=== PATIENT | female | born 1970 | race Caucasian/White ===

== ENCOUNTER 2016-11-15 11:37 | Inpatient (IN) | payer BC, OTHER ==
[~2016-11-15] VITALS: Ht 170.2 cm; Wt 64.3 kg
[2016-11-15] VITALS (27 sets, daily range): BP systolic 75–111; BP diastolic 39–62; PULSE 101–126; RESP 11–22; TEMP 98.7–100.7; O2SAT 94–100
[~2016-11-15 11:37] MED LIST: CEFU1TAB43 PO; FOLI1 PO; FOLI1TAB PO; GABA100C4 PO; HYDRO50 PO; LORA-474 PO; PANT40IN3 PO; TRAZ100 PO; VITA100T13 PO
[2016-11-15] MEDS ORDERED: SODIUM CHLOR 0.9% 1000 ML INJ 1,000 ML IV SCH (11:54)
[2016-11-15] MEDS ORDERED: PANTOPRAZOLE INJ 80 MG in SODIUM CHLORIDE 0.9% INJ 100 ML IV SCH (12:00)
[2016-11-15] MEDS ORDERED: PANTOPRAZOLE INJ 80 MG in SODIUM CHLORIDE 0.9% INJ 35 ML IV ONE (12:00)
[2016-11-15] MEDS ORDERED: SODIUM CHLORIDE 0.9% FLUSH 5 ML FLUSH IVF PRN (12:00)
[2016-11-15] MEDS ORDERED: OCTREOTIDE INJ 500 MCG in SODIUM CHLORID 0.9% 500 ML INJ 500 ML IV SCH (12:00)
[2016-11-15] MEDS ORDERED: TRAZ100T4 PO (12:10)
[2016-11-15 12:14] LABS: AUTOMATED NEUTROPHIL # 6.5 TH/MM3 (1.8-7.7); BASOPHIL # 0.1 TH/MM3 (0-0.2); BASOPHIL % 0.9 % (0.0-2.0); EOSINOPHIL % 0.1 % (0.0-4.0); HEMATOCRIT 22.9 % (35.0-46.0); LYMPH % 11.4 % (9.0-44.0); LYMPHOCYTE # 0.9 TH/MM3 (1.0-4.8); MEAN CELL VOLUME 96.8 FL (80.0-100.0); MEAN CORPUSCULAR HEMOGLOBIN 32.9 PG (27.0-34.0); MONO % 7.9 % (0.0-8.0); NEUT % 79.7 % (16.0-70.0); PLATELET COUNT 65 TH/MM3 (150-450); RED BLOOD COUNT 2.37 MIL/MM3 (4.00-5.30); RED CELL DISTRIBUTION WIDTH 16.1 % (11.6-17.2); WHITE BLOOD COUNT 8.1 TH/MM3 (4.0-11.0)
[2016-11-15 12:18] LABS: HEMO FLAGS AUTO DIFF
[2016-11-15 12:22] LABS: CHLORIDE 91 MEQ/L (98-107); POTASSIUM 3.5 MEQ/L (3.5-5.1); SODIUM (NA) 134 MEQ/L (136-145)
[2016-11-15 12:26] LABS: ANION GAP 12 MEQ/L (5-15); BICARBONATE 31.4 MEQ/L (21.0-32.0); BLOOD UREA NITROGEN 36 MG/DL (7-18)
[2016-11-15 12:27] LABS: APTT (PATIENT) 27.9 SEC (24.3-30.1); INTERNATIONAL NORMALIZED RATIO 1.4 RATIO; PROTHROMBIN TIME - PATIENT 16.1 SEC (9.8-11.6)
[2016-11-15 12:28] LABS: ALT (GPT) 46 U/L (10-53); AST (GOT) 129 U/L (15-37)
[2016-11-15 12:29] LABS: GLOMERULAR FILTRATION RATE 87 ML/MIN (>89)
[2016-11-15 12:30] LABS: TOTAL BILIRUBIN ADULT 4.6 MG/DL (0.2-1.0)
[2016-11-15 12:31] LABS: ALKALINE PHOSPHATASE 181 U/L (45-117)
[2016-11-15 12:40] LABS: PLATELET ESTIMATE SMEAR LOW (NORMAL); PLATELET MORPHOLOGY NORMAL (NORMAL); SCAN/DIFF AUTO DIFF CONFIRMED
--- NOTE | 2016-11-15 12:56 | PD ---
HPI Chief Complaint: GI Complaint Time Seen by Provider: 11:51 Travel History International Travel<30 days: No Contact w/Intl Traveler<30days: No Traveled to known affect area: No History of Present Illness HPI 44 year-old woman with a history of alcoholic cirrhosis and previous GI bleed with portal hypertension and portal gastropathy presents to the emergency department complaining of abdominal pain dark stools and vomiting blood. States she's been dizzy and weak for the past 5 days or so. She's been vomiting for the past 3 days with bloody emesis. She said dark stools. She also states she's had some fevers and chills, and esophageal discomfort. She had been sober for several months and started drinking for about a week about a week and a half ago. When the symptoms started she stop drinking. She has not drank in the past 2-3 days. History Past Medical History Narrative Medical Alcoholic cirrhosis with varices, portal gastropathy Depression Occult abuse History of seizures in the setting of alcohol withdrawal in the past Tetanus Vaccination: > 5 Years Influenza Vaccination: No : 2 Para: 2 Social History Alcohol Use: Yes (ETOH ABUSE ) Tobacco Use: Yes (1PPD) Allergies-Medications (Allergen,Severity, Reaction): Coded Allergies: Codeine (Verified Allergy, Severe, VOMITING, HALLUCINATIONS, 11/15/16) Demerol (Verified Allergy, Severe, VOMITING, HALLUCINATIONS, 11/15/16) Morphine (Verified Allergy, Severe, VOMITING, HALLUCINATIONS, 11/15/16) Reported Meds & Prescriptions Reported Meds & Active Scripts Active Reported Trazodone (Trazodone HCl) 100 Mg Tab 100 Mg PO HS Review of Systems Except as stated in HPI: all other systems reviewed are Neg Physical Exam Narrative GENERAL: 44 year-old woman, chronically ill-appearing, dehydrated. SKIN: Warm and dry. Decreased skin turgor. HEAD: Atraumatic. Normocephalic. EYES: Pupils equal and round. No scleral icterus. No injection or drainage. Mild jaundice. ENT: No nasal bleeding or discharge. Mucous membranes pink and moist. NECK: Trachea midline. No JVD. CARDIOVASCULAR: Heart rate rapid. No murmurs. RESPIRATORY: No accessory muscle use. Clear to auscultation. Breath sounds equal bilaterally. GASTROINTESTINAL: Abdomen soft, non-tender, nondistended. Hepatic and splenic margins not palpable. MUSCULOSKELETAL: No obvious deformities. No edema. NEUROLOGICAL: Awake and alert. No obvious cranial nerve deficits. Motor grossly within normal limits. Normal speech. RECTAL: Refused Data Data Last Documented VS Vital Signs Date Time Temp Pulse Resp B/P Pulse Ox O2 Delivery O2 Flow Rate FiO2 11/15/16 12:36 116 16 96/57 100 Room Air 11/15/16 11:41 98.7 Orders Complete Blood Count With Diff (11/15/16 11:54) Comprehensive Metabolic Panel (11/15/16 11:54) Lipase (11/15/16 11:54) Prothrombin Time / Inr (Pt) (11/15/16 11:54) Act Partial Throm Time (Ptt) (11/15/16 11:54) Alcohol (Ethanol) (11/15/16 11:54) Type And Screen (11/15/16 11:54) Red Blood Cells (Rbc) (11/15/16 11:54) Ecg Monitoring (11/15/16 11:54) Iv Access Insert/Monitor (11/15/16 11:54) Oximetry (11/15/16 11:54) Sodium Chlor 0.9% 1000 Ml Inj (Ns 1000 M (11/15/16 11:54) Sodium Chloride 0.9% Flush (Ns Flush) (11/15/16 12:00) Octreotide Inj (Sandostatin Inj) (11/15/16 12:00) Pantoprazole Inj (Protonix Inj) (11/15/16 12:00) Pantoprazole Inj (Protonix Inj) (11/15/16 12:00) Fresh Frozen Plasma (Ffp) (11/15/16 12:52) Blood Product Administration .UPON TRANSFUSION (11/15/16 12:52) Sodium Chlor 0.9% 250 Ml Inj (Ns 250 Ml (11/15/16 13:00) Consult Gastroenterology (11/15/16 ) Platelet Pheresis (11/15/16 13:09) Admit Order (Ed Use Only) (11/15/16 ) Labs Laboratory Tests Test 11/15/16 11/15/16 11/15/16 12:05 12:52 13:09 White Blood Count 8.1 TH/MM3 Red Blood Count 2.37 MIL/MM3 Hemoglobin 7.8 GM/DL Hematocrit 22.9 % Mean Corpuscular Volume 96.8 FL Mean Corpuscular Hemoglobin 32.9 PG Mean Corpuscular Hemoglobin 34.0 % Concent Red Cell Distribution Width 16.1 % Platelet Count 65 TH/MM3 Mean Platelet Volume 9.5 FL Neutrophils (%) (Auto) 79.7 % Lymphocytes (%) (Auto) 11.4 % Monocytes (%) (Auto) 7.9 % Eosinophils (%) (Auto) 0.1 % Basophils (%) (Auto) 0.9 % Neutrophils # (Auto) 6.5 TH/MM3 Lymphocytes # (Auto) 0.9 TH/MM3 Monocytes # (Auto) 0.6 TH/MM3 Eosinophils # (Auto) 0.0 TH/MM3 Basophils # (Auto) 0.1 TH/MM3 CBC Comment AUTO DIFF Differential Comment AUTO DIFF CONFIRMED Platelet Estimate LOW Platelet Morphology Comment NORMAL Prothrombin Time 16.1 SEC Prothromb Time International 1.4 RATIO Ratio Activated Partial 27.9 SEC Thromboplast Time Sodium Level 134 MEQ/L Potassium Level 3.5 MEQ/L Chloride Level 91 MEQ/L Carbon Dioxide Level 31.4 MEQ/L Anion Gap 12 MEQ/L Blood Urea Nitrogen 36 MG/DL Creatinine 0.73 MG/DL Estimat Glomerular Filtration 87 ML/MIN Rate Random Glucose 140 MG/DL Calcium Level 8.6 MG/DL Total Bilirubin 4.6 MG/DL Aspartate Amino Transf 129 U/L (AST/SGOT) Alanine Aminotransferase 46 U/L (ALT/SGPT) Alkaline Phosphatase 181 U/L Total Protein 6.3 GM/DL Albumin 3.1 GM/DL Lipase 87 U/L Ethyl Alcohol Level LESS THAN 3 MG/DL Blood Bank Comment [facility] Medical Decision Making Medical Screen Exam Complete: Yes Emergency Medical Condition: Yes Interpretation(s) LABS: CBC remarkable for hemoglobin of 7.8, platelet count 65 CMP remarkable for BUN of 36, total bili 4.6 Lipase normal INR 1.4 Alcohol negative Differential Diagnosis Gastropathy, variceal bleeding, coagulopathy, anemia, other Narrative Course Medical decision making 45-year-old woman with known cirrhosis, portal hypertension gastropathy and history of varices, presents with weakness fatigue and hematemesis/melena, elevated heart rate. Concern for occult withdrawal as well. Patient will be type and cross. IV fluids. Blood transfusion. Octreotide. PPI bolus and drip. Patient was admitted to the ICU at the [facility]. Diagnosis Primary Impression: GI bleeding Qualified Code: K92.0 - Gastrointestinal hemorrhage with hematemesis Additional Impressions: Anemia Qualified Code: D64.9 - Anemia, unspecified type Cirrhosis Qualified Code: K70.30 - Alcoholic cirrhosis of liver without ascites Admitting Information Admitting Physician Requests: it Efraín Stewart MD Nov 15, 2016 12:56
[2016-11-15] MEDS ORDERED: SODIUM CHLOR 0.9% 250 ML INJ 250 ML IV ONE (13:00)
[2016-11-15] MEDS ORDERED: MISCELLANEOUS NURSING INFORMATION XX SCH (15:00)
[2016-11-15] MEDS ORDERED: RESP: ALBUTEROL 2.5 MG/IPRATROPIUM 0.5 MG NEB (PRN) INH (15:00)
[2016-11-15] MEDS ORDERED: SODIUM CHLORIDE 0.9% FLUSH 5 ML FLUSH IV FLUSH PRN (15:00)
[2016-11-15] MEDS ORDERED: CHLORHEXIDINE GLUCONATE 2 % 1 PACK (2 CLOTHS) TOP PRN (15:00)
[2016-11-15] MEDS: SODIUM CHLOR 0.9% 1000 ML INJ 1,000 ML IV SCH (15:14)
--- NOTE | 2016-11-15 16:01 | PD.CONS ---
HPI History of Present Illness This is a 45 year old female with a history of Acholic liver cirrhosis and previous GI bleed with portal hypertension and portal gastropathy and esophageal varices who presented to the emergency department with complaints of abdominal pain, black stools and vomiting blood. She has been feeling weak an dizzy for the past 5 days and dark stools and vomiting blood started about 3 days ago.she has also had fever and chills, and esophageal discomfort. She states she stopped drinking for about 2 months then started drinking about 2 weeks ago. She stopped drinking when the symptoms started and has not drank in the past 2 to 3 days. She had a colonoscopy about 2 years ago which she thinks was normal and an EGD was done on 05/30/16 which showed probable bleed, portal gastropathy and gastric irritation secondary to ETOH. She is C/O nausea, has generalized abdominal tenderness. PFSH Past Medical History Alcoholic cirrhosis Esophageal varices GI bleed Depression Alcohol abuse Hx of ETOH with drawl seizures Past Surgical History Partial hysterectomy EGD/Colonoscopy Foot surgery Coded Allergies: Codeine (Verified Allergy, Severe, VOMITING, HALLUCINATIONS, 11/15/16) Demerol (Verified Allergy, Severe, VOMITING, HALLUCINATIONS, 11/15/16) Morphine (Verified Allergy, Severe, VOMITING, HALLUCINATIONS, 11/15/16) Medications Reported Meds & Active Scripts Active Reported Trazodone (Trazodone HCl) 100 Mg Tab 100 Mg PO HS Family History Mother healthy and living, father probable hyperlipidemia Social History Smokes tobacco occasionally and drinks alcohol Review of Systems Gastrointestinal: COMPLAINS OF: Abdominal pain, Black stools, Nausea, Hematemesis GI Exam Vitals I&O Vital Signs Date Time Temp Pulse Resp B/P Pulse Ox O2 Delivery O2 Flow Rate FiO2 11/15/16 15:21 99.2 109 16 75/43 99 Room Air 11/15/16 15:16 99.5 111 16 76/40 99 Room Air 11/15/16 15:03 99.3 108 16 85/45 99 Room Air 11/15/16 14:54 99.7 105 16 94/49 99 Room Air 11/15/16 14:46 99.7 107 16 87/47 99 Room Air 11/15/16 14:42 109 17 80/45 100 Room Air 11/15/16 14:36 99.2 114 16 79/44 99 Room Air 11/15/16 12:36 116 16 96/57 100 Room Air 11/15/16 12:00 98 Room Air 11/15/16 11:41 98.7 126 16 111/62 100 I/O 11/14/16 11/14/16 11/14/16 11/15/16 11/15/16 11/15/16 07:00 15:00 23:00 07:00 15:00 23:00 Intake Total 289 ml Output Total 400 ml Balance -400 ml 289 ml Intake Platelets 289 ml Output Urine Total 400 ml # Voids 1 Laboratory Test 11/15/16 11/15/16 11/15/16 12:05 12:52 13:09 White Blood Count 8.1 TH/MM3 Red Blood Count 2.37 MIL/MM3 Hemoglobin 7.8 GM/DL Hematocrit 22.9 % Mean Corpuscular Volume 96.8 FL Mean Corpuscular Hemoglobin 32.9 PG Mean Corpuscular Hemoglobin 34.0 % Concent Red Cell Distribution Width 16.1 % Platelet Count 65 TH/MM3 Mean Platelet Volume 9.5 FL Neutrophils (%) (Auto) 79.7 % Lymphocytes (%) (Auto) 11.4 % Monocytes (%) (Auto) 7.9 % Eosinophils (%) (Auto) 0.1 % Basophils (%) (Auto) 0.9 % Neutrophils # (Auto) 6.5 TH/MM3 Lymphocytes # (Auto) 0.9 TH/MM3 Monocytes # (Auto) 0.6 TH/MM3 Eosinophils # (Auto) 0.0 TH/MM3 Basophils # (Auto) 0.1 TH/MM3 CBC Comment AUTO DIFF Differential Comment AUTO DIFF CONFIRMED Platelet Estimate LOW Platelet Morphology Comment NORMAL Prothrombin Time 16.1 SEC Prothromb Time International 1.4 RATIO Ratio Activated Partial 27.9 SEC Thromboplast Time Sodium Level 134 MEQ/L Potassium Level 3.5 MEQ/L Chloride Level 91 MEQ/L Carbon Dioxide Level 31.4 MEQ/L Anion Gap 12 MEQ/L Blood Urea Nitrogen 36 MG/DL Creatinine 0.73 MG/DL Estimat Glomerular Filtration 87 ML/MIN Rate Random Glucose 140 MG/DL Calcium Level 8.6 MG/DL Total Bilirubin 4.6 MG/DL Aspartate Amino Transf 129 U/L (AST/SGOT) Alanine Aminotransferase 46 U/L (ALT/SGPT) Alkaline Phosphatase 181 U/L Total Protein 6.3 GM/DL Albumin 3.1 GM/DL Lipase 87 U/L Ethyl Alcohol Level LESS THAN 3 MG/DL Blood Type AB POSITIVE Antibody Screen NEGATIVE Crossmatch Leukocyte-Reduced Red Blood Cells Blood Bank Comment Physical Examination HEENT: Pupils round and reactive to light; normocephalic; atraumatic;sclera is jaundiced. Throat is clear. NECK: Neck is supple, no JVD, no lymphadenopathy. CHEST: Chest is clear to auscultation and percussion. CARDIAC: Regular rate and rhythm with no murmur gallop or rubs. ABDOMEN: Soft, nondistended, generalized tenderness; no hepatosplenomegaly; bowel sounds are present in all four quadrants. EXTREMITIES: No clubbing, cyanosis, or edema. SKIN: Jaundice, no rash DRAWING BOX TENDER: No focal deficits; alert and oriented times three. Assessment and Plan Assessment: (1) GI bleeding Plan: H&H is 7.8/22.9 Had Black stools and hematemesis Weakness EGD in AM Continue Protonix drip Octreotide drip (2) Acute blood loss anemia Plan: Secondary to GI bleed Follow H&H transfuse PRBC's to keep Hbg > 7.0 < (3) Thrombocytopenia Plan: Platelets are 65 Secondary to liver Cirrhosis (4) Alcoholic cirrhosis of liver Plan: Alcohol cessation encouraged (5) ETOH abuse Plan: Cessation encouraged (6) Nausea Plan: C/O nausea Add Zofran (7) Elevated LFTs Plan: LFT's elevated --Bilirubin is 4.6, AST 129, ALT is 46, Alk phos is 181 Plan This is a pleasant 45 year old female with a known Hx of ETOH abuse, alcoholic liver cirrhosis, ETOH abuse, and GI bleeds in the past.Last EGD was 05/30/16. She presented to the ED with C/O black stools, vomiting blood, generalized weakness and nausea. She has thrombocytopenia, elevated LFT's. She is awaiting transfer to [facility] ICU. Plan -Continue Protonix drip -Continue Octreotide drip -Follow H&H closely and transfuse PRBC's to keep Hgb > 7.0 -Check LFT's in am -IV fluids -Call GI for any bleeding -Obtain consent for EGD in AM -NPO -Add Zofran for nausea -Supportive care Further recommendations to follow Patient was seen and examined by Dr. Alas and myself, this note is written on his behalf. Problem Qualifiers (1) GI bleeding: Qualified Code: K92.0 - Gastrointestinal hemorrhage with hematemesis (2) Alcoholic cirrhosis of liver: Qualified Code: K70.30 - Alcoholic cirrhosis of liver without ascites Kassy Hernandez Nov 15, 2016 16:01
[2016-11-15] MEDS ORDERED: TERBUTALINE INJ 1 MG/ML AMP SQ PRN (16:30)
[2016-11-15] MEDS: ONDANSETRON HCL 4 MG/2 ML VIAL IV PUSH PRN (16:31)
[2016-11-15 16:43] LABS: REVIEW FLAG FINAL
[2016-11-15 16:44] LABS: HEMATOCRIT 14.9 % (35.0-46.0)
[2016-11-15] MEDS: cefTRIAXone INJ 1,000 MG in SODIUM CHLORIDE 0.9% INJ 100 ML IV SCH (17:08)
--- NOTE | 2016-11-15 17:11 | RADHPO ---
EXAM DATE/TIME: 11/15/2016 16:51 [place] COMPARISON: No previous studies available for comparison. INDICATIONS : Post central line placement. MEDICAL HISTORY : Cirrhosis. Seizures SURGICAL HISTORY : Hysterectomy. Right knee arthroscopy ENCOUNTER: Initial ACUITY: 1 day PAIN SCORE: 2/10 LOCATION: Bilateral chest FINDINGS: Single AP view of the chest. Right IJ central venous catheter in place with the tip in the region of the cavoatrial junction. The lungs are clear. Cardiomediastinal silhouette within normal limits. No e vidence of pleural effusion or pneumothorax. CONCLUSION: No acute cardiopulmonary disease identified. Eleuterio Bower MD on November 15, 2016 at 17:09 Board Certified Radiologist. This report was verified electronically.
[2016-11-15] MEDS: NOREPINEPHRINE-DEXTROSE DRIP 250 ML IV SCH (17:27)
[2016-11-15] MEDS: PANTOPRAZOLE INJ 80 MG in SODIUM CHLORIDE 0.9% INJ 100 ML IV SCH (19:59)
[2016-11-15] MEDS: SODIUM CHLORIDE 0.9% FLUSH 5 ML FLUSH IV FLUSH SCH (21:00)
--- NOTE | 2016-11-15 22:17 | HHI.HP ---
HPI Service Critical Care Medicine Primary Care Physician No Primary Care Physician Admission Diagnosis Gi Bleed, Cirrhosis Diagnosis: Travel History International Travel<30 Days: No Contact w/Intl Traveler <30 Da: No Traveled to Known Affected Are: No History of Present Illness 45 year old female with a history of Acholic liver cirrhosis and previous GI bleed with portal hypertension and portal gastropathy and esophageal varices presents to the emergency department with complaints of abdominal pain, black stools and vomiting blood. She has been feeling weak an dizzy for the past 5 days and dark stools and vomiting blood started about 3 days ago. She has also had fever and chills, and esophageal discomfort. She stopped drinking for about 2 months then started drinking about 2 weeks ago. She stopped drinking when the symptoms started and has not drank in the past 2 to 3 days. She had a colonoscopy about 2 years ago which she thinks was normal and an EGD was done on 05/30/16 which showed probable bleed, portal gastropathy and gastric irritation secondary to ETOH. Review of Systems Constitutional: DENIES: Diaphoretic episodes, Fatigue, Fever, Weight gain, Weight loss, Chills, Dizziness, Change in appetite, Night Sweats Endocrine: DENIES: Abnorml menstrual pattern, Heat/cold intolerance, Polydipsia , Polyuria, Polyphagia Eyes: DENIES: Blurred vision, Diplopia, Eye inflammation, Eye pain, Vision loss , Photosensitivity, Double Vision Ears, nose, mouth, throat: DENIES: Tinnitus, Hearing loss, Vertigo, Nasal discharge, Oral lesions, Throat pain, Hoarseness, Ear Pain, Running Nose, Epistaxis, Sinus Pain, Toothache, Odynophagia Respiratory: DENIES: Apneas, Cough, Snoring, Wheezing, Hemoptysis, Sputum production, Shortness of breath Cardiovascular: DENIES: Chest pain, Palpitations, Syncope, Dyspnea on Exertion , PND, Lower Extremity Edema, Orthopnea, Claudication Gastrointestinal: COMPLAINS OF: Abdominal pain, Black stools, Nausea, Vomiting , DENIES: Bloody stools, Constipation, Diarrhea, Difficulty Swallowing, Anorexia Genitourinary: DENIES: Abnormal vaginal bleeding, Dysmenorrhea, Dyspareunia, Sexual dysfunction, Urinary frequency, Urinary incontinence, Urgency, Hematuria , Dysuria, Nocturia, Vaginal discharge Musculoskeletal: DENIES: Joint pain, Muscle aches, Stiffness, Joint Swelling, Back pain, Neck pain Integumentary: DENIES: Abnormal pigmentation, Pruritus, Rash, Nail changes, Breast masses, Breast skin changes, Nipple discharge Hematologic/lymphatic: DENIES: Bruising, Lymphadenopathy Immunologic/allergic: DENIES: Eczema, Urticaria Neurologic: DENIES: Abnormal gait, Headache, Localized weakness, Paresthesias, Seizures, Speech Problems, Tremor, Poor Balance Psychiatric: DENIES: Anxiety, Confusion, Mood changes, Depression, Hallucinations, Agitation, Suicidal Ideation, Homicidal Ideation, Delusions Past Family Social History Allergies: Coded Allergies: Codeine (Verified Allergy, Severe, VOMITING, HALLUCINATIONS, 11/15/16) Demerol (Verified Allergy, Severe, VOMITING, HALLUCINATIONS, 11/15/16) Morphine (Verified Allergy, Severe, VOMITING, HALLUCINATIONS, 11/15/16) Past Medical History PFSH Alcoholic cirrhosis Esophageal varices GI bleed Depression Alcohol abuse Hx of ETOH with drawl seizures Past Surgical History Partial hysterectomy EGD/Colonoscopy Foot surgery Reported Medications Reported Meds & Active Scripts Active Reported Trazodone (Trazodone HCl) 100 Mg Tab 100 Mg PO HS Active Ordered Medications Current Medications Medications (Trade) Dose Ordered Sig/Chantal Route PRN Reason Start Time Stop Time Status Last Admin Dose Admin IV Flush 2 ml 2 ml UNSCH PRN IVF FLUSH AFTER USING IV ACCESS 11/15/16 12:00 Sodium Chloride 250 ml @ 15 mls/hr ONCE ONCE IV 11/15/16 13:00 11/16/16 05:39 11/15/16 15:13 Sodium Chloride (NS 1000 ml Inj) 1,000 ml @ 84 mls/hr [id number] IV 11/15/16 14:46 11/15/16 15:14 IV Flush (NS Flush) 2 ml UNSCH PRN IV FLUSH FLUSH AFTER USING IV ACCESS 11/15/16 15:00 IV Flush (NS Flush) 2 ml BID IV FLUSH 11/15/16 21:00 11/15/16 21:00 Lorazepam (Ativan Inj) 2 mg Q4H PRN IV Agitation/Sedation 11/15/16 15:00 Miscellaneous Information 1 [id number] XX 11/15/16 15:00 Chlorhexidine Gluconate (Chlorhexidine 2% Cloth) 3 pack Taper DAILY@04 TOP 11/16/16 04:00 11/12/17 03:59 Chlorhexidine Gluconate 3 pack 3 pack UNSCH PRN TOP HYGIENIC CARE 11/15/16 15:00 Pantoprazole Sodium 80 mg/ Sodium Chloride 100 ml @ 10 mls/hr Q10H IV 11/15/16 23:00 11/15/16 19:59 Octreotide Acetate 500 mcg/ Sodium Chloride 500 ml @ 50 mls/hr Q10H IV 11/15/16 23:00 11/15/16 22:19 Ceftriaxone Sodium/Sodium Chloride (Rocephin Inj/NS Inj) 100 ml @ 200 mls/hr Q24H IV 11/15/16 16:00 11/15/16 17:08 Ondansetron HCl 4 mg 4 mg Q6HR PRN IV PUSH NAUSEA 11/15/16 15:30 11/15/16 16:31 Norepinephrine Bitartrate (Levophed-Dextrose Drip) 250 ml @ 0 mls/hr TITRATE IV 11/15/16 16:30 11/15/16 17:27 Terbutaline Sulfate (Brethine Inj) 1 mg UNSCH PRN SQ For Extravasation 11/15/16 16:30 Family History Noncontributory Social History She stopped drinking for about 2 months then started drinking about 2 weeks ago. She stopped drinking when the symptoms started and has not drank in the past 2 to 3 days. Physical Exam Vital Signs Vital Signs Date Time Temp Pulse Resp B/P Pulse Ox O2 Delivery O2 Flow Rate FiO2 11/15/16 20:30 100.7 107 16 102/54 95 11/15/16 20:00 100.7 107 22 96/54 94 11/15/16 20:00 107 11/15/16 18:30 101 11/15/16 18:30 100.7 101 11 107/58 96 11/15/16 18:20 100.0 102 12 84/49 97 Room Air 11/15/16 18:15 104 12 77/45 96 Room Air 11/15/16 18:10 103 14 93/50 97 Room Air 11/15/16 18:05 100.4 103 14 83/48 98 Room Air 11/15/16 17:55 99.5 106 14 90/40 100 Room Air 11/15/16 17:45 101 14 82/43 97 Room Air 11/15/16 17:20 99.5 108 14 78/41 99 11/15/16 17:10 99.7 101 16 79/39 99 Room Air 11/15/16 16:45 99.0 108 16 84/40 99 Room Air 11/15/16 16:30 99.3 109 16 81/43 97 Room Air 11/15/16 16:20 99.5 114 16 77/44 97 11/15/16 15:29 99.3 112 16 75/43 99 Room Air 11/15/16 15:21 99.2 109 16 75/43 99 Room Air 11/15/16 15:16 99.5 111 16 76/40 99 Room Air 11/15/16 15:03 99.3 108 16 85/45 99 Room Air 11/15/16 14:54 99.7 105 16 94/49 99 Room Air 11/15/16 14:46 99.7 107 16 87/47 99 Room Air 11/15/16 14:42 109 17 80/45 100 Room Air 11/15/16 14:36 99.2 114 16 79/44 99 Room Air 11/15/16 12:36 116 16 96/57 100 Room Air 11/15/16 12:00 98 Room Air 11/15/16 11:41 98.7 126 16 111/62 100 Physical Exam GENERAL: Well-nourished, well-developed patient. SKIN: Warm and dry. HEAD: Normocephalic. EYES: No scleral icterus. No injection or drainage. NECK: Supple, trachea midline. No JVD or lymphadenopathy. CARDIOVASCULAR: Regular rate and rhythm without murmurs, gallops, or rubs. RESPIRATORY: Breath sounds equal bilaterally. No accessory muscle use. GASTROINTESTINAL: Abdomen soft, non-tender, nondistended. MUSCULOSKELETAL: No cyanosis, or edema. BACK: Nontender without obvious deformity. No CVA tenderness. Laboratory Laboratory Tests Test 11/15/16 11/15/16 11/15/16 11/15/16 12:05 12:52 13:09 16:25 White Blood Count 8.1 Red Blood Count 2.37 Hemoglobin 7.8 5.2 Hematocrit 22.9 14.9 Mean Corpuscular Volume 96.8 Mean Corpuscular Hemoglobin 32.9 Mean Corpuscular Hemoglobin 34.0 Concent Red Cell Distribution Width 16.1 Platelet Count 65 Mean Platelet Volume 9.5 Neutrophils (%) (Auto) 79.7 Lymphocytes (%) (Auto) 11.4 Monocytes (%) (Auto) 7.9 Eosinophils (%) (Auto) 0.1 Basophils (%) (Auto) 0.9 Neutrophils # (Auto) 6.5 Lymphocytes # (Auto) 0.9 Monocytes # (Auto) 0.6 Eosinophils # (Auto) 0.0 Basophils # (Auto) 0.1 CBC Comment AUTO DIFF Differential Comment AUTO DIFF CONFIRMED Platelet Estimate LOW Platelet Morphology Comment NORMAL Prothrombin Time 16.1 Prothromb Time International 1.4 Ratio Activated Partial 27.9 Thromboplast Time Sodium Level 134 Potassium Level 3.5 Chloride Level 91 Carbon Dioxide Level 31.4 Anion Gap 12 Blood Urea Nitrogen 36 Creatinine 0.73 Estimat Glomerular Filtration 87 Rate Random Glucose 140 Calcium Level 8.6 Total Bilirubin 4.6 Aspartate Amino Transf 129 (AST/SGOT) Alanine Aminotransferase 46 (ALT/SGPT) Alkaline Phosphatase 181 Total Protein 6.3 Albumin 3.1 Lipase 87 Ethyl Alcohol Level LESS THAN 3 Blood Type AB POSITIVE Antibody Screen NEGATIVE Crossmatch Leukocyte-Reduced Red Blood Cells Blood Bank Comment Test 11/15/16 11/15/16 11/15/16 18:50 19:27 19:30 Nasal Screen MRSA (PCR) NEGATIVE Blood Type AB POSITIVE Crossmatch Leukocyte-Reduced Red Blood Cells Blood Bank Comment Result Diagram: 11/15/16 1625 11/15/16 1205 Imaging Last 24 hours Impressions Chest X-Ray 11/15/16 0000 Signed Impressions: Service Date/Time: November 16:51 - CONCLUSION: No acute cardiopulmonary disease identified. Eleuterio Bower MD Assessment and Plan Problem List: (1) Alcoholic cirrhosis of liver ICD Code: K70.30 Status: Acute (2) Acute blood loss anemia ICD Code: D62 Status: Acute (3) GI bleeding ICD Code: K92.2 Status: Acute (4) Thrombocytopenia ICD Code: D69.6 Status: Acute (5) Nausea ICD Code: R11.0 Status: Acute (6) ETOH abuse ICD Code: F10.10 Status: Acute Assessment and Plan Gastrointestinal bleed - Due to alcoholic cirrhosis - And portal hypertension - Octreotide - Protonix - GI consult appreciated Hypotension - Levophed - IV fluids resuscitation - Albumin IV - Blood transfusion is needed Acute blood loss anemia - Due to above - Transfuse red blood cells as needed to keep her hemoglobin above 7 - Monitor serial H&H Thrombocytopenia - Due to liver cirrhosis - Transfuse one sixpack of platelets Alcohol use disorder - C I WA protocol - Ativan when necessary DVT GI prophylaxis - Isaac's and SCDs Protonix drip Critical Care: The total critical care time was 35 minutes. Time to perform other separately billable procedures was not included in the critical care time. Problem Qualifiers (1) Alcoholic cirrhosis of liver: Qualified Code: K70.30 - Alcoholic cirrhosis of liver without ascites (2) GI bleeding: Qualified Code: K92.0 - Gastrointestinal hemorrhage with hematemesis Eliceo Chavez MD Nov 15, 2016 22:17
[2016-11-15] MEDS: OCTREOTIDE INJ 500 MCG in SODIUM CHLORID 0.9% 500 ML INJ 499.5 ML IV SCH (22:19)
[2016-11-15] MEDS ORDERED: SODIUM CHLOR 0.9% 1000 ML INJ 1,000 ML IV ONE (22:45)
[2016-11-15] MEDS: ALBUMIN HUMAN 5% 25 GM/500 ML BOTTLE IV SCH (23:02)
[2016-11-15 23:21] LABS: REVIEW FLAG FINAL
[2016-11-15 23:23] LABS: HEMATOCRIT 18.7 % (35.0-46.0)
[2016-11-16] VITALS (14 sets, daily range): BP systolic 92–120; BP diastolic 50–70; PULSE 108–122; RESP 15–29; TEMP 99.4–100.3; O2SAT 92–95
[2016-11-16] MEDS ORDERED: HYDROmorphone HCL PF 1 MG/ML VIAL IV PRN
[2016-11-16] MEDS: ONDANSETRON HCL 4 MG/2 ML VIAL IV PUSH PRN ×2 (01:02→06:59)
[2016-11-16] MEDS: SODIUM CHLOR 0.9% 1000 ML INJ 1,000 ML IV SCH ×3 (03:10→23:35)
[2016-11-16] MEDS: CHLORHEXIDINE GLUCONATE 2 % 1 PACK (2 CLOTHS) TOP SCH (04:00)
[2016-11-16 04:34] LABS: AUTOMATED NEUTROPHIL # 3.6 TH/MM3 (1.8-7.7); EOSINOPHIL % 0.4 % (0.0-4.0); HEMATOCRIT 22.8 % (35.0-46.0); LYMPHOCYTE # 0.3 TH/MM3 (1.0-4.8); MEAN CORPUSCULAR HEMOGLOBIN 31.1 PG (27.0-34.0); MEAN CORPUSCULAR HGB CONC 35.4 % (32.0-36.0); MONO % 7.9 % (0.0-8.0); NEUT % 84.7 % (16.0-70.0); PLATELET COUNT 61 TH/MM3 (150-450); RED BLOOD COUNT 2.59 MIL/MM3 (4.00-5.30); RED CELL DISTRIBUTION WIDTH 20.2 % (11.6-17.2); WHITE BLOOD COUNT 4.3 TH/MM3 (4.0-11.0)
[2016-11-16 04:46] LABS: HEMO FLAGS AUTO DIFF
[2016-11-16 05:06] LABS: BICARBONATE 26.7 MEQ/L (21.0-32.0); CALCIUM-PROTEIN CORRECTED 8.1 MG/DL (8.5-10.1)
[2016-11-16 05:30] LABS: TOTAL BILIRUBIN ADULT 6.6 MG/DL (0.2-1.0)
[2016-11-16 05:31] LABS: POTASSIUM 2.7 MEQ/L (3.5-5.1)
[2016-11-16] MEDS: PANTOPRAZOLE INJ 80 MG in SODIUM CHLORIDE 0.9% INJ 100 ML IV SCH ×2 (05:55→18:15)
[2016-11-16 07:37] LABS: BANDS 10 % (0-6); NEUTROPHIL # MANUAL DIFF 3.7 TH/MM3 (1.8-7.7); PLATELET ESTIMATE SMEAR LOW (NORMAL); PLATELET MORPHOLOGY NORMAL (NORMAL); POLYS (SEG NEUTROPHILS) 76 % (16-70); SCAN/DIFF FINAL DIFF MANUAL; WBC DIFF SAMPLE 100
[2016-11-16 07:39] LABS: TOXIC VACUOLATION PRESENT (NONE SEEN)
[2016-11-16] MEDS ORDERED: ICU - POTASSIUM PHOSPHATE MONOBASIC 500 MG TAB PO/TUBE PRN (08:00)
[2016-11-16] MEDS ORDERED: ICU - MAGNESIUM SULFATE 4 GM/NS 100 ML IV PRN ×2 (08:00)
[2016-11-16] MEDS ORDERED: ICU - SODIUM PHOSPHATE 30 MMOL/NS 250 ML IV PRN ×2 (08:00)
[2016-11-16] MEDS ORDERED: ICU - MAGNESIUM OXIDE 400 MG TAB PO PRN (08:00)
[2016-11-16] MEDS ORDERED: ICU - MAGNESIUM SULFATE 2 GM/NS 100 ML IV PRN ×2 (08:00)
[2016-11-16] MEDS ORDERED: ICU - CALL ORDERING PHYSICIAN XX PRN (08:00)
[2016-11-16] MEDS ORDERED: ICU - POTASSIUM CHLORIDE 10% LIQUID 40 MEQ/30 ML CUP PO PRN (08:00)
[2016-11-16] MEDS ORDERED: ICU - D/C ICU ELECTROLYTE ORDERS XX PRN (08:00)
[2016-11-16] MEDS ORDERED: ICU - POTASSIUM CHLORIDE/AQUEOUS SOLN 20 MEQ/100 ML IVPB IV PRN (08:00)
[2016-11-16] MEDS: POTASSIUM CHLOR 40 MEQ PREMIX 100 ML IV SCH ×2 (09:14→12:08)
[2016-11-16] MEDS: SODIUM CHLORIDE 0.9% FLUSH 5 ML FLUSH IV FLUSH SCH ×2 (09:14→20:17)
[2016-11-16] MEDS: OCTREOTIDE INJ 500 MCG in SODIUM CHLORID 0.9% 500 ML INJ 499.5 ML IV SCH ×2 (10:37→18:15)
[2016-11-16] MEDS: ALBUMIN HUMAN 5% 25 GM/500 ML BOTTLE IV SCH ×2 (10:43→22:25)
[2016-11-16 11:28] LABS: HEMATOCRIT 22.3 % (35.0-46.0)
[2016-11-16] MEDS ORDERED: PROPOFOL 200 MG/20 ML AMP IV ONE (11:28)
[2016-11-16 11:30] LABS: REVIEW FLAG FINAL
[2016-11-16] MEDS: NOREPINEPHRINE-DEXTROSE DRIP 250 ML IV SCH (12:08)
--- NOTE | 2016-11-16 16:11 | HHI.CCPN ---
Subjective Remarks/Hospital Course 45 year old female with a history of Acholic liver cirrhosis and previous GI bleed with portal hypertension and portal gastropathy and esophageal varices presents to the emergency department with complaints of abdominal pain, black stools and vomiting blood. She has been feeling weak an dizzy for the past 5 days and dark stools and vomiting blood started about 3 days ago. She has also had fever and chills, and esophageal discomfort. She stopped drinking for about 2 months then started drinking about 2 weeks ago. She stopped drinking when the symptoms started and has not drank in the past 2 to 3 days. She had a colonoscopy about 2 years ago which she thinks was normal and an EGD was done on 05/30/16 which showed probable bleed, portal gastropathy and gastric irritation secondary to ETOH. Subjective 3 The patient continued on octreotide and Protonix infusions overnight. The patient required levo fed currently at 4 mcgs. The patient is alert and oriented denies pain. Plan for today is an EGD. Objective Vital Signs Date Time Temp Pulse Resp B/P Pulse Ox O2 Delivery O2 Flow Rate FiO2 11/16/16 14:00 112 11/16/16 12:00 99.4 23 96/55 95 11/15/16 18:20 Room Air Intake and Output 11/15/16 11/15/16 11/16/16 08:00 16:00 00:00 Intake Total 289 ml 3746 ml Output Total 400 ml 750 ml Balance -111 ml 2996 ml Result Diagram: 11/16/16 1100 11/16/16 0401 Imaging Last 24 hours Impressions Chest X-Ray 11/15/16 0000 Signed Impressions: Service Date/Time: November 16:51 - CONCLUSION: No acute cardiopulmonary disease identified. Eleuterio Bower MD Objective Remarks GENERAL: Well-nourished, well-developed female patient SKIN: Warm and dry. HEAD: Normocephalic. EYES: No scleral icterus. No injection or drainage. NECK: Supple, trachea midline. No JVD or lymphadenopathy. CARDIOVASCULAR: Regular rate and rhythm without murmurs,S1, S2 no gallops, or rubs. RESPIRATORY: Breath sounds equal bilaterally. No accessory muscle use. GASTROINTESTINAL: Abdomen soft, non-tender, nondistended. MUSCULOSKELETAL: No cyanosis, or edema. NEURO: GCS 15, denies pain Procedures EGD planned for today Urinary Catheter: Yes Moy insert reason: Measure Accurate Output Date of Insertion: Nov 15, 2016 Vascular Central Line Catheter: No A/P Problem List: (1) Alcoholic cirrhosis of liver ICD Code: K70.30 Status: Acute (2) Acute blood loss anemia ICD Code: D62 Status: Acute (3) GI bleeding ICD Code: K92.2 Status: Acute (4) Thrombocytopenia ICD Code: D69.6 Status: Acute (5) Nausea ICD Code: R11.0 Status: Acute (6) ETOH abuse ICD Code: F10.10 Status: Acute Assessment and Plan Gastrointestinal bleed-secondary to alcoholic cirrhosis and portal hypertension Coagulopathy - Octreotide infusion - Protonix infusion - GI following-EGD schedule this a.m., Dr. De La Cruz -INR 1.4 -Add vitamin K to medication regimen daily -Multivitamin bag 3 days Hypotension -Maintain MAP greater than 65 - Levophed - IV fluids normal saline at 84 cc/hour - Albumin IV Acute blood loss anemia - Transfuse red blood cells as needed to keep her hemoglobin above 7 - Monitor serial H&H every 6 hours Thrombocytopenia - Due to liver cirrhosis - S/P transfusion one pack of platelets Alcohol use disorder - CIWA protocol - Ativan when necessary DVT GI prophylaxis - Isaac's and SCDs Protonix drip my billing statement This patient remains critically ill with one or more organ systems which are or may become a threat to life. I have spent in excess of 43 minutes discontinuously in the care and management of this patient. This time is exclusive of procedures, and includes, but is not limited to, evaluation of the patient, review of the medical record, discussions with family, consultants, nursing staff, or respiratory therapy, and documentation in the medical record. Dispo: EGD was performed, the patient's diet was advanced to heart healthy. The patient continues to need vasopressor support Physician Enma Garland Problem Qualifiers (1) Alcoholic cirrhosis of liver: Qualified Code: K70.30 - Alcoholic cirrhosis of liver without ascites (2) GI bleeding: Qualified Code: K92.0 - Gastrointestinal hemorrhage with hematemesis Enma Garland MD Nov 16, 2016 16:11
[2016-11-16 16:32] LABS: HEMATOCRIT 22.6 % (35.0-46.0)
[2016-11-16 16:33] LABS: REVIEW FLAG FINAL
[2016-11-16] MEDS: MULTIVITAMIN INJ 10 ML, THIAMINE INJ 100 MG, FOLIC ACID INJ 1 MG in SODIUM CHLORID 0.9%... IV SCH (18:14)
[2016-11-16] MEDS: cefTRIAXone INJ 1,000 MG in SODIUM CHLORIDE 0.9% INJ 100 ML IV SCH (18:15)
[2016-11-16] MEDS: ICU - POTASSIUM CHLORIDE/AQUEOUS SOLN 40 MEQ/100 ML IVPB IV PRN (20:17)
[2016-11-16 23:10] LABS: HEMATOCRIT 22.8 % (35.0-46.0)
[2016-11-16 23:14] LABS: REVIEW FLAG FINAL
[2016-11-16] MEDS: LORazepam 2 MG/ML VIAL IV PRN (23:17)
[2016-11-17] VITALS (10 sets, daily range): BP systolic 93–138; BP diastolic 50–74; PULSE 77–139; RESP 24–38; TEMP 98.4–100.3; O2SAT 90–98
[2016-11-17] MEDS ORDERED: RESP: ALBUTEROL 2.5 MG/3 ML NEB (PRN) NEB (00:30)
[2016-11-17] MEDS ORDERED: FUROSEMIDE 20 MG/2 ML VIAL IV PUSH ONE ×2 (00:30→11:15)
[2016-11-17] MEDS ORDERED: POTASSIUM CL 40 MEQ/30 ML LIQ UDC PO ONE (00:30)
[2016-11-17] MEDS: DEXMEDETOMIDINE INJ 50 ML IV SCH ×3 (00:39→08:39)
--- NOTE | 2016-11-17 01:06 | RADRPT ---
EXAM DATE/TIME: 11/17/2016 00:39 [facility] COMPARISON: CHEST SINGLE AP, November 15, 2016, 16:51. INDICATIONS : Respiratory distress. MEDICAL HISTORY : Cirrhosis. Seizures. SURGICAL HISTORY : None. ENCOUNTER: Initial ACUITY: 1 day PAIN SCORE: Non-responsive. LOCATION: Bilateral chest FINDINGS: Portable AP view of the chest demonstrates a normal-sized cardiac silhouette. The right IJ line is no t well-visualized the distal tip is likely in the superior vena cava. Lungs are underinflated and the re is bibasilar airspace opacity with possible pleural based opacities as well. No pneumothorax is vi sualized. CONCLUSION: Increased airspace consolidation in the lower lung zones bilaterally with likely small bilateral pleu ral effusions. In the appropriate clinical setting this could represent pulmonary edema. Jam Ayala MD on November 17, 2016 at 1:03 Board Certified Radiologist. This report was verified electronically.
[2016-11-17] MEDS: PANTOPRAZOLE INJ 80 MG in SODIUM CHLORIDE 0.9% INJ 100 ML IV SCH (02:38)
[2016-11-17] MEDS: CHLORHEXIDINE GLUCONATE 2 % 1 PACK (2 CLOTHS) TOP SCH (02:39)
[2016-11-17] MEDS: RESP: ALBUTEROL 2.5 MG/IPRATROPIUM 0.5 MG NEB (SCH) NEB ×4 (03:32→19:34)
[2016-11-17 04:25] LABS: HEMATOCRIT 24.5 % (35.0-46.0); MEAN CELL VOLUME 89.6 FL (80.0-100.0); MEAN CORPUSCULAR HEMOGLOBIN 31.2 PG (27.0-34.0); MEAN CORPUSCULAR HGB CONC 34.8 % (32.0-36.0); RED BLOOD COUNT 2.74 MIL/MM3 (4.00-5.30); RED CELL DISTRIBUTION WIDTH 21.6 % (11.6-17.2); WHITE BLOOD COUNT 6.5 TH/MM3 (4.0-11.0)
[2016-11-17 04:42] LABS: INTERNATIONAL NORMALIZED RATIO 1.6 RATIO; PROTHROMBIN TIME - PATIENT 18.5 SEC (9.8-11.6)
[2016-11-17] MEDS: OCTREOTIDE INJ 500 MCG in SODIUM CHLORID 0.9% 500 ML INJ 499.5 ML IV SCH (04:52)
[2016-11-17 05:04] LABS: BICARBONATE 22.8 MEQ/L (21.0-32.0); MAGNESIUM 1.9 MG/DL (1.5-2.5); POTASSIUM 3.9 MEQ/L (3.5-5.1)
[2016-11-17 05:24] LABS: REVIEW FLAG FINAL
[2016-11-17 05:25] LABS: PLATELET COUNT 51 TH/MM3 (150-450)
[2016-11-17] MEDS: LORazepam 2 MG/ML VIAL IV PRN ×2 (06:16→21:52)
[2016-11-17] MEDS ORDERED: LORazepam 2 MG TAB PO PRN (07:30)
[2016-11-17] MEDS ORDERED: LORazepam 2 MG/ML VIAL IV PUSH PRN ×4 (07:30)
[2016-11-17] MEDS ORDERED: LIDOCAINE HCL 1% 20 ML VIAL INFIL ONE (07:30)
[2016-11-17] MEDS ORDERED: LORazepam 1 MG TAB PO PRN (07:30)
[2016-11-17] MEDS ORDERED: SODIUM CHLORIDE 0.9% FLUSH 5 ML FLUSH IV FLUSH PRN (07:30)
[2016-11-17] MEDS ORDERED: FLUMAZENIL 0.5 MG/5 ML VIAL IV PUSH PRN (07:30)
[2016-11-17] MEDS ORDERED: LIDOCAINE HCL 1% 50 ML VIAL ONE (07:51)
[2016-11-17] MEDS: PHYTONADIONE 5 MG TAB PO SCH (08:39)
[2016-11-17] MEDS: SODIUM CHLORIDE 0.9% FLUSH 5 ML FLUSH IV FLUSH SCH ×4 (08:39→20:46)
--- NOTE | 2016-11-17 11:10 | HHI.CCPN ---
Subjective Remarks/Hospital Course 45 year old female with a history of Acholic liver cirrhosis and previous GI bleed with portal hypertension and portal gastropathy and esophageal varices presents to the emergency department with complaints of abdominal pain, black stools and vomiting blood. She has been feeling weak an dizzy for the past 5 days and dark stools and vomiting blood started about 3 days ago. She has also had fever and chills, and esophageal discomfort. She stopped drinking for about 2 months then started drinking about 2 weeks ago. She stopped drinking when the symptoms started and has not drank in the past 2 to 3 days. She had a colonoscopy about 2 years ago which she thinks was normal and an EGD was done on 05/30/16 which showed probable bleed, portal gastropathy and gastric irritation secondary to ETOH. Subjective 11/16 The patient continued on octreotide and Protonix infusions overnight. The patient required levo fed currently at 4 mcgs. The patient is alert and oriented denies pain. Plan for today is an EGD. 11/17 The patient had bouts of confusion last night, decreasing O2 saturation. Chest x-ray performed showing pulmonary edema, 1 dose of Lasix was given with diuresis. The patient was placed on a Precedex infusion, and this morning was placed on a CIWA protocol. The patient continues on Octreotide and Protonix infusion, hemoglobin has been stable. Objective Vital Signs Date Time Temp Pulse Resp B/P Pulse Ox O2 Delivery O2 Flow Rate FiO2 11/17/16 10:32 93 Simple Mask 9.00 11/17/16 04:00 99.1 126 28 115/70 11/17/16 03:42 100 Intake and Output 11/16/16 11/16/16 11/17/16 08:00 16:00 00:00 Intake Total 1656 ml 2353 ml 1394 ml Output Total 750 ml 950 ml 450 ml Balance 906 ml 1403 ml 944 ml Result Diagram: 11/17/16 0400 11/17/16 0400 Imaging Last 24 hours Impressions Chest X-Ray 11/15/16 0000 Signed Impressions: Service Date/Time: November 16:51 - CONCLUSION: No acute cardiopulmonary disease identified. Eleuterio Bower MD Objective Remarks GENERAL: Well-nourished, well-developed female patient , disheveled, confused, noncompliant attempting to get out of bed SKIN: Warm and dry, flushed. HEAD: Normocephalic. EYES: No scleral icterus. No injection or drainage. NECK: Supple, trachea midline. No JVD or lymphadenopathy. Right IJ noted CARDIOVASCULAR: Regular rate and rhythm without murmurs,S1, S2 no gallops, or rubs. RESPIRATORY: Breath sounds equal bilaterally. No accessory muscle use. GASTROINTESTINAL: Abdomen soft, non-tender, nondistended. MUSCULOSKELETAL: No cyanosis, or edema. NEURO: GCS 14, confused Urinary Catheter: Yes Assessment to: Continue Moy insert reason: Measure Accurate Output Date of Insertion: Nov 15, 2016 Vascular Central Line Catheter: Yes Assessment to: Continue Date of Insertion: Nov 15, 2016 Reason for Continuation His active medication administration A/P Problem List: (1) Alcoholic cirrhosis of liver ICD Code: K70.30 Status: Acute (2) Acute blood loss anemia ICD Code: D62 Status: Acute (3) GI bleeding ICD Code: K92.2 Status: Acute (4) Thrombocytopenia ICD Code: D69.6 Status: Acute (5) Nausea ICD Code: R11.0 Status: Acute (6) ETOH abuse ICD Code: F10.10 Status: Acute Assessment and Plan Gastrointestinal bleed-secondary to alcoholic cirrhosis and portal hypertension Coagulopathy Thrombocytopenia - Octreotide infusion - Protonix infusion - GI following- Dr. De La Cruz, EGD performed 2-was placed on a heart healthy diet per GI recommendations. Patient currently confused risk of aspiration will perform a bedside swallow -INR 1.6 -Continue vitamin K 5 mg daily -Multivitamin bag 2 days Hypotension -Maintain MAP greater than 65mmHg - Levophed off since 1 AM, continue to monitor - IV fluids KVO - Albumin IV BID Pulmonary edema/fluid overload -Lasix 20 mg daily -Bronchodilators -Continue to wean FiO2 to maintain a sat of 92% Acute blood loss anemia - Transfuse red blood cells as needed to keep her hemoglobin above 7 - Monitor serial H&H every 6 hours Thrombocytopenia - Due to liver cirrhosis - S/P transfusion one pack of platelets --Platelet count 51,000-we'll transfuse for platelets less than 50,000 Alcohol use disorder-altered mental status - CIWA protocol, continue to monitor - Ativan when necessary DVT GI prophylaxis - Isaac's and SCDs Protonix drip Dispo: Level 2 Discussed with the RN at bedside Physician Enma Garland Problem Qualifiers (1) Alcoholic cirrhosis of liver: Qualified Code: K70.30 - Alcoholic cirrhosis of liver without ascites (2) GI bleeding: Qualified Code: K92.0 - Gastrointestinal hemorrhage with hematemesis Enma Garland MD Nov 17, 2016 11:10
[2016-11-17] MEDS: ALBUMIN HUMAN 5% 25 GM/500 ML BOTTLE IV SCH ×2 (11:15→21:55)
--- NOTE | 2016-11-17 13:02 | HHI.GIFU ---
Subjective Remarks Patient sleeping, not waking up to stimulation, she has declined over night, decreasing O2 saturation, she is currently NPO, no bleeding reported, hgb stable. (FrankjhonColt) Objective Vitals I&O Vital Signs Date Time Temp Pulse Resp B/P Pulse Ox O2 Delivery O2 Flow Rate FiO2 11/17/16 10:32 93 Simple Mask 9.00 11/17/16 04:00 99.1 126 28 115/70 97 11/17/16 03:42 96 Non-Rebreather 15.00 100 11/17/16 00:30 95 Non-Rebreather 15.00 11/17/16 00:00 100.2 139 30 137/74 90 11/16/16 21:14 92 Nasal Cannula 5.00 11/16/16 20:00 100.0 122 22 120/70 92 11/16/16 18:00 113 11/16/16 16:00 99.7 114 24 115/68 94 11/16/16 16:00 114 11/16/16 14:00 112 I/O 11/16/16 11/16/16 11/16/16 11/17/16 11/17/16 11/17/16 07:00 15:00 23:00 07:00 15:00 23:00 Intake Total 1656 ml 2353 ml 1394 ml 1257 ml Output Total 750 ml 950 ml 450 ml 2500 ml Balance 906 ml 1403 ml 944 ml -1243 ml Intake Oral 840 ml IV Total 1156 ml 1513 ml 1394 ml 1257 ml Packed Cells 500 ml Output Urine Total 750 ml 950 ml 450 ml 2500 ml # Bowel Movements 3 0 0 Laboratory Laboratory Tests Test 11/16/16 11/16/16 11/17/16 11/17/16 15:45 22:08 01:10 04:00 Hemoglobin 7.9 7.9 8.5 Hematocrit 22.6 22.8 24.5 Potassium Level 3.2 3.9 Magnesium Level 1.9 1.9 White Blood Count 6.5 Red Blood Count 2.74 Mean Corpuscular Volume 89.6 Mean Corpuscular Hemoglobin 31.2 Mean Corpuscular Hemoglobin 34.8 Concent Red Cell Distribution Width 21.6 Platelet Count 51 Mean Platelet Volume 8.3 Prothrombin Time 18.5 Prothromb Time International 1.6 Ratio Sodium Level 141 Chloride Level 111 Carbon Dioxide Level 22.8 Anion Gap 7 Blood Urea Nitrogen 9 Creatinine 0.61 Estimat Glomerular Filtration 107 Rate Random Glucose 127 Calcium Level 7.7 Phosphorus Level 0.5 Date/Time Procedure Status Source Growth 11/17/16 11:20 Aerobic Blood Culture Received Blood Peripheral Pending 11/17/16 11:20 Anaerobic Blood Culture Received Blood Peripheral Pending Imaging Last Impressions Chest X-Ray 11/17/16 0000 Signed Impressions: Service Date/Time: Thursday, November 17, 2016 00:39 - CONCLUSION: Increased airspace consolidation in the lower lung zones bilaterally with likely small bilateral pleural effusions. In the appropriate clinical setting this could represent pulmonary edema. Jam Ayala MD Physical Exam HEENT: ; atraumatic; no jaundice. NECK: Neck is supple, no JVD, no lymphadenopathy. CHEST: Chest is clear to auscultation and percussion. CARDIAC: Regular rate and rhythm with no murmur gallop or rubs. ABDOMEN: Soft, nondistended, nontender; no hepatosplenomegaly; bowel sounds are present in all four quadrants. EXTREMITIES: No clubbing, cyanosis, or edema. SKIN: Normal; no rash; no jaundice. EARTH BURNER: very difficult to arouse, not waking up to stimulation (Colt Rowley) Assessment and Plan Assessment: (1) GI bleeding Plan: H&H is 8.5/24.5 Had Black stools and hematemesis on admission, no more bleeding reported S/p EGD on (11/16/16) ----> LA class B esophagitis, portal hypertensive gastropathy, erythematous gastritis. (2) Acute blood loss anemia Plan: Secondary to GI bleed Follow H&H transfuse PRBC's to keep Hbg > 7.0 < (3) Thrombocytopenia Plan: Platelets are 65 Secondary to liver Cirrhosis (4) Alcoholic cirrhosis of liver Plan: Alcohol cessation encouraged (5) ETOH abuse Plan: Cessation encouraged (6) Nausea Plan: C/O nausea Add Zofran (7) Elevated LFTs Plan: LFT's elevated -- secondary to cirrhosis, alcohol Plan This is a pleasant 45 year old female with a known Hx of ETOH abuse, alcoholic liver cirrhosis, ETOH abuse, and GI bleeds in the past. She presented to the ED with C/O black stools, vomiting blood, generalized weakness and nausea. She has thrombocytopenia, elevated LFT's. Plan - Protonix IV BID - Dc Octreotide drip - Follow H&H closely and transfuse PRBC's to keep Hgb > 7.0 - IV fluids - Okay to insert NGT Patient was seen and examined by Dr. Mcnair and myself, this note is written on his behalf. (Colt Rowley) Physician Comments Patient seen and examined Agree with above Continue with current supportive care Monitor labs Findings of endoscopy yesterday revealed esophagitis and portal hypertensive gastropathy Continue PPI (Maninder Mcnair MD) Problem Qualifiers (1) GI bleeding: Qualified Code: K92.0 - Gastrointestinal hemorrhage with hematemesis (2) Alcoholic cirrhosis of liver: Qualified Code: K70.30 - Alcoholic cirrhosis of liver without ascites Colt Rowley Nov 17, 2016 13:02 Maninder Mcnair MD Nov 17, 2016 18:01
[2016-11-17 13:54] LABS: HEMATOCRIT 23.1 % (35.0-46.0)
[2016-11-17 13:56] LABS: REVIEW FLAG FINAL
[2016-11-17] MEDS: PANTOPRAZOLE SODIUM 40 MG VIAL IV PUSH SCH (14:58)
[2016-11-17] MEDS: cefTRIAXone INJ 1,000 MG in SODIUM CHLORIDE 0.9% INJ 100 ML IV SCH (14:58)
[2016-11-17] MEDS: MULTIVITAMIN INJ 10 ML, THIAMINE INJ 100 MG, FOLIC ACID INJ 1 MG in SODIUM CHLORID 0.9%... IV SCH (17:53)
[2016-11-17] MEDS: RIFAXIMIN 200 MG TAB PO SCH (21:14)
[2016-11-17] MEDS ORDERED: ACETAMINOPHEN 325 MG TAB PO ONE (22:30)
[2016-11-17 22:34] LABS: HEMATOCRIT 24.6 % (35.0-46.0)
[2016-11-17 22:36] LABS: REVIEW FLAG FINAL
[2016-11-18] VITALS (13 sets, daily range): BP systolic 104–141; BP diastolic 56–86; PULSE 82–130; RESP 16–41; TEMP 97.5–100.7; O2SAT 87–100
[2016-11-18] MEDS: PANTOPRAZOLE SODIUM 40 MG VIAL IV PUSH SCH ×2 (02:00→14:27)
[2016-11-18] MEDS: LORazepam 2 MG/ML VIAL IV PRN (02:00)
[2016-11-18] MEDS: METOPROLOL TARTRATE 5 MG/5 ML VIAL IV PUSH SCH ×4 (03:30→20:30)
[2016-11-18] MEDS: RESP: ALBUTEROL 2.5 MG/IPRATROPIUM 0.5 MG NEB (SCH) NEB ×4 (03:52→19:41)
[2016-11-18] MEDS: CHLORHEXIDINE GLUCONATE 2 % 1 PACK (2 CLOTHS) TOP SCH (04:00)
[2016-11-18 04:23] LABS: HEMATOCRIT 23.8 % (35.0-46.0); MEAN CELL VOLUME 91.1 FL (80.0-100.0); MEAN CORPUSCULAR HEMOGLOBIN 31.5 PG (27.0-34.0); MEAN CORPUSCULAR HGB CONC 34.6 % (32.0-36.0); PLATELET COUNT 53 TH/MM3 (150-450); RED BLOOD COUNT 2.61 MIL/MM3 (4.00-5.30); RED CELL DISTRIBUTION WIDTH 21.4 % (11.6-17.2); WHITE BLOOD COUNT 6.1 TH/MM3 (4.0-11.0)
[2016-11-18 04:24] LABS: BLOOD GAS BASE EXCESS -1.3 mmol/L (-2-2); BLOOD GAS CARBOXYHEMOGLOBIN 1.7 % (0-4); BLOOD GAS HCO3 22 mmol/L (22-26); BLOOD GAS METHEMOGLOBIN 0.6 % (0-2); BLOOD GAS O2 HGB SATURATION 94 % (90-100); BLOOD GAS OXYGEN CONTENT 10.9 Vol % (12.0-20.0); BLOOD GAS PCO2 33 mmHg (38-42); BLOOD GAS PO2 75 mmHg (61-120); BLOOD GAS TOTAL HGB 8.2 G/DL (12.0-16.0); CRITICAL VALUE NO; DRAW SITE RT RADIAL; LITER FLOW 15 L/M; NUMBER OF ARTERIAL PUNCTURES 1; OXYGEN DEVICE NRB; TEMP CORR TO 98.6
[2016-11-18 04:25] LABS: STAT YES; ULNAR PULSE PRESENT
[2016-11-18 04:26] LABS: REVIEW FLAG FINAL
[2016-11-18] MEDS ORDERED: FUROSEMIDE 40 MG/4 ML VIAL IV PUSH ONE (04:30)
[2016-11-18] MEDS ORDERED: POTASSIUM CHLORIDE INJ 30 MEQ in SODIUM CHLORIDE 0.9% INJ 100 ML IV-CENTRAL ONE (04:30)
[2016-11-18 04:40] LABS: ALT (GPT) 23 U/L (10-53); ANION GAP 11 MEQ/L (5-15); AST (GOT) 40 U/L (15-37); BLOOD UREA NITROGEN 9 MG/DL (7-18); CHLORIDE 112 MEQ/L (98-107); GLOMERULAR FILTRATION RATE 135 ML/MIN (>89); MAGNESIUM 1.9 MG/DL (1.5-2.5); SODIUM (NA) 146 MEQ/L (136-145)
[2016-11-18 04:48] LABS: ALKALINE PHOSPHATASE 91 U/L (45-117); TOTAL BILIRUBIN ADULT 6.5 MG/DL (0.2-1.0)
[2016-11-18 04:55] LABS: POTASSIUM 2.6 MEQ/L (3.5-5.1)
[2016-11-18] MEDS ORDERED: POTASSIUM CHLORIDE 20 MEQ CONTROLLED RELEASE TAB PO ONE (05:30)
[2016-11-18] MEDS: RIFAXIMIN 200 MG TAB PO SCH ×3 (05:38→21:16)
[2016-11-18] MEDS: ICU - POTASSIUM CHLORIDE/AQUEOUS SOLN 40 MEQ/100 ML IVPB IV PRN ×4 (05:38→14:30)
[2016-11-18] MEDS: ICU - POTASSIUM PHOSPHATE 30 MMOL/NS 250 ML IV PRN ×2 (05:38)
[2016-11-18] MEDS ORDERED: SUCCINYLCHOLINE CHLORIDE 200 MG/10 ML VIAL IV PUSH ONE (06:45)
[2016-11-18] MEDS ORDERED: ROCURONIUM INJ 50 MG/5 ML VIAL IV ONE (06:45)
[2016-11-18] MEDS ORDERED: fentaNYL CITRATE 250 MCG/5 ML AMP IV PUSH ONE (06:45)
[2016-11-18] MEDS ORDERED: PROPOFOL 200 MG/20 ML AMP IV ONE (06:45)
--- NOTE | 2016-11-18 07:19 | PD.PROCEDR ---
Procedure Note Procedure Endotracheal Intubation Diagnosis: GI bleed Indications: Acute Hypoxic Respiratory Failure Consent: Emergent Anesthesia: Fentanyl 100 mcgs, propofol 120 mg, Succinylcholine 120 mg, Rocuronium 50 mg Description of the Procedure: The patient was positioned in the sniffing position. Pre-oxygenation was performed using a BVM. Anesthesia was induced via rapid sequence. A Glidescope 4 was used for laryngoscopy and a Grade 1 view was obtained. A 7.5 cuffed endotracheal tube was inserted atraumatically through the vocal cords. Confirmation of correct endotracheal tube placement was made by equal and bilateral breath sounds and colorimetric CO2 detection. The endotracheal tube was secured at 21 cm at the teeth. There were no immediate complications noted. The patient remained hemodynamically stable throughout the procedure. A chest x-ray has been ordered. I personally performed the procedure. Enma Garland MD Nov 18, 2016 07:19
--- NOTE | 2016-11-18 07:30 | HHI.CCPN ---
Subjective Remarks/Hospital Course 45 year old female with a history of Acholic liver cirrhosis and previous GI bleed with portal hypertension and portal gastropathy and esophageal varices presents to the emergency department with complaints of abdominal pain, black stools and vomiting blood. She has been feeling weak an dizzy for the past 5 days and dark stools and vomiting blood started about 3 days ago. She has also had fever and chills, and esophageal discomfort. She stopped drinking for about 2 months then started drinking about 2 weeks ago. She stopped drinking when the symptoms started and has not drank in the past 2 to 3 days. She had a colonoscopy about 2 years ago which she thinks was normal and an EGD was done on 05/30/16 which showed probable bleed, portal gastropathy and gastric irritation secondary to ETOH. Subjective / The patient continued on octreotide and Protonix infusions overnight. The patient required levo fed currently at 4 mcgs. The patient is alert and oriented denies pain. Plan for today is an EGD. 11/17 The patient had bouts of confusion last night, decreasing O2 saturation. Chest x-ray performed showing pulmonary edema, 1 dose of Lasix was given with diuresis. The patient was placed on a Precedex infusion, and this morning was placed on a CIWA protocol. The patient continues on Octreotide and Protonix infusion, hemoglobin has been stable. 11/18 Tmax 100.7 Increased work of breathing was noted overnight. The patient on a nonrebreather mask PaO2 75, tachypnea respiratory rate 30s - 40s. Patient received Lasix, was diuresed, 2 kg over the last 24 hours ,no change in respiratory status. The patient was emergently intubated, chest x-ray pending. Octreotide and Protonix infusions discontinued per GI. Objective Vital Signs Date Time Temp Pulse Resp B/P Pulse Ox O2 Delivery O2 Flow Rate FiO2 11/18/16 04:00 98 Non-Rebreather 15.00 11/18/16 04:00 98.5 114 35 141/82 11/17/16 03:42 100 Intake and Output 11/17/16 11/17/16 11/18/16 08:00 16:00 00:00 Intake Total 1257 ml 1838 ml 850 ml Output Total 2500 ml 325 ml 1850 ml Balance -1243 ml 1513 ml -1000 ml Result Diagram: 11/18/16 0349 11/18/16 0349 Other Results Laboratory Tests Test 11/18/16 04:20 Blood Gas Puncture Site RT RADIAL Blood Gas Patient Temperature 98.6 Blood Gas HCO3 22 mmol/L (22-26) Blood Gas Base Excess -1.3 mmol/L (-2-2) Blood Gas Oxygen Saturation 94 % (90-100) Arterial Blood pH 7.45 (7.380-7.420) Arterial Blood Partial 33 mmHg (38-42) Pressure CO2 Arterial Blood Partial 75 mmHg Pressure O2 (61-120) Arterial Blood Oxygen Content 10.9 Vol % (12.0-20.0) Arterial Blood 1.7 % (0-4) Carboxyhemoglobin Arterial Blood Methemoglobin 0.6 % (0-2) Blood Gas Hemoglobin 8.2 G/DL (12.0-16.0) Oxygen Delivery Device NRB Blood Gas Liter Flow 15 L/M Imaging Last 24 hours Impressions Chest X-Ray 11/15/16 0000 Signed Impressions: Service Date/Time: November 16:51 - CONCLUSION: No acute cardiopulmonary disease identified. Eleuterio Bower MD Objective Remarks GENERAL: Well-nourished, well-developed critically ill-appearing female, confused, lethargic dyspneic SKIN: Warm and dry, flushed. HEAD: Normocephalic. EYES: No scleral icterus. No injection or drainage. NECK: Supple, trachea midline. No JVD or lymphadenopathy. Right IJ noted CARDIOVASCULAR: Regular rate and rhythm without murmurs,S1, S2 no gallops, or rubs. RESPIRATORY: Breath sounds equal bilaterally. Accessory muscle use. Tachyneic , Dyspneic GASTROINTESTINAL: Abdomen soft, non-tender, nondistended. MUSCULOSKELETAL: No cyanosis, or edema. NEURO: GCS 14, confused Procedures Intubation Urinary Catheter: Yes Moy insert reason: ICU Pt Getting Diuretics Date of Insertion: Nov 15, 2016 Vascular Central Line Catheter: Yes (vasoactive medication administration) Date of Insertion: Nov 15, 2016 A/P Problem List: (1) Alcoholic cirrhosis of liver ICD Code: K70.30 Status: Acute (2) Acute blood loss anemia ICD Code: D62 Status: Acute (3) GI bleeding ICD Code: K92.2 Status: Acute (4) Thrombocytopenia ICD Code: D69.6 Status: Acute (5) Nausea ICD Code: R11.0 Status: Acute (6) ETOH abuse ICD Code: F10.10 Status: Acute Assessment and Plan Gastrointestinal bleed-secondary to alcoholic cirrhosis and portal hypertension Coagulopathy Thrombocytopenia - Octreotide infusion - Protonix infusion - GI following- Dr. De La Cruz, EGD performed 11/16- -insert OGT, confirmed placement, begin tube feeds -INR 1.6 -Continue vitamin K 5 mg daily -Multivitamin bag 1 days, then begin PO thiamine and folate daily Hypotension-resolved -Maintain MAP greater than 65mmHg - Levophed off 11/17, continue to monitor - IV fluids KVO - Albumin IV BID Acute hypoxic respiratory failure Pulmonary edema/fluid overload -Intubation, propofol, fentanyl infusion for ventilator synchrony -ABG 7.45/33/75/22/-1.3 on 100% FiO2 -Lasix 20 mg daily -Schedule Bronchodilators every 6 hours, and every 2 hours when necessary -Continue to wean FiO2 to maintain a sat of 92% , currently 100% wean FiO2 -Follow-up ABG -Follow-up chest x-ray Acute blood loss anemia-resolved - Transfuse red blood cells as needed to keep her hemoglobin above 7, hemoglobin 8.2stable - Monitor serial H&H every 6 hours Thrombocytopenia - Due to liver cirrhosis - S/P transfusion one pack of platelets --Platelet count 53,000-we'll transfuse for platelets less than 50,000 Alcohol use disorder-altered mental status - MELD score 19 - WA protocol, continue to monitor - Ativan when necessary DVT GI prophylaxis - Isaac's and SCDs Protonix BID per GI recommendations Dispo: This patient remains critically ill with one or more organ systems which are or may become a threat to life. I have spent in excess of 49 minutes discontinuously in the care and management of this patient. This time is exclusive of procedures, and includes, but is not limited to, evaluation of the patient, review of the medical record, discussions with family, consultants, nursing staff, or respiratory therapy, and documentation in the medical record. Discussed with the RN at bedside Physician Enma Garland Problem Qualifiers (1) Alcoholic cirrhosis of liver: Qualified Code: K70.30 - Alcoholic cirrhosis of liver without ascites (2) GI bleeding: Qualified Code: K92.0 - Gastrointestinal hemorrhage with hematemesis Enma Garland MD Nov 18, 2016 07:30
--- NOTE | 2016-11-18 07:53 | RADRPT ---
EXAM DATE/TIME: 11/18/2016 07:10 [facility] COMPARISON: CHEST SINGLE AP, November 17, 2016, 0:39. INDICATIONS : Post intubation. MEDICAL HISTORY : None. SURGICAL HISTORY : None. ENCOUNTER: Initial ACUITY: 1 day PAIN SCORE: Non-responsive. LOCATION: Bilateral chest FINDINGS: A single view of the chest demonstrates mild cardiomegaly and bilateral perihilar edema. Endotracheal tube placed with tip 2 cm above the [place]. Right jugular central line with tip in the SVC. No pneum othorax. The cardiomediastinal contours are unremarkable. Osseous structures are intact. CONCLUSION: Endotracheal tube with tip 2 cm above the [place]. Bilateral perihilar edema. Jose Ann MD on November 18, 2016 at 7:50 Board Certified Radiologist. This report was verified electronically.
[2016-11-18 08:11] LABS: ANION GAP 9 MEQ/L (5-15); BICARBONATE 27.2 MEQ/L (21.0-32.0); BLOOD UREA NITROGEN 8 MG/DL (7-18); CHLORIDE 109 MEQ/L (98-107); GLOMERULAR FILTRATION RATE 121 ML/MIN (>89); POTASSIUM 3.2 MEQ/L (3.5-5.1); SODIUM (NA) 145 MEQ/L (136-145)
[2016-11-18 08:14] LABS: BETA HCG QUANT LESS THAN 1 MIU/ML (0-5)
--- NOTE | 2016-11-18 08:29 | PD.PROCEDR ---
Procedure Note Procedure Procedure: Arterial Line Placement Left radial Diagnosis: GI bleed Indications: Acute hypoxic respiratory failure Consent: Emergent Description of the Procedure: The left arm was prepped and draped sterilely. 1% lidocaine was used for local anesthesia. The pulse was located and a needle was advanced into the artery. A 20 gauge, 4.45 cm catheter was advanced into the artery using a modified Seldinger technique. The catheter was sutured to the skin and a sterile dressing was applied. The catheter was connected to a pressure transducer and an arterial waveform was noted. There were no immediate complications noted. There was minimal EBL. I personally performed the procedure. Enma Garland MD Nov 18, 2016 08:29
[2016-11-18] MEDS ORDERED: fentaNYL DRIP 250 ML IV SCH (08:45)
[2016-11-18] MEDS: SODIUM CHLORIDE 0.9% FLUSH 5 ML FLUSH IV FLUSH SCH ×4 (09:00→20:29)
[2016-11-18] MEDS: PHYTONADIONE 5 MG TAB PO SCH (09:00)
--- NOTE | 2016-11-18 09:28 | MB ---
cc: JORGE CORTES DATE OF CONSULTATION: 11/18/2016 REASON FOR CONSULTATION: HISTORY OF PRESENT ILLNESS: This is a 45-year-old white female with a history of alcoholic liver cirrhosis and previous GI bleed, portal hypertension. The patient was requested to be seen by psychiatry because of depression and alcoholism. When I came to see the patient, the patient was intubated and unable to engage in any meaningful psychiatric interview. I believe that at this point a psych consult can wait until the patient becomes more able to provide information and engage in psychiatric interview to be able to come up with plan for treatment and outpatient follow up, or whatever needs to be done. In the meantime, whatever you feel appropriate for the patient and maybe watch for any alcohol withdrawal symptoms and treat accordingly. I am sorry I cannot help you at this point, but you may need to reconsult when the patient is stable to engage in meaningful psychiatric interview. Jorge MEDINA /9:15 AM /9:24 AM
[2016-11-18 09:40] LABS: BLOOD GAS BASE EXCESS 0.4 mmol/L (-2-2); BLOOD GAS CARBOXYHEMOGLOBIN 1.6 % (0-4); BLOOD GAS HCO3 24 mmol/L (22-26); BLOOD GAS METHEMOGLOBIN 0.7 % (0-2); BLOOD GAS O2 HGB SATURATION 97 % (90-100); BLOOD GAS OXYGEN CONTENT 11.9 Vol % (12.0-20.0); BLOOD GAS PCO2 32 mmHg (38-42); BLOOD GAS PO2 140 mmHg (61-120); BLOOD GAS TOTAL HGB 8.5 G/DL (12.0-16.0); CRITICAL VALUE NO; DRAW SITE ART LINE; FIO2 50 %; OXYGEN DEVICE VENTILATOR; STAT NO; TEMP CORR TO 98.6; VENT SETTINGS PRVC/450/IT1.0/+5
[2016-11-18 09:43] LABS: INTERNATIONAL NORMALIZED RATIO 1.5 RATIO; PROTHROMBIN TIME - PATIENT 17.2 SEC (9.8-11.6)
--- NOTE | 2016-11-18 09:51 | RADRPT ---
EXAM DATE/TIME: 11/18/2016 08:52 [facility] COMPARISON: No previous studies available for comparison. INDICATIONS : Nasogastric tube placement. MEDICAL HISTORY : None. SURGICAL HISTORY : None. ENCOUNTER: Initial ACUITY: 1 day PAIN SCORE: Non-responsive. LOCATION: Bilateral abdomen. FINDINGS: Examination of the abdomen demonstrates a normal bowel gas pattern. No free air is identified. No o rganomegaly is evident. Osseous structures are intact. CONCLUSION: No evidence of obstruction. Nasogastric tube with tip likely in distal stomach. Jose Ann MD on November 18, 2016 at 9:50 Board Certified Radiologist. This report was verified electronically.
[2016-11-18] MEDS: ALBUMIN HUMAN 5% 25 GM/500 ML BOTTLE IV SCH ×2 (10:45→22:04)
[2016-11-18] MEDS: PROPOFOL 1000 MG/100 ML INJ 100 ML IV SCH ×4 (10:45→23:43)
[2016-11-18 12:21] LABS: HEMATOCRIT 23.2 % (35.0-46.0); MEAN CELL VOLUME 90.1 FL (80.0-100.0); MEAN CORPUSCULAR HEMOGLOBIN 31.5 PG (27.0-34.0); PLATELET COUNT 55 TH/MM3 (150-450); RED BLOOD COUNT 2.57 MIL/MM3 (4.00-5.30); RED CELL DISTRIBUTION WIDTH 21.2 % (11.6-17.2); WHITE BLOOD COUNT 5.4 TH/MM3 (4.0-11.0)
[2016-11-18 12:23] LABS: REVIEW FLAG AUTO DIFF
[2016-11-18 13:31] LABS: BICARBONATE 27.1 MEQ/L (21.0-32.0); POTASSIUM 3.2 MEQ/L (3.5-5.1)
[2016-11-18] MEDS: cefTRIAXone INJ 1,000 MG in SODIUM CHLORIDE 0.9% INJ 100 ML IV SCH (15:51)
[2016-11-18] MEDS: MULTIVITAMIN INJ 10 ML, THIAMINE INJ 100 MG, FOLIC ACID INJ 1 MG in SODIUM CHLORID 0.9%... IV SCH (15:51)
--- NOTE | 2016-11-18 17:41 | HHI.GIFU ---
Subjective Remarks Intubated unresponsive Objective Vitals I&O Vital Signs Date Time Temp Pulse Resp B/P Pulse Ox O2 Delivery O2 Flow Rate FiO2 11/18/16 16:00 97.5 86 21 108/69 100 11/18/16 16:00 86 11/18/16 16:00 50 11/18/16 14:00 82 11/18/16 13:42 99 50 11/18/16 12:00 90 11/18/16 12:00 98.6 90 18 105/56 100 11/18/16 12:00 50 11/18/16 10:00 97 11/18/16 09:06 100 Ventilator 11/18/16 08:00 106 11/18/16 08:00 98.5 106 18 110/62 96 Automatic Cuff 11/18/16 08:00 50 11/18/16 04:00 98 Non-Rebreather 15.00 11/18/16 04:00 98.5 114 35 141/82 87 11/18/16 00:00 100.7 130 41 135/86 95 11/17/16 20:00 100.3 121 26 138/67 94 11/17/16 19:37 95 Simple Mask 10.00 I/O 11/17/16 11/17/16 11/17/16 11/18/16 11/18/16 11/18/16 07:00 15:00 23:00 07:00 15:00 23:00 Intake Total 1257 ml 2688 ml 311 ml 1177 ml Output Total 2500 ml 325 ml 1850 ml 2250 ml 2100 ml Balance -1243 ml -325 ml 838 ml -1939 ml -923 ml Intake Oral 850 ml 200 ml IV Total 1257 ml 1838 ml 111 ml 677 ml Albumin 500 ml Output Urine Total 2500 ml 325 ml 1850 ml 2250 ml 2000 ml Gastric Drainage Total 100 ml # Bowel Movements 0 0 0 0 Laboratory Laboratory Tests Test 11/17/16 11/18/16 11/18/16 11/18/16 22:17 03:49 04:20 07:09 Hemoglobin 8.7 8.2 Hematocrit 24.6 23.8 White Blood Count 6.1 Red Blood Count 2.61 Mean Corpuscular Volume 91.1 Mean Corpuscular Hemoglobin 31.5 Mean Corpuscular Hemoglobin 34.6 Concent Red Cell Distribution Width 21.4 Platelet Count 53 Mean Platelet Volume 8.1 Sodium Level 146 145 Potassium Level 2.6 3.2 Chloride Level 112 109 Carbon Dioxide Level 23.0 27.2 Anion Gap 11 9 Blood Urea Nitrogen 9 8 Creatinine 0.50 0.55 Estimat Glomerular Filtration 135 121 Rate Random Glucose 105 122 Calcium Level 7.9 8.4 Phosphorus Level 1.4 Magnesium Level 1.9 Total Bilirubin 6.5 Aspartate Amino Transf 40 (AST/SGOT) Alanine Aminotransferase 23 (ALT/SGPT) Alkaline Phosphatase 91 Total Protein 5.7 Albumin 3.5 Blood Gas Puncture Site RT RADIAL Blood Gas Patient Temperature 98.6 Blood Gas HCO3 22 Blood Gas Base Excess -1.3 Blood Gas Oxygen Saturation 94 Arterial Blood pH 7.45 Arterial Blood Partial 33 Pressure CO2 Arterial Blood Partial 75 Pressure O2 Arterial Blood Oxygen Content 10.9 Arterial Blood 1.7 Carboxyhemoglobin Arterial Blood Methemoglobin 0.6 Blood Gas Hemoglobin 8.2 Oxygen Delivery Device NRB Blood Gas Liter Flow 15 Ammonia 51 Human Chorionic Gonadotropin, LESS THAN 1 Quant Test 11/18/16 11/18/16 11/18/16 11/18/16 09:11 09:30 11:43 16:30 Prothrombin Time 17.2 Prothromb Time International 1.5 Ratio Blood Gas Puncture Site ART LINE Blood Gas Patient Temperature 98.6 Blood Gas HCO3 24 Blood Gas Base Excess 0.4 Blood Gas Oxygen Saturation 97 Arterial Blood pH 7.48 Arterial Blood Partial 32 Pressure CO2 Arterial Blood Partial 140 Pressure O2 Arterial Blood Oxygen Content 11.9 Arterial Blood 1.6 Carboxyhemoglobin Arterial Blood Methemoglobin 0.7 Blood Gas Hemoglobin 8.5 Oxygen Delivery Device VENTILATOR Blood Gas Ventilator Setting PRVC/450/IT1.0/+5 Blood Gas Inspired Oxygen 50 White Blood Count 5.4 Red Blood Count 2.57 Hemoglobin 8.1 Hematocrit 23.2 Mean Corpuscular Volume 90.1 Mean Corpuscular Hemoglobin 31.5 Mean Corpuscular Hemoglobin 35.0 Concent Red Cell Distribution Width 21.2 Platelet Count 55 Mean Platelet Volume 8.2 Sodium Level 147 Potassium Level 3.2 Chloride Level 110 Carbon Dioxide Level 27.1 Anion Gap 10 Blood Urea Nitrogen 8 Creatinine 0.52 Estimat Glomerular Filtration 129 Rate Random Glucose 123 Calcium Level 7.8 Fibrinogen 223 D-Dimer Quantitative (PE/DVT) 7.28 Urine Random Creatinine 106 Urine Random Total Protein 33 Urine Random Sodium 24 Urine Protein/Creatinine Ratio 0.31 Date/Time Procedure Status Source Growth 11/18/16 11:45 Gram Stain - Final Resulted Sputum Endotracheal 11/18/16 11:45 Sputum Culture Resulted Sputum Endotracheal Pending 11/17/16 13:15 Urine Culture - Preliminary Resulted Urine Catheterized Urine NO GROWTH IN 24 HOURS. 11/17/16 11:20 Aerobic Blood Culture - Preliminary Resulted Blood Peripheral NO GROWTH IN 1 DAY 11/17/16 11:20 Anaerobic Blood Culture - Preliminary Resulted Blood Peripheral NO GROWTH IN 1 DAY Imaging Last Impressions Chest X-Ray 11/18/16 0000 Signed Impressions: Service Date/Time: Friday, November 18, 2016 07:10 - CONCLUSION: Endotracheal tube with tip 2 cm above the [place]. Bilateral perihilar edema. Jose Ann MD Abdomen X-Ray 11/18/16 0000 Signed Impressions: Service Date/Time: Friday, November 18, 2016 08:52 - CONCLUSION: No evidence of obstruction. Nasogastric tube with tip likely in distal stomach. Jose Ann MD Physical Exam HEENT: ; atraumatic; no jaundice. NECK: Neck is supple, CHEST: Chest is clear to auscultation and percussion. CARDIAC: Regular rate and rhythm with no murmur gallop or rubs. ABDOMEN: Soft, nondistended, nontender; no hepatosplenomegaly; bowel sounds are present in all four quadrants. EXTREMITIES: No clubbing, cyanosis, or edema. SKIN: Normal; no rash; no jaundice. SHIP UNLOADER: Intubated unresponsive Assessment and Plan Assessment: (1) GI bleeding Plan: H&H is 8.5/24.5 Had Black stools and hematemesis on admission, no more bleeding reported S/p EGD on (11/16/16) ----> LA class B esophagitis, portal hypertensive gastropathy, erythematous gastritis. (2) Acute blood loss anemia Plan: Secondary to GI bleed Follow H&H transfuse PRBC's to keep Hbg > 7.0 < (3) Thrombocytopenia Plan: Platelets are 65 Secondary to liver Cirrhosis (4) Alcoholic cirrhosis of liver Plan: Alcohol cessation encouraged (5) ETOH abuse Plan: Cessation encouraged (6) Nausea Plan: C/O nausea Add Zofran (7) Elevated LFTs Plan: LFT's elevated -- secondary to cirrhosis, alcohol Plan This is a pleasant 45 year old female with a known Hx of ETOH abuse, alcoholic liver cirrhosis, ETOH abuse, and GI bleeds in the past. She presented to the ED with C/O black stools, vomiting blood, generalized weakness and nausea. She has thrombocytopenia, elevated LFT's. Plan - Protonix IV BID - Dc Octreotide drip - Follow H&H closely and transfuse PRBC's to keep Hgb > 7.0 - IV fluids -Monitor labs Problem Qualifiers (1) GI bleeding: Qualified Code: K92.0 - Gastrointestinal hemorrhage with hematemesis (2) Alcoholic cirrhosis of liver: Qualified Code: K70.30 - Alcoholic cirrhosis of liver without ascites Maninder Mcnair MD Nov 18, 2016 17:41
[2016-11-18] MEDS: LACTULOSE SYRUP 20 GM/30 ML CUP PO SCH (18:07)
[2016-11-18 18:11] LABS: HEMATOCRIT 23.6 % (35.0-46.0)
[2016-11-18 18:15] LABS: REVIEW FLAG FINAL
--- NOTE | 2016-11-18 18:41 | RADRPT ---
EXAM DATE/TIME: 11/18/2016 17:34 [facility] COMPARISON: No previous studies available for comparison. INDICATIONS : Altered mental status. RADIATION DOSE: 38.82 CTDIvol (mGy) MEDICAL HISTORY : None SURGICAL HISTORY : partial hysterectomy ENCOUNTER: Initial ACUITY: 1 day PAIN SCALE: Non-responsive LOCATION: cranial TECHNIQUE: Multiple contiguous axial images were obtained of the head. Using automated exposure control and adj ustment of the mA and/or kV according to patient size, radiation dose was kept as low as reasonably a chievable to obtain optimal diagnostic quality images. FINDINGS: CEREBRUM: The ventricles are normal for age. No evidence of midline shift, mass lesion, hemorrhage or acute in farction. No extra-axial fluid collections are seen. POSTERIOR FOSSA: The cerebellum and brainstem are intact. The 4th ventricle is midline. The cerebellopontine angle i s unremarkable. EXTRACRANIAL: The visualized portion of the orbits is intact. SKULL: The calvaria is intact. No evidence of skull fracture. CONCLUSION: Normal examination for a patient of this age. No significant change has occurred. Nayan Seo MD on November 18, 2016 at 18:38 Board Certified Radiologist. This report was verified electronically.
--- NOTE | 2016-11-18 22:59 | RADRPT ---
EXAM DATE/TIME: 11/18/2016 21:08 [facility] COMPARISON: No previous studies available for comparison. INDICATIONS : Hematuria. MEDICAL HISTORY : Gastrointestinal disorders. Hematemesis. Liver disease. SURGICAL HISTORY : Hysterectomy. ENCOUNTER: Initial ACUITY: 1 day PAIN SCORE: 0/10 LOCATION: Bilateral flank MEASUREMENTS: RIGHT KIDNEY: 12.4 x 6.8 x 6.3 cm LEFT KIDNEY: 12.7 x 4.9 x 5.6 cm FINDINGS: RIGHT KIDNEY: Renal cortex is normal in thickness and echotexture. No hydronephrosis, stone, or mass. 2.4 x 3.4 c m cyst midpole. LEFT KIDNEY: Renal cortex is normal in thickness and echotexture. No hydronephrosis, stone, or mass. BLADDER: Decompressed by Moy. CONCLUSION: 1. 3.4 cm right renal cyst. No hydronephrosis. Bladder decompressed by Moy. Nayan Seo MD on November 18, 2016 at 22:56 Board Certified Radiologist. This report was verified electronically.
[2016-11-18 23:24] LABS: HEMATOCRIT 22.6 % (35.0-46.0)
[2016-11-18 23:26] LABS: REVIEW FLAG FINAL
[2016-11-19] VITALS (19 sets, daily range): BP systolic 103–127; BP diastolic 53–68; PULSE 70–106; RESP 10–23; TEMP 98.3–99.6; O2SAT 97–100
[2016-11-19] MEDS: PANTOPRAZOLE SODIUM 40 MG VIAL IV PUSH SCH ×2 (01:17→14:23)
[2016-11-19] MEDS: METOPROLOL TARTRATE 5 MG/5 ML VIAL IV PUSH SCH ×4 (02:30→21:23)
[2016-11-19 02:56] LABS: HEMATOCRIT 22.7 % (35.0-46.0); MEAN CELL VOLUME 90.8 FL (80.0-100.0); MEAN CORPUSCULAR HEMOGLOBIN 32.1 PG (27.0-34.0); MEAN CORPUSCULAR HGB CONC 35.3 % (32.0-36.0); PLATELET COUNT 59 TH/MM3 (150-450); RED CELL DISTRIBUTION WIDTH 21.9 % (11.6-17.2); REVIEW FLAG FINAL; WHITE BLOOD COUNT 4.3 TH/MM3 (4.0-11.0)
[2016-11-19 03:11] LABS: BICARBONATE 24.8 MEQ/L (21.0-32.0); MAGNESIUM 1.8 MG/DL (1.5-2.5); POTASSIUM 3.3 MEQ/L (3.5-5.1)
[2016-11-19] MEDS: RESP: ALBUTEROL 2.5 MG/IPRATROPIUM 0.5 MG NEB (SCH) NEB ×4 (03:49→20:34)
[2016-11-19] MEDS: CHLORHEXIDINE GLUCONATE 2 % 1 PACK (2 CLOTHS) TOP SCH (04:00)
[2016-11-19] MEDS: ICU - POTASSIUM PHOSPHATE 30 MMOL/NS 250 ML IV PRN ×2 (04:46)
--- NOTE | 2016-11-19 05:19 | RADRPT ---
EXAM DATE/TIME: 11/19/2016 04:23 [facility] COMPARISON: CHEST SINGLE AP, November 18, 2016, 7:10. INDICATIONS : Respiratory failure. MEDICAL HISTORY : None. SURGICAL HISTORY : None. ENCOUNTER: Subsequent ACUITY: 2 days PAIN SCORE: 0/10 LOCATION: Bilateral chest FINDINGS: Cardi megaly, bilateral consolidation and right jugular line again seen. Endotracheal tube tip at the [place]. CONCLUSION: No significant change has occurred. Swapnil Chavarria MD on November 19, 2016 at 5:17 Board Certified Radiologist. This report was verified electronically.
[2016-11-19] MEDS: RIFAXIMIN 200 MG TAB PO SCH ×3 (05:28→21:22)
[2016-11-19] MEDS: PROPOFOL 1000 MG/100 ML INJ 100 ML IV SCH ×2 (05:28→19:17)
[2016-11-19 05:31] LABS: BLOOD GAS BASE EXCESS -1.5 mmol/L (-2-2); BLOOD GAS CARBOXYHEMOGLOBIN 1.5 % (0-4); BLOOD GAS HCO3 22 mmol/L (22-26); BLOOD GAS METHEMOGLOBIN 0.5 % (0-2); BLOOD GAS O2 HGB SATURATION 96 % (90-100); BLOOD GAS OXYGEN CONTENT 11.4 Vol % (12.0-20.0); BLOOD GAS PCO2 32 mmHg (38-42); BLOOD GAS PO2 101 mmHg (61-120); BLOOD GAS TOTAL HGB 8.3 G/DL (12.0-16.0); CRITICAL VALUE NO; OXYGEN DEVICE VENTILATOR; TEMP CORR TO 98.6
[2016-11-19 05:32] LABS: DRAW SITE ART LINE; FIO2 35 %; STAT NO; VENT SETTINGS PRVC/AC
--- NOTE | 2016-11-19 06:10 | HHI.CCPN ---
Subjective Remarks/Hospital Course 45 year old female with a history of Acholic liver cirrhosis and previous GI bleed with portal hypertension and portal gastropathy and esophageal varices presents to the emergency department with complaints of abdominal pain, black stools and vomiting blood. She has been feeling weak an dizzy for the past 5 days and dark stools and vomiting blood started about 3 days ago. She has also had fever and chills, and esophageal discomfort. She stopped drinking for about 2 months then started drinking about 2 weeks ago. She stopped drinking when the symptoms started and has not drank in the past 2 to 3 days. She had a colonoscopy about 2 years ago which she thinks was normal and an EGD was done on 05/30/16 which showed probable bleed, portal gastropathy and gastric irritation secondary to ETOH. Subjective /3 The patient continued on octreotide and Protonix infusions overnight. The patient required levo fed currently at 4 mcgs. The patient is alert and oriented denies pain. Plan for today is an EGD. / The patient had bouts of confusion last night, decreasing O2 saturation. Chest x-ray performed showing pulmonary edema, 1 dose of Lasix was given with diuresis. The patient was placed on a Precedex infusion, and this morning was placed on a CIWA protocol. The patient continues on Octreotide and Protonix infusion, hemoglobin has been stable. 11/18 Tmax 100.7 Increased work of breathing was noted overnight,. The patient on a nonrebreather mask PaO2 75, tachypnea respiratory rate 30s - 40s. Patient received Lasix, was diuresed, 2 kg over the last 24 hours ,no change in respiratory status. The patient was emergently intubated, chest x-ray pending. Octreotide and Protonix infusions discontinued per GI. 11/19 CT scan obtained yesterday secondary to AMS, coagulopathy, results negative..Pulmonary edema was noted on CXR post intubation, patient well oxygenated overnight. Midday the patient was noted to have gross hematuria, urine labs, renal US obtained. Nephrology consulted, appreciate recommendations. Objective Vital Signs Date Time Temp Pulse Resp B/P Pulse Ox O2 Delivery O2 Flow Rate FiO2 11/19/16 04:00 40 11/19/16 04:00 83 11/19/16 04:00 98.6 18 108/58 100 11/18/16 09:06 Ventilator 11/18/16 04:00 15.00 Intake and Output 11/18/16 11/18/16 11/19/16 08:00 16:00 00:00 Intake Total 311 ml 1177 ml 1543 ml Output Total 2250 ml 2100 ml 500 ml Balance -1939 ml -923 ml 1043 ml Result Diagram: 11/19/16 0244 11/19/16 0244 Other Results Laboratory Tests Test 11/18/16 09:30 Blood Gas Puncture Site ART LINE Blood Gas Patient Temperature 98.6 Blood Gas HCO3 24 mmol/L (22-26) Blood Gas Base Excess 0.4 mmol/L (-2-2) Blood Gas Oxygen Saturation 97 % (90-100) Arterial Blood pH 7.48 (7.380-7.420) Arterial Blood Partial 32 mmHg (38-42) Pressure CO2 Arterial Blood Partial 140 mmHg Pressure O2 (61-120) Arterial Blood Oxygen Content 11.9 Vol % (12.0-20.0) Arterial Blood 1.6 % (0-4) Carboxyhemoglobin Arterial Blood Methemoglobin 0.7 % (0-2) Blood Gas Hemoglobin 8.5 G/DL (12.0-16.0) Oxygen Delivery Device VENTILATOR Blood Gas Ventilator Setting PRVC/450/IT1.0/+5 Blood Gas Inspired Oxygen 50 % Imaging Last Impressions Renal Ultrasound 11/18/16 0000 Signed Impressions: Service Date/Time: Friday, November 18, 2016 21:08 - CONCLUSION: 1. 3.4 cm right renal cyst. No hydronephrosis. Bladder decompressed by Moy. Nayan Seo MD Head CT 11/18/16 0000 Signed Impressions: Service Date/Time: Friday, November 18, 2016 17:34 - CONCLUSION: Normal examination for a patient of this age. No significant change has occurred. Nayan Seo MD Chest X-Ray 11/18/16 0000 Signed Impressions: Service Date/Time: Friday, November 18, 2016 07:10 - CONCLUSION: Endotracheal tube with tip 2 cm above the [place]. Bilateral perihilar edema. Jose Ann MD Abdomen X-Ray 11/18/16 0000 Signed Impressions: Service Date/Time: Friday, November 18, 2016 08:52 - CONCLUSION: No evidence of obstruction. Nasogastric tube with tip likely in distal stomach. Jose Ann MD Last 24 hours Impressions Chest X-Ray 11/15/16 0000 Signed Impressions: Service Date/Time: November 16:51 - CONCLUSION: No acute cardiopulmonary disease identified. Eleuterio Bower MD Objective Remarks GENERAL: Well-nourished, well-developed critically ill-appearing, intubated and sedated SKIN: Warm and dry. HEAD: Normocephalic. EYES: No scleral icterus. No injection or drainage. NECK: Supple, trachea midline. No JVD or lymphadenopathy. Orotracheally intubated. Right IJ noted CARDIOVASCULAR: Regular rate and rhythm without murmurs,S1, S2 no gallops, or rubs. RESPIRATORY: Breath sounds equal and coarse bilaterally. GASTROINTESTINAL: Abdomen soft, non-tender, nondistended. MUSCULOSKELETAL: No cyanosis, or edema. NEURO: GCS 3T on Propofol infusion. Urinary Catheter: Yes Moy insert reason: Measure Accurate Output Date of Insertion: Nov 15, 2016 Vascular Central Line Catheter: Yes Date of Insertion: Nov 15, 2016 Line: Central Venous Catheter Location: Internal, Jugular A/P Problem List: (1) Alcoholic cirrhosis of liver ICD Code: K70.30 Status: Acute (2) Acute blood loss anemia ICD Code: D62 Status: Acute (3) GI bleeding ICD Code: K92.2 Status: Acute (4) Thrombocytopenia ICD Code: D69.6 Status: Acute (5) Nausea ICD Code: R11.0 Status: Acute (6) ETOH abuse ICD Code: F10.10 Status: Acute Assessment and Plan Gastrointestinal bleed- resolved Alcoholic cirrhosis Portal hypertension Coagulopathy Thrombocytopenia - GI following- Dr. De La Cruz, EGD performed 11/16-class B esophagitis , hypertensive gastropathy, erythematous gastritis -Transitioned to Protonix BID, Octreotide dc'd 11/17 -INR 1.5, continue to monitor, LFT's -Continue vitamin K 5 mg daily - PO thiamine and folate daily -Will begin Propranolol for Portal HTN, when clinically indicated, due to recent hemodynamically instability will not initiate at this time Hypotension-resolved Cardiomegaly -Maintain MAP greater than 65mmHg - Levophed off 11/17, continue to monitor - IV fluids KVO - Albumin IV BID -CVP monitoring- trend fluid status -ECHO-F/U results Acute hypoxic respiratory failure Pulmonary edema/fluid overload -Propofol infusion for ventilator synchrony -Mechanical vent settings-16/450/8/.35 -F/U CXR -Schedule Bronchodilators every 6 hours, and every 2 hours when necessary -Continue to wean FiO2 to maintain a sat of 92% , currently 100% wean FiO2 -Follow-up ABG 7.44/32/101/22/-1.5 Begin CPAP Trials today Acute blood loss anemia-resolved - Transfuse red blood cells as needed to keep her hemoglobin above 7 - Monitor CBC Thrombocytopenia - Due to liver cirrhosis - Rec'd 1 PLT pack 2/3 --Transfuse for platelets less than 50,000-improving 59 Alcohol use disorder Metabolic Encephalopathy Delirium Tremors - CIWA protocol, continue to monitor - Ativan when necessary -Ammonia level -50 -Continue Lactulose, increase frequency to BID -F/U LFT's Hematuria -Nephrology consulted, appreciate recommendations -Follow-up urine studies -Maintain Moy Hypokalemia Hypophosphatemia -Monitor BMP -Replete electrolytes per ICU protocol DVT GI prophylaxis - Isaac's and SCDs Protonix BID per GI recommendations Dispo: This patient remains critically ill with one or more organ systems which are or may become a threat to life. I have spent in excess of 38 minutes discontinuously in the care and management of this patient. This time is exclusive of procedures, and includes, but is not limited to, evaluation of the patient, review of the medical record, discussions with family, consultants, nursing staff, or respiratory therapy, and documentation in the medical record. Discussed with the RN at bedside Physician Enma Garland Problem Qualifiers (1) Alcoholic cirrhosis of liver: Qualified Code: K70.30 - Alcoholic cirrhosis of liver without ascites (2) GI bleeding: Qualified Code: K92.0 - Gastrointestinal hemorrhage with hematemesis Enma Garland MD Nov 19, 2016 06:10
[2016-11-19 07:36] LABS: INDIRECT BILIRUBIN 1.6 MG/DL (0.0-0.8); TOTAL BILIRUBIN ADULT 4.6 MG/DL (0.2-1.0)
[2016-11-19] MEDS: THIAMINE HCL 100 MG TAB PO SCH (08:43)
[2016-11-19] MEDS: FOLIC ACID 1 MG TAB PO SCH (08:43)
[2016-11-19] MEDS: PHYTONADIONE 5 MG TAB PO SCH (08:43)
[2016-11-19] MEDS: LACTULOSE SYRUP 20 GM/30 ML CUP PO SCH (08:43)
[2016-11-19] MEDS: SODIUM CHLORIDE 0.9% FLUSH 5 ML FLUSH IV FLUSH SCH ×4 (08:44→21:23)
[2016-11-19] MEDS: ALBUMIN HUMAN 5% 25 GM/500 ML BOTTLE IV SCH ×2 (10:38→21:23)
[2016-11-19] MEDS: DEXMEDETOMIDINE INJ 50 ML IV SCH (10:38)
[2016-11-19] MEDS: NOREPINEPHRINE 4 MG/D5W 250 ML IV SCH (12:32)
[2016-11-19] MEDS ORDERED: NOREPINEPHRINE 4 MG/D5W 250 ML IV SCH (12:45)
--- NOTE | 2016-11-19 14:08 | HHI.GIFU ---
Subjective Remarks Resting in bed. Sedated on vent. No active bleeding per nurse. (Katia Mcwilliams) Objective Vitals I&O Vital Signs Date Time Temp Pulse Resp B/P Pulse Ox O2 Delivery O2 Flow Rate FiO2 11/19/16 12:12 97 30 11/19/16 12:00 98.5 90 20 103/53 97 11/19/16 12:00 35 11/19/16 12:00 90 11/19/16 10:00 106 11/19/16 08:30 35 11/19/16 08:06 35 11/19/16 08:01 100 35 11/19/16 08:00 77 11/19/16 08:00 98.7 77 16 127/64 100 11/19/16 08:00 35 11/19/16 07:12 100 35 11/19/16 06:00 88 11/19/16 04:00 40 11/19/16 04:00 83 11/19/16 04:00 98.6 83 18 108/58 100 11/19/16 03:49 100 40 11/19/16 02:00 80 11/19/16 00:05 100 40 11/19/16 00:00 40 11/19/16 00:00 79 11/19/16 00:00 98.3 79 23 105/68 100 11/18/16 22:00 86 11/18/16 20:00 50 11/18/16 20:00 82 11/18/16 20:00 98.5 82 16 104/68 100 11/18/16 19:50 100 40 11/18/16 18:00 85 11/18/16 16:00 97.5 86 21 108/69 100 11/18/16 16:00 86 11/18/16 16:00 50 I/O 11/18/16 11/18/16 11/18/16 11/19/16 11/19/16 11/19/16 07:00 15:00 23:00 07:00 15:00 23:00 Intake Total 311 ml 1177 ml 1543 ml 417 ml Output Total 2250 ml 2100 ml 500 ml 525 ml Balance -1939 ml -923 ml 1043 ml -108 ml Intake Oral 200 ml IV Total 111 ml 677 ml 983 ml 357 ml Albumin 500 ml 500 ml Other 60 ml 60 ml Output Urine Total 2250 ml 2000 ml 400 ml 400 ml Gastric Drainage Total 100 ml 100 ml 125 ml # Bowel Movements 0 0 0 0 Laboratory Laboratory Tests Test 11/18/16 11/18/16 11/18/16 11/19/16 16:30 17:58 23:13 02:44 Fibrinogen 223 D-Dimer Quantitative (PE/DVT) 7.28 Urine Osmolality 553 Urine Random Creatinine 106 Urine Random Total Protein 33 Urine Random Sodium 24 Urine Protein/Creatinine Ratio 0.31 Hemoglobin 8.3 7.9 8.0 Hematocrit 23.6 22.6 22.7 White Blood Count 4.3 Red Blood Count 2.50 Mean Corpuscular Volume 90.8 Mean Corpuscular Hemoglobin 32.1 Mean Corpuscular Hemoglobin 35.3 Concent Red Cell Distribution Width 21.9 Platelet Count 59 Mean Platelet Volume 8.4 Sodium Level 150 Potassium Level 3.3 Chloride Level 117 Carbon Dioxide Level 24.8 Anion Gap 8 Blood Urea Nitrogen 11 Creatinine 0.43 Estimat Glomerular Filtration 160 Rate Random Glucose 87 Calcium Level 7.9 Phosphorus Level 1.3 Magnesium Level 1.8 Total Bilirubin 4.6 Direct Bilirubin 3.0 Indirect Bilirubin 1.6 Aspartate Amino Transf 26 (AST/SGOT) Alanine Aminotransferase 19 (ALT/SGPT) Alkaline Phosphatase 78 Ammonia 50 Total Protein 5.2 Albumin 3.3 Test 11/19/16 05:19 Blood Gas Puncture Site ART LINE Blood Gas Patient Temperature 98.6 Blood Gas HCO3 22 Blood Gas Base Excess -1.5 Blood Gas Oxygen Saturation 96 Arterial Blood pH 7.45 Arterial Blood Partial 32 Pressure CO2 Arterial Blood Partial 101 Pressure O2 Arterial Blood Oxygen Content 11.4 Arterial Blood 1.5 Carboxyhemoglobin Arterial Blood Methemoglobin 0.5 Blood Gas Hemoglobin 8.3 Oxygen Delivery Device VENTILATOR Blood Gas Ventilator Setting PRVC/AC Blood Gas Inspired Oxygen 35 Date/Time Procedure Status Source Growth 11/18/16 11:45 Gram Stain - Final Resulted Sputum Endotracheal 11/18/16 11:45 Sputum Culture Resulted Sputum Endotracheal Pending 11/17/16 13:15 Urine Culture - Final Complete Urine Catheterized Urine NO GROWTH IN 48 HOURS. 11/17/16 11:20 Aerobic Blood Culture - Preliminary Resulted Blood Peripheral NO GROWTH IN 2 DAYS 11/17/16 11:20 Anaerobic Blood Culture - Preliminary Resulted Blood Peripheral NO GROWTH IN 2 DAYS Imaging Last Impressions Chest X-Ray 11/19/16 0600 Signed Impressions: Service Date/Time: Saturday, November 19, 2016 04:23 - CONCLUSION: No significant change has occurred. Swapnil Chavarria MD Renal Ultrasound 11/18/16 0000 Signed Impressions: Service Date/Time: Friday, November 18, 2016 21:08 - CONCLUSION: 1. 3.4 cm right renal cyst. No hydronephrosis. Bladder decompressed by Moy. Nayan Seo MD Head CT 11/18/16 0000 Signed Impressions: Service Date/Time: Friday, November 18, 2016 17:34 - CONCLUSION: Normal examination for a patient of this age. No significant change has occurred. Nayan Seo MD Abdomen X-Ray 11/18/16 0000 Signed Impressions: Service Date/Time: Friday, November 18, 2016 08:52 - CONCLUSION: No evidence of obstruction. Nasogastric tube with tip likely in distal stomach. Jose Ann MD Physical Exam HEENT: Atraumatic; no jaundice. CHEST: CTA, OETT to vent CARDIAC: RRR ABDOMEN: Soft, nondistended, nontender; no hepatosplenomegaly; bowel sounds are present in all four quadrants. EXTREMITIES: No clubbing, cyanosis, or edema. SKIN: Normal; no rash; no jaundice. 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 HH 8.0/22.7. No active bleeding per nursing Tolerating TF so far at 20cc/hr PPI (2) Acute blood loss anemia Plan: Secondary to GI bleed Follow H&H transfuse PRBC's to keep Hbg > 7.0 HH 8.0/22.7 (3) Thrombocytopenia Plan: Platelets are 59 Secondary to liver Cirrhosis (4) Alcoholic cirrhosis of liver Plan: Alcohol cessation encouraged (5) ETOH abuse Plan: Cessation encouraged (6) Nausea Plan: PPI Zofran (7) Elevated LFTs Plan: LFT's elevated -- secondary to cirrhosis, alcohol LFTs stable. T. Bili 4.6, Direct 3.9, Indirect 1.6, AST 26, ALT 19, Alk Phosph 78 Plan PLAN: - TF - Protonix IV BID - Follow H&H closely and transfuse PRBC's to keep Hgb > 7.0 - IV fluids - Monitor labs - Supportive care - Further recommendations to follow based on results of above - Pt seen and examined by Dr. Patel and this note is written on his behalf ( Katia Mcwilliams) Plan Seen and examined in the presence of Mom and Dad. Recent recidivism with etoh. Was doing well on out patient rehab. No gi bleeding. Monitor labs. (Sridevi Patel MD) Problem Qualifiers (1) GI bleeding: Qualified Code: K92.0 - Gastrointestinal hemorrhage with hematemesis (2) Alcoholic cirrhosis of liver: Qualified Code: K70.30 - Alcoholic cirrhosis of liver without ascites Katia Mcwilliams Nov 19, 2016 14:08 Sridevi Patel MD Nov 19, 2016 16:30
[2016-11-19] MEDS: cefTRIAXone INJ 1,000 MG in SODIUM CHLORIDE 0.9% INJ 100 ML IV SCH (15:46)
--- NOTE | 2016-11-19 19:05 | EC ---
Study Study Date:11/19/2016 STUDY CONCLUSIONS SUMMARY - Left ventricle: The cavity size was normal. Wall thickness was normal. Systolic function was normal. The estimated ejection fraction was in the range of 60% to 65%. Wall motion was normal; there were no regional wall motion abnormalities. - Mitral valve: Mild regurgitation. - Left atrium: The atrium was mildly dilated. - Tricuspid valve: Mild-moderate regurgitation. If LV function is below 40, please consider prescribing an ACEI or ARB or document rationale for non-use. PROCEDURE DATA STUDY STATUS: Elective. Procedure: Transthoracic echocardiography. Image quality was good. Scanning was performed from the parasternal, apical, and subcostal acoustic windows. Study completion: The patient tolerated the procedure well. Transthoracic echocardiography. M-mode, complete 2D, complete spectral Doppler, and color Doppler. Patient status: Inpatient. CARDIAC ANATOMY LEFT VENTRICLE: The cavity size was normal. Wall thickness was normal. Systolic function was normal. The estimated ejection fraction was in the range of 60% to 65%. Wall motion was normal; there were no regional wall motion abnormalities. AORTIC VALVE: Trileaflet; normal thickness leaflets. Doppler: Transvalvular velocity was within the normal range. There was no stenosis. No regurgitation. AORTA: Aortic root: The aortic root was normal in size. MITRAL VALVE: Structurally normal valve. Doppler: Transvalvular velocity was within the normal range. There was no evidence for stenosis. Mild regurgitation. LEFT ATRIUM: The atrium was mildly dilated. RIGHT VENTRICLE: The cavity size was normal. Wall thickness was normal. PULMONIC VALVE: Doppler: Transvalvular velocity was within the normal range. There was no evidence for stenosis. No regurgitation. TRICUSPID VALVE: Structurally normal valve. Doppler: Transvalvular velocity was within the normal range. Mild-moderate regurgitation. PULMONARY ARTERY: The main pulmonary artery was normal-sized. Systolic pressure was within the normal range. RIGHT ATRIUM: The atrium was normal in size. PERICARDIUM: There was no pericardial effusion. SYSTEMIC VEINS: Inferior vena cava: The vessel was mildly dilated. Prepared and signed by Stefan Desir [id number]
[2016-11-20] VITALS (18 sets, daily range): BP systolic 100–146; BP diastolic 49–75; PULSE 77–114; RESP 10–33; TEMP 98.2–100.3; O2SAT 93–100
[2016-11-20] MEDS: PROPOFOL 1000 MG/100 ML INJ 100 ML IV SCH ×2 (00:33→05:19)
[2016-11-20] MEDS: LORazepam 2 MG/ML VIAL IV PRN (00:33)
[2016-11-20] MEDS: DEXMEDETOMIDINE INJ 50 ML IV SCH ×2 (03:01→05:18)
[2016-11-20] MEDS: METOPROLOL TARTRATE 5 MG/5 ML VIAL IV PUSH SCH ×5 (03:01→21:30)
[2016-11-20] MEDS: PANTOPRAZOLE SODIUM 40 MG VIAL IV PUSH SCH ×2 (03:01→14:55)
[2016-11-20] MEDS: RESP: ALBUTEROL 2.5 MG/IPRATROPIUM 0.5 MG NEB (SCH) NEB ×4 (03:03→22:55)
[2016-11-20] MEDS: CHLORHEXIDINE GLUCONATE 2 % 1 PACK (2 CLOTHS) TOP SCH (04:00)
[2016-11-20 04:49] LABS: MAGNESIUM 1.8 MG/DL (1.5-2.5)
[2016-11-20 04:51] LABS: HEMATOCRIT 23.8 % (35.0-46.0); MEAN CELL VOLUME 91.5 FL (80.0-100.0); MEAN CORPUSCULAR HEMOGLOBIN 31.7 PG (27.0-34.0); MEAN CORPUSCULAR HGB CONC 34.6 % (32.0-36.0); PLATELET COUNT 81 TH/MM3 (150-450); RED CELL DISTRIBUTION WIDTH 22.4 % (11.6-17.2)
[2016-11-20 04:59] LABS: REVIEW FLAG FINAL
[2016-11-20] MEDS: RIFAXIMIN 200 MG TAB PO SCH (05:19)
[2016-11-20 08:06] LABS: BLOOD GAS BASE EXCESS -0.9 mmol/L (-2-2); BLOOD GAS CARBOXYHEMOGLOBIN 1.6 % (0-4); BLOOD GAS HCO3 22 mmol/L (22-26); BLOOD GAS METHEMOGLOBIN 0.7 % (0-2); BLOOD GAS O2 HGB SATURATION 96 % (90-100); BLOOD GAS OXYGEN CONTENT 10.6 Vol % (12.0-20.0); BLOOD GAS PCO2 31 mmHg (38-42); BLOOD GAS PO2 100 mmHg (61-120); BLOOD GAS TOTAL HGB 7.7 G/DL (12.0-16.0); CRITICAL VALUE NO; TEMP CORR TO 98.6
[2016-11-20 08:08] LABS: OXYGEN DEVICE VENTILATOR
[2016-11-20 08:09] LABS: DRAW SITE ART LINE; FIO2 30 %; NUMBER OF ARTERIAL PUNCTURES 0; STAT YES; ULNAR PULSE PRESENT; VENT SETTINGS CPAP/IPAP10/EPAP5
[2016-11-20] MEDS: THIAMINE HCL 100 MG TAB PO SCH (08:28)
[2016-11-20] MEDS: FOLIC ACID 1 MG TAB PO SCH (08:28)
[2016-11-20] MEDS: LACTULOSE SYRUP 20 GM/30 ML CUP PO SCH (08:28)
[2016-11-20] MEDS: PHYTONADIONE 5 MG TAB PO SCH (08:28)
[2016-11-20] MEDS: SODIUM CHLORIDE 0.9% FLUSH 5 ML FLUSH IV FLUSH SCH ×4 (08:28→21:00)
[2016-11-20] MEDS: NOREPINEPHRINE 4 MG/D5W 250 ML IV SCH (08:50)
[2016-11-20 09:14] LABS: BICARBONATE 23.9 MEQ/L (21.0-32.0)
[2016-11-20 09:17] LABS: POTASSIUM 2.7 MEQ/L (3.5-5.1)
--- NOTE | 2016-11-20 09:21 | HHI.CCPN ---
Subjective Remarks/Hospital Course 45 year old female with a history of Acholic liver cirrhosis and previous GI bleed with portal hypertension and portal gastropathy and esophageal varices presents to the emergency department with complaints of abdominal pain, black stools and vomiting blood. She has been feeling weak an dizzy for the past 5 days and dark stools and vomiting blood started about 3 days ago. She has also had fever and chills, and esophageal discomfort. She stopped drinking for about 2 months then started drinking about 2 weeks ago. She stopped drinking when the symptoms started and has not drank in the past 2 to 3 days. She had a colonoscopy about 2 years ago which she thinks was normal and an EGD was done on 05/30/16 which showed probable bleed, portal gastropathy and gastric irritation secondary to ETOH. Subjective / The patient continued on octreotide and Protonix infusions overnight. The patient required levo fed currently at 4 mcgs. The patient is alert and oriented denies pain. Plan for today is an EGD. 11/17 The patient had bouts of confusion last night, decreasing O2 saturation. Chest x-ray performed showing pulmonary edema, 1 dose of Lasix was given with diuresis. The patient was placed on a Precedex infusion, and this morning was placed on a CIWA protocol. The patient continues on Octreotide and Protonix infusion, hemoglobin has been stable. 11/18 Tmax 100.7 Increased work of breathing was noted overnight,. The patient on a nonrebreather mask PaO2 75, tachypnea respiratory rate 30s - 40s. Patient received Lasix, was diuresed, 2 kg over the last 24 hours ,no change in respiratory status. The patient was emergently intubated, chest x-ray pending. Octreotide and Protonix infusions discontinued per GI. 11/19 CT scan obtained yesterday secondary to AMS, coagulopathy, results negative..Pulmonary edema was noted on CXR post intubation, patient well oxygenated overnight. Midday the patient was noted to have gross hematuria, urine labs, renal US obtained. Nephrology consulted, appreciate recommendations. 11/20 The patient remain on CPAP trials for the last 24 hours on low-dose Precedex infusion. Plan for SBT, extubation this a.m.. Objective Vital Signs Date Time Temp Pulse Resp B/P Pulse Ox O2 Delivery O2 Flow Rate FiO2 11/20/16 07:53 99 30 11/20/16 06:00 79 11/20/16 04:00 99.0 18 146/68 11/18/16 09:06 Ventilator 11/18/16 04:00 15.00 Intake and Output 11/19/16 11/19/16 11/20/16 08:00 16:00 00:00 Intake Total 417 ml 1213 ml 1327 ml Output Total 525 ml 450 ml 450 ml Balance -108 ml 763 ml 877 ml Result Diagram: 11/20/16 0410 11/19/16 0244 Other Results Microbiology Date/Time Procedure Status Source Growth 11/17/16 13:15 Urine Culture - Final Complete Urine Catheterized Urine NO GROWTH IN 48 HOURS. Laboratory Tests Test 11/20/16 07:15 Blood Gas Puncture Site ART LINE Blood Gas Patient Temperature 98.6 Blood Gas HCO3 22 mmol/L (22-26) Blood Gas Base Excess -0.9 mmol/L (-2-2) Blood Gas Oxygen Saturation 96 % (90-100) Arterial Blood pH 7.47 (7.380-7.420) Arterial Blood Partial 31 mmHg (38-42) Pressure CO2 Arterial Blood Partial 100 mmHg Pressure O2 (61-120) Arterial Blood Oxygen Content 10.6 Vol % (12.0-20.0) Arterial Blood 1.6 % (0-4) Carboxyhemoglobin Arterial Blood Methemoglobin 0.7 % (0-2) Blood Gas Hemoglobin 7.7 G/DL (12.0-16.0) Oxygen Delivery Device VENTILATOR Blood Gas Ventilator Setting CPAP/IPAP10/EPAP5 Blood Gas Inspired Oxygen 30 % Imaging Last Impressions Chest X-Ray 11/19/16 0600 Signed Impressions: Service Date/Time: Saturday, November 19, 2016 04:23 - CONCLUSION: No significant change has occurred. Swapnil Chavarria MD Renal Ultrasound 11/18/16 0000 Signed Impressions: Service Date/Time: Friday, November 18, 2016 21:08 - CONCLUSION: 1. 3.4 cm right renal cyst. No hydronephrosis. Bladder decompressed by Moy. Nayan Seo MD Head CT 11/18/16 0000 Signed Impressions: Service Date/Time: Friday, November 18, 2016 17:34 - CONCLUSION: Normal examination for a patient of this age. No significant change has occurred. Nayan Seo MD Abdomen X-Ray 2/5/17 0000 Signed Impressions: Service Date/Time: Friday, November 18, 2016 08:52 - CONCLUSION: No evidence of obstruction. Nasogastric tube with tip likely in distal stomach. Jose Ann MD Last Impressions Renal Ultrasound 11/18/16 Signed Impressions: Service Date/Time: Friday, November 18, 2016 21:08 - CONCLUSION: 1. 3.4 cm right renal cyst. No hydronephrosis. Bladder decompressed by Moy. Nayan Seo MD Head CT 11/18/16 Signed Impressions: Service Date/Time: Friday, November 18, 2016 17:34 - CONCLUSION: Normal examination for a patient of this age. No significant change has occurred. Nayan Seo MD Chest X-Ray 11/18/16 Signed Impressions: Service Date/Time: Friday, November 18, 2016 07:10 - CONCLUSION: Endotracheal tube with tip 2 cm above the [place]. Bilateral perihilar edema. Jose Ann MD Abdomen X-Ray 11/18/16 Signed Impressions: Service Date/Time: Friday, November 18, 2016 08:52 - CONCLUSION: No evidence of obstruction. Nasogastric tube with tip likely in distal stomach. Jose Ann MD Last 24 hours Impressions Chest X-Ray 11/15/16 Signed Impressions: Service Date/Time: November 16:51 - CONCLUSION: No acute cardiopulmonary disease identified. Eleuterio Bower MD Objective Remarks GENERAL: Well-nourished, well-developed female intubated and responsive SKIN: Warm and dry. HEAD: Normocephalic. EYES: No scleral icterus. No injection or drainage. NECK: Supple, trachea midline. No JVD or lymphadenopathy. Orotracheally intubated. Right IJ CARDIOVASCULAR: Regular rate and rhythm without murmurs,S1, S2 no gallops, or rubs. RESPIRATORY: Breath sounds equal and clear to auscultation bilaterally GASTROINTESTINAL: Abdomen soft, non-tender, nondistended. MUSCULOSKELETAL: No cyanosis, or edema. NEURO: GCS 11 T on Precedex infusion. Movement of extremities 4. Urinary Catheter: Yes Moy insert reason: Measure Accurate Output Date of Insertion: Nov 15, 2016 Vascular Central Line Catheter: Yes (vasoactive medication administration) Date of Insertion: Nov 15, 2016 Line: Central Venous Catheter Location: Internal, Jugular A/P Problem List: (1) Alcoholic cirrhosis of liver ICD Code: K70.30 Status: Acute (2) Acute blood loss anemia ICD Code: D62 Status: Acute (3) GI bleeding ICD Code: K92.2 Status: Acute (4) Thrombocytopenia ICD Code: D69.6 Status: Acute (5) Nausea ICD Code: R11.0 Status: Acute (6) ETOH abuse ICD Code: F10.10 Status: Acute Assessment and Plan Gastrointestinal bleed-secondary to alcoholic cirrhosis and portal hypertension Coagulopathy Thrombocytopenia - Protonix infusion - GI following- Dr. De La Cruz, EGD performed 11/16 -Tube feedings on hold for possible extubation -Continue vitamin K 5 mg daily -PO thiamine and folate daily Hypotension-resolved -Maintain MAP greater than 65mmHg - Levophed off 11/17, continue to monitor - IV fluids KVO - Discontinue Albumin -CVP monitoring 7 Acute hypoxic respiratory failure Pulmonary edema/fluid overload -Intubation, Precedex infusion for ventilator synchrony -ABG 7.47/31/100/22/-0.9 on FiO2 0.35 -SBT trial this a.m. -Schedule Bronchodilators every 6 hours, and every 2 hours when necessary -Continue to wean FiO2 to maintain a sat of 92% -Plan to extubate -Echo 11/19-EF 6065%, no RWMA mild to moderate tricuspid regurgitation, mild mitral regurgitation Acute blood loss anemia-resolved - Transfuse red blood cells as needed to keep her hemoglobin above 7 - Monitor CBC Thrombocytopenia - Due to liver cirrhosis - S/P transfusion one pack of platelets --Platelet count improving, transfuse if less than 50,000 Alcohol use disorder-altered mental status - MELD score 19 - Monitor for signs of alcohol withdrawal, notify M.D. - Consider Ativan when necessary -Precedex infusion Hypokalemia -Replete electrolytes per ICU protocol DVT GI prophylaxis - SCDs , Protonix BID per GI recommendations Dispo: I spoke with family, Constance Nails, , and updated her on patient 's medical status. This patient remains critically ill with one or more organ systems which are or may become a threat to life. I have spent in excess of 37 minutes discontinuously in the care and management of this patient. This time is exclusive of procedures, and includes, but is not limited to, evaluation of the patient, review of the medical record, discussions with family, consultants, nursing staff, or respiratory therapy, and documentation in the medical record. Discussed with the RN at bedside, Physician Enma Garland Problem Qualifiers (1) Alcoholic cirrhosis of liver: Qualified Code: K70.30 - Alcoholic cirrhosis of liver without ascites (2) GI bleeding: Qualified Code: K92.0 - Gastrointestinal hemorrhage with hematemesis Enma Garland MD Nov 20, 2016 09:21
[2016-11-20] MEDS: ICU - POTASSIUM CHLORIDE/AQUEOUS SOLN 40 MEQ/100 ML IVPB IV PRN (09:43)
[2016-11-20 11:58] LABS: UR UREA/CREAT RATIO 15.73 mg/mg (())
--- NOTE | 2016-11-20 14:47 | HHI.GIFU ---
Subjective Remarks Resting in bed. Extubated this am. No n/v. No bleeding. Tolerating ice chips and requesting "real food" because she is "starving." (Katia Mcwilliams) Objective Vitals I&O Vital Signs Date Time Temp Pulse Resp B/P Pulse Ox O2 Delivery O2 Flow Rate FiO2 11/20/16 12:00 98.8 87 23 119/55 94 11/20/16 12:00 87 11/20/16 10:00 77 11/20/16 09:30 97 Nasal Cannula 3 11/20/16 08:00 98.2 77 33 124/64 98 11/20/16 08:00 77 11/20/16 08:00 30 11/20/16 07:53 99 30 11/20/16 06:15 30 11/20/16 06:15 99 30 11/20/16 06:00 79 11/20/16 04:00 99.0 80 18 146/68 100 11/20/16 04:00 30 11/20/16 04:00 80 11/20/16 03:05 100 30 11/20/16 02:00 88 11/20/16 00:37 100 30 11/20/16 00:00 80 11/20/16 00:00 30 11/20/16 00:00 98.9 91 10 131/75 100 11/19/16 22:00 94 11/19/16 20:42 100 30 11/19/16 20:00 99.1 70 10 109/56 100 11/19/16 20:00 30 11/19/16 20:00 70 11/19/16 18:00 82 11/19/16 16:00 99.6 80 11 117/62 100 11/19/16 16:00 80 11/19/16 16:00 30 11/19/16 15:50 99 30 I/O 11/19/16 11/19/16 11/19/16 11/20/16 11/20/16 11/20/16 07:00 15:00 23:00 07:00 15:00 23:00 Intake Total 417 ml 1213 ml 1327 ml 255 ml 549 ml Output Total 525 ml 450 ml 450 ml 300 ml 350 ml Balance -108 ml 763 ml 877 ml -45 ml 199 ml Intake Oral 240 ml IV Total 357 ml 552 ml 318 ml 181 ml 309 ml Tube Feeding 101 ml 231 ml Lipid 158 ml 74 ml Albumin 500 ml 500 ml Tube Irrigant 60 ml 120 ml Other 60 ml Output Urine Total 400 ml 450 ml 450 ml 300 ml 350 ml Stool Total 0 ml Gastric Drainage Total 125 ml 0 ml # Bowel Movements 0 0 0 0 Laboratory Laboratory Tests Test 11/20/16 11/20/16 04:10 07:15 White Blood Count 5.0 Red Blood Count 2.60 Hemoglobin 8.2 Hematocrit 23.8 Mean Corpuscular Volume 91.5 Mean Corpuscular Hemoglobin 31.7 Mean Corpuscular Hemoglobin 34.6 Concent Red Cell Distribution Width 22.4 Platelet Count 81 Mean Platelet Volume 8.5 Sodium Level 148 Potassium Level 2.7 Chloride Level 113 Carbon Dioxide Level 23.9 Anion Gap 11 Blood Urea Nitrogen 8 Creatinine 0.50 Estimat Glomerular Filtration 135 Rate Random Glucose 116 Calcium Level 8.1 Phosphorus Level 2.3 Magnesium Level 1.8 Blood Gas Puncture Site ART LINE Blood Gas Patient Temperature 98.6 Blood Gas HCO3 22 Blood Gas Base Excess -0.9 Blood Gas Oxygen Saturation 96 Arterial Blood pH 7.47 Arterial Blood Partial 31 Pressure CO2 Arterial Blood Partial 100 Pressure O2 Arterial Blood Oxygen Content 10.6 Arterial Blood 1.6 Carboxyhemoglobin Arterial Blood Methemoglobin 0.7 Blood Gas Hemoglobin 7.7 Oxygen Delivery Device VENTILATOR Blood Gas Ventilator Setting CPAP/IPAP10/EPAP5 Blood Gas Inspired Oxygen 30 Date/Time Procedure Status Source Growth 11/18/16 11:45 Gram Stain - Final Complete Sputum Endotracheal 11/18/16 11:45 Sputum Culture - Final Complete Sputum Endotracheal NO GROWTH IN 48 HOURS. 11/17/16 13:15 Urine Culture - Final Complete Urine Catheterized Urine NO GROWTH IN 48 HOURS. 11/17/16 11:20 Aerobic Blood Culture - Preliminary Resulted Blood Peripheral NO GROWTH IN 3 DAYS 11/17/16 11:20 Anaerobic Blood Culture - Preliminary Resulted Blood Peripheral NO GROWTH IN 3 DAYS Imaging Last Impressions Chest X-Ray 11/19/16 0600 Signed Impressions: Service Date/Time: Saturday, November 19, 2016 04:23 - CONCLUSION: No significant change has occurred. Swapnil Chavarria MD Renal Ultrasound 11/18/16 0000 Signed Impressions: Service Date/Time: Friday, November 18, 2016 21:08 - CONCLUSION: 1. 3.4 cm right renal cyst. No hydronephrosis. Bladder decompressed by Moy. Nayan Seo MD Head CT 11/18/16 0000 Signed Impressions: Service Date/Time: Friday, November 18, 2016 17:34 - CONCLUSION: Normal examination for a patient of this age. No significant change has occurred. Nayan Seo MD Abdomen X-Ray 11/18/16 0000 Signed Impressions: Service Date/Time: Friday, November 18, 2016 08:52 - CONCLUSION: No evidence of obstruction. Nasogastric tube with tip likely in distal stomach. Jose Ann MD Physical Exam HEENT: Atraumatic; no jaundice. CHEST: CTA, OETT to vent CARDIAC: RRR ABDOMEN: Soft, nondistended, nontender; no hepatosplenomegaly; bowel sounds are present in all four quadrants. EXTREMITIES: No clubbing, cyanosis, or edema. SKIN: Normal; no rash; no jaundice. 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 HH 8.2/23.8 No active bleeding per nursing Tolerating ice chips PPI (2) Acute blood loss anemia Plan: Secondary to GI bleed Follow H&H transfuse PRBC's to keep Hbg > 7.0 HH 8.2/23.8 (3) Thrombocytopenia Plan: Stable. Secondary to liver Cirrhosis (4) Alcoholic cirrhosis of liver Plan: Alcohol cessation encouraged (5) ETOH abuse Plan: Cessation encouraged (6) Nausea Plan: PPI Zofran (7) Elevated LFTs Plan: LFT's elevated -- secondary to cirrhosis, alcohol LFTs stable. Plan TF - Heart healthy diet - PPI - Monitor HH - ETOH Cessation - FU MARILEE 2 weeks - GI will sign off, please reconsult as needed - Pt seen and examined by Dr. Patel and this note is written on his behalf ( Katia Mcwilliams) Physician Comments Seen and examined, extubated today. Diet as tolerated. Needs to quit ETOH. Discussed this with parents yesterday. GI will sign off, reconsult as needed. GI fu upon dc. Thank you (Sridevi Patel MD) Problem Qualifiers (1) GI bleeding: Qualified Code: K92.0 - Gastrointestinal hemorrhage with hematemesis (2) Alcoholic cirrhosis of liver: Qualified Code: K70.30 - Alcoholic cirrhosis of liver without ascites Katia Mcwilliams Nov 20, 2016 14:47 Sridevi Patel MD Nov 20, 2016 17:45
[2016-11-20] MEDS: cefTRIAXone INJ 1,000 MG in SODIUM CHLORIDE 0.9% INJ 100 ML IV SCH (14:55)
[2016-11-20] MEDS: ACETAMINOPHEN 325 MG TAB PO PRN ×2 (14:56→20:07)
[2016-11-20] MEDS: POTASSIUM CL 40 MEQ/30 ML LIQ UDC NG SCH (20:05)
[2016-11-21] VITALS (11 sets, daily range): BP systolic 100–130; BP diastolic 24–82; PULSE 80–117; RESP 18–25; TEMP 97.9–99.8; O2SAT 93–97
[2016-11-21] MEDS: PANTOPRAZOLE SODIUM 40 MG VIAL IV PUSH SCH ×2 (02:29→16:35)
[2016-11-21] MEDS: METOPROLOL TARTRATE 5 MG/5 ML VIAL IV PUSH SCH ×4 (03:30→20:51)
[2016-11-21] MEDS: RESP: ALBUTEROL 2.5 MG/IPRATROPIUM 0.5 MG NEB (SCH) NEB (03:50)
[2016-11-21] MEDS: CHLORHEXIDINE GLUCONATE 2 % 1 PACK (2 CLOTHS) TOP SCH (04:00)
[2016-11-21] MEDS: ACETAMINOPHEN 325 MG TAB PO PRN (04:13)
[2016-11-21 06:16] LABS: HEMATOCRIT 22.3 % (35.0-46.0); MEAN CELL VOLUME 91.7 FL (80.0-100.0); MEAN CORPUSCULAR HEMOGLOBIN 32.1 PG (27.0-34.0); PLATELET COUNT 86 TH/MM3 (150-450); RED BLOOD COUNT 2.44 MIL/MM3 (4.00-5.30); WHITE BLOOD COUNT 4.4 TH/MM3 (4.0-11.0)
--- NOTE | 2016-11-21 06:27 | RADRPT ---
EXAM DATE/TIME: 11/21/2016 05:03 [facility] COMPARISON: CHEST SINGLE AP, November 19, 2016, 4:23. INDICATIONS : Shortness of breath. MEDICAL HISTORY : None. SURGICAL HISTORY : Hysterectomy. ENCOUNTER: Subsequent ACUITY: 4 - 6 days PAIN SCORE: Non-responsive. LOCATION: Bilateral chest FINDINGS: Right jugular line tip over the SVC. A single view of the chest demonstrates the lungs to be symmetrically aerated without evidence of mas s, infiltrate or effusion. The cardiomediastinal contours are unremarkable. Osseous structures are intact. CONCLUSION: Improved aeration. Swapnil Chavarria MD on November 21, 2016 at 6:25 Board Certified Radiologist. This report was verified electronically.
[2016-11-21 06:28] LABS: REVIEW FLAG FINAL
[2016-11-21 06:42] LABS: BICARBONATE 24.9 MEQ/L (21.0-32.0); MAGNESIUM 1.6 MG/DL (1.5-2.5); POTASSIUM 3.1 MEQ/L (3.5-5.1)
[2016-11-21] MEDS: SODIUM CHLORIDE 0.9% FLUSH 5 ML FLUSH IV FLUSH SCH ×4 (09:00→20:51)
[2016-11-21] MEDS: POTASSIUM CL 40 MEQ/30 ML LIQ UDC NG SCH ×2 (09:00→20:51)
[2016-11-21] MEDS: THIAMINE HCL 100 MG TAB PO SCH (09:08)
[2016-11-21] MEDS: PHYTONADIONE 5 MG TAB PO SCH (09:08)
[2016-11-21] MEDS: FOLIC ACID 1 MG TAB PO SCH (09:08)
[2016-11-21] MEDS: LACTULOSE SYRUP 20 GM/30 ML CUP PO SCH (09:09)
--- NOTE | 2016-11-21 09:09 | HHI.PR ---
Subjective Remarks Patient in bed appears chronically ill. Says she is confused and doesn't know much what happened. Says she is eating , no n/v/d/c. Feels very weak. Says she would like to sit up in the chair. No fever or chills. Low K and phos, will replace , discussed with the ICU nurse. Objective Vitals Vital Signs Date Time Temp Pulse Resp B/P Pulse Ox O2 Delivery O2 Flow Rate FiO2 11/21/16 06:00 101 11/21/16 04:00 98.8 108 21 105/55 95 100/24 11/21/16 04:00 108 11/21/16 02:00 109 11/21/16 00:00 99.8 117 24 103/56 93 105/59 11/21/16 00:00 117 11/20/16 22:56 95 21 11/20/16 22:00 105 11/20/16 20:00 100.3 106 28 101/51 93 100/59 11/20/16 20:00 106 11/20/16 18:00 114 11/20/16 17:00 94 Room Air 11/20/16 16:00 100.3 110 18 118/60 93 11/20/16 16:00 95 21 11/20/16 16:00 110 11/20/16 16:00 93 Nasal Cannula 11/20/16 15:56 20 11/20/16 15:00 96 Nasal Cannula 2.00 11/20/16 14:00 96 Nasal Cannula 2.00 11/20/16 14:00 94 11/20/16 13:00 95 Nasal Cannula 2.00 11/20/16 12:00 94 Nasal Cannula 2.00 11/20/16 12:00 98.8 87 23 119/55 94 11/20/16 12:00 87 11/20/16 11:00 98 Nasal Cannula 2.00 11/20/16 10:00 94 Nasal Cannula 2.00 11/20/16 10:00 77 11/20/16 09:30 97 Nasal Cannula 3 11/20/16 09:30 95 Nasal Cannula 2.00 I/O 11/20/16 11/20/16 11/20/16 11/21/16 11/21/16 11/21/16 07:00 15:00 23:00 07:00 15:00 23:00 Intake Total 255 ml 549 ml 910 ml 789 ml Output Total 300 ml 350 ml 750 ml 550 ml Balance -45 ml 199 ml 160 ml 239 ml Intake Oral 240 ml 720 ml 720 ml IV Total 181 ml 309 ml 190 ml 69 ml Lipid 74 ml Output Urine Total 300 ml 350 ml 750 ml 550 ml Stool Total 0 ml # Bowel Movements 0 0 0 Result Diagram: 11/21/16 0600 11/21/16599 Imaging Last Impressions Chest X-Ray 11/21/16599 Signed Impressions: Service Date/Time: Monday, November 21, 2016 05:03 - CONCLUSION: Improved aeration. Swapnil Chavarria MD Renal Ultrasound 11/18/16 0000 Signed Impressions: Service Date/Time: Friday, November 18, 2016 21:08 - CONCLUSION: 1. 3.4 cm right renal cyst. No hydronephrosis. Bladder decompressed by Moy. Nayan Seo MD Head CT 11/18/16 0000 Signed Impressions: Service Date/Time: Friday, November 18, 2016 17:34 - CONCLUSION: Normal examination for a patient of this age. No significant change has occurred. Nayan Seo MD Abdomen X-Ray 11/18/16 0000 Signed Impressions: Service Date/Time: Friday, November 18, 2016 08:52 - CONCLUSION: No evidence of obstruction. Nasogastric tube with tip likely in distal stomach. Jose Ann MD Objective Remarks GENERAL: Well-nourished, well-developed female, in bed appears in nad. SKIN: Warm and dry. HEAD: Normocephalic. EYES: No scleral icterus. No injection or drainage. NECK: Supple, trachea midline. No JVD or lymphadenopathy. Orotracheally intubated. Right IJ CARDIOVASCULAR: Regular rate and rhythm without murmurs,S1, S2 no gallops, or rubs. RESPIRATORY: Breath sounds equal and clear to auscultation bilaterally GASTROINTESTINAL: Abdomen soft, non-tender, nondistended. MUSCULOSKELETAL: No cyanosis, or edema. NEURO: Alert and awake. Movement of extremities 4, follows commands. Date of Insertion: Nov 15, 2016 Date of Insertion: Nov 15, 2016 Line: Central Venous Catheter Location: Internal, Jugular A/P Assessment and Plan Gastrointestinal bleed-secondary to alcoholic cirrhosis and portal hypertension Coagulopathy Thrombocytopenia - Protonix infusion - GI following- Dr. De La Cruz, EGD performed 11/16 - Diet per ST -Continue vitamin K 5 mg daily -PO thiamine and folate daily Hypotension-resolved -Maintain MAP greater than 65mmHg - Levophed off 11/17, continue to monitor - IV fluids KVO - Discontinue Albumin -CVP monitoring 7 Acute hypoxic respiratory failure Pulmonary edema/fluid overload -Intubation, Precedex infusion for ventilator synchrony -ABG 7.47/31/100/22/-0.9 on FiO2 0.35 -SBT trial this a.m. -Schedule Bronchodilators every 6 hours, and every 2 hours when necessary -Continue to wean FiO2 to maintain a sat of 92% -Plan to extubate -Echo 11/19-EF 6065%, no RWMA mild to moderate tricuspid regurgitation, mild mitral regurgitation Acute blood loss anemia-resolved - Transfuse red blood cells as needed to keep her hemoglobin above 7 - Monitor CBC Thrombocytopenia - Due to liver cirrhosis - S/P transfusion one pack of platelets --Platelet count improving, transfuse if less than 50,000 Alcohol use disorder-altered mental status - MELD score 19 - Monitor for signs of alcohol withdrawal, notify M.D. - Consider Ativan when necessary -Precedex infusion Hypokalemia -Replete electrolytes per ICU protocol DVT GI prophylaxis - SCDs , Protonix BID per GI recommendations Dispo: Family Constance Nails, , was updated by Dr Garland on patient's medical status. Plan to transfer to med /surg Discussed with the ICU nurse at bedside, patient Claudine Kat MD Nov 21, 2016 09:09
[2016-11-21] MEDS: ICU - POTASSIUM CHLORIDE/AQUEOUS SOLN 40 MEQ/100 ML IVPB IV PRN (10:20)
--- NOTE | 2016-11-21 16:11 | PD.CONS ---
Provisional Diagnosis Admission Date Nov 15, 2016 at 13:12 Turon I. Adjustment disorder with depressed mood vs depressive disorder, alcohol use disorder, Turon II. Deferred History of Present Illness Service Psychiatry Consult Requested By Primary Care Physician No Primary Care Physician HPI The patient is a 45 years old woman domicile with her 2 kids in [place], unemployed, , supported by ex-, with psychiatric history of depression, alcohol use disorder, alcohol and induced mood disorder, no previous psychotropic hospitalizations, she is in outpatient weekly counseling in [facility], no currently on medications, medical history of hepatic cirrhosis, hospitalized due to hypotension, acute GI bleeding, hyponatremia, consulted to psychiatry due to depressive symptoms. On psychiatric evaluation patient is not very cooperative, she seems to be very weak, fragile, acutely ill , patient is states that she has been facing a lot of stress recently, she has been having a lot of problems with her ex-, she declined to elaborate about the problem and the circumstances of her frustration, she says that there are also financial issues involved and for this reason after 2 months without using any alcohol she relapsed about a week ago and has been getting drunk every day. Patient denies suicidal or homicidal ideation, she denies visual and auditory hallucinations. Patient says that she would love to be medicated with something to sleep, because he is having a very hard time at night. Patient is fully oriented 3, however she seems to be a little bit distant, maybe confused. She denies the use of illicit drugs, endorses daily use of alcohol in the last 2 weeks, and extensive history of alcohol use disorder in the past. Review of Systems Constitutional: DENIES: Diaphoretic episodes, Fatigue, Fever, Weight gain, Weight loss, Chills, Dizziness, Change in appetite, Night Sweats Endocrine: DENIES: Abnorml menstrual pattern, Heat/cold intolerance, Polydipsia , Polyuria, Polyphagia Eyes: DENIES: Blurred vision, Diplopia, Eye inflammation, Eye pain, Vision loss , Photosensitivity, Double Vision Ears, nose, mouth, throat: DENIES: Tinnitus, Hearing loss, Vertigo, Nasal discharge, Oral lesions, Throat pain, Hoarseness, Ear Pain, Running Nose, Epistaxis, Sinus Pain, Toothache, Odynophagia Respiratory: DENIES: Apneas, Cough, Snoring, Wheezing, Hemoptysis, Sputum production, Shortness of breath Cardiovascular: DENIES: Chest pain, Palpitations, Syncope, Dyspnea on Exertion , PND, Lower Extremity Edema, Orthopnea, Claudication Musculoskeletal: DENIES: Joint pain, Muscle aches, Stiffness, Joint Swelling, Back pain, Neck pain Integumentary: DENIES: Abnormal pigmentation, Pruritus, Rash, Nail changes, Breast masses, Breast skin changes, Nipple discharge Hematologic/lymphatic: DENIES: Bruising, Lymphadenopathy Neurologic: DENIES: Abnormal gait, Headache, Localized weakness, Paresthesias, Seizures, Speech Problems, Tremor, Poor Balance Psychiatric: COMPLAINS OF: Depression, DENIES: Anxiety, Confusion, Mood changes, Hallucinations, Agitation, Suicidal Ideation, Homicidal Ideation, Delusions Past Family Social History Coded Allergies: Codeine (Verified Allergy, Severe, VOMITING, HALLUCINATIONS, 11/15/16) Demerol (Verified Allergy, Severe, VOMITING, HALLUCINATIONS, 11/15/16) Morphine (Verified Allergy, Severe, VOMITING, HALLUCINATIONS, 11/15/16) Reported Medications Trazodone 100 Mg [id number] Mg PO HS #30 TAB Ref 0 11/15/16 Current Medications Medications (Trade) Dose Ordered Sig/Chantal Route Start Time Stop Time Status Last Admin (NS Flush) 2 ml UNSCH PRN IVF 11/15/16 12:00 (NS Flush) 2 ml UNSCH PRN IV FLUSH 11/15/16 15:00 (NS Flush) 2 ml BID IV FLUSH 11/15/16 21:00 11/21/16 09:09 Miscellaneous Information 1 Q361D XX 11/15/16 15:00 (Chlorhexidine 2% Cloth) Taper DAILY@04 TOP 11/16/16 04:00 11/12/17 03:59 11/20/16 04:00 Chlorhexidine Gluconate 3 pack 3 pack UNSCH PRN TOP 11/15/16 15:00 (Rocephin Inj/NS Inj) 100 ml @ 200 mls/hr Q24H IV 11/15/16 16:00 11/20/16 14:55 (Zofran Inj) 4 mg Q6HR PRN IV PUSH 11/15/16 15:30 11/16/16 06:59 Miscellaneous Information D/C ICU ELECTROLYTE ORDERS... UNSCH PRN XX 11/16/16 08:00 Miscellaneous Information ICU - CALL ORDERING PHYSIC... UNSCH PRN XX 11/16/16 08:00 (KCl 40 Meq Premix Inj) 100 ml @ 25 mls/hr UNSCH PRN IV 11/16/16 08:00 11/21/16 10:20 Potassium Chloride 40 meq 40 meq UNSCH PRN PO 11/16/16 08:00 Potassium Chloride 100 ml @ 50 mls/hr UNSCH PRN IV 11/16/16 08:00 Magnesium Sulfate 4 gm/Sodium Chloride 108 ml @ 54 mls/hr UNSCH PRN IV 11/16/16 08:00 (Magnesium Sulfate Inj/NS Inj) 104 ml @ 52 mls/hr UNSCH PRN IV 11/16/16 08:00 Magnesium Oxide 800 mg 800 mg UNSCH PRN PO 11/16/16 08:00 (Sodium Phosphate Inj/NS 250 ml Inj) 260 ml @ 43.333 mls/ hr UNSCH PRN IV 11/16/16 08:00 Potassium Phosphate 2000 mg 2,000 mg UNSCH PRN PO/TUBE 11/16/16 08:00 (Potassium Phosphate Inj/NS 250 ml Inj) 260 ml @ 43.333 mls/ hr UNSCH PRN IV 11/16/16 08:00 11/19/16 04:46 (Mephyton) 5 mg DAILY PO 11/17/16 09:00 11/21/16 09:08 (NS Flush) 2 ml UNSCH PRN IV FLUSH 11/17/16 07:30 (NS Flush) 2 ml BID IV FLUSH 11/17/16 09:00 11/20/16 08:29 (Romazicon Inj) 0.2 mg Q1M PRN IV PUSH 11/17/16 07:30 (Protonix Inj) 40 mg Q12H IV PUSH 11/17/16 14:00 11/21/16 02:29 (Lopressor Inj) 2.5 mg Q6H IV PUSH 11/18/16 03:30 11/18/16 09:01 (Lactulose Liq) 30 ml DAILY PO 11/18/16 18:00 11/21/16 09:09 (Vitamin B1) 100 mg DAILY PO 11/19/16 09:00 11/21/16 09:08 Folic Acid 1 mg 1 mg DAILY PO 11/19/16 09:00 11/21/16 09:08 Dexmedetomidine HCl 50 ml @ 0 mls/hr TITRATE IV 11/19/16 08:00 11/20/16 05:18 (Levophed-Dextrose Drip) 250 ml @ 0 mls/hr TITRATE IV 11/19/16 13:00 11/20/16 08:50 (KCl 40 Meq/30 ml Liq) 40 meq Q12HR NG 11/20/16 21:00 11/20/16 20:05 (Tylenol) 650 mg Q6H PRN PO 11/20/16 15:00 11/21/16 04:13 Family History He denies Social History Patient was born and raised in [place], she has been living in [place] with her to keep in [place] for many years, she is , unemployed, supported by ex-, her highest level of education is college degree. Physical Exam Vital Signs Vital Signs Date Time Temp Pulse Resp B/P Pulse Ox O2 Delivery O2 Flow Rate FiO2 11/21/16 14:22 98.0 89 20 127/82 96 11/21/16 07:00 Nasal Cannula 3.00 11/20/16 22:56 21 I/O 11/20/16 11/20/16 11/21/16 08:00 16:00 00:00 Intake Total 255 ml 549 ml 910 ml Output Total 300 ml 350 ml 750 ml Balance -45 ml 199 ml 160 ml Mental Status Examination Appearance woman, age appearing, good hygiene, [facility], she is distant, superficially cooperative, lethargic Speech: Hesitant Orientation: x3 Memory: Unremarkable Thought Process: Logical Thought Content: Unremarkable Hallucination Type: None Suicidal Ideation: No Homicidal Ideation: No Previous Homicide Attempts: No Insight: Good Judgement: WNL Affect: Sad Mood: Sad Motor Activity: Normal gait Assessment & Plan Problem List: (1) Adjustment disorder with depressed mood Assessment & Plan: On psychiatric evaluation patient seems to be lethargic, acutely ill, superficially cooperative with the evaluation, she endorses frustration, sadness, related with current medical problems and also due to financial and marital problems. However she denies suicidal or homicidal ideation, no katrin, confusion, delirium, psychosis observed or reported. She does not meet criteria for psychiatric hospitalization at this moment. Will order trazodone 50 mg at bedtime to help with sleep and also with mood. We'll follow-up. ICD Code: F43.21 Assessment & Plan Estimated LOS: days Irvin Stevens MD Nov 21, 2016 16:11
[2016-11-21] MEDS: cefTRIAXone INJ 1,000 MG in SODIUM CHLORIDE 0.9% INJ 100 ML IV SCH (16:35)
[2016-11-21] MEDS ORDERED: traZODone HCL 50 MG TAB PO SCH (21:00)
[2016-11-22] VITALS: BP 122/75; PULSE 96; RESP 18; TEMP 99.6; O2SAT 95
[2016-11-22] MEDS: ONDANSETRON HCL 4 MG/2 ML VIAL IV PUSH PRN (00:05)
[2016-11-22] MEDS: ACETAMINOPHEN 325 MG TAB PO PRN (00:06)
[2016-11-22] MEDS: CHLORHEXIDINE GLUCONATE 2 % 1 PACK (2 CLOTHS) TOP SCH (02:18)
[2016-11-22] MEDS: METOPROLOL TARTRATE 5 MG/5 ML VIAL IV PUSH SCH ×2 (02:18→08:29)
[2016-11-22] MEDS: PANTOPRAZOLE SODIUM 40 MG VIAL IV PUSH SCH (02:18)
[2016-11-22 04:00] VITALS: BP 103/66; PULSE 82; RESP 20; TEMP 98.9; O2SAT 94
[2016-11-22 07:14] LABS: AUTOMATED NEUTROPHIL # 3.4 TH/MM3 (1.8-7.7); BASOPHIL % 0.5 % (0.0-2.0); EOSINOPHIL # 0.1 TH/MM3 (0-0.4); EOSINOPHIL % 1.4 % (0.0-4.0); HEMATOCRIT 24.3 % (35.0-46.0); LYMPH % 24.2 % (9.0-44.0); LYMPHOCYTE # 1.3 TH/MM3 (1.0-4.8); MEAN CELL VOLUME 93.8 FL (80.0-100.0); MEAN CORPUSCULAR HEMOGLOBIN 32.4 PG (27.0-34.0); MEAN CORPUSCULAR HGB CONC 34.5 % (32.0-36.0); MONO % 10.5 % (0.0-8.0); NEUT % 63.4 % (16.0-70.0); PLATELET COUNT 99 TH/MM3 (150-450); RED BLOOD COUNT 2.59 MIL/MM3 (4.00-5.30); RED CELL DISTRIBUTION WIDTH 22.9 % (11.6-17.2); WHITE BLOOD COUNT 5.4 TH/MM3 (4.0-11.0)
[2016-11-22 07:18] LABS: HEMO FLAGS AUTO DIFF
[2016-11-22 07:26] LABS: INTERNATIONAL NORMALIZED RATIO 1.4 RATIO; PROTHROMBIN TIME - PATIENT 15.3 SEC (9.8-11.6)
[2016-11-22 07:40] LABS: MAGNESIUM 1.7 MG/DL (1.5-2.5); POTASSIUM 3.5 MEQ/L (3.5-5.1)
[2016-11-22 07:47] LABS: PLATELET ESTIMATE SMEAR LOW (NORMAL); PLATELET MORPHOLOGY NORMAL (NORMAL); SCAN/DIFF AUTO DIFF CONFIRMED
[2016-11-22 07:48] LABS: TOXIC GRANULATION 1+ (NORMAL)
[2016-11-22 08:00] VITALS: BP 126/84; PULSE 98; RESP 18; TEMP 98.2; O2SAT 96
[2016-11-22] MEDS: LACTULOSE SYRUP 20 GM/30 ML CUP PO SCH (08:28)
[2016-11-22] MEDS: THIAMINE HCL 100 MG TAB PO SCH (08:28)
[2016-11-22] MEDS: POTASSIUM CL 40 MEQ/30 ML LIQ UDC NG SCH (08:28)
[2016-11-22] MEDS: PHYTONADIONE 5 MG TAB PO SCH (08:28)
[2016-11-22] MEDS: FOLIC ACID 1 MG TAB PO SCH (08:28)
[2016-11-22] MEDS: SODIUM CHLORIDE 0.9% FLUSH 5 ML FLUSH IV FLUSH SCH ×2 (08:29)
[2016-11-22 10:06] VITALS: O2SAT 97
--- NOTE | 2016-11-22 10:28 | HHI.PR ---
Objective Vitals Vital Signs Date Time Temp Pulse Resp B/P Pulse Ox O2 Delivery O2 Flow Rate FiO2 11/22/16 10:06 97 21 11/22/16 08:00 Room Air 11/22/16 08:00 98.2 98 18 126/84 96 11/22/16 04:00 98.9 82 20 103/66 94 11/22/16 04:00 Room Air 11/22/16 01:06 20 11/22/16 00:00 99.6 96 18 122/75 95 11/22/16 00:00 Room Air 11/21/16 20:00 Room Air 11/21/16 20:00 99.5 100 20 120/74 97 11/21/16 17:49 97.9 80 18 130/82 96 11/21/16 14:22 98.0 89 20 127/82 96 11/21/16 12:00 96 11/21/16 12:00 98.8 96 19 130/77 95 I/O 11/21/16 11/21/16 11/21/16 11/22/16 11/22/16 11/22/16 07:00 15:00 23:00 07:00 15:00 23:00 Intake Total 789 ml 519 ml 900 ml Output Total 550 ml 1000 ml 1000 ml 1700 ml Balance 239 ml -481 ml -1000 ml -800 ml Intake Oral 720 ml 400 ml 900 ml IV Total 69 ml 119 ml Output Urine Total 550 ml 1000 ml 1000 ml 1700 ml # Bowel Movements 0 1 0 Result Diagram: 11/22/16 0635 11/22/16 0635 Date of Insertion: Nov 15, 2016 Date of Insertion: Nov 15, 2016 Line: Central Venous Catheter Location: Internal, Jugular A/P Problem List: (1) GI bleeding ICD Code: K92.2 Status: Acute (2) Acute blood loss anemia ICD Code: D62 Status: Acute (3) Thrombocytopenia ICD Code: D69.6 Status: Acute (4) Alcoholic cirrhosis of liver ICD Code: K70.30 Status: Acute (5) ETOH abuse ICD Code: F10.10 Status: Acute (6) Adjustment disorder with depressed mood ICD Code: F43.21 Status: Acute Assessment and Plan 45-year-old female with alcoholic liver cirrhosis admitted with acute GI bleeding. The patient went into hypovolemic shock requiring vasopressors and eventually went into respiratory failure requiring intubation. She is clinically improved and has since been transferred to the medical service on the regular floor. Problem Qualifiers (1) GI bleeding: Qualified Code: K92.0 - Gastrointestinal hemorrhage with hematemesis (2) Alcoholic cirrhosis of liver: Qualified Code: K70.30 - Alcoholic cirrhosis of liver without ascites Leonidas Romero MD Nov 22, 2016 10:27
[2016-11-22] MEDS ORDERED: PANT40TA3 PO (10:42)
[2016-11-22] MEDS ORDERED: LACT10SO PO (10:42)
[2016-11-22] MEDS ORDERED: FOLI1TAB4 PO (10:42)
[2016-11-22] MEDS ORDERED: TRAZ50TA12 PO (10:42)
--- NOTE | 2016-11-22 10:43 | HHI.FF ---
Face to Face Verification Diagnosis: (1) Alcoholic cirrhosis of liver (2) Physical deconditioning (3) GI bleeding (4) Acute blood loss anemia (5) Adjustment disorder with depressed mood Physical Therapy Order: Evaluate and Treat, Improve ambulation, Strength and gait training Home Health Nursing Order: Medical education Signs/symptoms of disease process Medication education-adverse effect I have seen patient Shawna Sprague on 11/22/16. My clinical findings support the need for the requested home health care services because: Deconditioned w/ increased weakness Med compliance is questionable Limited ability to care for self I certify that my clinical findings support that this patient is homebound because: Unsteady gait/balance Leonidas Romero MD Nov 22, 2016 10:43
[2016-11-22] MEDS ORDERED: MULT1TAB84 PO (10:44)
--- NOTE | 2016-11-22 10:46 | HHI.DS ---
Discharge Summary Admission Date Nov 15, 2016 at 13:12 Discharge Date: Nov 22, 2016 Admitting Diagnosis Gi Bleed, Cirrhosis (1) GI bleeding ICD Code: K92.2 (2) Acute blood loss anemia ICD Code: D62 (3) Thrombocytopenia ICD Code: D69.6 (4) Alcoholic cirrhosis of liver ICD Code: K70.30 (5) ETOH abuse ICD Code: F10.10 (6) Adjustment disorder with depressed mood ICD Code: F43.21 Procedures Intubation and extubation EGD and colonoscopy Brief History - From Admission 45 year old female with a history of Acholic liver cirrhosis and previous GI bleed with portal hypertension and portal gastropathy and esophageal varices presents to the emergency department with complaints of abdominal pain, black stools and vomiting blood. She has been feeling weak an dizzy for the past 5 days and dark stools and vomiting blood started about 3 days ago. She has also had fever and chills, and esophageal discomfort. She stopped drinking for about 2 months then started drinking about 2 weeks ago. She stopped drinking when the symptoms started and has not drank in the past 2 to 3 days. She had a colonoscopy about 2 years ago which she thinks was normal and an EGD was done on 05/30/16 which showed probable bleed, portal gastropathy and gastric irritation secondary to ETOH. CBC/BMP: 11/22/16 0635 11/22/16 0635 Significant Findings Laboratory Tests Test 11/20/16 11/20/16 11/20/16 11/21/16 04:10 07:15 20:00 06:00 Red Blood Count 2.60 MIL/MM3 2.44 MIL/MM3 (4.00-5.30) (4.00-5.30) Hemoglobin 8.2 GM/DL 7.8 GM/DL (11.6-15.3) (11.6-15.3) Hematocrit 23.8 % 22.3 % (35.0-46.0) (35.0-46.0) Red Cell Distribution Width 22.4 % 23.0 % (11.6-17.2) (11.6-17.2) Platelet Count 81 TH/MM3 86 TH/MM3 (150-450) (150-450) Sodium Level 148 MEQ/L (136-145) Potassium Level 2.7 MEQ/L 3.1 MEQ/L 3.1 MEQ/L (3.5-5.1) (3.5-5.1) (3.5-5.1) Chloride Level 113 MEQ/L (98-107) Random Glucose 116 MG/DL (74-106) Calcium Level 8.1 MG/DL 8.1 MG/DL (8.5-10.1) (8.5-10.1) Phosphorus Level 2.3 MG/DL 1.8 MG/DL (2.5-4.9) (2.5-4.9) Arterial Blood pH 7.47 (7.380-7.420) Arterial Blood Partial 31 mmHg (38-42) Pressure CO2 Arterial Blood Oxygen Content 10.6 Vol % (12.0-20.0) Blood Gas Hemoglobin 7.7 G/DL (12.0-16.0) Blood Urea Nitrogen 5 MG/DL (7-18) Creatinine 0.42 MG/DL (0.50-1.00) Test 11/22/16 06:35 Red Blood Count 2.59 MIL/MM3 (4.00-5.30) Hemoglobin 8.4 GM/DL (11.6-15.3) Hematocrit 24.3 % (35.0-46.0) Red Cell Distribution Width 22.9 % (11.6-17.2) Platelet Count 99 TH/MM3 (150-450) Monocytes (%) (Auto) 10.5 % (0.0-8.0) Toxic Granulation 1+ (NORMAL) Platelet Estimate LOW (NORMAL) Prothrombin Time 15.3 SEC (9.8-11.6) Chloride Level 108 MEQ/L (98-107) Blood Urea Nitrogen 4 MG/DL (7-18) Creatinine 0.39 MG/DL (0.50-1.00) Imaging Last Impressions Chest X-Ray 11/21/16 0600 Signed Impressions: Service Date/Time: Monday, November 21, 2016 05:03 - CONCLUSION: Improved aeration. Swapnil Chavarria MD Renal Ultrasound 11/18/16 0000 Signed Impressions: Service Date/Time: Friday, November 18, 2016 21:08 - CONCLUSION: 1. 3.4 cm right renal cyst. No hydronephrosis. Bladder decompressed by Moy. Nayan Seo MD Head CT 11/18/16 0000 Signed Impressions: Service Date/Time: Friday, November 18, 2016 17:34 - CONCLUSION: Normal examination for a patient of this age. No significant change has occurred. Nayan Seo MD Abdomen X-Ray 11/18/16 0000 Signed Impressions: Service Date/Time: Friday, November 18, 2016 08:52 - CONCLUSION: No evidence of obstruction. Nasogastric tube with tip likely in distal stomach. Jose Ann MD PE at Discharge GENERAL: Well-nourished, well-developed female, in bed appears in nad. SKIN: Warm and dry. HEAD: Normocephalic. EYES: No scleral icterus. No injection or drainage. NECK: Supple, trachea midline. No JVD or lymphadenopathy. Orotracheally intubated. Right IJ CARDIOVASCULAR: Regular rate and rhythm without murmurs,S1, S2 no gallops, or rubs. RESPIRATORY: Breath sounds equal and clear to auscultation bilaterally GASTROINTESTINAL: Abdomen soft, non-tender, nondistended. MUSCULOSKELETAL: No cyanosis, or edema. NEURO: Alert and awake. Movement of extremities 4, follows commands. Pt update on day of discharge Patient reports that she is feeling great. She requested to go home. She is going to be living with her parents in [place] for now to help her with her alcohol addiction. Hospital Course 45-year-old female with alcoholic liver cirrhosis admitted with GI bleeding. The patient ultimately went into hypovolemic shock requiring vasopressors and respiratory failure requiring intubation. Evaluation and treatment course detailed below: Gastrointestinal bleed-secondary to alcoholic cirrhosis and portal hypertension. S/p EGD on (11/16/16) ----> LA class B esophagitis, portal hypertensive gastropathy, erythematous gastritis. - Patient treated with Protonix. She is discharged on same. She was strongly advised to discontinue alcohol use. - Lactulose daily Hypotension: The patient had to be put on Levophed to maintain blood pressure under the critical care service. Her clinical status improved and Levophed was discontinued. Acute hypoxic respiratory failure Pulmonary edema/fluid overload -Patient was intubated. She was later extubated and her respiratory status improved. She was on room air by the time of discharge. -Echo 11/19-EF 6065%, no RWMA mild to moderate tricuspid regurgitation, mild mitral regurgitation Acute blood loss anemia-secondary to GI bleed as above. This resolved. Thrombocytopenia - Due to liver cirrhosis - S/P transfusion one pack of platelets --Platelet count improved. Again she is advised to stop drinking alcohol. Alcohol use disorder-altered mental status - Patient treated with Ativan as needed. Mental status improved and she was back to her baseline by the time of discharge. Pt Condition on Discharge: Good Discharge Disposition: Disch w/ Home Health Serv Discharge Time: <= 30 minutes Discharge Instructions DIET: Follow Instructions for: As Tolerated, No Restrictions Activities you can perform: Regular-No Restrictions, See Additionl Instruction Other Activity Instructions: Use assistance per PT intructions. Follow up Referrals: Gastroenterology - 2 Weeks @ [facility] New Medications: Multiple Vitamins W/ Minerals (Multivitamin Adults) 1 Tab 1 TAB PO DAILY Nutritional Supplement #30 Ref 0 TAB Pantoprazole (Pantoprazole) 40 Mg Tab 40 MG PO BID Reflux #60 Ref 0 TAB Folic Acid (Folate) 1 Mg Tab 1 MG PO DAILY #30 TAB Lactulose Liq (Lactulose Liq) 10 Gm/15 Ml Soln 30 ML PO DAILY Days 30 ML Trazodone (Trazodone) 50 Mg Tab 50 MG PO HS #30 TAB Discontinued Medications: Trazodone (Trazodone) 100 Mg Tab 100 MG PO HS Control Depression #30 Ref 0 TAB Leonidas Romero MD Nov 22, 2016 10:46
[2016-11-22 12:00] VITALS: BP 112/74; PULSE 98; RESP 18; TEMP 98.1; O2SAT 97
--- NOTE | 2016-11-22 15:06 | OTSOAPIP ---
TIME SESSION COMPLETED: IM PM TREATMENT TIME: 0 MINS. CHART REVIEWED. PT BEING DISCHARGED UPON ATTEMPT TO SEE FOR OT ASSESSMENT. Therapist: JOON PLASENCIA OT/L Signature on file
== END 2016-11-22 14:15 | disposition home health service (06) | DRG 441 ==
LOC: PHED 11:37 → PHEDA 13:12 → N03B 18:34 → N03A 11-16 16:30 → HCIN 11-21 14:10
PROVIDERS: ADMIT Family Medicine; ATTEND Family Medicine
PROC: 30233K1 Transfusion of Nonautologous Frozen Plasma into Peripheral Vein, Percutaneous Approach (ICD-10-PCS; 2016-11-15)
PROC: 30233N1 Transfusion of Nonautologous Red Blood Cells into Peripheral Vein, Percutaneous Approach (ICD-10-PCS; 2016-11-15)
PROC: 30233R1 Transfusion of Nonautologous Platelets into Peripheral Vein, Percutaneous Approach (ICD-10-PCS; 2016-11-15)
PROC: 02HV33Z Insertion of Infusion Device into Superior Vena Cava, Percutaneous Approach (ICD-10-PCS; 2016-11-15)
PROC: B543ZZA Ultrasonography of Right Jugular Veins, Guidance (ICD-10-PCS; 2016-11-15)
PROC: 0DJ08ZZ Inspection of Upper Intestinal Tract, Via Natural or Artificial Opening Endoscopic (ICD-10-PCS; 2016-11-16)
PROC: 5A1945Z Respiratory Ventilation, 24-96 Consecutive Hours (ICD-10-PCS; principal; 2016-11-18)
PROC: 03HY32Z Insertion of Monitoring Device into Upper Artery, Percutaneous Approach (ICD-10-PCS; 2016-11-18)
PROC: 0BH17EZ Insertion of Endotracheal Airway into Trachea, Via Natural or Artificial Opening (ICD-10-PCS; 2016-11-18)
PROC: 0CJS8ZZ Inspection of Larynx, Via Natural or Artificial Opening Endoscopic (ICD-10-PCS; 2016-11-18)
DX: K76.6 Portal hypertension (principal); J96.01 Acute respiratory failure with hypoxia; R57.1 Hypovolemic shock; G93.41 Metabolic encephalopathy; D68.4 Acquired coagulation factor deficiency; F10.231 Alcohol dependence with withdrawal delirium; K92.0 Hematemesis; I95.9 Hypotension, unspecified; E87.1 Hypo-osmolality and hyponatremia; D62 Acute posthemorrhagic anemia; K70.30 Alcoholic cirrhosis of liver without ascites; I11.9 Hypertensive heart disease without heart failure; D69.59 Other secondary thrombocytopenia; K31.89 Other diseases of stomach and duodenum; F43.21 Adjustment disorder with depressed mood; K20.9 Esophagitis, unspecified; K29.70 Gastritis, unspecified, without bleeding; E87.70 Fluid overload, unspecified; R31.0 Gross hematuria; E87.6 Hypokalemia; E83.39 Other disorders of phosphorus metabolism; F17.210 Nicotine dependence, cigarettes, uncomplicated; Z63.0 Problems in relationship with spouse or partner
CPT/HCPCS: 36430; 36600; 70450; 71010; 74000; 76775; 80048; 80053; 80076; 80320; 82140; 82570; 82805; 82948; 83690; 83735; 83935; 84100; 84132; 84156; 84300; 84540; 84702; 85007; 85014; 85018; 85025; 85027; 85379; 85384; 85610; 85730; 86850; 86900; 86901; 86920; 86927; 87040; 87070; 87086; 87205; 87641; 93306; 94002; 94003; 94150; 94640; 94664; 96361; 96374; 96375; 96376; C9113; C9399; J0330; J0696; J1170; J1940; J2060; J2354; J2405; J3010; J3411; J3480; J7030; J7040; J7050; P9016; P9017; P9035; P9045

== ENCOUNTER 2016-12-22 02:42 | Inpatient (IN) | payer BC ==
[2016-12-22] VITALS (13 sets, daily range): BP systolic 78–169; BP diastolic 49–76; PULSE 91–126; RESP 18–20; TEMP 98.4–99.2; O2SAT 97–100
[~2016-12-22] VITALS: Ht 170.2 cm; Wt 60.4 kg
[~2016-12-22 02:42] MED LIST changes: -CEFU1TAB43 PO; -FOLI1 PO; -FOLI1TAB PO; +FOLI1TAB4 PO; -GABA100C4 PO; -HYDRO50 PO; +LACT10SO PO; -LORA-474 PO; +MULT1TAB84 PO; -PANT40IN3 PO; +PANT40TA3 PO; -TRAZ100 PO; +TRAZ50TA12 PO; -VITA100T13 PO
[2016-12-22] MEDS ORDERED: PANTOPRAZOLE INJ 80 MG in SODIUM CHLORIDE 0.9% INJ 35 ML IV ONE (03:30)
[2016-12-22] MEDS ORDERED: SODIUM CHLORIDE 0.9% FLUSH 5 ML FLUSH IVF PRN (03:30)
[2016-12-22] MEDS ORDERED: ONDANSETRON HCL 4 MG/2 ML VIAL IVP ONE (03:30)
[2016-12-22] MEDS ORDERED: SODIUM CHLOR 0.9% 1000 ML INJ 1,000 ML IV ONE (03:30)
[2016-12-22 03:42] LABS: AUTOMATED NEUTROPHIL # 3.2 TH/MM3 (1.8-7.7); BASOPHIL % 0.7 % (0.0-2.0); HEMATOCRIT 22.7 % (35.0-46.0); LYMPH % 16.9 % (9.0-44.0); LYMPHOCYTE # 0.8 TH/MM3 (1.0-4.8); MEAN CELL VOLUME 98.5 FL (80.0-100.0); MEAN CORPUSCULAR HEMOGLOBIN 32.9 PG (27.0-34.0); MEAN CORPUSCULAR HGB CONC 33.4 % (32.0-36.0); MONO % 10.8 % (0.0-8.0); NEUT % 70.6 % (16.0-70.0); PLATELET COUNT 78 TH/MM3 (150-450); RED CELL DISTRIBUTION WIDTH 18.6 % (11.6-17.2); WHITE BLOOD COUNT 4.5 TH/MM3 (4.0-11.0)
--- NOTE | 2016-12-22 03:46 | PD ---
HPI Chief Complaint: GI Complaint Time Seen by Provider: 02:58 Travel History International Travel<30 days: No Contact w/Intl Traveler<30days: No Traveled to known affect area: No History of Present Illness HPI 46-year-old female with history of alcoholic liver cirrhosis, portal hypertension, portal gastropathy, esophageal varices, upper GI bleed, brought in from [facility] for evaluation of bloody emesis. About an hour prior to arrival the patient had maroon-colored emesis. She reports that she vomited at least a pint of blood. She currently feels weak and lightheaded. No chest pain or dyspnea. No abdominal pain. She is not on any antiplatelets or anticoagulants. States that her last alcoholic beverage was 4 days ago. She denies illicit drug use. PFSH Past Medical History Anxiety: Yes Depression: Yes Cancer: Yes (FIBROMATOSIS RIGHT FOOT) Cardiovascular Problems: No Cirrhosis: Yes (ELEVATED LIVER ENZYMES, PT DENIES DX OF CIRRHOSIS) Diabetes: No Diminished Hearing: No Endocrine: No Gastrointestinal Disorders: Yes Glaucoma: No Genitourinary: No Hepatitis: No Hiatal Hernia: No Hypertension: No Insomnia: Yes Musculoskeletal: No Neurologic: Yes Psychiatric: Yes Reproductive: No Respiratory: No Immunizations Current: No Seizures: Yes Thyroid Disease: No Tetanus Vaccination: < 5 Years Influenza Vaccination: No ?: Not Menopausal: Yes : 2 Para: 2 Past Surgical History Gynecologic Surgery: Yes (partial hysterectomy) Hysterectomy: Yes (2009) Other Surgery: Yes Social History Alcohol Use: Yes (ETOH ABUSE ) Tobacco Use: Yes (1PPD) Substance Use: No Allergies-Medications (Allergen,Severity, Reaction): Coded Allergies: Codeine (Verified Allergy, Severe, VOMITING, HALLUCINATIONS, 12/22/16) Demerol (Verified Allergy, Severe, VOMITING, HALLUCINATIONS, 12/22/16) Morphine (Verified Allergy, Severe, VOMITING, HALLUCINATIONS, 12/22/16) Reported Meds & Prescriptions Reported Meds & Active Scripts Active Multivitamin Adults (Multiple Vitamins W/ Minerals) 1 Tab 1 Tab PO DAILY Folate (Folic Acid) 1 Mg Tab 1 Mg PO DAILY Reported Ativan (Lorazepam) 1 Mg Tab 1 Mg PO Q8H PRN Clonidine (Clonidine HCl) 0.1 Mg Tab 0.1 Mg PO BID Vistaril (Hydroxyzine Pamoate) 50 Mg Cap 50 Mg PO HS Review of Systems Except as stated in HPI: all other systems reviewed are Neg Physical Exam Narrative GENERAL: Well-developed, well-nourished, resting comfortably, no acute distress. SKIN: Warm and dry. HEAD: Atraumatic. Normocephalic. EYES: Pupils equal and round. Conjunctival pallor. ENT: No nasal bleeding or discharge. Mucous membranes pink and moist. NECK: Trachea midline. No JVD. CARDIOVASCULAR: Tachycardic, regular. RESPIRATORY: No accessory muscle use. Clear to auscultation. Breath sounds equal bilaterally. GASTROINTESTINAL: Abdomen soft, non-tender, nondistended. MUSCULOSKELETAL: No obvious deformities. No clubbing. No cyanosis. No edema. NEUROLOGICAL: Awake and alert. No obvious cranial nerve deficits. Motor grossly within normal limits. Normal speech. PSYCHIATRIC: Appropriate mood and affect; insight and judgment normal. Data Data Last Documented VS Vital Signs Date Time Temp Pulse Resp B/P Pulse Ox O2 Delivery O2 Flow Rate FiO2 12/22/16 04:38 100 Room Air 12/22/16 04:38 98.4 103 18 80/53 Orders Complete Blood Count With Diff (12/22/16 03:20) Comprehensive Metabolic Panel (12/22/16 03:20) Lipase (12/22/16 03:20) Prothrombin Time / Inr (Pt) (12/22/16 03:20) Act Partial Throm Time (Ptt) (12/22/16 03:20) Alcohol (Ethanol) (12/22/16 03:20) Type And Screen (12/22/16 03:20) Ecg Monitoring (12/22/16 03:20) Iv Access Insert/Monitor (12/22/16 03:20) Oximetry (12/22/16 03:20) Ondansetron Inj (Zofran Inj) (12/22/16 03:30) Sodium Chloride 0.9% Flush (Ns Flush) (12/22/16 03:30) Octreotide Inj (Sandostatin Inj) (12/22/16 03:30) Pantoprazole Inj (Protonix Inj) (12/22/16 03:30) Pantoprazole Inj (Protonix Inj) (12/22/16 03:30) Sodium Chlor 0.9% 1000 Ml Inj (Ns 1000 M (12/22/16 03:30) Ceftriaxone Inj (Rocephin Inj) (12/22/16 04:00) Red Blood Cells (Rbc) (12/22/16 04:32) Blood Product Administration .UPON TRANSFUSION (12/22/16 04:32) Labs Laboratory Tests Test 12/22/16 12/22/16 03:23 04:32 White Blood Count 4.5 TH/MM3 Red Blood Count 2.30 MIL/MM3 Hemoglobin 7.6 GM/DL Hematocrit 22.7 % Mean Corpuscular Volume 98.5 FL Mean Corpuscular Hemoglobin 32.9 PG Mean Corpuscular Hemoglobin 33.4 % Concent Red Cell Distribution Width 18.6 % Platelet Count 78 TH/MM3 Mean Platelet Volume 8.4 FL Neutrophils (%) (Auto) 70.6 % Lymphocytes (%) (Auto) 16.9 % Monocytes (%) (Auto) 10.8 % Eosinophils (%) (Auto) 1.0 % Basophils (%) (Auto) 0.7 % Neutrophils # (Auto) 3.2 TH/MM3 Lymphocytes # (Auto) 0.8 TH/MM3 Monocytes # (Auto) 0.5 TH/MM3 Eosinophils # (Auto) 0.0 TH/MM3 Basophils # (Auto) 0.0 TH/MM3 CBC Comment AUTO DIFF Prothrombin Time 16.3 SEC Prothromb Time International 1.5 RATIO Ratio Activated Partial 29.4 SEC Thromboplast Time Sodium Level 141 MEQ/L Potassium Level 4.5 MEQ/L Chloride Level 107 MEQ/L Carbon Dioxide Level 25.4 MEQ/L Anion Gap 9 MEQ/L Blood Urea Nitrogen 20 MG/DL Creatinine 0.49 MG/DL Estimat Glomerular Filtration 137 ML/MIN Rate Random Glucose 110 MG/DL Calcium Level 8.1 MG/DL Total Bilirubin 1.9 MG/DL Aspartate Amino Transf 59 U/L (AST/SGOT) Alanine Aminotransferase 23 U/L (ALT/SGPT) Alkaline Phosphatase 252 U/L Total Protein 6.1 GM/DL Albumin 2.7 GM/DL Lipase 170 U/L Ethyl Alcohol Level LESS THAN 3 MG/DL Blood Type AB POSITIVE Antibody Screen NEGATIVE Blood Bank Comment Crossmatch Leukocyte-Reduced Red Blood Cells MDM Medical Decision Making Medical Screen Exam Complete: Yes Emergency Medical Condition: Yes Differential Diagnosis GI bleed, anemia, variceal bleed, gastritis, peptic ulcer disease Narrative Course Initial vital signs show heart rate 112, blood pressure 84/52, pulse ox 100% on room air, oral temp of 99.1F. 2 large-bore IVs were established, the patient was given a liter of normal saline IV as well as a Protonix bolus followed by a protonix drip, octreotide, and Zofran. 1g IV rocephin ordered. CBC shows WBC 4.5, hemoglobin 7.6, hematocrit 22.7, platelets 78. CMP is remarkable for TB bili 1.9, alkaline phosphatase 252, albumin 2.7. Lipase is 170. Alcohol level is negative. The patient was consented for blood transfusion. 2 units of PRBCs ordered. The patient be admitted to the intensive care unit for further treatment and evaluation of upper GI bleed, anemia, thrombocytopenia. Case discussed with hospitalist Dr Avila who will admit the patient to her service. Diagnosis Primary Impression: Upper GI bleed Additional Impressions: Anemia Qualified Code: D64.9 - Anemia, unspecified type Thrombocytopenia Admitting Information Admitting Physician Requests: Admit Denzel Dennis MD Dec 22, 2016 03:46
[2016-12-22 03:47] LABS: HEMO FLAGS AUTO DIFF
[2016-12-22] MEDS: PANTOPRAZOLE INJ 80 MG in SODIUM CHLORIDE 0.9% INJ 100 ML IV SCH ×3 (03:54→15:50)
[2016-12-22] MEDS ORDERED: cefTRIAXone INJ 1,000 MG in SODIUM CHLORIDE 0.9% INJ 100 ML IV ONE (04:00)
[2016-12-22 04:03] LABS: APTT (PATIENT) 29.4 SEC (24.3-30.1); INTERNATIONAL NORMALIZED RATIO 1.5 RATIO; PROTHROMBIN TIME - PATIENT 16.3 SEC (9.8-11.6)
[2016-12-22 04:09] LABS: ALT (GPT) 23 U/L (10-53); ANION GAP 9 MEQ/L (5-15); AST (GOT) 59 U/L (15-37); BICARBONATE 25.4 MEQ/L (21.0-32.0); BLOOD UREA NITROGEN 20 MG/DL (7-18); CHLORIDE 107 MEQ/L (98-107); GLOMERULAR FILTRATION RATE 137 ML/MIN (>89); POTASSIUM 4.5 MEQ/L (3.5-5.1); SODIUM (NA) 141 MEQ/L (136-145)
[2016-12-22 04:12] LABS: ALKALINE PHOSPHATASE 252 U/L (45-117); TOTAL BILIRUBIN ADULT 1.9 MG/DL (0.2-1.0)
[2016-12-22] MEDS: OCTREOTIDE INJ 500 MCG in SODIUM CHLORID 0.9% 500 ML INJ 500 ML IV SCH ×2 (04:25→15:51)
[2016-12-22] MEDS ORDERED: LORA-474 PO (04:58)
[2016-12-22] MEDS ORDERED: VIST50CA PO (04:58)
[2016-12-22] MEDS ORDERED: CLON0.1T PO (04:58)
[2016-12-22] MEDS ORDERED: ACETAMINOPHEN 325 MG TAB PO PRN (05:15)
[2016-12-22] MEDS ORDERED: ONDANSETRON HCL 4 MG/2 ML VIAL IVP PRN (05:15)
[2016-12-22] MEDS ORDERED: CHLORHEXIDINE GLUCONATE 2 % 1 PACK (2 CLOTHS) TOP PRN (05:15)
[2016-12-22] MEDS ORDERED: SODIUM CHLORIDE 0.9% FLUSH 5 ML FLUSH FLUSH PRN (05:15)
[2016-12-22] MEDS ORDERED: BISACODYL 10 MG SUPP PR PRN (05:15)
[2016-12-22] MEDS ORDERED: LORazepam 2 MG/ML VIAL IV PUSH PRN ×3 (05:15)
[2016-12-22] MEDS ORDERED: MISCELLANEOUS NURSING INFORMATION XX SCH (05:15)
[2016-12-22] MEDS ORDERED: FLUMAZENIL 0.5 MG/5 ML VIAL IV PUSH PRN (05:15)
--- NOTE | 2016-12-22 05:32 | HHI.HP ---
HPI Service [place] [facility] Primary Care Physician Unknown Admission Diagnosis upper GI bleed, anemia, thrombocytopenia Diagnoses: (1) GI bleed Diagnosis: Principal (2) Anemia (3) Cirrhosis Diagnosis: Principal (4) Alcohol abuse Diagnosis: Principal Travel History International Travel<30 Days: No Contact w/Intl Traveler <30 Da: No Traveled to Known Affected Are: No History of Present Illness This is a 46-year-old female with a PMH of Alcohol Abuse, Cirrhosis, Portal HTN , Esophageal Varices and h/o GI Bleed who was sent to the ER from [facility] secondary to episode of hematemesis. Pt reports associated dizziness/ lightheadedness. Recent admit 11/15-11/22/16 for GI Bleed and Critical Anemia requiring transfusion and Vasopressors, pulmonary edema and acute respiratory failure requiring intubation, s/p EGD by Dr. Mcnair 11/16/16 w/ LA Class B Esophagitis, Portal Hypertensive Gastropathy and Gastritis. Reports she stopped drinking approx 4 days ago, currently at [facility]. On arrival, BP 84/52, HR 112, O2 sat 100% on RA, Temp 99.1. Hemoglobin 7.6, previously 8.4 on 11/22/16. Platelets 78, previously 99 on 11/22/16. Chemistry at baseline. S/p IVF and Rocephin IV in ER. On Protonix/Octreotide gtt. 2u pRBC ordered in ER, currently pending transfusion. Review of Systems ROS: 14 point review of systems otherwise negative. Past Family Social History Past Medical History PMH: Alcohol Abuse, Cirrhosis, Portal HTN, Esophageal Varices and h/o GI Bleed Past Surgical History PAST SURGICAL HISTORY: Partial Hysterectomy Allergies: Coded Allergies: Codeine (Verified Allergy, Severe, VOMITING, HALLUCINATIONS, 12/22/16) Demerol (Verified Allergy, Severe, VOMITING, HALLUCINATIONS, 12/22/16) Morphine (Verified Allergy, Severe, VOMITING, HALLUCINATIONS, 12/22/16) Family History PAST FAMILY HISTORY: Reviewed. No h/o DM or CAD Social History PAST SOCIAL HISTORY: Positive for alcohol abuse. Smokes 1ppd. Negative for drugs. Physical Exam Vital Signs Vital Signs Date Time Temp Pulse Resp B/P Pulse Ox O2 Delivery O2 Flow Rate FiO2 12/22/16 04:38 100 Room Air 12/22/16 04:38 98.4 103 18 80/53 99 Room Air 12/22/16 02:49 18 12/22/16 02:44 99.1 112 18 84/52 100 Physical Exam PE: GENERAL: Middle-aged female in no acute distress. HEENT: PERRLA, EOMI. No scleral icterus or conjunctival pallor. No lid lag or facial droop. CARDIOVASCULAR: Regular rate and rhythm. No obvious murmurs to auscultation. No chest tenderness to palpation. RESPIRATORY: No obvious rhonchi or wheezing. Clear to auscultation. Breath sounds equal bilaterally. GASTROINTESTINAL: Abdomen soft, non-tender, nondistended. BS normal. MUSCULOSKELETAL: Extremities without clubbing, cyanosis, or edema. No obvious deformities. NEUROLOGICAL: Awake, alert and oriented x4. No focal neurologic deficits. Moving both upper and lower extremities spontaneously. Laboratory Laboratory Tests Test 12/22/16 12/22/16 03:23 04:32 White Blood Count 4.5 Red Blood Count 2.30 Hemoglobin 7.6 Hematocrit 22.7 Mean Corpuscular Volume 98.5 Mean Corpuscular Hemoglobin 32.9 Mean Corpuscular Hemoglobin 33.4 Concent Red Cell Distribution Width 18.6 Platelet Count 78 Mean Platelet Volume 8.4 Neutrophils (%) (Auto) 70.6 Lymphocytes (%) (Auto) 16.9 Monocytes (%) (Auto) 10.8 Eosinophils (%) (Auto) 1.0 Basophils (%) (Auto) 0.7 Neutrophils # (Auto) 3.2 Lymphocytes # (Auto) 0.8 Monocytes # (Auto) 0.5 Eosinophils # (Auto) 0.0 Basophils # (Auto) 0.0 CBC Comment AUTO DIFF Prothrombin Time 16.3 Prothromb Time International 1.5 Ratio Activated Partial 29.4 Thromboplast Time Sodium Level 141 Potassium Level 4.5 Chloride Level 107 Carbon Dioxide Level 25.4 Anion Gap 9 Blood Urea Nitrogen 20 Creatinine 0.49 Estimat Glomerular Filtration 137 Rate Random Glucose 110 Calcium Level 8.1 Total Bilirubin 1.9 Aspartate Amino Transf 59 (AST/SGOT) Alanine Aminotransferase 23 (ALT/SGPT) Alkaline Phosphatase 252 Total Protein 6.1 Albumin 2.7 Lipase 170 Ethyl Alcohol Level LESS THAN 3 Blood Type AB POSITIVE Antibody Screen NEGATIVE Blood Bank Comment Crossmatch Leukocyte-Reduced Red Blood Cells Result Diagram: 12/22/1632212/22/16322 Assessment and Plan Problem List: (1) GI bleed ICD Code: K92.2 Status: Acute (2) Anemia ICD Code: D64.9 Status: Acute (3) Cirrhosis ICD Code: K74.60 Status: Acute (4) Alcohol abuse ICD Code: F10.10 Status: Acute Assessment and Plan A/P: 1. GI Bleed: Recurrent. H/o Alcohol Abuse w/ Cirrhosis, Esophageal Varices, recent admit 11/15-11/22/16 for same, requiring vasopressors, transfusion and intubation for acute respiratory failure, s/p EGD by Dr. Mcnair w/ CARLOS Class B Esophagitis, Portal Hypertensive Gastropathy and Gastritis. +Hematemesis today , +tachycardia, +hypotension, +acute anemia. Admit to ICU for close monitoring. Started on Protonix/Octreotide gtt, Consult GI for further evaluation, 2u pRBC ordered in ER, pending transfusion, continue prophylactic Abx. 2. Anemia: Acute Anemia secondary to Blood Loss from GI Bleed. Hgb 7.6, previously 8.4 on 11/22/16. 2u pRBC ordered, pending transfusion, check Hgb/Hct following transfusion. 3. Cirrhosis: Secondary to alcohol abuse, +coagulopathy, +thrombocytopenia w/ active bleeding. Treatment as above. 4. Alcohol Abuse: Heavy, daily alcohol, last drink 4 days ago per patient. CIWA, Seizure Precautions, Thiamine replacement. 5. DVT Prophylaxis: Pharmacologic contraindication in light of GI Bleed, Symptomatic Anemia, Coagulopathy and Thrombocytopenia 6. Social work for d/c planning as needed. 7. Case discussed w/ ER physician and Recreation Teacher at length. Physician Certification 2 Midnight Certification Type: Admission for Inpatient Services Order for Inpatient Services The services are ordered in accordance with Medicare regulations or non- Medicare payer requirements, as applicable. In the case of services not specified as inpatient-only, they are appropriately provided as inpatient services in accordance with the 2-midnight benchmark. Estimated LOS (days): 2 days is the estimated time the patient will need to remain in the hospital, assuming treatment plan goals are met and no additional complications. Post-Hospital Plan: Not yet determined Problem Qualifiers (1) Anemia: Qualified Code: D64.9 - Anemia, unspecified type Gayle Avila MD Dec 22, 2016 05:32
[2016-12-22] MEDS: SODIUM CHLOR 0.9% 1000 ML INJ 1,000 ML IV SCH ×2 (05:43→15:51)
[2016-12-22 06:48] LABS: PLATELET ESTIMATE SMEAR LOW (NORMAL); PLATELET MORPHOLOGY NORMAL (NORMAL); SCAN/DIFF AUTO DIFF CONFIRMED
[2016-12-22] MEDS ORDERED: NOREPINEPHRINE-DEXTROSE DRIP 250 ML IV PRN (08:00)
[2016-12-22] MEDS ORDERED: TERBUTALINE INJ 1 MG/ML AMP SQ PRN (08:00)
[2016-12-22] MEDS ORDERED: SODIUM CHLORID 0.9% 500 ML INJ 500 ML IV PRN (08:00)
--- NOTE | 2016-12-22 08:38 | HHI.PR ---
Subjective Remarks Follow-up for GI bleeding. Patient seen with RN at bedside. S/P first unit transfusion, second unit pending. Patient denies any abdominal pain, dizziness , weakness. She has no specific complaints today. She said she had one episode of hematemesis yesterday, none since. Objective Vitals Vital Signs Date Time Temp Pulse Resp B/P Pulse Ox O2 Delivery O2 Flow Rate FiO2 12/22/16 08:15 98.8 99 20 169/60 98 12/22/16 08:06 105 20 169/60 100 12/22/16 06:57 98.8 126 18 78/52 98 Room Air 12/22/16 06:39 98.9 119 18 87/51 100 Room Air 12/22/16 05:45 82/49 12/22/16 04:38 100 Room Air 12/22/16 04:38 98.4 103 18 80/53 99 Room Air 12/22/16 02:49 18 12/22/16 02:44 99.1 112 18 84/52 100 Result Diagram: 12/22/16 0323 12/22/16 0323 Objective Remarks GENERAL: Well-developed well-nourished. In no acute distress. SKIN: Warm and dry. No lesions noted. HEENT: Normocephalic. Pupils equal and round. Mucous membranes pink and moist. CARDIOVASCULAR: Slightly tachycardic rate and rhythm. No murmur appreciated. RESPIRATORY: No accessory muscle use. Clear to auscultation. Breath sounds equal bilaterally. GASTROINTESTINAL: Abdomen soft, non-tender, nondistended. Bowel sounds x4. MUSCULOSKELETAL: No obvious deformities. No clubbing or cyanosis. No edema. NEUROLOGICAL: Awake and alert. No focal neurological deficits. Moves upper and lower extremities spontaneously. Normal speech. PSYCHIATRIC: Appropriate mood and affect; insight and judgment normal. A/P Problem List: (1) GI bleed ICD Code: K92.2 Status: Acute (2) Anemia ICD Code: D64.9 Status: Acute (3) Cirrhosis ICD Code: K74.60 Status: Chronic (4) Alcohol abuse ICD Code: F10.10 Status: Chronic Assessment and Plan 46-year-old female with a PMH of Alcohol Abuse, Cirrhosis, Portal HTN, Esophageal Varices and h/o GI Bleed who was sent from [facility] secondary to episode of hematemesis GI Bleed: Recurrent. H/o Alcohol Abuse w/ Cirrhosis, Esophageal Varices, recent admit 11/15-11/22/16 for same, s/p EGD by Dr. Mcnair w/ LA Class B Esophagitis, Portal Hypertensive Gastropathy and Gastritis. +Hematemesis x1, + tachycardia, +hypotension, +acute anemia. Admit to ICU for close monitoring. Started on Protonix/Octreotide gtt, Consulted GI for further evaluation. Transfusion as below. IVF bolus and maintenance IVF. Norepinephrine drip as needed. Continue prophylactic Abx. Acute on chronic anemia: Acute Anemia secondary to Blood Loss from GI Bleed. Hgb 7.6, previously 8.4 on 11/22/16. 2u pRBC ordered, transfused 1 unit, pending psych unit. Check Hgb/Hct following transfusion. Terbutaline as needed for large extravasation. Cirrhosis: Secondary to alcohol abuse, +coagulopathy, +thrombocytopenia w/ active bleeding. Give vitamin K daily 3 days. Follow-up CBC. Alcohol Abuse: Heavy, daily alcohol, last drink 4 days ago per patient. CIWA with Ativan and rally pack. Continue detox at discharge. DVT Prophylaxis: Pharmacologic contraindication in light of GI Bleed, Symptomatic Anemia, Coagulopathy and Thrombocytopenia. SCDs. Written by Joe Dinh, acting as scribe for Dr. Carpenter on 12/22/16 at 08:38. All or portions of this note were transcribed by scribe []. I, Dr. Al Carpenter personally performed the history, physical exam, and medical decision making; and confirmed the accuracy of the information in the transcribed note. Authenticated by Dr. Al Carpenter on 12/22/16 at 14:14. Problem Qualifiers (1) Anemia: Qualified Code: D64.9 - Anemia, unspecified type (2) Cirrhosis: Qualified Code: K70.30 - Alcoholic cirrhosis of liver without ascites Joe Dinh Dec 22, 2016 08:38 Al Carpenter MD Dec 22, 2016 14:14
[2016-12-22] MEDS: SODIUM CHLORIDE 0.9% FLUSH 5 ML FLUSH FLUSH SCH ×2 (09:00→21:00)
--- NOTE | 2016-12-22 09:37 | PD.CONS ---
HPI History of Present Illness This is a 46 year old female with a history of Acholic liver cirrhosis and previous GI bleed with portal hypertension and portal gastropathy and esophageal varices who who was sent from [facility] to emergency department for evaluation of one time bloody emesis yesterday morning. States this was a significant amount about a pint of bright red blood. Denies any more bleeding. Patient reports associated dizziness and lightheadedness. She denies bloody stools, melena or abdomen pain. On arrival, vitals BP 84/52, HR 112, O2 sat 100% on RA, Temp 99.1. labs revealed Plt 78, hgb is 7.6, she is receiving 2 units of blood, PPI GTT and octreotide started. Patient states stopped drinking approx 4 days ago. Patient had a recent admission for same presentation that resulted in respiratory failure requiring intubation, vasopressors. During that admission she under went EGD with Dr. Mcnair EGD on (11/16/16) ----> LA class B esophagitis, portal hypertensive gastropathy, erythematous gastritis. (Colt Rowley) PFSH Past Medical History PMH: Alcohol Abuse, depression, Cirrhosis, Portal HTN, Esophageal Varices and h /o GI Bleed Past Surgical History PAST SURGICAL HISTORY: Partial Hysterectomy, EGD/colonoscopy, foot surgery ( Colt Rowley) Coded Allergies: Codeine (Verified Allergy, Severe, VOMITING, HALLUCINATIONS, 12/22/16) Demerol (Verified Allergy, Severe, VOMITING, HALLUCINATIONS, 12/22/16) Morphine (Verified Allergy, Severe, VOMITING, HALLUCINATIONS, 12/22/16) Medications Current Medications Medications (Trade) Dose Ordered Sig/Chantal Route Start Time Stop Time Status Last Admin Octreotide Acetate 500 mcg/ Sodium Chloride 500.5 ml @ 50 mls/hr Q10H IV 12/22/16 03:30 12/22/16 04:25 (Protonix Inj/NS Inj) 100 ml @ 10 mls/hr Q10H IV 12/22/16 03:30 12/22/16 04:25 Miscellaneous Information 1 Q361D XX 12/22/16 05:15 (Chlorhexidine 2% Cloth) 3 pack Taper DAILY@04 TOP 12/23/16 04:00 12/19/17 03:59 Chlorhexidine Gluconate 3 pack 3 pack UNSCH PRN TOP 12/22/16 05:15 (NS 1000 ml Inj) 1,000 ml @ 100 mls/hr Q10H IV 12/22/16 05:06 12/22/16 05:43 (NS Flush) 2 ml UNSCH PRN FLUSH 12/22/16 05:15 (NS Flush) 2 ml BID FLUSH 12/22/16 09:00 (Zofran Inj) 4 mg Q6H PRN IVP 12/22/16 05:15 (Dulcolax Supp) 10 mg DAILY PRN CO 12/22/16 05:15 (Tylenol) 650 mg Q6H PRN PO 12/22/16 05:15 (Romazicon Inj) 0.2 mg Q1M PRN IV PUSH 12/22/16 05:15 (Ativan Inj) 1 mg Q4H PRN IV PUSH 12/22/16 05:15 (Ativan Inj) 2 mg Q2H PRN IV PUSH 12/22/16 05:15 (Ativan Inj) 2 mg Q1H PRN IV PUSH 12/22/16 05:15 Lorazepam 2 mg 2 mg Q15M PRN IV PUSH 12/22/16 05:15 (Rocephin Inj/NS Inj) 100 ml @ 200 mls/hr Q24H IV 12/23/16 06:00 Folic Acid 1 mg 1 mg DAILY PO 12/22/16 09:00 12/27/16 08:59 Multivitamins 10 ml/Folic Acid 1 mg/Sodium Chloride 510.2 ml @ 125 mls/hr Q24H IV 12/22/16 09:00 12/27/16 08:59 (Thiamine Inj/NS Inj) 101 ml @ 100 mls/hr Q24H IV 12/22/16 09:00 12/25/16 08:59 (Vitamin B1) 100 mg DAILY PO 12/25/16 09:00 Phytonadione 5 mg 5 mg DAILY PO 12/22/16 09:00 12/25/16 08:59 Sodium Chloride 500 ml @ 500 mls/hr Q4HR PRN IV 12/22/16 08:00 (Levophed-Dextrose Drip) 250 ml @ 0 mls/hr TITRATE PRN IV 12/22/16 08:00 (Brethine Inj) 1 mg UNSCH PRN SQ 12/22/16 08:00 Family History no family history of colon or liver cancer Social History PAST SOCIAL HISTORY: Positive for alcohol abuse. Smokes 1ppd. Negative for drugs. (Colt Rowley) Review of Systems Constitutional: COMPLAINS OF: Dizziness Endocrine: DENIES: Polyuria Eyes: DENIES: Double Vision Ears, nose, mouth, throat: DENIES: Hoarseness Respiratory: DENIES: Shortness of breath Cardiovascular: DENIES: Lower Extremity Edema Gastrointestinal: COMPLAINS OF: Nausea, Vomiting, Hematemesis, DENIES: Abdominal pain, Black stools, Bloody stools, Constipation, Diarrhea, Difficulty Swallowing, Anorexia, Odynophagia, Swelling of Abdomen, Heartburn Genitourinary: DENIES: Hematuria Musculoskeletal: DENIES: Back pain Integumentary: DENIES: Jaundice Hematologic/lymphatic: DENIES: Bruising Immunologic/allergic: DENIES: Eczema Neurologic: DENIES: Abnormal gait Psychiatric: COMPLAINS OF: Anxiety (Colt Rowley) GI Exam Vitals I&O Vital Signs Date Time Temp Pulse Resp B/P Pulse Ox O2 Delivery O2 Flow Rate FiO2 12/22/16 08:32 98.8 97 20 95/52 99 12/22/16 08:15 98.8 99 20 169/60 98 12/22/16 08:06 105 20 169/60 100 12/22/16 06:57 98.8 126 18 78/52 98 Room Air 12/22/16 06:39 98.9 119 18 87/51 100 Room Air 12/22/16 05:45 82/49 12/22/16 04:38 100 Room Air 12/22/16 04:38 98.4 103 18 80/53 99 Room Air 12/22/16 02:49 18 12/22/16 02:44 99.1 112 18 84/52 100 Laboratory Test 12/22/16 12/22/16 12/22/16 03:23 04:32 05:22 White Blood Count 4.5 TH/MM3 Red Blood Count 2.30 MIL/MM3 Hemoglobin 7.6 GM/DL Hematocrit 22.7 % Mean Corpuscular Volume 98.5 FL Mean Corpuscular Hemoglobin 32.9 PG Mean Corpuscular Hemoglobin 33.4 % Concent Red Cell Distribution Width 18.6 % Platelet Count 78 TH/MM3 Mean Platelet Volume 8.4 FL Neutrophils (%) (Auto) 70.6 % Lymphocytes (%) (Auto) 16.9 % Monocytes (%) (Auto) 10.8 % Eosinophils (%) (Auto) 1.0 % Basophils (%) (Auto) 0.7 % Neutrophils # (Auto) 3.2 TH/MM3 Lymphocytes # (Auto) 0.8 TH/MM3 Monocytes # (Auto) 0.5 TH/MM3 Eosinophils # (Auto) 0.0 TH/MM3 Basophils # (Auto) 0.0 TH/MM3 CBC Comment AUTO DIFF Differential Comment AUTO DIFF CONFIRMED Platelet Estimate LOW Platelet Morphology Comment NORMAL Prothrombin Time 16.3 SEC Prothromb Time International 1.5 RATIO Ratio Activated Partial 29.4 SEC Thromboplast Time Sodium Level 141 MEQ/L Potassium Level 4.5 MEQ/L Chloride Level 107 MEQ/L Carbon Dioxide Level 25.4 MEQ/L Anion Gap 9 MEQ/L Blood Urea Nitrogen 20 MG/DL Creatinine 0.49 MG/DL Estimat Glomerular Filtration 137 ML/MIN Rate Random Glucose 110 MG/DL Calcium Level 8.1 MG/DL Total Bilirubin 1.9 MG/DL Aspartate Amino Transf 59 U/L (AST/SGOT) Alanine Aminotransferase 23 U/L (ALT/SGPT) Alkaline Phosphatase 252 U/L Total Protein 6.1 GM/DL Albumin 2.7 GM/DL Lipase 170 U/L Ethyl Alcohol Level LESS THAN 3 MG/DL Blood Type AB POSITIVE AB POSITIVE Antibody Screen NEGATIVE Blood Bank Comment Crossmatch Leukocyte-Reduced Red Blood Cells Physical Examination HEENT: normocephalic; atraumatic; no jaundice. NECK: Neck is supple, no JVD, no lymphadenopathy. CHEST: Chest is clear to auscultation and percussion. CARDIAC: Regular rate and rhythm with no murmur gallop or rubs. ABDOMEN: Soft, nondistended, nontender; bowel sounds are present in all four quadrants. EXTREMITIES: No clubbing, cyanosis, or edema. SKIN: Normal; no rash; no jaundice. PUNCH PRESS OPERATOR HELPER: No focal deficits; alert and oriented times three. ([place] PROFESSOR OF KINESIOLOGY) Assessment and Plan Plan - GIB, Hematemesis. one time bloody emesis yesterday morning. States this was a significant amount about a pint of bright red blood. Denies any more bleeding. Patient reports associated dizziness and lightheadedness. She denies bloody stools, melena or abdomen pain. On arrival, vitals BP 84/52, HR 112, O2 sat 100% on RA, Temp 99.1. labs revealed Plt 78, hgb is 7.6, she is receiving 2 units of blood, PPI GTT and octreotide started. Patient states stopped drinking approx 4 days ago. Patient had a recent admission for same presentation that resulted in respiratory failure requiring intubation, vasopressors. During that admission she under went EGD with Dr. Mcnair EGD on (11/16/16) ----> LA class B esophagitis, portal hypertensive gastropathy, erythematous gastritis. Currently at [facility] - Anemia secondary to blood loss. No more hematemesis, hgb 7.6. Protonix/ Octreotide gtt. 2 units of PRBC. in process - Thrombocytopenia- secondary to cirrhosis- plt 78 - Liver cirrhosis secondary to ETOH use. Last drink was 4 days ago. Currently at [facility] PLAN: - Clear liquids - Cont. Octreotide Gtt, Protonix Gtt - IV - EGD/ +,- colonoscopy on Saturday unless actively bleeding, I don't think patient ever had a colonoscopy - Monitor HH - Transfuse to keep hgb > 8 - Notify GI for active bleed - Alcohol cessation - Supportive care - Pt seen and examined by Dr. Patel and myself and this note is written on his behalf (Colt Rowley) Physician Comments Seen and examined with PROFESSOR OF KINESIOLOGY< no active bleeding at this time. Recent EGD showed no varices. On protonix/octreotide. EGD/ colonoscopy planned for saturday unless active bleeding. Liquid diet. Will follow. Thank you (Sridevi Patel MD) Colt Rowley Dec 22, 2016 09:37 Sridevi Patel MD Dec 22, 2016 13:06
[2016-12-22] MEDS: MULTIVITAMIN INJ 10 ML, FOLIC ACID INJ 1 MG in SODIUM CHLORID 0.9% 500 ML INJ 500 ML IV SCH (09:52)
[2016-12-22] MEDS: THIAMINE INJ 100 MG in SODIUM CHLORIDE 0.9% INJ 100 ML IV SCH (09:52)
[2016-12-22] MEDS: PHYTONADIONE 5 MG TAB PO SCH (09:53)
[2016-12-22] MEDS: FOLIC ACID 1 MG TAB PO SCH (09:53)
[2016-12-22 13:26] LABS: HEMATOCRIT 21.3 % (35.0-46.0)
[2016-12-22 13:27] LABS: REVIEW FLAG FINAL
--- NOTE | 2016-12-22 14:41 | EKG ---
Date Performed: 12/22/2016 Time Performed: 02:53:00 PTAGE: 46 years EKG: SINUS TACHYCARDIA LOW QRS VOLTAGE IN PRECORDIAL LEADS Compared to the previous tracing R wa ve progression across precordium has improved somewhat, otherwise no significant change ABNORMAL RHYT ECG PREVIOUS TRACING : 01/31/2015 22.42 DOCTOR: Wing Patiño Interpretating Date/Time 12/22/2016 14:39:56
[2016-12-22] MEDS: LORazepam 2 MG/ML VIAL IV PUSH PRN ×2 (15:50→20:13)
[2016-12-22 16:38] LABS: REVIEW FLAG FINAL
[2016-12-22 16:41] LABS: HEMATOCRIT 19.9 % (35.0-46.0)
[2016-12-22] MEDS ORDERED: SODIUM CHLOR 0.9% 250 ML INJ 250 ML IV ONE (17:00)
[2016-12-23] VITALS (7 sets, daily range): BP systolic 115–127; BP diastolic 73–83; PULSE 86–96; RESP 16–20; TEMP 98.1–99.9; O2SAT 95–99
[2016-12-23] LABS: HEMATOCRIT 26.9 % (35.0-46.0)
[2016-12-23 00:08] LABS: REVIEW FLAG FINAL
[2016-12-23] MEDS: SODIUM CHLOR 0.9% 1000 ML INJ 1,000 ML IV SCH (01:06)
[2016-12-23] MEDS: PANTOPRAZOLE INJ 80 MG in SODIUM CHLORIDE 0.9% INJ 100 ML IV SCH (01:54)
[2016-12-23] MEDS: OCTREOTIDE INJ 500 MCG in SODIUM CHLORID 0.9% 500 ML INJ 500 ML IV SCH ×3 (03:41→19:30)
[2016-12-23] MEDS: CHLORHEXIDINE GLUCONATE 2 % 1 PACK (2 CLOTHS) TOP SCH (04:00)
[2016-12-23 05:01] LABS: EOSINOPHIL # 0.1 TH/MM3 (0-0.4); EOSINOPHIL % 1.9 % (0.0-4.0); HEMATOCRIT 25.4 % (35.0-46.0); LYMPH % 32.2 % (9.0-44.0); LYMPHOCYTE # 1.2 TH/MM3 (1.0-4.8); MEAN CELL VOLUME 90.7 FL (80.0-100.0); MEAN CORPUSCULAR HEMOGLOBIN 31.7 PG (27.0-34.0); MONO % 9.5 % (0.0-8.0); NEUT % 55.4 % (16.0-70.0); PLATELET COUNT 61 TH/MM3 (150-450); RED CELL DISTRIBUTION WIDTH 18.7 % (11.6-17.2); WHITE BLOOD COUNT 3.6 TH/MM3 (4.0-11.0)
[2016-12-23] MEDS: LORazepam 2 MG/ML VIAL IV PUSH PRN (05:01)
[2016-12-23] MEDS: cefTRIAXone INJ 1,000 MG in SODIUM CHLORIDE 0.9% INJ 100 ML IV SCH (05:02)
[2016-12-23 05:04] LABS: HEMO FLAGS DIFF FINAL
[2016-12-23 05:30] LABS: ALKALINE PHOSPHATASE 188 U/L (45-117); ALT (GPT) 18 U/L (10-53); ANION GAP 10 MEQ/L (5-15); AST (GOT) 52 U/L (15-37); BICARBONATE 23.5 MEQ/L (21.0-32.0); BLOOD UREA NITROGEN 7 MG/DL (7-18); CHLORIDE 109 MEQ/L (98-107); GLOMERULAR FILTRATION RATE 164 ML/MIN (>89); POTASSIUM 3.4 MEQ/L (3.5-5.1); SODIUM (NA) 142 MEQ/L (136-145); TOTAL BILIRUBIN ADULT 3.3 MG/DL (0.2-1.0)
[2016-12-23] MEDS ORDERED: POTASSIUM CHLOR 20 MEQ PREMIX 100 ML IV PRN ×2 (08:45)
[2016-12-23] MEDS ORDERED: POTASSIUM CHLOR 40 MEQ PREMIX 100 ML IV PRN ×2 (08:45)
[2016-12-23] MEDS ORDERED: POTASSIUM PHOSPHATE MONOBASIC 500 MG TAB PO/TUBE PRN (08:45)
[2016-12-23] MEDS ORDERED: POTASSIUM PHOSPHATE INJ 30 MMOL in SODIUM CHLOR 0.9% 250 ML INJ 250 ML IV PRN (08:45)
[2016-12-23] MEDS ORDERED: MAGNESIUM SULFATE INJ 4 GM in SODIUM CHLORIDE 0.9% INJ 92 ML IV PRN (08:45)
[2016-12-23] MEDS ORDERED: MAGNESIUM OXIDE 400 MG TAB PO PRN (08:45)
[2016-12-23] MEDS ORDERED: MAGNESIUM SULFATE INJ 2 GM in SODIUM CHLORIDE 0.9% INJ 96 ML IV PRN (08:45)
[2016-12-23] MEDS ORDERED: POTASSIUM PHOSPHATE MONOBASIC 500 MG TAB PO PRN (08:45)
[2016-12-23] MEDS ORDERED: SODIUM PHOSPHATE INJ 30 MMOL in SODIUM CHLOR 0.9% 250 ML INJ 240 ML IV PRN (08:45)
[2016-12-23 09:22] LABS: MAGNESIUM 1.6 MG/DL (1.5-2.5)
[2016-12-23] MEDS: THIAMINE INJ 100 MG in SODIUM CHLORIDE 0.9% INJ 100 ML IV SCH (09:37)
[2016-12-23] MEDS: NS + KCL 20 MEQ INJ 1,000 ML IV SCH (09:39)
[2016-12-23] MEDS: SODIUM CHLORIDE 0.9% FLUSH 5 ML FLUSH FLUSH SCH ×2 (09:40→21:00)
[2016-12-23] MEDS: MULTIVITAMIN INJ 10 ML, FOLIC ACID INJ 1 MG in SODIUM CHLORID 0.9% 500 ML INJ 500 ML IV SCH (09:41)
--- NOTE | 2016-12-23 09:47 | HHI.PR ---
Subjective Remarks Follow up for GI bleeding with cirrhosis/esophageal varices. The patient had NG tube placed yesterday, no bloody output. However she had another episode of dark red stools this morning, seen by myself in bedside commode. Still tachycardic with HR in 120s. Denies abdominal pain. She has no other medical complaints. Going for EGD today. Objective Vitals Vital Signs Date Time Temp Pulse Resp B/P Pulse Ox O2 Delivery O2 Flow Rate FiO2 12/23/16 07:00 99.3 94 18 115/74 98 12/23/16 07:00 94 12/23/16 03:00 99.9 96 18 123/83 97 12/23/16 03:00 96 12/22/16 23:00 106 12/22/16 23:00 99.2 91 20 117/76 97 12/22/16 19:00 99.2 107 18 106/64 99 12/22/16 19:00 99 12/22/16 16:59 99.1 106 18 111/66 98 12/22/16 11:34 98 20 106/71 99 12/22/16 10:02 93 20 99/68 99 I/O 12/22/16 12/22/16 12/22/16 12/23/16 12/23/16 12/23/16 07:00 15:00 23:00 07:00 15:00 23:00 Intake Total 2164 ml 1602 ml Output Total 900 ml 5150 ml Balance 1264 ml -3548 ml Intake Oral 90 ml 240 ml IV Total 1824 ml 1112 ml Packed Cells 250 ml 250 ml Output Urine Total 900 ml 5050 ml Gastric Drainage Total 0 ml 100 ml # Bowel Movements 2 0 0 Result Diagram: 12/23/1644112/23/16441 Objective Remarks GENERAL: Thin middle aged female patient who appears critically ill. Bloody stools in bedside commode. SKIN: Warm and dry. No rash. HEAD: Normocephalic. Atraumatic. EYES: Pupils equal and round. No scleral icterus. No injection or drainage. ENT: No nasal bleeding or discharge. Mucous membranes pink and moist. NECK: Supple. Trachea midline. CARDIOVASCULAR: Tachycardic, regular rhythm. S1, S2 noted. No murmur appreciated. RESPIRATORY: No accessory muscle use. Clear to auscultation. Breath sounds equal bilaterally. GASTROINTESTINAL: Abdomen soft, non-tender, nondistended. Normoactive bowel sounds x4. NG tube in place. MUSCULOSKELETAL: No obvious deformities. Extremities without clubbing, cyanosis , or edema. NEUROLOGICAL: Awake and alert. No obvious cranial nerve deficits. Motor grossly within normal limits. Normal speech. PSYCHIATRIC: Appropriate mood and affect; insight and judgment normal. Medications and IVs Current Medications Medications (Trade) Dose Ordered Sig/Chantal Route Start Time Stop Time Status Last Admin Octreotide Acetate 500 mcg/ Sodium Chloride 500.5 ml @ 50 mls/hr Q10H IV 12/22/16 03:30 12/23/16 03:41 (Protonix Inj/NS Inj) 100 ml @ 10 mls/hr Q10H IV 12/22/16 03:30 12/23/16 01:54 Miscellaneous Information 1 Q361D XX 12/22/16 05:15 (Chlorhexidine 2% Cloth) 3 pack Taper DAILY@04 TOP 12/23/16 04:00 12/19/17 03:59 (Chlorhexidine 2% Cloth) 3 pack UNSCH PRN TOP 12/22/16 05:15 (NS Flush) 2 ml UNSCH PRN FLUSH 12/22/16 05:15 (NS Flush) 2 ml BID FLUSH 12/22/16 09:00 (Zofran Inj) 4 mg Q6H PRN IVP 12/22/16 05:15 (Dulcolax Supp) 10 mg DAILY PRN MS 12/22/16 05:15 (Tylenol) 650 mg Q6H PRN PO 12/22/16 05:15 (Romazicon Inj) 0.2 mg Q1M PRN IV PUSH 12/22/16 05:15 (Ativan Inj) 1 mg Q4H PRN IV PUSH 12/22/16 05:15 12/23/16 05:01 (Ativan Inj) 2 mg Q2H PRN IV PUSH 12/22/16 05:15 12/23/16 00:50 (Ativan Inj) 2 mg Q1H PRN IV PUSH 12/22/16 05:15 12/22/16 22:10 Lorazepam 2 mg 2 mg Q15M PRN IV PUSH 12/22/16 05:15 (Rocephin Inj/NS Inj) 100 ml @ 200 mls/hr Q24H IV 12/23/16 06:00 12/23/16 05:02 Folic Acid 1 mg 1 mg DAILY PO 12/22/16 09:00 12/27/16 08:59 12/22/16 09:53 Multivitamins 10 ml/Folic Acid 1 mg/Sodium Chloride 510.2 ml @ 125 mls/hr Q24H IV 12/22/16 09:00 12/27/16 08:59 12/22/16 09:52 (Thiamine Inj/NS Inj) 101 ml @ 100 mls/hr Q24H IV 12/22/16 09:00 12/25/16 08:59 12/22/16 09:52 (Vitamin B1) 100 mg DAILY PO 12/25/16 09:00 Phytonadione 5 mg 5 mg DAILY PO 12/22/16 09:00 12/25/16 08:59 12/22/16 09:53 Sodium Chloride 500 ml @ 500 mls/hr Q4HR PRN IV 12/22/16 08:00 (Levophed-Dextrose Drip) 250 ml @ 0 mls/hr TITRATE PRN IV 12/22/16 08:00 Terbutaline Sulfate 1 mg 1 mg UNSCH PRN SQ 12/22/16 08:00 Sodium Chloride 250 ml @ 15 mls/hr ONCE ONCE IV 12/22/16 17:00 12/23/16 09:39 12/22/16 17:00 Potassium Chloride 100 ml @ 50 mls/hr Q2H PRN IV 12/23/16 08:45 Potassium Chloride 100 ml @ 50 mls/hr Q2H PRN IV 12/23/16 08:45 Potassium Chloride 100 ml @ 25 mls/hr UNSCH PRN IV 12/23/16 08:45 Potassium Chloride 100 ml @ 50 mls/hr Q2H PRN IV 12/23/16 08:45 (Magnesium Sulfate Inj/NS Inj) 100 ml @ 50 mls/hr UNSCH PRN IV 12/23/16 08:45 Magnesium Oxide 800 mg 800 mg UNSCH PRN PO 12/23/16 08:45 (Magnesium Sulfate Inj/NS Inj) 100 ml @ 50 mls/hr UNSCH PRN IV 12/23/16 08:45 Potassium Phosphate 2000 mg 2,000 mg Q4H PRN PO 12/23/16 08:45 (Sodium Phosphate Inj/NS 250 ml Inj) 250 ml @ 42 mls/hr UNSCH PRN IV 12/23/16 08:45 Potassium Phosphate 2000 mg 2,000 mg UNSCH PRN PO/TUBE 12/23/16 08:45 Potassium Phosphate 30 mmol/ Sodium Chloride 260 ml @ 42 mls/hr UNSCH PRN IV 12/23/16 08:45 (NS + KCl 20 Meq Inj) 1,000 ml @ 60 mls/hr [id number] IV 12/23/16 08:45 A/P Problem List: (1) GI bleed ICD Code: K92.2 Status: Acute (2) Anemia ICD Code: D64.9 Status: Acute (3) Cirrhosis ICD Code: K74.60 Status: Chronic (4) Alcohol abuse ICD Code: F10.10 Status: Chronic Assessment and Plan 46-year-old female with a PMH of Alcohol Abuse, Cirrhosis, Portal HTN, Esophageal Varices and h/o GI Bleed who was sent from [facility] secondary to episode of hematemesis Acute GI Bleed: Recurrent. H/o Alcohol Abuse w/ Cirrhosis, Esophageal Varices , recent admit 11/15-11/22/16 for same, s/p EGD by Dr. Mcnair w/ LA Class B Esophagitis, Portal Hypertensive Gastropathy and Gastritis. +Hematemesis, + tachycardia, +hypotension, +acute anemia. Admitted to ICU for close monitoring. Transfusion as below. IVF bolus and maintenance IVF. Continue on Protonix/Octreotide gtt, prophylactic Abx with IV Rocephin. Norepi drip if needed. Consulted GI. Plan for EGD today. Acute on chronic anemia: Acute Anemia secondary to Blood Loss from GI Bleed. Hgb 6.8, previously 8.4 on 11/22/16. Transfused total of 4u pRBCs. Repeat Hgb 8.9 today. Continue to monitor serial H&H until EGD done or bleeding stops. Terbutaline as needed for large extravasation. Cirrhosis with Anemia/Thrombocytopenia: Secondary to alcohol abuse, + coagulopathy, +thrombocytopenia w/ active bleeding. Give vitamin K daily 3 days. Monitor CBC. Alcohol Abuse: Heavy, daily alcohol, last drink 4 days ago per patient. CIWA with Ativan and rally pack. Continue detox at discharge. DVT Prophylaxis: Pharmacologic contraindication in light of GI Bleed, Symptomatic Anemia, Coagulopathy and Thrombocytopenia. SCDs. Discussed in depth with RN and NETWORK OPERATIONS CENTER TECHNICIAN at bedside. Written by Alison Florez, acting as scribe for Dr. Carpenter on 12/23/16 at 09: 11. Patient is critically ill, active bleeding with anemia and hemodynamic instability. She needs close monitoring in the ICU . Critical care time spent 35 mins Problem Qualifiers (1) Anemia: Qualified Code: D64.9 - Anemia, unspecified type (2) Cirrhosis: Qualified Code: K70.30 - Alcoholic cirrhosis of liver without ascites Alison Florez PA-C Dec 23, 2016 09:47 Al Carpenter MD Dec 23, 2016 15:58
[2016-12-23 10:41] LABS: HEMATOCRIT 26.1 % (35.0-46.0)
--- NOTE | 2016-12-23 11:47 | GIPROC ---
[facility] [address] [facility]. [facility], [address] EGD PROCEDURE REPORT EXAM DATE: 12/23/2016 PATIENT NAME: hSawna Sprague MR #: [id number] BIRTHDATE: 1970 ATTENDING: Sridevi Patel MD ORDER #: [id number] CEMETERY WARDEN: Elin Nguyễn and Ariel River STATUS: inpatient INDICATIONS: The patient is a 46 yr old female here for an EGD due to iron deficiency anemia and hematochezia PROCEDURE PERFORMED: EGD w/ ablation MEDICATIONS: Per Anesthesia and None. TOPICAL ANESTHETIC: CONSENT: The patient understands the risks and benefits of the procedure and understands that these risks include, but are not limited to: sedation, allergic reaction, infection, perforation and/or bleeding. Alternative means of evaluation and treatment include, among others: physical exam, x-rays, and/or surgical intervention. The patient elects to proceed with this endoscopic procedure. medical equipment was checked for proper function. Hand hygiene and appropriate measures for infection prevention was taken. After the risks, benefits and alternatives of the procedure were thoroughly explained, Informed consent was verified, confirmed and timeout was successfully executed by the treatment team. The patient was anesthetized with topical anesthesia and the Pentax [id number] endoscope was introduced through the mouth and advanced to the second portion of the duodenum. Retroflexed views revealed no abnormalities The gastroscope was then slowly withdrawn and removed. STOMACH: Moderate portal hypertensive gastropathy was found in the gastric fundus. Oozing blood, ablation with heater probe. ESOPHAGUS: There was LA Class A esophagitis noted. ADVERSE EVENTS: There were no complications. IMPRESSIONS: 1. Portal hypertensive gastropathy was found in the gastric fundus 2. Oozing blood, ablation with heater probe 3. There was LA Class A esophagitis noted 4. Retroflexed views revealed no abnormalities RECOMMENDATIONS: 1. Anti-reflux regimen 2. Continue PPI 3. Colonoscopy PATIENT CONDITION: stable DISPOSITION: Inpatient REPEAT EXAM: Return as needed for EGD Sridevi Patel MD eSigned: Sridevi Patel MD 12/23/2016 11:47 AM cc: PATIENT NAME: Shawna Sprague MR#: [id number]
[2016-12-23] MEDS ORDERED: PEG (High)/E-LYTE SOLN 4000 ML BTL PO ONE (12:00)
[2016-12-23] MEDS ORDERED: PROPOFOL 200 MG/20 ML AMP IV ONE (13:13)
[2016-12-23] MEDS: PHYTONADIONE 5 MG TAB PO SCH (13:57)
[2016-12-23] MEDS: FOLIC ACID 1 MG TAB PO SCH (13:58)
[2016-12-23 19:15] LABS: HEMATOCRIT 28.2 % (35.0-46.0)
[2016-12-23 19:19] LABS: REVIEW FLAG FINAL
[2016-12-23 22:34] LABS: BICARBONATE 25.4 MEQ/L (21.0-32.0); MAGNESIUM 1.9 MG/DL (1.5-2.5); POTASSIUM 3.8 MEQ/L (3.5-5.1)
[2016-12-24] MEDS: NS + KCL 20 MEQ INJ 1,000 ML IV SCH ×2 (01:25→08:11)
[2016-12-24] MEDS: PANTOPRAZOLE INJ 80 MG in SODIUM CHLORIDE 0.9% INJ 100 ML IV SCH ×2 (01:48→07:55)
[2016-12-24 03:00] VITALS: BP 102/66; PULSE 89; PULSE 93; RESP 21; TEMP 98.7; O2SAT 99
[2016-12-24 03:22] LABS: AUTOMATED NEUTROPHIL # 2.2 TH/MM3 (1.8-7.7); BASOPHIL % 0.8 % (0.0-2.0); EOSINOPHIL # 0.1 TH/MM3 (0-0.4); EOSINOPHIL % 2.2 % (0.0-4.0); HEMATOCRIT 26.5 % (35.0-46.0); LYMPHOCYTE # 1.1 TH/MM3 (1.0-4.8); MEAN CELL VOLUME 91.4 FL (80.0-100.0); MEAN CORPUSCULAR HEMOGLOBIN 31.4 PG (27.0-34.0); MEAN CORPUSCULAR HGB CONC 34.3 % (32.0-36.0); PLATELET COUNT 76 TH/MM3 (150-450); RED CELL DISTRIBUTION WIDTH 18.8 % (11.6-17.2); WHITE BLOOD COUNT 3.8 TH/MM3 (4.0-11.0)
[2016-12-24 03:25] LABS: HEMO FLAGS AUTO DIFF
[2016-12-24] MEDS: CHLORHEXIDINE GLUCONATE 2 % 1 PACK (2 CLOTHS) TOP SCH (04:00)
[2016-12-24 04:41] LABS: SCAN/DIFF AUTO DIFF CONFIRMED
[2016-12-24 04:47] LABS: PLATELET ESTIMATE SMEAR LOW (NORMAL); PLATELET MORPHOLOGY NORMAL (NORMAL)
[2016-12-24] MEDS: OCTREOTIDE INJ 500 MCG in SODIUM CHLORID 0.9% 500 ML INJ 500 ML IV SCH (05:32)
[2016-12-24] MEDS: cefTRIAXone INJ 1,000 MG in SODIUM CHLORIDE 0.9% INJ 100 ML IV SCH (05:37)
[2016-12-24 07:00] VITALS: BP 143/51; PULSE 102; PULSE 79; RESP 16; TEMP 98.8; O2SAT 95
[2016-12-24] MEDS: PHYTONADIONE 5 MG TAB PO SCH (07:59)
[2016-12-24] MEDS: THIAMINE INJ 100 MG in SODIUM CHLORIDE 0.9% INJ 100 ML IV SCH (07:59)
[2016-12-24] MEDS: FOLIC ACID 1 MG TAB PO SCH (07:59)
[2016-12-24] MEDS: SODIUM CHLORIDE 0.9% FLUSH 5 ML FLUSH FLUSH SCH (08:00)
[2016-12-24] MEDS: MULTIVITAMIN INJ 10 ML, FOLIC ACID INJ 1 MG in SODIUM CHLORID 0.9% 500 ML INJ 500 ML IV SCH (08:11)
[2016-12-24] MEDS ORDERED: PROPOFOL 200 MG/20 ML AMP IV ONE (09:46)
[2016-12-24] MEDS ORDERED: DO NOT ADM ANY ANTICOAGULANT DRUGS XX PRN (10:00)
--- NOTE | 2016-12-24 10:03 | GIPROC ---
[facility] [address] [facility]. [facility], [address] COLONOSCOPY PROCEDURE REPORT EXAM DATE: 12/24/2016 PATIENT NAME: Shawna Sprague MR #: [id number] BIRTHDATE: 1970 ENDOSCOPIST: Sridevi Patel MD ORDER #: [id number] APPRENTICE INSTRUMENT TECHNICIAN: Batool Grey and Michael Burrell STATUS: inpatient INDICATIONS: The patient is a 46 yr old female here for a colonoscopy due to hematochezia PROCEDURE PERFORMED: Colonoscopy, diagnostic MEDICATIONS: Per Anesthesia and None. PREP QUALITY: The [place] Bowel Prep Score was Right colon 2, Mid colon 3, and Left colon 3. Total = 8. PREP TYPE:GoLytely ESTIMATED BLOOD LOSS: None CONSENT: The patient understands the risks and benefits of the procedure and understands that these risks include, but are not limited to: sedation, allergic reaction, infection, perforation and/or bleeding. Alternative means of evaluation and treatment include, among others: physical exam, x-rays, and/or surgical intervention. The patient elects to proceed with this endoscopic procedure. medical equipment was checked for proper function. Hand hygiene and appropriate measures for infection prevention was taken. After the risks, benefits and alternatives of the procedure were thoroughly explained, Informed consent was verified, confirmed and timeout was successfully executed by the treatment team. A digital exam revealed external hemorrhoids The Pentax [id number] and [id number] endoscope was introduced through the anus and advanced to the cecum, which was identified by both the appendix and ileocecal valve. The instrument was then slowly withdrawn as the colon was fully examined. COLON FINDINGS: The colonic mucosa appeared normal. Retroflexed views revealed internal hemorrhoids and Retroflexed views revealed medium internal hemorrhoids The scope was then completely withdrawn from the patient and the procedure terminated. PROCEDURE WITHDRAWAL TIME:7minutes ADVERSE EVENTS: There were no complications. IMPRESSIONS: 1. The colonic mucosa appeared normal 2. Retroflexed views revealed internal hemorrhoids 3. Retroflexed views revealed medium internal hemorrhoids 4. Revealed external hemorrhoids RECOMMENDATIONS: 1. Continue surveillance 2. Yearly hemoccult RECALL: Return 5 years Colonoscopy Sridevi Patel MD eSigned: Sridevi Patel MD 12/24/2016 10:03 AM cc: [id number]
[2016-12-24] MEDS ORDERED: MIDAZOLAM HCL 2 MG/2 ML VIAL ONE (10:09)
[2016-12-24] MEDS ORDERED: KETAMINE HCL 500 MG/5 ML VIAL ONE (10:10)
[2016-12-24] MEDS: LORazepam 2 MG/ML VIAL IV PUSH PRN (11:16)
[2016-12-24 11:37] VITALS: BP 128/79; PULSE 82; RESP 23; TEMP 96.2; O2SAT 99
--- NOTE | 2016-12-24 13:57 | HHI.PR ---
Subjective Remarks Follow up for GI bleeding with cirrhosis/esophageal varices. The patient is seen s/p colonoscopy today. She reports no further episodes of bleeding. Denies nausea/vomiting. She wants to eat. Diet has been advanced by GI. No fevers/ chills. No other medical complaints at this time. She wants to go home. Objective Vitals Vital Signs Date Time Temp Pulse Resp B/P Pulse Ox O2 Delivery O2 Flow Rate FiO2 12/24/16 11:37 96.2 82 23 128/79 99 12/24/16 07:00 102 12/24/16 07:00 98.8 79 16 143/51 95 12/24/16 03:00 93 12/24/16 03:00 98.7 89 21 102/66 99 12/23/16 23:00 86 12/23/16 23:00 98.1 87 20 127/79 95 12/23/16 19:00 92 12/23/16 19:00 98.9 92 18 117/78 99 12/23/16 15:00 98.5 86 16 116/73 98 12/23/16 15:00 86 I/O 12/23/16 12/23/16 12/23/16 12/24/16 12/24/16 12/24/16 07:00 15:00 23:00 07:00 15:00 23:00 Intake Total 1602 ml 200 ml 2132 ml 1760 ml Output Total 5150 ml 2150 ml 5850 ml Balance -3548 ml 200 ml -18 ml -4090 ml Intake Oral 240 ml 360 ml 240 ml IV Total 1112 ml 1772 ml 1520 ml Packed Cells 250 ml Other 200 ml Output Urine Total 5050 ml 2100 ml 5850 ml Gastric Drainage Total 100 ml 50 ml # Bowel Movements 0 1 0 Result Diagram: 12/24/16 0310 12/23/162201 Objective Remarks GENERAL: Thin middle aged female patient in NAD. SKIN: Warm and dry. No rash. HEENT: Normocephalic. Atraumatic. Pupils equal and round. No scleral icterus. No injection or drainage. ENT: No nasal bleeding or discharge. Mucous membranes pink and moist. NECK: Supple. Trachea midline. CARDIOVASCULAR: Regular rate and rhythm. S1, S2 noted. No murmur appreciated. RESPIRATORY: No accessory muscle use. Clear to auscultation. Breath sounds equal bilaterally. GASTROINTESTINAL: Abdomen soft, non-tender, nondistended. Normoactive bowel sounds x4. MUSCULOSKELETAL: No obvious deformities. Extremities without clubbing, cyanosis , or edema. NEUROLOGICAL: Awake and alert. No obvious cranial nerve deficits. Motor grossly within normal limits. Normal speech. PSYCHIATRIC: Appropriate mood and affect; insight and judgment normal. Procedures 12/23/16 - EGD showed portal hypertensive gastropathy was found in the gastric fundus; Oozing blood, ablation with heater probe; LA Class A esophagitis noted 12/24/16 - Colonoscopy colonic mucosa appeared normal; internal hemorrhoids; external hemorrhoids Medications and IVs Current Medications Medications (Trade) Dose Ordered Sig/Chantal Route Start Time Stop Time Status Last Admin (Chlorhexidine 2% Cloth) 3 pack Taper DAILY@04 TOP 12/23/16 04:00 12/19/17 03:59 (Chlorhexidine 2% Cloth) 3 pack UNSCH PRN TOP 12/22/16 05:15 (NS Flush) 2 ml UNSCH PRN FLUSH 12/22/16 05:15 (NS Flush) 2 ml BID FLUSH 12/22/16 09:00 12/24/16 08:00 (Zofran Inj) 4 mg Q6H PRN IVP 12/22/16 05:15 (Dulcolax Supp) 10 mg DAILY PRN [place] 12/22/16 05:15 (Tylenol) 650 mg Q6H PRN PO 12/22/16 05:15 (Romazicon Inj) 0.2 mg Q1M PRN IV PUSH 12/22/16 05:15 (Ativan Inj) 1 mg Q4H PRN IV PUSH 12/22/16 05:15 12/24/16 11:16 (Ativan Inj) 2 mg Q2H PRN IV PUSH 12/22/16 05:15 12/23/16 00:50 (Ativan Inj) 2 mg Q1H PRN IV PUSH 12/22/16 05:15 12/22/16 22:10 Lorazepam 2 mg 2 mg Q15M PRN IV PUSH 12/22/16 05:15 (Rocephin Inj/NS Inj) 100 ml @ 200 mls/hr Q24H IV 12/23/16 06:00 12/24/16 05:37 Folic Acid 1 mg 1 mg DAILY PO 12/22/16 09:00 12/27/16 08:59 12/24/16 07:59 Multivitamins 10 ml/Folic Acid 1 mg/Sodium Chloride 510.2 ml @ 125 mls/hr Q24H IV 12/22/16 09:00 12/27/16 08:59 12/24/16 08:11 (Thiamine Inj/NS Inj) 101 ml @ 100 mls/hr Q24H IV 12/22/16 09:00 12/25/16 08:59 12/24/16 07:59 (Vitamin B1) 100 mg DAILY PO 12/25/16 09:00 Phytonadione 5 mg 5 mg DAILY PO 12/22/16 09:00 12/25/16 08:59 12/24/16 07:59 (NS 500 ml Inj) 500 ml @ 500 mls/hr Q4HR PRN IV 12/22/16 08:00 Terbutaline Sulfate 1 mg 1 mg UNSCH PRN SQ 12/22/16 08:00 Magnesium Sulfate 4 gm/Sodium Chloride 100 ml @ 50 mls/hr UNSCH PRN IV 12/23/16 08:45 (Magnesium Sulfate Inj/NS Inj) 100 ml @ 50 mls/hr UNSCH PRN IV 12/23/16 08:45 12/23/16 13:58 (Protonix) 40 mg Q12HR PO 12/24/16 21:00 Miscellaneous Information ALL NURSING DEPARTME... UNSCH PRN XX 12/24/16 10:00 12/25/16 09:59 Urinary Catheter: No Vascular Central Line Catheter: No A/P Problem List: (1) GI bleed ICD Code: K92.2 Status: Acute (2) Anemia ICD Code: D64.9 Status: Acute (3) Cirrhosis ICD Code: K74.60 Status: Chronic (4) Alcohol abuse ICD Code: F10.10 Status: Chronic Assessment and Plan 46-year-old female with a PMH of Alcohol Abuse, Cirrhosis, Portal HTN, Esophageal Varices and h/o GI Bleed who was sent from [facility] secondary to episode of hematemesis Acute GI Bleed: Recurrent. H/o Alcohol Abuse w/ Cirrhosis, Esophageal Varices , recent admit 11/15-11/22/16 for same, s/p EGD by Dr. Mcnair w/ LA Class B Esophagitis, Portal Hypertensive Gastropathy and Gastritis. +Hematemesis, + tachycardia, +hypotension, +acute anemia. Admitted to ICU for close monitoring. Transfusion as below. IVF. -On Protonix/Octreotide gtt, prophylactic Abx with IV Rocephin. -Consulted GI, seen by Dr. Patel -12/23/16 - EGD showed portal hypertensive gastropathy was found in the gastric fundus; Oozing blood, ablation with heater probe; LA Class A esophagitis noted -12/24/16 - Colonoscopy colonic mucosa appeared normal; internal hemorrhoids; external hemorrhoids -Discussed with Dr. Patel, advance diet as tolerated, continue PPI, ok to discharge from GI standpoint Acute on chronic anemia: Acute Anemia secondary to Blood Loss from GI Bleed. Hgb 6.8, previously 8.4 on 11/22/16. Transfused total of 4u pRBCs. Repeat Hgb 8.9. Monitored serial H&H. -bleeding resolved -Hgb stable at 9.1 today Cirrhosis with Anemia/Thrombocytopenia: Secondary to alcohol abuse, + coagulopathy, +thrombocytopenia w/ active bleeding. Give vitamin K daily 3 days. Monitor CBC. Alcohol Abuse: Heavy, daily alcohol, last drink 4 days ago per patient. CIWA with Ativan and rally pack. Continue detox at discharge. DVT Prophylaxis: Pharmacologic contraindication in light of GI Bleed, Symptomatic Anemia, Coagulopathy and Thrombocytopenia. SCDs. Written by Alison Florez, acting as scribe for Dr. Carpenter on 12/24/16 at 12: 56. All or portions of this note were transcribed by scribe []. I, Dr. Al Carpenter personally performed the history, physical exam, and medical decision making; and confirmed the accuracy of the information in the transcribed note. Authenticated by Dr. Al Carpenter on 12/24/16 at 16:40. Discharge Planning Discharge patient back to [facility] per court order Condition on discharge: Improved Regular Diet as tolerated Ad Ca activity Rx written: Thiamine, Protonix Follow-up with primary care physician, gastroenterology Problem Qualifiers (1) Anemia: Qualified Code: D64.9 - Anemia, unspecified type (2) Cirrhosis: Qualified Code: K70.30 - Alcoholic cirrhosis of liver without ascites Alison Florez PA-C Dec 24, 2016 13:57 Al Carpenter MD Dec 24, 2016 16:40
[2016-12-24] MEDS ORDERED: VITA100T2 PO (13:59)
[2016-12-24] MEDS ORDERED: PANT40TA3 PO (13:59)
--- NOTE | 2016-12-24 14:00 | HHI.DCPOC ---
Discharge Care Plan Diagnosis: (1) GI bleed (2) Anemia (3) Cirrhosis (4) Alcohol abuse (5) Esophagitis (6) Internal and external hemorrhoids without complication Goals to Promote Your Health * To prevent worsening of your condition and complications * To maintain your health at the optimal level Directions to Meet Your Goals Take your medications as prescribed Follow your dietary instruction Follow activity as directed Keep your appointments as scheduled Take your immunizations and boosters as scheduled If your symptoms worsen call your PCP, if no PCP go to Urgent Care Center or Emergency Room Smoking is Dangerous to Your Health. Avoid second hand smoke Call the 24-hour hour crisis hotline for domestic abuse at Alison Florez PA-C Dec 24, 2016 2:00 pm
--- NOTE | 2016-12-24 14:03 | HHI.DS ---
cc: JorgeSridevi KWON Discharge Summary Admission Date Dec 22, 2016 at 05:06 Discharge Date: Dec 24, 2016 Admitting Diagnosis upper GI bleed, anemia, thrombocytopenia (1) GI bleed ICD Code: K92.2 Diagnosis: Principal (2) Anemia ICD Code: D64.9 Diagnosis: Principal (3) Alcohol abuse ICD Code: F10.10 Diagnosis: Secondary (4) Esophagitis ICD Code: K20.9 Diagnosis: Principal (5) Internal and external hemorrhoids without complication ICD Code: K64.4 Diagnosis: Secondary (6) Alcoholic cirrhosis of liver ICD Code: K70.30 Diagnosis: Secondary Procedures 12/23/16 - EGD showed portal hypertensive gastropathy was found in the gastric fundus; Oozing blood, ablation with heater probe; LA Class A esophagitis noted 12/24/16 - Colonoscopy colonic mucosa appeared normal; internal hemorrhoids; external hemorrhoids Brief History - From Admission This is a 46-year-old female with a PMH of Alcohol Abuse, Cirrhosis, Portal HTN , Esophageal Varices and h/o GI Bleed who was sent to the ER from [facility] secondary to episode of hematemesis. Pt reports associated dizziness/ lightheadedness. Recent admit 11/15-11/22/16 for GI Bleed and Critical Anemia requiring transfusion and Vasopressors, pulmonary edema and acute respiratory failure requiring intubation, s/p EGD by Dr. Mcnair 11/16/16 w/ LA Class B Esophagitis, Portal Hypertensive Gastropathy and Gastritis. Reports she stopped drinking approx 4 days ago, currently at [facility]. On arrival, BP 84/52, HR 112, O2 sat 100% on RA, Temp 99.1. Hemoglobin 7.6, previously 8.4 on 11/22/16. Platelets 78, previously 99 on 11/22/16. Chemistry at baseline. S/p IVF and Rocephin IV in ER. On Protonix/Octreotide gtt. 2u pRBC ordered in ER, currently pending transfusion. CBC/BMP: 12/24/16 0310 12/23/16 2202 Significant Findings Laboratory Tests Test 12/22/16 12/22/16 12/22/16 12/22/16 03:23 13:13 16:11 23:55 Red Blood Count 2.30 MIL/MM3 (4.00-5.30) Hemoglobin 7.6 GM/DL 7.0 GM/DL 6.8 GM/DL 9.3 GM/DL (11.6-15.3) (11.6-15.3) (11.6-15.3) (11.6-15.3) Hematocrit 22.7 % 21.3 % 19.9 % 26.9 % (35.0-46.0) (35.0-46.0) (35.0-46.0) (35.0-46.0) Red Cell Distribution Width 18.6 % (11.6-17.2) Platelet Count 78 TH/MM3 (150-450) Neutrophils (%) (Auto) 70.6 % (16.0-70.0) Monocytes (%) (Auto) 10.8 % (0.0-8.0) Lymphocytes # (Auto) 0.8 TH/MM3 (1.0-4.8) Platelet Estimate LOW (NORMAL) Prothrombin Time 16.3 SEC (9.8-11.6) Blood Urea Nitrogen 20 MG/DL (7-18) Creatinine 0.49 MG/DL (0.50-1.00) Random Glucose 110 MG/DL (74-106) Calcium Level 8.1 MG/DL (8.5-10.1) Total Bilirubin 1.9 MG/DL (0.2-1.0) Aspartate Amino Transf 59 U/L (15-37) (AST/SGOT) Alkaline Phosphatase 252 U/L (45-117) Total Protein 6.1 GM/DL (6.4-8.2) Albumin 2.7 GM/DL (3.4-5.0) Test 12/23/16 12/23/16 12/23/16 12/23/16 04:42 10:10 18:57 22:02 White Blood Count 3.6 TH/MM3 (4.0-11.0) Red Blood Count 2.80 MIL/MM3 (4.00-5.30) Hemoglobin 8.9 GM/DL 9.3 GM/DL 9.6 GM/DL (11.6-15.3) (11.6-15.3) (11.6-15.3) Hematocrit 25.4 % 26.1 % 28.2 % (35.0-46.0) (35.0-46.0) (35.0-46.0) Red Cell Distribution Width 18.7 % (11.6-17.2) Platelet Count 61 TH/MM3 (150-450) Monocytes (%) (Auto) 9.5 % (0.0-8.0) Potassium Level 3.4 MEQ/L (3.5-5.1) Chloride Level 109 MEQ/L (98-107) Creatinine 0.42 MG/DL 0.49 MG/DL (0.50-1.00) (0.50-1.00) Calcium Level 8.3 MG/DL 8.1 MG/DL (8.5-10.1) (8.5-10.1) Total Bilirubin 3.3 MG/DL (0.2-1.0) Aspartate Amino Transf 52 U/L (15-37) (AST/SGOT) Alkaline Phosphatase 188 U/L (45-117) Total Protein 5.8 GM/DL (6.4-8.2) Albumin 2.8 GM/DL (3.4-5.0) Blood Urea Nitrogen 5 MG/DL (7-18) Random Glucose 108 MG/DL (74-106) Test 12/24/16 03:10 White Blood Count 3.8 TH/MM3 (4.0-11.0) Red Blood Count 2.90 MIL/MM3 (4.00-5.30) Hemoglobin 9.1 GM/DL (11.6-15.3) Hematocrit 26.5 % (35.0-46.0) Red Cell Distribution Width 18.8 % (11.6-17.2) Platelet Count 76 TH/MM3 (150-450) Monocytes (%) (Auto) 10.0 % (0.0-8.0) Platelet Estimate LOW (NORMAL) PE at Discharge GENERAL: Thin middle aged female patient in [facility]. SKIN: Warm and dry. No rash. HEENT: Normocephalic. Atraumatic. Pupils equal and round. No scleral icterus. No injection or drainage. ENT: No nasal bleeding or discharge. Mucous membranes pink and moist. NECK: Supple. Trachea midline. CARDIOVASCULAR: Regular rate and rhythm. S1, S2 noted. No murmur appreciated. RESPIRATORY: No accessory muscle use. Clear to auscultation. Breath sounds equal bilaterally. GASTROINTESTINAL: Abdomen soft, non-tender, nondistended. Normoactive bowel sounds x4. MUSCULOSKELETAL: No obvious deformities. Extremities without clubbing, cyanosis , or edema. NEUROLOGICAL: Awake and alert. No obvious cranial nerve deficits. Motor grossly within normal limits. Normal speech. PSYCHIATRIC: Appropriate mood and affect; insight and judgment normal. Hospital Course 46-year-old female with a PMH of Alcohol Abuse, Cirrhosis, Portal HTN, Esophageal Varices and h/o GI Bleed who was sent from [facility] secondary to episode of hematemesis Acute GI Bleed: Recurrent. H/o Alcohol Abuse w/ Cirrhosis, Esophageal Varices , recent admit 11/15-11/22/16 for same, s/p EGD by Dr. Mcnair w/ LA Class B Esophagitis, Portal Hypertensive Gastropathy and Gastritis. +Hematemesis, + tachycardia, +hypotension, +acute anemia. Admitted to ICU for close monitoring. Transfusion as below. IVF. -On Protonix/Octreotide gtt, prophylactic Abx with IV Rocephin. -Consulted GI, seen by Dr. Patel -12/23/16 - EGD showed portal hypertensive gastropathy was found in the gastric fundus; Oozing blood, ablation with heater probe; LA Class A esophagitis noted -12/24/16 - Colonoscopy colonic mucosa appeared normal; internal hemorrhoids; external hemorrhoids -Discussed with Dr. Patel, advance diet as tolerated, continue PPI, ok to discharge from GI standpoint Acute on chronic anemia: Acute Anemia secondary to Blood Loss from GI Bleed. Hgb 6.8, previously 8.4 on 11/22/16. Transfused total of 4u pRBCs. Repeat Hgb 8.9. Monitored serial H&H. -bleeding resolved -Hgb stable at 9.1 today Cirrhosis with Anemia/Thrombocytopenia: Secondary to alcohol abuse, + coagulopathy, +thrombocytopenia w/ active bleeding. Give vitamin K daily 3 days. Monitor CBC. Alcohol Abuse: Heavy, daily alcohol, last drink 4 days ago per patient. CIWA with Ativan and rally pack. Continue detox at discharge. DVT Prophylaxis: Pharmacologic contraindication in light of GI Bleed, Symptomatic Anemia, Coagulopathy and Thrombocytopenia. SCDs. Written by Alison Florez, acting as scribe for Dr. Carpenter on 12/24/16 at 12:56. All or portions of this note were transcribed by scribe []. I, Dr. Al Carpenter personally performed the history, physical exam, and medical decision making; and confirmed the accuracy of the information in the transcribed note. Authenticated by Dr. Al Carpenter on 12/24/16 at 16:40. Pt Condition on Discharge: Stable Discharge Disposition: Disc to [facility] Care Fac Discharge Time: <= 30 minutes Discharge Instructions DIET: Follow Instructions for: As Tolerated, No Restrictions Additional Diet Instructions: NO ALCOHOL. Activities you can perform: Regular-No Restrictions Follow up Referrals: Gastroenterology - 10 Days with Sridevi Patel MD PCP Follow-up - 1 Week New Medications: Pantoprazole (Pantoprazole) 40 Mg Tab 40 MG PO Q12HR esophagitis #60 TAB Thiamine (Vitamin B-1) 100 Mg Tab 100 MG PO DAILY Alcohol Detox #30 TAB Continued Medications: Clonidine (Clonidine) 0.1 Mg Tab 0.1 MG PO BID Blood Pressure Management #60 Ref 0 TAB Folic Acid (Folate) 1 Mg Tab 1 MG PO DAILY #30 TAB Hydroxyzine Pamoate (Vistaril) 50 Mg Cap 50 MG PO HS Ref 0 CAP Lorazepam (Ativan) 1 Mg Tab 1 MG PO Q8H PRN ANXIETY AND/OR AGITATION Ref 0 TAB Multiple Vitamins W/ Minerals (Multivitamin Adults) 1 Tab 1 TAB PO DAILY Nutritional Supplement #30 Ref 0 TAB Alison Florez PA-C Dec 24, 2016 14:03 Al Carpenter MD Dec 24, 2016 16:41
[2016-12-24 16:39] VITALS: BP 137/81; PULSE 97; RESP 20; TEMP 96.3; O2SAT 99
[2016-12-24 18:04] VITALS: PULSE 104
[2016-12-24 18:58] LABS: HEMATOCRIT 28.2 % (35.0-46.0)
[2016-12-24 19:00] LABS: REVIEW FLAG FINAL
[2016-12-24] MEDS ORDERED: PANTOPRAZOLE SOD 40 MG DELAYED RELEASE TAB PO SCH (21:00)
[2016-12-25] MEDS ORDERED: THIAMINE HCL 100 MG TAB PO SCH (09:00)
== END 2016-12-24 21:15 | disposition left against medical advice (07) | DRG 378 ==
LOC: NEPE 02:42 → NEDA 05:06 → NEDH 09:38 → HCVR 15:51 → HCPC 12-24 11:01
PROVIDERS: ADMIT Internal Medicine; ATTEND Internal Medicine
PROC: 0DJD8ZZ Inspection of Lower Intestinal Tract, Via Natural or Artificial Opening Endoscopic (ICD-10-PCS; 2016-12-22)
PROC: 30253N1 (ICD-10-PCS; 2016-12-22)
PROC: 0W3P8ZZ Control Bleeding in Gastrointestinal Tract, Via Natural or Artificial Opening Endoscopic (ICD-10-PCS; principal; 2016-12-23 11:12)
DX: K92.0 Hematemesis (principal); K76.6 Portal hypertension; D68.9 Coagulation defect, unspecified; K70.30 Alcoholic cirrhosis of liver without ascites; D69.59 Other secondary thrombocytopenia; D62 Acute posthemorrhagic anemia; F10.10 Alcohol abuse, uncomplicated; I85.10 Secondary esophageal varices without bleeding; K29.70 Gastritis, unspecified, without bleeding; K31.89 Other diseases of stomach and duodenum; K64.4 Residual hemorrhoidal skin tags; K20.9 Esophagitis, unspecified; F17.210 Nicotine dependence, cigarettes, uncomplicated; K64.8 Other hemorrhoids; K92.1 Melena; D50.0 Iron deficiency anemia secondary to blood loss (chronic)
CPT/HCPCS: 36430; 76937; 80048; 80053; 80307; 83605; 83690; 83735; 84100; 85014; 85018; 85025; 85610; 85730; 86850; 86900; 86901; 86920; 93005; 96365; 96368; 96375; C9113; J0696; J2060; J2250; J2354; J2405; J3010; J3411; J3475; J3480; J7030; J7040; J7050; P9016

== ENCOUNTER 2017-01-22 12:26 | Inpatient (IN) | payer BC ==
[2017-01-22] VITALS (17 sets, daily range): BP systolic 80–134; BP diastolic 48–98; PULSE 97–133; RESP 16–26; TEMP 96.7–99.1; O2SAT 93–100
[~2017-01-22] VITALS: Ht 167.6 cm; Wt 66.1 kg
[~2017-01-22 12:26] MED LIST changes: +CLON0.1T PO; -LACT10SO PO; +LORA-474 PO; -TRAZ50TA12 PO; +VIST50CA PO; +VITA100T2 PO
--- NOTE | 2017-01-22 12:57 | PD ---
HPI Chief Complaint: GI Complaint Time Seen by Provider: 12:47 Travel History International Travel<30 days: No Contact w/Intl Traveler<30days: No Traveled to known affect area: No History of Present Illness HPI The patient was seen and examined in the presence of the nurse. This patient is an alcoholic who was drinking today. She complains of nausea and vomiting. She has bright red blood in her vomit per her report. She denies melena or rectal bleeding. She is not having abdominal pain. Symptoms moderately severe. No alleviating factors. Duration of the hematemesis is one day. PFSH Past Medical History Anxiety: Yes Depression: Yes Cancer: Yes Cardiovascular Problems: No Cirrhosis: Yes (ELEVATED LIVER ENZYMES, PT DENIES DX OF CIRRHOSIS) Diabetes: No Diminished Hearing: No Endocrine: No Gastrointestinal Disorders: Yes Glaucoma: No Genitourinary: No Hepatitis: No Hiatal Hernia: No Hypertension: No Immune Disorder: No Insomnia: Yes Musculoskeletal: No Neurologic: No Psychiatric: Yes Reproductive: No Respiratory: No Immunizations Current: No Radiation Therapy: Yes Seizures: Yes Thyroid Disease: No Menopausal: Yes : 2 Para: 2 Past Surgical History Gynecologic Surgery: Yes (partial hysterectomy) Hysterectomy: Yes (2009) Other Surgery: Yes Social History Alcohol Use: Yes (ETOH ABUSE ) Tobacco Use: Yes (1PPD) Substance Use: No Allergies-Medications (Allergen,Severity, Reaction): Coded Allergies: Codeine (Verified Allergy, Severe, VOMITING, HALLUCINATIONS, 12/22/16) Demerol (Verified Allergy, Severe, VOMITING, HALLUCINATIONS, 12/22/16) Morphine (Verified Allergy, Severe, VOMITING, HALLUCINATIONS, 12/22/16) Reported Meds & Prescriptions Reported Meds & Active Scripts Active No Active Prescriptions or Reported Medications Review of Systems General / Constitutional: No: Fever Eyes: No: Visual changes HENT: No: Headaches Cardiovascular: No: Chest Pain or Discomfort Respiratory: No: Shortness of Breath Gastrointestinal: Positive: Nausea, Vomiting, Hematemesis, No: Abdominal Pain Genitourinary: No: Dysuria Musculoskeletal: Positive: Weakness, No: Pain Skin: No Rash Neurologic: Positive: Weakness Psychiatric: Positive: Substance Abuse, No: Depression Endocrine: No: Polydipsia Hematologic/Lymphatic: No: Easy Bruising Physical Exam Narrative GENERAL: Thin well-developed patient in no apparent distress. SKIN: Focused skin assessment reveals no rash and nodules. Skin is Warm and dry. Looks slightly jaundiced HEAD: Atraumatic. Normocephalic. EYES: Pupils equal and round. No scleral icterus. No injection or drainage. ENT: No nasal bleeding or discharge. Mucous membranes pink and moist. NECK: Trachea midline. No JVD. CARDIOVASCULAR: Regular rate and rhythm. No murmur appreciated. RESPIRATORY: No accessory muscle use. Clear to auscultation. Breath sounds equal bilaterally. GASTROINTESTINAL: Abdomen soft, non-tender, nondistended. Hepatic and splenic margins not palpable. MUSCULOSKELETAL: No obvious deformities. No clubbing. No cyanosis. No edema. NEUROLOGICAL: Awake and alert. No obvious cranial nerve deficits. Motor grossly within normal limits. Normal speech. PSYCHIATRIC: Appropriate mood and affect; insight and judgment poor. Data Data Last Documented VS Vital Signs Date Time Temp Pulse Resp B/P Pulse Ox O2 Delivery O2 Flow Rate FiO2 01/22/17 13:51 98 18 100/58 97 Room Air 01/22/17 12:48 98.1 Orders Complete Blood Count With Diff (01/22/17 12:53) Comprehensive Metabolic Panel (01/22/17 12:53) Prothrombin Time / Inr (Pt) (01/22/17 12:53) Act Partial Throm Time (Ptt) (01/22/17 12:53) Alcohol (Ethanol) (01/22/17 12:53) Type And Screen (01/22/17 12:53) Ecg Monitoring (01/22/17 12:53) Iv Access Insert/Monitor (01/22/17 12:53) Oximetry (01/22/17 12:53) Ondansetron Inj (Zofran Inj) (01/22/17 13:00) Pantoprazole Inj (Protonix Inj) (01/22/17 13:00) Sodium Chloride 0.9% Flush (Ns Flush) (01/22/17 13:00) Sodium Chlor 0.9% 1000 Ml Inj (Ns 1000 M (01/22/17 13:00) Sodium Chlor 0.9% 1000 Ml Inj (Ns 1000 M (01/22/17 14:15) Red Blood Cells (Rbc) (01/22/17 14:05) Blood Product Administration .UPON TRANSFUSION (01/22/17 14:05) Sodium Chlor 0.9% 250 Ml Inj (Ns 250 Ml (01/22/17 14:15) Admit Order (Ed Use Only) (01/22/17 14:08) Labs Laboratory Tests Test 01/22/17 01/22/17 01/22/17 01/22/17 12:43 13:07 14:05 14:10 Blood Type AB POSITIVE Antibody Screen NEGATIVE White Blood Count 5.4 TH/MM3 Red Blood Count 2.95 MIL/MM3 Hemoglobin 8.6 GM/DL Hematocrit 26.6 % Mean Corpuscular Volume 90.1 FL Mean Corpuscular Hemoglobin 29.2 PG Mean Corpuscular Hemoglobin 32.4 % Concent Red Cell Distribution Width 19.2 % Platelet Count 83 TH/MM3 Mean Platelet Volume 8.1 FL Neutrophils (%) (Auto) 56.7 % Lymphocytes (%) (Auto) 32.3 % Monocytes (%) (Auto) 8.6 % Eosinophils (%) (Auto) 1.4 % Basophils (%) (Auto) 1.0 % Neutrophils # (Auto) 3.0 TH/MM3 Lymphocytes # (Auto) 1.7 TH/MM3 Monocytes # (Auto) 0.5 TH/MM3 Eosinophils # (Auto) 0.1 TH/MM3 Basophils # (Auto) 0.1 TH/MM3 CBC Comment AUTO DIFF Differential Comment AUTO DIFF CONFIRMED Platelet Estimate LOW Platelet Morphology Comment NORMAL Target Cells 1+ Prothrombin Time 14.0 SEC Prothromb Time International 1.3 RATIO Ratio Activated Partial 29.5 SEC Thromboplast Time Sodium Level 143 MEQ/L Potassium Level 3.9 MEQ/L Chloride Level 106 MEQ/L Carbon Dioxide Level 25.9 MEQ/L Anion Gap 11 MEQ/L Blood Urea Nitrogen 8 MG/DL Creatinine 0.52 MG/DL Estimat Glomerular Filtration 128 ML/MIN Rate Random Glucose 150 MG/DL Calcium Level 7.5 MG/DL Total Bilirubin 2.1 MG/DL Aspartate Amino Transf 133 U/L (AST/SGOT) Alanine Aminotransferase 30 U/L (ALT/SGPT) Alkaline Phosphatase 402 U/L Total Protein 6.7 GM/DL Albumin 2.7 GM/DL Ethyl Alcohol Level 303 MG/DL Crossmatch Leukocyte-Reduced Leukocyte-Reduced Red Blood Red Blood Cells Cells Blood Bank Comment MDM Medical Decision Making Medical Screen Exam Complete: Yes Emergency Medical Condition: Yes Medical Record Reviewed: Yes Differential Diagnosis Hematemesis, esophageal varices, gastric ulcer Narrative Course I have reviewed the patient's electronic medical record. Patient is a frequent visitor for GI bleed and alcohol related problems. Last hemoglobin from a month ago was 9.4 IV placed 2 Gave her IV Zofran and IV Protonix and 1 L normal saline IV bolus Type and screen sent CBC shows hemoglobin of 8.6 Metabolic profile shows normal sodium and potassium LFTs show slight elevation of bilirubin and AST Coagulation studies show INR 1.3 Patient had endoscopy December 23, 2016 showing esophagitis and gastropathy that was oozing blood. Heater probe was used to coagulate. Patient has become hypotensive. Blood pressure 87 systolic. She is vomiting up large quantity of bright red blood I placed call to GI physician to discuss I did discuss with medical billing coordinator Dr. Ortega who accepts transfer to [facility] in critical condition. May need urgent/emergent endoscopy for bleeding control. I've ordered 2 units of emergency release packed red cells to transfuse now Giving her a second liter normal saline IV 10 mg vitamin K given I don't feel FFP with an INR 1.3 is indicated. I gave her a 500 g octreotide bolus followed by infusion at 50 g per hour I reviewed the case in detail with GI physician Dr. Red. Affect the above treatments her blood pressures come up to 100 systolic Complex case requiring multiple rechecks and a lot of bedside time Critical Care Narrative Aggregate critical care time was 82 minutes. Time to perform other separately billable procedures was not included in the critical care time. My time did not include minutes spent treating any other patients simultaneously or on activities that did not directly contribute to the patient's treatment. The services I provided to this patient were to treat and/or prevent clinically significant deterioration that could result in: Hemorrhagic shock, cardiopulmonary arrest, I provided critical care services requiring my management, as noted below: Chart data review, documentation time, medication orders and management, vital sign assessments/reviewing monitor data, ordering and reviewing lab tests, ordering and interpreting/reviewing x-rays and diagnostic studies, care of the patient and discussion of the patient with the admitting physicians. Diagnosis Primary Impression: GI hemorrhage Qualified Code: K92.0 - Gastrointestinal hemorrhage with hematemesis Additional Impressions: ETOH abuse Acute blood loss anemia Admitting Information Admitting Physician Requests: Admit Scripts No Active Prescriptions or Reported Meds Satya Mckinnon MD Jan 22, 2017 12:57
[2017-01-22] MEDS ORDERED: SODIUM CHLORIDE 0.9% FLUSH 10 ML FLUSH IVF PRN (13:00)
[2017-01-22] MEDS ORDERED: ONDANSETRON HCL 4 MG/2 ML VIAL IVP ONE (13:00)
[2017-01-22] MEDS ORDERED: SODIUM CHLOR 0.9% 1000 ML INJ 1,000 ML IV ONE ×2 (13:00→14:15)
[2017-01-22] MEDS ORDERED: PANTOPRAZOLE SODIUM 40 MG VIAL IVP ONE (13:00)
[2017-01-22 13:14] LABS: BASOPHIL # 0.1 TH/MM3 (0-0.2); EOSINOPHIL # 0.1 TH/MM3 (0-0.4); EOSINOPHIL % 1.4 % (0.0-4.0); HEMATOCRIT 26.6 % (35.0-46.0); LYMPH % 32.3 % (9.0-44.0); LYMPHOCYTE # 1.7 TH/MM3 (1.0-4.8); MEAN CELL VOLUME 90.1 FL (80.0-100.0); MEAN CORPUSCULAR HEMOGLOBIN 29.2 PG (27.0-34.0); MEAN CORPUSCULAR HGB CONC 32.4 % (32.0-36.0); MONO % 8.6 % (0.0-8.0); NEUT % 56.7 % (16.0-70.0); PLATELET COUNT 83 TH/MM3 (150-450); RED BLOOD COUNT 2.95 MIL/MM3 (4.00-5.30); RED CELL DISTRIBUTION WIDTH 19.2 % (11.6-17.2); WHITE BLOOD COUNT 5.4 TH/MM3 (4.0-11.0)
[2017-01-22 13:15] LABS: HEMO FLAGS AUTO DIFF
[2017-01-22 13:27] LABS: CHLORIDE 106 MEQ/L (98-107); POTASSIUM 3.9 MEQ/L (3.5-5.1); SODIUM (NA) 143 MEQ/L (136-145)
[2017-01-22 13:29] LABS: APTT (PATIENT) 29.5 SEC (24.3-30.1); INTERNATIONAL NORMALIZED RATIO 1.3 RATIO
[2017-01-22 13:30] LABS: ANION GAP 11 MEQ/L (5-15); BICARBONATE 25.9 MEQ/L (21.0-32.0); BLOOD UREA NITROGEN 8 MG/DL (7-18)
[2017-01-22 13:33] LABS: ALT (GPT) 30 U/L (10-53); AST (GOT) 133 U/L (15-37); GLOMERULAR FILTRATION RATE 128 ML/MIN (>89)
[2017-01-22 13:35] LABS: TOTAL BILIRUBIN ADULT 2.1 MG/DL (0.2-1.0)
[2017-01-22 13:36] LABS: ALKALINE PHOSPHATASE 402 U/L (45-117)
[2017-01-22 13:49] LABS: PLATELET ESTIMATE SMEAR LOW (NORMAL); PLATELET MORPHOLOGY NORMAL (NORMAL); SCAN/DIFF AUTO DIFF CONFIRMED; TARGET CELLS 1+ (NORMAL)
[2017-01-22] MEDS ORDERED: SODIUM CHLOR 0.9% 250 ML INJ 250 ML IV ONE ×2 (14:15→20:15)
[2017-01-22] MEDS ORDERED: PHYTONADIONE INJ 1 MG/0.5 ML AMP SQ ONE (14:15)
[2017-01-22] MEDS ORDERED: OCTREOTIDE INJ 500 MCG/ML AMP IV PUSH SCH (14:30)
[2017-01-22] MEDS ORDERED: OCTREOTIDE INJ 500 MCG in SODIUM CHLORID 0.9% 500 ML INJ 500 ML IV ONE (14:30)
[2017-01-22] MEDS ORDERED: PHYTONADIONE 10 MG/ML VIAL SQ ONE (15:00)
[2017-01-22] MEDS: SODIUM CHLOR 0.9% 1000 ML INJ 1,000 ML IV SCH ×2 (15:50→23:50)
[2017-01-22] MEDS ORDERED: RESP: ALBUTEROL 2.5 MG/IPRATROPIUM 0.5 MG NEB (PRN) INH (16:00)
[2017-01-22] MEDS ORDERED: LORazepam 2 MG TAB PO PRN (16:00)
[2017-01-22] MEDS ORDERED: POTASSIUM CHLOR 40 MEQ PREMIX 100 ML IV PRN (16:00)
[2017-01-22] MEDS ORDERED: HALOPERIDOL LACTATE 5 MG/ML AMP IM PRN (16:00)
[2017-01-22] MEDS ORDERED: MISCELLANEOUS NURSING INFORMATION XX SCH (16:00)
[2017-01-22] MEDS ORDERED: MAGNESIUM SULFATE INJ 2 GM in SODIUM CHLORIDE 0.9% INJ 96 ML IV PRN (16:00)
[2017-01-22] MEDS ORDERED: MAGNESIUM OXIDE 400 MG TAB PO PRN (16:00)
[2017-01-22] MEDS ORDERED: SODIUM PHOSPHATE INJ 30 MMOL in SODIUM CHLOR 0.9% 250 ML INJ 240 ML IV PRN (16:00)
[2017-01-22] MEDS ORDERED: MAGNESIUM SULFATE INJ 4 GM in SODIUM CHLORIDE 0.9% INJ 92 ML IV PRN (16:00)
[2017-01-22] MEDS ORDERED: CHLORHEXIDINE GLUCONATE 2 % 1 PACK (2 CLOTHS) TOP PRN (16:00)
[2017-01-22] MEDS ORDERED: LORazepam 1 MG TAB PO PRN (16:00)
[2017-01-22] MEDS ORDERED: TEMAZEPAM 15 MG CAP PO PRN (16:00)
[2017-01-22] MEDS ORDERED: POTASSIUM PHOSPHATE MONOBASIC 500 MG TAB PO/TUBE PRN (16:00)
[2017-01-22] MEDS ORDERED: SODIUM CHLORIDE 0.9% FLUSH 10 ML FLUSH IV FLUSH PRN (16:00)
[2017-01-22] MEDS ORDERED: LORazepam 2 MG/ML VIAL IV PUSH PRN (16:00)
[2017-01-22] MEDS ORDERED: POTASSIUM CHLOR 20 MEQ PREMIX 100 ML IV PRN (16:00)
[2017-01-22] MEDS ORDERED: FLUMAZENIL 0.5 MG/5 ML VIAL IV PUSH PRN (16:00)
[2017-01-22] MEDS ORDERED: POTASSIUM PHOSPHATE MONOBASIC 500 MG TAB PO PRN (16:00)
[2017-01-22] MEDS: LORazepam 2 MG/ML VIAL IV PUSH PRN ×5 (16:33→22:30)
--- NOTE | 2017-01-22 16:37 | HHI.HP ---
[facility] Service Critical Care Medicine Primary Care Physician Non-Staff Admission Diagnosis hemorrhagic shock Diagnosis: Travel History International Travel<30 Days: No Contact w/Intl Traveler <30 Da: No Traveled to Known Affected Are: No History of Present Illness This is a well-known patient to [facility] previously admitted November 2016, December 2016 for active GI bleeding with interventions. The patient presented to [facility] this a.m., with complaints of hematemesis, approximately 1300 cc. The patient has a significant history for alcoholism. This patient is an alcoholic who was drinking today. She complained of nausea and vomiting. She denied melena or rectal bleeding. She is not having abdominal pain.At [place] ED the patient was noted to be significantly hypotensive, systolic blood pressure in the 80s she received boluses of IV fluid, 2 units of packed red blood cells and 10 mg of vitamin K IV . Critical care medicine was consulted for management. The patient was transferred to [facility]. Dr. Evangelina HILARIO was consulted, plans for EGD today. [facility] Past Medical History Anxiety: Yes Depression: Yes Cancer: Yes Cardiovascular Problems: No Cirrhosis: Yes (ELEVATED LIVER ENZYMES, PT DENIES DX OF CIRRHOSIS) Diabetes: No Diminished Hearing: No Endocrine: No Gastrointestinal Disorders: Yes Glaucoma: No Genitourinary: No Hepatitis: No Hiatal Hernia: No Hypertension: No Immune Disorder: No Insomnia: Yes Musculoskeletal: No Neurologic: No Psychiatric: Yes Reproductive: No Respiratory: No Immunizations Current: No Radiation Therapy: Yes Seizures: Yes Thyroid Disease: No Menopausal: Yes : 2 Para: 2 Past Surgical History Gynecologic Surgery: Yes (partial hysterectomy) Hysterectomy: Yes (2009) Other Surgery: Yes Social History Alcohol Use: Yes (ETOH ABUSE ) Tobacco Use: Yes (1PPD) Substance Use: No Allergies-Medications (Allergen,Severity, Reaction): Coded Allergies: Codeine (Verified Allergy, Severe, VOMITING, HALLUCINATIONS, 12/22/16) Demerol (Verified Allergy, Severe, VOMITING, HALLUCINATIONS, 12/22/16) Morphine (Verified Allergy, Severe, VOMITING, HALLUCINATIONS, 12/22/16) Reported Meds & Prescriptions Reported Meds & Active Scripts Active No Active Prescriptions or Reported Medications Review of Systems General / Constitutional: No: Fever Eyes: No: Visual changes HENT: No: Headaches Cardiovascular: No: Chest Pain or Discomfort Respiratory: No: Shortness of Breath Gastrointestinal: Positive: Nausea, Vomiting, Hematemesis, No: Abdominal Pain Genitourinary: No: Dysuria Musculoskeletal: Positive: Weakness, No: Pain Skin: No Rash Neurologic: Positive: Weakness Psychiatric: Positive: Substance Abuse, No: Depression Endocrine: No: Polydipsia Hematologic/Lymphatic: No: Easy Bruising Physical Exam Vital Signs Vital Signs Date Time Temp Pulse Resp B/P Pulse Ox O2 Delivery O2 Flow Rate FiO2 01/22/17 13:51 98 18 100/58 97 Room Air 01/22/17 13:34 110 18 95/67 98 Room Air 01/22/17 12:55 98 Room Air 01/22/17 12:48 98.1 106 18 106/67 98 Physical Exam GENERAL: Well-developed well-nourished anxious female, requesting sleep medication SKIN: Warm and dry. HEAD: Atraumatic. Normocephalic. EYES: Pupils equal and round. No scleral icterus. No injection or drainage. ENT: No nasal bleeding or discharge. Mucous membranes pink and moist. Uvula midline NECK: Trachea midline. No JVD. CARDIOVASCULAR: Normal rate, regular rhythm. RESPIRATORY: No accessory muscle use. Clear to auscultation. Breath sounds equal bilaterally. GASTROINTESTINAL: Abdomen soft, non-tender, nondistended. No guarding. MUSCULOSKELETAL: Extremities without clubbing, cyanosis, or edema. No obvious deformities. NEUROLOGICAL: Awake and alert. RASS 0. No gross focal/sensory deficits. Follows commands in all 4 extremities. Laboratory Laboratory Tests Test 01/22/17 01/22/17 01/22/17 01/22/17 12:43 13:07 14:05 14:10 Blood Type AB POSITIVE Antibody Screen NEGATIVE White Blood Count 5.4 Red Blood Count 2.95 Hemoglobin 8.6 Hematocrit 26.6 Mean Corpuscular Volume 90.1 Mean Corpuscular Hemoglobin 29.2 Mean Corpuscular Hemoglobin 32.4 Concent Red Cell Distribution Width 19.2 Platelet Count 83 Mean Platelet Volume 8.1 Neutrophils (%) (Auto) 56.7 Lymphocytes (%) (Auto) 32.3 Monocytes (%) (Auto) 8.6 Eosinophils (%) (Auto) 1.4 Basophils (%) (Auto) 1.0 Neutrophils # (Auto) 3.0 Lymphocytes # (Auto) 1.7 Monocytes # (Auto) 0.5 Eosinophils # (Auto) 0.1 Basophils # (Auto) 0.1 CBC Comment AUTO DIFF Differential Comment AUTO DIFF CONFIRMED Platelet Estimate LOW Platelet Morphology Comment NORMAL Target Cells 1+ Prothrombin Time 14.0 Prothromb Time International 1.3 Ratio Activated Partial 29.5 Thromboplast Time Sodium Level 143 Potassium Level 3.9 Chloride Level 106 Carbon Dioxide Level 25.9 Anion Gap 11 Blood Urea Nitrogen 8 Creatinine 0.52 Estimat Glomerular Filtration 128 Rate Random Glucose 150 Calcium Level 7.5 Total Bilirubin 2.1 Aspartate Amino Transf 133 (AST/SGOT) Alanine Aminotransferase 30 (ALT/SGPT) Alkaline Phosphatase 402 Total Protein 6.7 Albumin 2.7 Ethyl Alcohol Level 303 Crossmatch Leukocyte-Reduced Leukocyte-Reduced Red Blood Red Blood Cells Cells Blood Bank Comment Result Diagram: 01/22/17 1307 01/22/17 1307 Septic Shock Reassessment Heart: Other (tachycardia) Peripheral Pulses: Bounding Right Radial Bounding Left Radial Bounding Right Dorsalis Pedis Bounding Left Dorsalis Pedis Assessment and Plan Assessment and Plan Plan by systems: Neurologic: Alcohol abuse Anxiety disorder GCS 15 Monitor for signs of alcohol withdrawal, and seizure activity [facility] protocol Psychiatry consult Multivitamin bag 5 days Thiamine IV x 3days, then convert PO Patient counseled on alcohol cessation Respiratory: Tobacco abuse Maintain O2 sat greater than 92%. Supplement with nasal cannula Bronchodilators q 6 hr PRN Patient counseled on smoking cessation Cardiovascular: Moderate tricuspid regurgitation Mild mitral regurgitation Hypotension secondary to acute blood loss anemia Hemorrhagic shock 11/19 echo ejection fraction 6065 %, moderate tricuspid regurgitation, mild mitral regurgitation, mild LAE, no RWMA Maintain MAP, greater than 65 mmHg, patient bolus approximately 2 L of IVF in the ED Consider vasopressor support Renal: Monitor BMP Insert maloney -- Strict I/Os FEN/GI: GI bleed Pulmonary hypertensive gastropathy Liver cirrhosis without ascites Esophageal varices Hematemesis Maintain nothing by mouth status Plan for EGD-Dr. Hutchinson 11/16 LA Class B esophagitis,S/P EGD with ablation 12/23 LA Class A esophagitis,S/P EGD with ablation and heater probe Begin Octreotide infusion Begin Protonix effusion Rocephin every 24 hours for SBP prophylaxis Will consider propranolol portal hypertension prophylaxis, when clinically indicated and patient hemodynamically stable Heme/ID: Acute blood loss anemia History of iron deficiency anemia Thrombocytopenia Transfuse for hemoglobin less than 7., Hemoglobin 8.6, likely hemoconcentration Platelet count 83 Monitor every 6 hours hemoglobin and hematocrit Endocrine: Glucose monitoring per ICU protocol -- SSI Prophylaxis: GI Prophylaxis Protonix infusion DVT Prophylaxis -- SCDs No pharmacological prophylaxis in the setting of GI bleed Lines: Peripheral IVs 2. Central line if indicated Dispo: my billing statement This patient remains critically ill with one or more organ systems which are or may become a threat to life. I have spent in excess of 41 minutes discontinuously in the care and management of this patient. This time is exclusive of procedures, and includes, but is not limited to, evaluation of the patient, review of the medical record, discussions with family, consultants, nursing staff, or respiratory therapy, and documentation in the medical record. Code Status Full Discussed Condition With MANAGER ORDER at bedside Enma Garland MD Jan 22, 2017 16:36
--- NOTE | 2017-01-22 16:42 | PD.CONS ---
HPI History of Present Illness This is a 46 year old female with a hx of liver cirrhosis, portal hypertensive gastropathy, erythematous gastritis, and hx of recurrent GI bleeding who came to the ER for evaluation of GI bleeding. She started having nausea and vomiting with hematemesis consisting of a large amount of red blood earlier this morning. She reports that she has had about 4 episodes of this. The nurse tells me that she was told in report that she has vomited 1300cc of blood since arriving to the ER. She denies any abdominal pain other than diffuse soreness from "wretching" that is aggravated by movement and vomiting. She denies any melena or hematochezia. On arrival to the ER, she was noted to have an H/H of 8.6/26.6. She was transferred to [facility] for further evaluation and treatment. She denies the use of NSAIDs but states she continues to drink ETOH- 2 bottles of wine per day. She last was evaluated with EGD/Colonoscopy ()----> 1. Portal hypertensive gastropathy was found in the gastric fundus 2. Oozing blood, ablation with heater probe 3. There was LA Class A esophagitis noted 4. Retroflexed views revealed no abnormalities. 1. The colonic mucosa appeared normal 2. Retroflexed views revealed internal hemorrhoids 3. Retroflexed views revealed medium internal hemorrhoids 4. Revealed external hemorrhoids. PFSH Past Medical History Alcohol cirrhosis, ongoing alcohol use Portal gastropathy Erythematous gastritis Esophagitis Hemorrhoids Past Surgical History EGD/Colonoscopy Hysterectomy Coded Allergies: Codeine (Verified Allergy, Severe, VOMITING, HALLUCINATIONS, 12/22/16) Demerol (Verified Allergy, Severe, VOMITING, HALLUCINATIONS, 12/22/16) Morphine (Verified Allergy, Severe, VOMITING, HALLUCINATIONS, 12/22/16) Medications Allergies Coded Allergies Type Severity Reaction Last Updated Verified Codeine Allergy Severe VOMITING, HALLUCINATIONS 12/22/16 Yes Demerol Allergy Severe VOMITING, HALLUCINATIONS 12/22/16 Yes Morphine Allergy Severe VOMITING, HALLUCINATIONS 12/22/16 Yes Active Scripts Medications Dose Route/Sig Days Date Category No Active Prescriptions or Reported Medications Rx Family History Noncontributory Social History According to EMR, smokes 1 PPD. Drinks 2 bottles of wine daily. Review of Systems Constitutional: COMPLAINS OF: Fatigue, DENIES: Weight loss Respiratory: DENIES: Cough Cardiovascular: DENIES: Chest pain Gastrointestinal: COMPLAINS OF: Abdominal pain, Nausea, Vomiting, Hematemesis, DENIES: Black stools, Bloody stools, Constipation, Diarrhea Musculoskeletal: COMPLAINS OF: Joint pain Hematologic/lymphatic: COMPLAINS OF: Bruising Psychiatric: DENIES: Confusion (somewhat uncooperative) GI Exam Vitals I&O Vital Signs Date Time Temp Pulse Resp B/P Pulse Ox O2 Delivery O2 Flow Rate FiO2 01/22/17 13:51 98 18 100/58 97 Room Air 01/22/17 13:34 110 18 95/67 98 Room Air 01/22/17 12:55 98 Room Air 01/22/17 12:48 98.1 106 18 106/67 98 I/O 01/21/17 01/21/17 01/21/17 01/22/17 01/22/17 01/22/17 07:00 15:00 23:00 07:00 15:00 23:00 Output Total 1200 ml Balance -1200 ml Output Emesis 1200 ml Laboratory Test 01/22/17 01/22/17 01/22/17 01/22/17 12:43 13:07 14:05 14:10 Blood Type AB POSITIVE Antibody Screen NEGATIVE White Blood Count 5.4 TH/MM3 Red Blood Count 2.95 MIL/MM3 Hemoglobin 8.6 GM/DL Hematocrit 26.6 % Mean Corpuscular Volume 90.1 FL Mean Corpuscular Hemoglobin 29.2 PG Mean Corpuscular Hemoglobin 32.4 % Concent Red Cell Distribution Width 19.2 % Platelet Count 83 TH/MM3 Mean Platelet Volume 8.1 FL Neutrophils (%) (Auto) 56.7 % Lymphocytes (%) (Auto) 32.3 % Monocytes (%) (Auto) 8.6 % Eosinophils (%) (Auto) 1.4 % Basophils (%) (Auto) 1.0 % Neutrophils # (Auto) 3.0 TH/MM3 Lymphocytes # (Auto) 1.7 TH/MM3 Monocytes # (Auto) 0.5 TH/MM3 Eosinophils # (Auto) 0.1 TH/MM3 Basophils # (Auto) 0.1 TH/MM3 CBC Comment AUTO DIFF Differential Comment AUTO DIFF CONFIRMED Platelet Estimate LOW Platelet Morphology Comment NORMAL Target Cells 1+ Prothrombin Time 14.0 SEC Prothromb Time International 1.3 RATIO Ratio Activated Partial 29.5 SEC Thromboplast Time Sodium Level 143 MEQ/L Potassium Level 3.9 MEQ/L Chloride Level 106 MEQ/L Carbon Dioxide Level 25.9 MEQ/L Anion Gap 11 MEQ/L Blood Urea Nitrogen 8 MG/DL Creatinine 0.52 MG/DL Estimat Glomerular Filtration 128 ML/MIN Rate Random Glucose 150 MG/DL Calcium Level 7.5 MG/DL Total Bilirubin 2.1 MG/DL Aspartate Amino Transf 133 U/L (AST/SGOT) Alanine Aminotransferase 30 U/L (ALT/SGPT) Alkaline Phosphatase 402 U/L Total Protein 6.7 GM/DL Albumin 2.7 GM/DL Ethyl Alcohol Level 303 MG/DL Crossmatch Leukocyte-Reduced Leukocyte-Reduced Red Blood Red Blood Cells Cells Blood Bank Comment Physical Examination HEENT: Pupils round and reactive to light; normocephalic; atraumatic; no jaundice. CHEST: CTA. CARDIAC: ST ABDOMEN: Soft, nondistended, nontender; hepatosplenomegaly; bowel sounds are present in all four quadrants. EXTREMITIES: No clubbing, cyanosis, or edema. SKIN: Normal; no rash; no jaundice. GRIZZLY WORKER: No focal deficits; alert and oriented times three. Assessment and Plan Plan ASSESSMENT: - GIB/Hematemesis. Pt with liver cirrhosis, portal hypertensive gastropathy, recurrent GIB. Came to ER for hematemesis with dark red blood- states 4 episodes. Nurse reports that she was told in report that she vomited 1300cc of blood since arrival to ER. Last EGD/Colonoscopy (12/24/16)----> 1. Portal hypertensive gastropathy was found in the gastric fundus 2. Oozing blood, ablation with heater probe 3. There was LA Class A esophagitis noted 4. Retroflexed views revealed no abnormalities. 1. The colonic mucosa appeared normal 2. Retroflexed views revealed internal hemorrhoids 3. Retroflexed views revealed medium internal hemorrhoids 4. Revealed external hemorrhoids. 8.6/26.6. S/P 2 units of PRBC. Continues to drink 2 bottles of wine per day. - Anemia, acute blood loss. 8.6/26.6. S/P 2 units of PRBC. - Thrombocytopenia. Plt 84. - Liver cirrhosis, Elevated LFTs. T. Bili 2.1, AST 133, ALT 30, Alk Phosph 402 PLAN: - Plan for egd with possible band ligation - Obtain consents - NPO - Protonix gtt - Octreotide gtt - Monitor hh - Transfuse as necessary - Supportive care - Further recommendations to follow based on results of above - Pt seen and examined by Dr. Alas and myself and this note is written on his behalf Katia Mcwilliams Jan 22, 2017 16:42
[2017-01-22] MEDS ORDERED: THIAMINE INJ 100 MG in SODIUM CHLORIDE 0.9% INJ 100 ML IV SCH (17:00)
[2017-01-22 18:19] LABS: REVIEW FLAG FINAL
--- NOTE | 2017-01-22 19:42 | GIPROC ---
[facility] [address] [facility]. [facility], [address] EGD PROCEDURE REPORT EXAM DATE: 01/22/2017 PATIENT NAME: Shawna Sprague MR #: [id number] BIRTHDATE: 1970 ATTENDING: Ryan Alas MD ORDER #: [id number] AIR VALVE MECHANIC: No River Pat STATUS: inpatient INDICATIONS: The patient is a 46 yr old female here for an EGD due to GI bleed, anemia, hematemasis PROCEDURE PERFORMED: Panendoscopy with GI bleeding control MEDICATIONS: Per Anesthesia and None. TOPICAL ANESTHETIC: CONSENT: The patient understands the risks and benefits of the procedure and understands that these risks include, but are not limited to: sedation, allergic reaction, infection, perforation and/or bleeding. Alternative means of evaluation and treatment include, among others: physical exam, x-rays, and/or surgical intervention. The patient elects to proceed with this endoscopic procedure. medical equipment was checked for proper function. Hand hygiene and appropriate measures for infection prevention was taken. After the risks, benefits and alternatives of the procedure were thoroughly explained, Informed consent was verified, confirmed and timeout was successfully executed by the treatment team. The patient was anesthetized with topical anesthesia and the Pentax [id number] endoscope was introduced through the mouth and advanced to the second portion of the duodenum. Retroflexed views revealed large blood clots The gastroscope was then slowly withdrawn and removed. Sever gastropathy with few area bleeding, ablated with gold prop. ADVERSE EVENTS: There were no complications. IMPRESSIONS: 1. Sever gastropathy with few area bleeding, ablated with gold prop 2. Retroflexed views revealed large blood clots RECOMMENDATIONS: Keep intubated watch for DT PRBC as needed stop etoh contiune portonix and sandostatin PATIENT CONDITION: stable DISPOSITION: Inpatient REPEAT EXAM: Return as needed for EGD Ryan Alas MD eSigned: Ryan Alas MD 01/22/2017 7:42 PM cc:
[2017-01-22] MEDS ORDERED: MIDAZOLAM HCL 2 MG/2 ML VIAL ONE (20:12)
[2017-01-22] MEDS ORDERED: PROPOFOL 1000 MG/100 ML INJ 100 ML ONE (20:13)
[2017-01-22] MEDS ORDERED: PROPOFOL 200 MG/20 ML AMP IV ONE (20:20)
[2017-01-22] MEDS: SODIUM CHLORIDE 0.9% FLUSH 10 ML FLUSH IV FLUSH SCH (21:00)
[2017-01-22] MEDS: cefTRIAXone INJ 1,000 MG in SODIUM CHLORIDE 0.9% INJ 100 ML IV SCH (21:28)
[2017-01-22] MEDS: PANTOPRAZOLE INJ 80 MG in SODIUM CHLORIDE 0.9% INJ 100 ML IV SCH ×2 (21:28→21:32)
[2017-01-22] MEDS: CHLORHEXIDINE GLUCONATE 2 % 1 PACK (2 CLOTHS) TOP SCH (21:30)
[2017-01-22] MEDS: PROPOFOL 1000 MG/100 ML INJ 100 ML IV SCH ×2 (21:31→23:40)
[2017-01-22] MEDS: OCTREOTIDE INJ 500 MCG in SODIUM CHLORID 0.9% 500 ML INJ 499.5 ML IV SCH ×2 (21:42→21:45)
[2017-01-22 22:09] LABS: BLOOD GAS BASE EXCESS -4.9 mmol/L (-2-2); BLOOD GAS CARBOXYHEMOGLOBIN 2.2 % (0-4); BLOOD GAS HCO3 19 mmol/L (22-26); BLOOD GAS METHEMOGLOBIN 1.2 % (0-2); BLOOD GAS O2 HGB SATURATION 97 % (90-100); BLOOD GAS OXYGEN CONTENT 11.6 Vol % (12.0-20.0); BLOOD GAS PCO2 33 mmHg (38-42); BLOOD GAS PO2 243 mmHg (61-120); BLOOD GAS TOTAL HGB 8.1 G/DL (12.0-16.0); CRITICAL VALUE NO; DRAW SITE RT FEMORAL; FIO2 50 %; NUMBER OF ARTERIAL PUNCTURES 1; OXYGEN DEVICE VENTILATOR; STAT NO; TEMP CORR TO 98.6; VENT SETTINGS AC14/500/5PEEP
--- NOTE | 2017-01-22 22:38 | RADRPT ---
EXAM DATE/TIME: 01/22/2017 22:07 [place] COMPARISON: CHEST SINGLE AP, November 21, 2016, 5:03. INDICATIONS : Shortness of breath. Status post intubation. MEDICAL HISTORY : None. SURGICAL HISTORY : Hysterectomy. ENCOUNTER: Initial ACUITY: 1 day PAIN SCORE: Non-responsive. LOCATION: Bilateral chest FINDINGS: A single AP semierect portable view of the chest was obtained and demonstrates placement of an endotr acheal tube with tip approximately 4 cm above the [place]. There are no confluent infiltrates or effus ions. The heart size is at the upper limits of normal. The soft tissues and bony thorax remain intact . CONCLUSION: 1. Interval intubation. 2. No acute cardiopulmonary disease. Gustavo Almanza MD on January 22, 2017 at 22:36 Board Certified Radiologist. This report was verified electronically.
[2017-01-22] MEDS: MIDAZOLAM 100 MG/ML INJ 100 ML IV SCH (23:42)
[2017-01-23] VITALS (19 sets, daily range): BP systolic 101–122; BP diastolic 61–70; PULSE 95–114; RESP 14–26; TEMP 98.7–101.5; O2SAT 94–100
[2017-01-23 02:00] LABS: AUTOMATED NEUTROPHIL # 3.9 TH/MM3 (1.8-7.7); BASOPHIL % 0.6 % (0.0-2.0); EOSINOPHIL % 0.2 % (0.0-4.0); HEMATOCRIT 26.7 % (35.0-46.0); LYMPH % 14.5 % (9.0-44.0); LYMPHOCYTE # 0.8 TH/MM3 (1.0-4.8); MEAN CELL VOLUME 84.5 FL (80.0-100.0); MEAN CORPUSCULAR HEMOGLOBIN 29.1 PG (27.0-34.0); MEAN CORPUSCULAR HGB CONC 34.4 % (32.0-36.0); MONO % 9.4 % (0.0-8.0); NEUT % 75.3 % (16.0-70.0); PLATELET COUNT 50 TH/MM3 (150-450); RED BLOOD COUNT 3.16 MIL/MM3 (4.00-5.30); RED CELL DISTRIBUTION WIDTH 18.9 % (11.6-17.2); WHITE BLOOD COUNT 5.2 TH/MM3 (4.0-11.0)
[2017-01-23 02:08] LABS: INTERNATIONAL NORMALIZED RATIO 1.3 RATIO
[2017-01-23 02:10] LABS: HEMO FLAGS AUTO DIFF
[2017-01-23 02:38] LABS: BANDS 24 % (0-6); BASOPHILS 1 % (0-2); NEUTROPHIL # MANUAL DIFF 3.8 TH/MM3 (1.8-7.7); POLYS (SEG NEUTROPHILS) 50 % (16-70); WBC DIFF SAMPLE 100
[2017-01-23 02:39] LABS: PLATELET ESTIMATE SMEAR LOW (NORMAL); PLATELET MORPHOLOGY NORMAL (NORMAL); SCAN/DIFF FINAL DIFF MANUAL
[2017-01-23 02:41] LABS: ACANTHOCYTES OCC (NORMAL)
[2017-01-23 02:44] LABS: BICARBONATE 23.9 MEQ/L (21.0-32.0); MAGNESIUM 1.7 MG/DL (1.5-2.5); POTASSIUM 4.1 MEQ/L (3.5-5.1)
[2017-01-23] MEDS: PROPOFOL 1000 MG/100 ML INJ 100 ML IV SCH ×3 (02:54→21:41)
[2017-01-23] MEDS: MIDAZOLAM 100 MG/ML INJ 100 ML IV SCH ×2 (02:54→21:40)
[2017-01-23 03:19] LABS: CALCIUM-PROTEIN CORRECTED 7.9 MG/DL (8.5-10.1)
[2017-01-23] MEDS ORDERED: SODIUM CHLOR 0.9% 250 ML INJ 250 ML IV ONE (03:45)
[2017-01-23] MEDS: SODIUM CHLOR 0.9% 1000 ML INJ 1,000 ML IV SCH ×2 (07:50→15:45)
--- NOTE | 2017-01-23 08:15 | HHI.CCPN ---
Subjective Remarks/Hospital Course This is a well-known patient to [facility] previously admitted November 2016, December 2016 for active GI bleeding with interventions. The patient presented to [facility] this a.m., with complaints of hematemesis, approximately 1300 cc. The patient has a significant history for alcoholism. This patient is an alcoholic who was drinking today. She complained of nausea and vomiting. She denied melena or rectal bleeding. She is not having abdominal pain.At [place] ED the patient was noted to be significantly hypotensive, systolic blood pressure in the 80s she received boluses of IV fluid, 2 units of packed red blood cells and 10 mg of vitamin K IV . Critical care medicine was consulted for management. The patient was transferred to [facility]. Dr. Evangelina HILARIO was consulted, plans for EGD today. Subjective 01/23: Tmax 99.8. The patient underwent EGD last night and was noted to have severe gastropathy and underwent ablation of areas. Copious amount of bleeding was noted, to include orogastric. ETT remains for airway protection, patient is sedated .Patient being monitor closely for continued blood loss. Tentative plans for possible repeat panendoscopy if patient continues to bleed or for further evaluation. Objective Vital Signs Date Time Temp Pulse Resp B/P Pulse Ox O2 Delivery O2 Flow Rate FiO2 01/23/17 06:00 95 01/23/17 04:27 100 40 01/23/17 04:00 99.8 25 121/69 01/22/17 16:00 Room Air Intake and Output 01/22/17 01/22/17 01/23/17 08:00 16:00 00:00 Intake Total 2022 ml Output Total 1200 ml 850 ml Balance -1200 ml 1172 ml Result Diagram: 01/23/17 0137 01/23/17 0137 Other Results Laboratory Tests Test 01/22/17 21:58 Blood Gas Puncture Site RT FEMORAL Blood Gas Patient Temperature 98.6 Blood Gas HCO3 19 mmol/L (22-26) Blood Gas Base Excess -4.9 mmol/L (-2-2) Blood Gas Oxygen Saturation 97 % (90-100) Arterial Blood pH 7.38 (7.380-7.420) Arterial Blood Partial 33 mmHg (38-42) Pressure CO2 Arterial Blood Partial 243 mmHg Pressure O2 (61-120) Arterial Blood Oxygen Content 11.6 Vol % (12.0-20.0) Arterial Blood 2.2 % (0-4) Carboxyhemoglobin Arterial Blood Methemoglobin 1.2 % (0-2) Blood Gas Hemoglobin 8.1 G/DL (12.0-16.0) Oxygen Delivery Device VENTILATOR Blood Gas Ventilator Setting AC14/500/5PEEP Blood Gas Inspired Oxygen 50 % Objective Remarks GENERAL: Well-developed female intubated and sedated SKIN: Warm and dry. HEAD: Atraumatic. Normocephalic. EYES: Pupils equal and round. No scleral icterus. No injection or drainage. ENT: No nasal bleeding or discharge. Mucous membranes pink and moist. ETT, minimal blood noted suctioning and oropharynx NECK: Trachea midline. No JVD. CARDIOVASCULAR: Normal rate, regular rhythm. RESPIRATORY: Mechanical ventilation. Clear to auscultation. Breath sounds equal bilaterally. GASTROINTESTINAL: Abdomen soft, non-tender, nondistended. No guarding. MUSCULOSKELETAL: Extremities without clubbing, cyanosis, or edema. No obvious deformities. NEUROLOGICAL: GCS 3T. Intubated and sedated. Urinary Catheter: Yes Maloney insert reason: Measure Accurate Output Date of Insertion: Jan 22, 2017 Vascular Central Line Catheter: No A/P Assessment and Plan Plan by systems: Neurologic: Alcohol abuse Anxiety disorder GCS 15 Monitor for signs of alcohol withdrawal, and seizure activity [facility] protocol Psychiatry consult when clinically appropriate Multivitamin bag 1of 5 days Thiamine x 3 days IV, then convert if applicable to PO Respiratory: Tobacco abuse Maintain O2 sat greater than 92%. Patient remains intubated for airway protection secondary to upper GI bleed Mechanical ventilation AC 14/500/5/0.40 Bronchodilators q 6 hr scheduled, every 2 hours when necessary Patient counseled on smoking cessation 01/22 Ventilator bundle Maintain head of bed 30 Cardiovascular: Moderate tricuspid regurgitation Mild mitral regurgitation Hypotension secondary to acute blood loss anemia Hemorrhagic shock-resolved 11/19 echo ejection fraction 6065 %, moderate tricuspid regurgitation, mild mitral regurgitation, mild LAE, no RWMA Maintain MAP, greater than 65 mmHg Renal: Hypocalcemia Hypomagnesemia Monitor BMP Replete electrolytes per ICU protocol Calcium gluconate 2 g IV now Magnesium 2 g IV now Insert maloney -- Strict I/Os FEN/GI: GI bleed Pulmonary hypertensive gastropathy Liver cirrhosis without ascites Esophageal varices Hematemesis Maintain nothing by mouth status 01/22 EGD-Dr. Hutchinson-severe gastropathy status post ablation 2/ LA Class B esophagitis,S/P EGD with ablation 12/23 LA Class A esophagitis,S/P EGD with ablation and heater probe Continue Octreotide infusion Continue Protonix effusion Rocephin every 24 hours for SBP prophylaxis Will consider propranolol portal hypertension prophylaxis, when clinically indicated and patient hemodynamically stable Heme/ID: Acute blood loss anemia History of iron deficiency anemia Thrombocytopenia Transfuse for hemoglobin less than 7., Hemoglobin 8.6, likely hemoconcentration Platelet count 83 Monitor every 6 hours hemoglobin and hematocrit Patient received 01/22 4 units PRBC, and 2 units FFP Endocrine: Glucose monitoring per ICU protocol -- SSI Prophylaxis: GI Prophylaxis Protonix infusion DVT Prophylaxis -- SCDs No pharmacological prophylaxis in the setting of GI bleed Lines: Peripheral IVs 2. Central line if indicated Dispo: Discussed with OPERATIONS SUPPORT REPRESENTATIVE at bedside. This patient remains critically ill with one or more organ systems which are or may become a threat to life. I have spent in excess of 37 minutes discontinuously in the care and management of this patient. This time is exclusive of procedures, and includes, but is not limited to, evaluation of the patient, review of the medical record, discussions with family, consultants, nursing staff, or respiratory therapy, and documentation in the medical record. Physician Enma Robles MD Jan 23, 2017 08:15
[2017-01-23] MEDS ORDERED: RESP: ALBUTEROL 2.5 MG/IPRATROPIUM 0.5 MG NEB (PRN) NEB (08:30)
[2017-01-23] MEDS ORDERED: MAGNESIUM SULFATE 1 GM PREMIX 100 ML IV ONE (08:30)
[2017-01-23] MEDS ORDERED: MAGNESIUM SULFATE INJ 2 GM in SODIUM CHLORIDE 0.9% INJ 96 ML IV PRN (09:00)
[2017-01-23] MEDS: CHLORHEXIDINE 0.12% (ORAL KIT) 15 ML CUP MT SCH ×2 (09:39→20:16)
[2017-01-23] MEDS: MULTIVITAMIN INJ 10 ML, FOLIC ACID INJ 1 MG in SODIUM CHLORID 0.9% 500 ML INJ 500 ML IV SCH (09:40)
[2017-01-23] MEDS: SODIUM CHLORIDE 0.9% FLUSH 10 ML FLUSH IV FLUSH SCH ×2 (09:40→20:16)
[2017-01-23] MEDS ORDERED: CALCIUM GLUCONATE INJ 2 GM in DEXTROSE 5% IN WATER 100ML INJ 100 ML IV ONE ×2 (10:00)
[2017-01-23 10:43] LABS: HEMATOCRIT 24.8 % (35.0-46.0)
--- NOTE | 2017-01-23 13:24 | HHI.GIFU ---
Subjective Remarks Pt sedated, on vent. Per RN just had large liquid maroon BM. Per family pt continues to drink heavily, up until this last hospitalization, and smokes. Objective Vitals I&O Vital Signs Date Time Temp Pulse Resp B/P Pulse Ox O2 Delivery O2 Flow Rate FiO2 01/23/17 12:38 100 35 01/23/17 10:00 98 01/23/17 08:31 100 35 01/23/17 08:00 40 01/23/17 08:00 95 01/23/17 08:00 99.9 98 18 116/70 100 01/23/17 06:00 95 01/23/17 04:27 100 40 01/23/17 04:00 50 01/23/17 04:00 97 01/23/17 04:00 99.8 97 25 121/69 98 01/23/17 02:00 109 01/23/17 01:48 100 40 01/23/17 00:00 50 01/23/17 00:00 103 01/23/17 00:00 98.7 103 26 101/66 98 01/22/17 22:00 99.1 120 24 98/56 97 01/22/17 22:00 120 01/22/17 20:45 99.0 133 24 122/98 98 01/22/17 20:00 99 50 01/22/17 20:00 98.7 133 26 134/92 98 01/22/17 20:00 126 01/22/17 18:30 96.7 111 22 88/52 93 01/22/17 18:00 97.1 116 22 98/58 98 01/22/17 18:00 116 01/22/17 16:00 101 18 87/50 98 Room Air 01/22/17 15:20 97 18 115/71 98 Room Air 01/22/17 15:15 99 18 111/70 98 Room Air 01/22/17 15:10 106 18 101/67 98 Room Air 01/22/17 14:43 98.1 103 16 100/55 96 Room Air 01/22/17 14:33 105 18 102/60 98 Room Air 01/22/17 14:29 98.3 102 18 80/48 97 Room Air 01/22/17 14:15 110 18 100/80 100 Room Air 01/22/17 13:51 98 18 100/58 97 Room Air 01/22/17 13:34 110 18 95/67 98 Room Air I/O 01/22/17 01/22/17 01/22/17 01/23/17 01/23/17 01/23/17 07:00 15:00 23:00 07:00 15:00 23:00 Intake Total 2022 ml 922 ml Output Total 1200 ml 850 ml 650 ml Balance -1200 ml 1172 ml 272 ml Intake IV Total 822 ml 922 ml Packed Cells 400 ml FFP 400 ml Platelets 400 ml Output Urine Total 850 ml 650 ml Emesis 1200 ml Laboratory Laboratory Tests Test 01/22/17 01/22/17 01/22/17 01/22/17 14:05 14:10 16:15 18:06 Crossmatch Leukocyte-Reduced Leukocyte-Reduced Red Blood Red Blood Cells Cells Blood Bank Comment Nasal Screen MRSA (PCR) NEGATIVE Hemoglobin 7.4 Hematocrit 23.0 Phosphorus Level 2.7 Test 01/22/17 01/22/17 01/22/17 01/22/17 19:43 20:19 20:20 21:58 Crossmatch Leukocyte-Reduced Leukocyte-Reduced Red Blood Red Blood Cells Cells Blood Bank Comment Blood Gas Puncture Site RT FEMORAL Blood Gas Patient Temperature 98.6 Blood Gas HCO3 19 Blood Gas Base Excess -4.9 Blood Gas Oxygen Saturation 97 Arterial Blood pH 7.38 Arterial Blood Partial 33 Pressure CO2 Arterial Blood Partial 243 Pressure O2 Arterial Blood Oxygen Content 11.6 Arterial Blood 2.2 Carboxyhemoglobin Arterial Blood Methemoglobin 1.2 Blood Gas Hemoglobin 8.1 Oxygen Delivery Device VENTILATOR Blood Gas Ventilator Setting AC14/500/5PEEP Blood Gas Inspired Oxygen 50 Test 01/23/17 01/23/17 01/23/17 01:37 03:38 10:12 White Blood Count 5.2 Red Blood Count 3.16 Hemoglobin 9.2 8.5 Hematocrit 26.7 24.8 Mean Corpuscular Volume 84.5 Mean Corpuscular Hemoglobin 29.1 Mean Corpuscular Hemoglobin 34.4 Concent Red Cell Distribution Width 18.9 Platelet Count 50 Mean Platelet Volume 8.2 Neutrophils (%) (Auto) 75.3 Lymphocytes (%) (Auto) 14.5 Monocytes (%) (Auto) 9.4 Eosinophils (%) (Auto) 0.2 Basophils (%) (Auto) 0.6 Neutrophils # (Auto) 3.9 Lymphocytes # (Auto) 0.8 Monocytes # (Auto) 0.5 Eosinophils # (Auto) 0.0 Basophils # (Auto) 0.0 CBC Comment AUTO DIFF Differential Total Cells 100 Counted Neutrophils % (Manual) 50 Band Neutrophils % 24 Lymphocytes % 21 Monocytes % 4 Basophils % 1 Neutrophils # (Manual) 3.8 Differential Comment FINAL DIFF MANUAL Platelet Estimate LOW Platelet Morphology Comment NORMAL Acanthocytes OCC Hematology Comments Prothrombin Time 14.0 Prothromb Time International 1.3 Ratio Activated Partial 30.0 Thromboplast Time Sodium Level 147 Potassium Level 4.1 Chloride Level 111 Carbon Dioxide Level 23.9 Anion Gap 12 Blood Urea Nitrogen 10 Creatinine 0.42 Estimat Glomerular Filtration 164 Rate Random Glucose 130 Calcium Level 7.0 Protein Corrected Calcium 7.9 Phosphorus Level 2.9 Magnesium Level 1.7 Total Protein 5.4 Blood Bank Comment Imaging Last Impressions Chest X-Ray 01/22/17 0000 Signed Impressions: Service Date/Time: Sunday, January 22, 2017 22:07 - CONCLUSION: 1. Interval intubation. 2. No acute cardiopulmonary disease. Gutsavo Almanza MD Physical Exam HEENT: on vent. normocephalic; atraumatic; no jaundice. Dried blood around mouth NECK: Neck is supple CHEST: CTA CARDIAC: RRR ABDOMEN: Soft, nondistended, nontender; no hepatosplenomegaly; bowel sounds are present in all four quadrants. Dark stool in rectal tube. EXTREMITIES: No clubbing, cyanosis, or edema. SKIN: Normal; no rash; no jaundice. 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 Pt with liver cirrhosis, portal hypertensive gastropathy, recurrent GIB. Came to ER for hematemesis with dark red blood- states 4 episodes. Reportedly vomited 1300cc of blood since arrival to ER. s/p EGD 01/22/17---> severe gastropathy, few areas bleeding ablated, retroflexed views reveal large blood clots. 8.5/24.8. S/P 2 units of PRBC. Continues to drink 2 bottles of wine per day. - Anemia, acute blood loss. 8.5, 24.8. S/P 2 units of PRBC. - Thrombocytopenia. Plt 50. - Liver cirrhosis, Elevated LFTs. T. Bili 2.1, AST 133, ALT 30, Alk Phosph 402 PLAN: - Protonix gtt - Octreotide gtt - Monitor hh - Transfuse as necessary - Supportive care - Pt seen and examined by Dr. Alas and myself and this note is written on his behalf Mira Matos Jan 23, 2017 13:24
[2017-01-23 13:27] LABS: HEMATOCRIT 24.5 % (35.0-46.0)
[2017-01-23] MEDS: OCTREOTIDE INJ 500 MCG in SODIUM CHLORID 0.9% 500 ML INJ 499.5 ML IV SCH ×2 (13:36→23:38)
[2017-01-23] MEDS: PANTOPRAZOLE INJ 80 MG in SODIUM CHLORIDE 0.9% INJ 100 ML IV SCH (13:37)
[2017-01-23 13:50] LABS: BETA HCG QUANT LESS THAN 1 MIU/ML (0-5)
[2017-01-23] MEDS: RESP: ALBUTEROL 2.5 MG/IPRATROPIUM 0.5 MG NEB (SCH) NEB ×2 (16:11→20:26)
[2017-01-23] MEDS: cefTRIAXone INJ 1,000 MG in SODIUM CHLORIDE 0.9% INJ 100 ML IV SCH (16:28)
[2017-01-23 17:21] LABS: REVIEW FLAG FINAL
[2017-01-23] MEDS: LORazepam 2 MG/ML VIAL IV PUSH PRN (23:38)
[2017-01-23 23:48] LABS: HEMATOCRIT 27.5 % (35.0-46.0); REVIEW FLAG FINAL
[2017-01-24] VITALS (22 sets, daily range): BP systolic 102–138; BP diastolic 64–79; PULSE 85–132; RESP 16–23; TEMP 98.6–101.5; O2SAT 99–100
[2017-01-24] MEDS: SODIUM CHLOR 0.9% 1000 ML INJ 1,000 ML IV SCH ×4 (01:07→21:23)
[2017-01-24] MEDS: PANTOPRAZOLE INJ 80 MG in SODIUM CHLORIDE 0.9% INJ 100 ML IV SCH ×3 (02:42→21:23)
[2017-01-24] MEDS: PROPOFOL 1000 MG/100 ML INJ 100 ML IV SCH (02:42)
[2017-01-24] MEDS: CHLORHEXIDINE GLUCONATE 2 % 1 PACK (2 CLOTHS) TOP SCH (02:43)
[2017-01-24] MEDS: LORazepam 2 MG/ML VIAL IV PUSH PRN (02:57)
[2017-01-24] MEDS: RESP: ALBUTEROL 2.5 MG/IPRATROPIUM 0.5 MG NEB (SCH) NEB ×4 (03:10→20:35)
--- NOTE | 2017-01-24 04:42 | RADRPT ---
EXAM DATE/TIME: 01/24/2017 03:03 [facility] COMPARISON: CHEST SINGLE AP, January 22, 2017, 22:07. INDICATIONS : Shortness of breath, possible pulmonary disease. MEDICAL HISTORY : None. SURGICAL HISTORY : Hysterectomy. ENCOUNTER: Subsequent ACUITY: 3 days PAIN SCORE: Non-responsive. LOCATION: Bilateral chest FINDINGS: A single view of the chest demonstrates minimal disease the left retrocardiac region. Endotracheal tu be unchanged. The cardiomediastinal contours are unremarkable. Osseous structures are intact. CONCLUSION: Minimal left retrocardiac density. Jose Ann MD on January 24, 2017 at 4:39 Board Certified Radiologist. This report was verified electronically.
[2017-01-24 05:25] LABS: BLOOD GAS BASE EXCESS 0.1 mmol/L (-2-2); BLOOD GAS HCO3 23 mmol/L (22-26); BLOOD GAS METHEMOGLOBIN 1.5 % (0-2); BLOOD GAS O2 HGB SATURATION 96 % (90-100); BLOOD GAS OXYGEN CONTENT 11.6 Vol % (12.0-20.0); BLOOD GAS PCO2 28 mmHg (38-42); BLOOD GAS PO2 139 mmHg (61-120); BLOOD GAS TOTAL HGB 8.4 G/DL (12.0-16.0); TEMP CORR TO 98.6
[2017-01-24 05:26] LABS: CRITICAL VALUE YES; DRAW SITE RT RADIAL; FIO2 35 %; NUMBER OF ARTERIAL PUNCTURES 1; OXYGEN DEVICE VENTILATOR; VENT SETTINGS AC14/500/PEEP5
[2017-01-24 05:27] LABS: STAT NO; ULNAR PULSE PRESENT
[2017-01-24 05:50] LABS: HEMATOCRIT 25.4 % (35.0-46.0); MEAN CELL VOLUME 87.2 FL (80.0-100.0); MEAN CORPUSCULAR HGB CONC 34.5 % (32.0-36.0); PLATELET COUNT 64 TH/MM3 (150-450); RED BLOOD COUNT 2.92 MIL/MM3 (4.00-5.30); RED CELL DISTRIBUTION WIDTH 19.3 % (11.6-17.2)
[2017-01-24] MEDS ORDERED: fentaNYL 2,500 MCG/NS 250 ML IV SCH (06:00)
[2017-01-24 06:09] LABS: BICARBONATE 24.4 MEQ/L (21.0-32.0); MAGNESIUM 1.7 MG/DL (1.5-2.5)
[2017-01-24 06:23] LABS: REVIEW FLAG FINAL
[2017-01-24 06:31] LABS: POTASSIUM 2.8 MEQ/L (3.5-5.1)
[2017-01-24] MEDS: POTASSIUM CHLOR 20 MEQ PREMIX 100 ML IV PRN ×3 (06:38→11:12)
[2017-01-24 06:58] LABS: CALCIUM-PROTEIN CORRECTED 8.2 MG/DL (8.5-10.1)
[2017-01-24] MEDS: MULTIVITAMIN INJ 10 ML, FOLIC ACID INJ 1 MG in SODIUM CHLORID 0.9% 500 ML INJ 500 ML IV SCH (08:55)
[2017-01-24] MEDS: OCTREOTIDE INJ 500 MCG in SODIUM CHLORID 0.9% 500 ML INJ 499.5 ML IV SCH ×2 (08:55→21:23)
[2017-01-24] MEDS: CHLORHEXIDINE 0.12% (ORAL KIT) 15 ML CUP MT SCH ×2 (09:08→21:20)
[2017-01-24] MEDS: SODIUM CHLORIDE 0.9% FLUSH 10 ML FLUSH IV FLUSH SCH ×2 (09:09→21:00)
--- NOTE | 2017-01-24 09:38 | HHI.CCPN ---
Subjective Remarks/Hospital Course This is a well-known patient to [facility] previously admitted November 2016, December 2016 for active GI bleeding with interventions. The patient presented to [facility] this a.m., with complaints of hematemesis, approximately 1300 cc. The patient has a significant history for alcoholism. This patient is an alcoholic who was drinking today. She complained of nausea and vomiting. She denied melena or rectal bleeding. She is not having abdominal pain.At [facility] the patient was noted to be significantly hypotensive, systolic blood pressure in the 80s she received boluses of IV fluid, 2 units of packed red blood cells and 10 mg of vitamin K IV . Critical care medicine was consulted for management. The patient was transferred to [facility]. Dr. Evangelina HILARIO was consulted, plans for EGD today. Subjective 01/23: Tmax 99.8. The patient underwent EGD last night and was noted to have severe gastropathy and underwent ablation of areas. Copious amount of bleeding was noted, to include orogastric. ETT remains for airway protection, patient is sedated .Patient being monitor closely for continued blood loss. Tentative plans for possible repeat panendoscopy if patient continues to bleed or for further evaluation. 01/24: Tmax 100.5. The patient continues to have copious melanotic tarry stools. Serial hemoglobins remaining approximately 8.0.. Electrolyte replacement continuous secondary to voluminous diarrhea, > 600cc, and 12hrs. Will initiate PPN for nutritional support, as the patient remains nothing by mouth. Objective Vital Signs Date Time Temp Pulse Resp B/P Pulse Ox O2 Delivery O2 Flow Rate FiO2 01/24/17 08:01 100 35 01/24/17 06:00 106 01/24/17 04:00 98.7 18 121/64 01/22/17 16:00 Room Air Intake and Output 01/23/17 01/23/17 01/24/17 08:00 16:00 00:00 Intake Total 922 ml 2177 ml Output Total 650 ml 1000 ml Balance 272 ml 1177 ml Result Diagram: 01/24/17 0458 01/24/17 0458 Other Results Laboratory Tests Test 01/24/17 05:13 Blood Gas Puncture Site RT RADIAL Blood Gas Patient Temperature 98.6 Blood Gas HCO3 23 mmol/L (22-26) Blood Gas Base Excess 0.1 mmol/L (-2-2) Blood Gas Oxygen Saturation 96 % (90-100) Arterial Blood pH 7.52 (7.380-7.420) Arterial Blood Partial 28 mmHg (38-42) Pressure CO2 Arterial Blood Partial 139 mmHg Pressure O2 (61-120) Arterial Blood Oxygen Content 11.6 Vol % (12.0-20.0) Arterial Blood 2.0 % (0-4) Carboxyhemoglobin Arterial Blood Methemoglobin 1.5 % (0-2) Blood Gas Hemoglobin 8.4 G/DL (12.0-16.0) Oxygen Delivery Device VENTILATOR Blood Gas Ventilator Setting AC14/500/PEEP5 Blood Gas Inspired Oxygen 35 % Objective Remarks GENERAL: Well-developed female intubated and sedated SKIN: Warm and dry. HEAD: Atraumatic. Normocephalic. EYES: Pupils equal and round. No scleral icterus. No injection or drainage. ENT: No nasal bleeding or discharge. Mucous membranes pink and moist. ETT resolution of bloody secretions NECK: Trachea midline. No JVD. CARDIOVASCULAR: Normal rate, regular rhythm. RESPIRATORY: Mechanical ventilation. Clear to auscultation. Breath sounds equal bilaterally. GASTROINTESTINAL: Abdomen soft, non-tender, nondistended. No guarding. MUSCULOSKELETAL: Extremities without clubbing, cyanosis, or edema. No obvious deformities. NEUROLOGICAL: GCS 3T. Intubated and sedated. Urinary Catheter: Yes Date of Insertion: Jan 22, 2017 A/P Assessment and Plan Plan by systems: Neurologic: Alcohol abuse Anxiety disorder GCS 3T Monitor for signs of alcohol withdrawal, and seizure activity Ativan when necessary for agitation, monitor for signs of seizure activity Psychiatry consult when clinically appropriate Multivitamin bag 2 of 5 days Thiamine x 3 days IV, then convert if applicable to PO Respiratory: Tobacco abuse Maintain O2 sat greater than 92%. Patient remains intubated for airway protection secondary to upper GI bleed Mechanical ventilation AC 14/500/5/0.40 Bronchodilators q 6 hr scheduled, every 2 hours when necessary Patient counseled on smoking cessation 01/22 Sedation vacation daily Ventilator bundle Maintain head of bed 30 Cardiovascular: Moderate tricuspid regurgitation Mild mitral regurgitation Hypotension secondary to acute blood loss anemia Hemorrhagic shock-resolved 11/19 echo ejection fraction 6065 %, moderate tricuspid regurgitation, mild mitral regurgitation, mild LAE, no RWMA Maintain MAP, greater than 65 mmHg Renal: Hypocalcemia Hypomagnesemia Hypokalemia Monitor BMP Continue to replete electrolytes per ICU protocol Magnesium 2 g IV -- Strict I/Os FEN/GI: GI bleed Pulmonary hypertensive gastropathy Liver cirrhosis without ascites Esophageal varices Hematemesis Melena Diarrhea Maintain nothing by mouth status 01/22 EGD-Dr. Hutchinson-severe gastropathy status post ablation 2/ LA Class B esophagitis,S/P EGD with ablation 12/23 LA Class A esophagitis,S/P EGD with ablation and heater probe Continue Octreotide infusion Continue Protonix effusion Rocephin every 24 hours for SBP prophylaxis Will consider propranolol portal hypertension prophylaxis, when clinically indicated and patient hemodynamically stable Fecal incontinence bag, monitor volume-replete volume with IV fluids cc per cc normal saline Bolused 1L Heme/ID: Acute blood loss anemia History of iron deficiency anemia Thrombocytopenia Transfuse for hemoglobin less than 7., Hemoglobin 8.6, likely hemoconcentration Platelet count 83->64, transfuse platelet count less than 50 Monitor every 6 hours hemoglobin and hematocrit Patient received 01/22 4 units PRBC, and 2 units FFP Obtain INR Endocrine: Glucose monitoring per ICU protocol -- SSI Prophylaxis: GI Prophylaxis Protonix infusion DVT Prophylaxis -- SCDs No pharmacological prophylaxis in the setting of GI bleed Lines: Peripheral IVs 2. Central line if indicated Dispo: Discussed with STOCK PLAN ADMINISTRATOR at bedside. This patient remains critically ill with one or more organ systems which are or may become a threat to life. I have spent in excess of 33 minutes discontinuously in the care and management of this patient. This time is exclusive of procedures, and includes, but is not limited to, evaluation of the patient, review of the medical record, discussions with family, consultants, nursing staff, or respiratory therapy, and documentation in the medical record. Physician Enma Robles MD Jan 24, 2017 09:37
[2017-01-24] MEDS ORDERED: MAGNESIUM SULFATE 1 GM PREMIX 100 ML IV ONE ×2 (09:45→10:45)
[2017-01-24] MEDS ORDERED: LORazepam 2 MG/ML VIAL IV PUSH PRN (09:45)
[2017-01-24] MEDS ORDERED: SODIUM CHLOR 0.9% 1000 ML INJ 1,000 ML IV ONE (10:45)
[2017-01-24] MEDS: POTASSIUM PHOSPHATE INJ 30 MMOL in SODIUM CHLOR 0.9% 250 ML INJ 250 ML IV PRN (11:13)
[2017-01-24 11:37] LABS: INTERNATIONAL NORMALIZED RATIO 1.3 RATIO; PROTHROMBIN TIME - PATIENT 14.2 SEC (9.8-11.6)
[2017-01-24 12:55] LABS: HEMATOCRIT 26.3 % (35.0-46.0)
[2017-01-24 12:58] LABS: REVIEW FLAG FINAL
--- NOTE | 2017-01-24 13:22 | HHI.GIFU ---
Subjective Remarks Resting in bed. Sedated on ventilator. No active bleeding at this time. Rectal bag with large amount of brown liquid stool. Objective Vitals I&O Vital Signs Date Time Temp Pulse Resp B/P Pulse Ox O2 Delivery O2 Flow Rate FiO2 01/24/17 11:49 100 35 01/24/17 09:18 100 35 01/24/17 08:01 100 35 01/24/17 08:00 98.6 99 20 102/64 100 01/24/17 08:00 40 01/24/17 08:00 99 01/24/17 06:00 106 01/24/17 04:15 100 35 01/24/17 04:00 112 01/24/17 04:00 98.7 112 18 121/64 100 01/24/17 04:00 40 01/24/17 02:00 116 01/24/17 01:15 100 35 01/24/17 00:00 99.5 108 22 138/69 100 01/24/17 00:00 40 01/24/17 00:00 108 01/23/17 22:14 100 35 01/23/17 22:00 114 01/23/17 20:26 100 35 01/23/17 20:00 101.5 101 22 122/64 100 01/23/17 20:00 40 01/23/17 20:00 101 01/23/17 18:00 98 01/23/17 16:12 100 35 01/23/17 16:00 100.8 100 14 117/65 94 01/23/17 16:00 96 01/23/17 16:00 40 01/23/17 14:00 110 I/O 01/23/17 01/23/17 01/23/17 01/24/17 01/24/17 01/24/17 07:00 15:00 23:00 07:00 15:00 23:00 Intake Total 922 ml 2177 ml 2691 ml Output Total 650 ml 1000 ml 1700 ml Balance 272 ml 1177 ml 991 ml Intake IV Total 922 ml 2177 ml 2691 ml Output Urine Total 650 ml 1000 ml 1300 ml Stool Total 400 ml Laboratory Laboratory Tests Test 01/23/17 01/23/17 01/24/17 01/24/17 16:47 22:41 04:58 05:13 Hemoglobin 8.9 9.0 8.8 Hematocrit 26.0 27.5 25.4 White Blood Count 6.0 Red Blood Count 2.92 Mean Corpuscular Volume 87.2 Mean Corpuscular Hemoglobin 30.0 Mean Corpuscular Hemoglobin 34.5 Concent Red Cell Distribution Width 19.3 Platelet Count 64 Mean Platelet Volume 8.7 Sodium Level 147 Potassium Level 2.8 Chloride Level 112 Carbon Dioxide Level 24.4 Anion Gap 11 Blood Urea Nitrogen 8 Creatinine 0.48 Estimat Glomerular Filtration 140 Rate Random Glucose 118 Calcium Level 7.3 Protein Corrected Calcium 8.2 Phosphorus Level 1.5 Magnesium Level 1.7 Total Protein 5.5 Blood Gas Puncture Site RT RADIAL Blood Gas Patient Temperature 98.6 Blood Gas HCO3 23 Blood Gas Base Excess 0.1 Blood Gas Oxygen Saturation 96 Arterial Blood pH 7.52 Arterial Blood Partial 28 Pressure CO2 Arterial Blood Partial 139 Pressure O2 Arterial Blood Oxygen Content 11.6 Arterial Blood 2.0 Carboxyhemoglobin Arterial Blood Methemoglobin 1.5 Blood Gas Hemoglobin 8.4 Oxygen Delivery Device VENTILATOR Blood Gas Ventilator Setting AC14/500/PEEP5 Blood Gas Inspired Oxygen 35 Test 01/24/17 01/24/17 10:28 12:41 Prothrombin Time 14.2 Prothromb Time International 1.3 Ratio Hemoglobin 8.8 Hematocrit 26.3 Date/Time Procedure Status Source Growth 01/23/17 16:54 Aerobic Blood Culture - Preliminary Resulted Blood Peripheral NO GROWTH IN 1 DAY 01/23/17 16:54 Anaerobic Blood Culture - Preliminary Resulted Blood Peripheral NO GROWTH IN 1 DAY 01/23/17 16:00 Urine Culture - Preliminary Resulted Urine Catheterized Urine Gram Negative [facility] Last Impressions Chest X-Ray 01/24/17 0600 Signed Impressions: Service Date/Time: January 03:03 - CONCLUSION: Minimal left retrocardiac density. Jose Ann MD Physical Exam HEENT: On vent. normocephalic; atraumatic; no jaundice. NECK: Neck is supple CHEST: CTA, OETT to vent CARDIAC: RRR ABDOMEN: Soft, nondistended, nontender; hepatosplenomegaly; bowel sounds are present in all four quadrants. Brown liquid stool in rectal bag. EXTREMITIES: BLE edema. SKIN: Normal; no rash; no jaundice. 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 Pt with liver cirrhosis, portal hypertensive gastropathy, recurrent GIB- ongoing etoh abuse. Came to ER for hematemesis with dark red blood. S/P EGD (01/22/17)----> severe gastropathy, few areas bleeding ablated, retroflexed views reveal large blood clots. On Protonix Gtt, Octreotide Gtt. HH 8.8/25.4. - Anemia, acute blood loss. S/P 4 units PRBC, 2 units FFP, 2 units platelets. HH 8.8/25.4. - Thrombocytopenia. Plt 64. - Liver cirrhosis, Elevated LFTs. T. Bili 2.1, AST 133, ALT 30, Alk Phosph 402 on 01/22. - Resp. Failure, Vent per [facility] - Hypokalemia, hypernatremia per primary PLAN: - Start Jevity 1.5 at 30cc/hr, increase to GR as tolerated - Machine Tool Operator for TF recommendations - Cont. Protonix gtt x 3 day (will transition to po/iv bid dosing tomorrow) - Cont. Octreotide gtt x 3 days (will d/c in am if no further bleeding) - Monitor hh - Transfuse as necessary - CBC, CMP, PT/INR in am - Supportive care - Further recommendations to follow based on results of above - Pt seen and examined by Dr. Alas and myself and this note is written on his behalf Katia Mcwilliams Jan 24, 2017 13:22
[2017-01-24] MEDS: cefTRIAXone INJ 1,000 MG in SODIUM CHLORIDE 0.9% INJ 100 ML IV SCH (17:21)
[2017-01-24] MEDS: CLINIMIX E 4.25/5 1000 mL- </= 42 mls/hr IV SCH ×3 (17:29)
[2017-01-24 19:28] LABS: HEMATOCRIT 24.4 % (35.0-46.0)
[2017-01-24 19:32] LABS: REVIEW FLAG FINAL
[2017-01-24] MEDS: FAT EMULSION 20% INJ 250 ML (@10 mls/hr) IV SCH (21:59)
[2017-01-25] VITALS (18 sets, daily range): BP systolic 128–166; BP diastolic 77–91; PULSE 109–145; RESP 22–24; TEMP 99.9–101.7; O2SAT 97–100
[2017-01-25 01:40] LABS: REVIEW FLAG FINAL
[2017-01-25 01:52] LABS: BICARBONATE 23.7 MEQ/L (21.0-32.0); CALCIUM-PROTEIN CORRECTED 7.5 MG/DL (8.5-10.1); MAGNESIUM 1.8 MG/DL (1.5-2.5); TOTAL BILIRUBIN ADULT 4.5 MG/DL (0.2-1.0)
[2017-01-25 01:58] LABS: POTASSIUM 2.7 MEQ/L (3.5-5.1)
[2017-01-25] MEDS: POTASSIUM CHLOR 20 MEQ PREMIX 100 ML IV PRN ×5 (02:06→20:19)
[2017-01-25] MEDS: POTASSIUM PHOSPHATE INJ 30 MMOL in SODIUM CHLOR 0.9% 250 ML INJ 250 ML IV PRN ×2 (02:43→13:49)
[2017-01-25] MEDS: RESP: ALBUTEROL 2.5 MG/IPRATROPIUM 0.5 MG NEB (SCH) NEB ×4 (03:39→20:30)
[2017-01-25] MEDS: CHLORHEXIDINE GLUCONATE 2 % 1 PACK (2 CLOTHS) TOP SCH (04:02)
[2017-01-25] MEDS: SODIUM CHLOR 0.9% 1000 ML INJ 1,000 ML IV SCH (05:51)
[2017-01-25] MEDS: PANTOPRAZOLE INJ 80 MG in SODIUM CHLORIDE 0.9% INJ 100 ML IV SCH (06:01)
[2017-01-25] MEDS: OCTREOTIDE INJ 500 MCG in SODIUM CHLORID 0.9% 500 ML INJ 499.5 ML IV SCH (06:01)
[2017-01-25 06:18] LABS: HEMATOCRIT 26.4 % (35.0-46.0); MEAN CELL VOLUME 86.4 FL (80.0-100.0); MEAN CORPUSCULAR HEMOGLOBIN 29.6 PG (27.0-34.0); MEAN CORPUSCULAR HGB CONC 34.3 % (32.0-36.0); PLATELET COUNT 62 TH/MM3 (150-450); RED BLOOD COUNT 3.06 MIL/MM3 (4.00-5.30); RED CELL DISTRIBUTION WIDTH 19.7 % (11.6-17.2); WHITE BLOOD COUNT 6.6 TH/MM3 (4.0-11.0)
[2017-01-25 06:19] LABS: HEMO FLAGS AUTO DIFF
[2017-01-25 06:42] LABS: INTERNATIONAL NORMALIZED RATIO 1.3 RATIO; PROTHROMBIN TIME - PATIENT 14.7 SEC (9.8-11.6)
[2017-01-25 06:50] LABS: BICARBONATE 21.8 MEQ/L (21.0-32.0); MAGNESIUM 1.7 MG/DL (1.5-2.5)
[2017-01-25 06:52] LABS: CALCIUM-PROTEIN CORRECTED 7.7 MG/DL (8.5-10.1); TOTAL BILIRUBIN ADULT 4.5 MG/DL (0.2-1.0)
--- NOTE | 2017-01-25 07:01 | RADRPT ---
EXAM DATE/TIME: 01/25/2017 04:20 [facility] COMPARISON: CHEST SINGLE AP, January 24, 2017, 3:03. INDICATIONS : Shortness of breath. MEDICAL HISTORY : None. SURGICAL HISTORY : None. ENCOUNTER: Subsequent ACUITY: 4 - 6 days PAIN SCORE: Non-responsive. LOCATION: Bilateral chest FINDINGS: The ET tube remains in place. There is no pneumothorax. Mild infiltrate in the left lung base. This i s stable compared to the prior study. Otherwise the lungs are grossly clear.. The study is limited du e to rotation. No definite pleural effusions. The heart size is stable. CONCLUSION: No significant interval change. Lui Sanchez MD on January 25, 2017 at 6:58 Board Certified Radiologist. This report was verified electronically.
[2017-01-25 07:26] LABS: BANDS 30 % (0-6); BASOPHILS 1 % (0-2); CORRECTED NUCLEATED RBC 1 /100 WBC (0-0); EOSINOPHILS 1 % (0-4); NEUTROPHIL # MANUAL DIFF 5.5 TH/MM3 (1.8-7.7); POLYS (SEG NEUTROPHILS) 53 % (16-70); WBC DIFF SAMPLE 100
[2017-01-25 07:27] LABS: PLATELET ESTIMATE SMEAR LOW (NORMAL); PLATELET MORPHOLOGY NORMAL (NORMAL); SCAN/DIFF FINAL DIFF MANUAL
[2017-01-25] MEDS: THIAMINE HCL 100 MG TAB PO SCH ×2 (09:00→11:35)
[2017-01-25] MEDS: CHLORHEXIDINE 0.12% (ORAL KIT) 15 ML CUP MT SCH ×2 (11:35→20:19)
[2017-01-25] MEDS: SODIUM CHLORIDE 0.9% FLUSH 10 ML FLUSH IV FLUSH SCH ×2 (11:36→20:20)
[2017-01-25] MEDS: MULTIVITAMIN INJ 10 ML, FOLIC ACID INJ 1 MG in SODIUM CHLORID 0.9% 500 ML INJ 500 ML IV SCH (11:45)
--- NOTE | 2017-01-25 12:13 | HHI.GIFU ---
Subjective Remarks Pt on vent. Per RN no BM overnight. Objective Vitals I&O Vital Signs Date Time Temp Pulse Resp B/P Pulse Ox O2 Delivery O2 Flow Rate FiO2 01/25/17 10:50 100 35 01/25/17 08:32 98 35 01/25/17 08:32 35 01/25/17 06:00 118 01/25/17 04:12 99 35 01/25/17 04:00 100.3 125 23 150/83 100 01/25/17 04:00 35 01/25/17 04:00 125 01/25/17 02:00 129 01/25/17 01:11 98 35 01/25/17 00:00 35 01/25/17 00:00 135 01/25/17 00:00 101.7 134 24 150/83 100 01/24/17 23:05 100 35 01/24/17 22:00 132 01/24/17 20:56 101.5 125 23 131/74 99 01/24/17 20:22 100.4 121 20 125/79 100 01/24/17 20:00 120 01/24/17 20:00 100.2 120 22 125/79 100 01/24/17 20:00 35 01/24/17 19:20 99 35 01/24/17 18:00 114 01/24/17 16:30 100 35 01/24/17 16:00 110 01/24/17 16:00 35 01/24/17 16:00 100.6 109 18 123/73 100 01/24/17 14:00 106 01/24/17 12:00 35 01/24/17 12:00 97 01/24/17 12:00 99.9 97 16 118/65 100 I/O 01/24/17 01/24/17 01/24/17 01/25/17 01/25/17 01/25/17 07:00 15:00 23:00 07:00 15:00 23:00 Intake Total 2691 ml 1627 ml 4656 ml Output Total 1700 ml 1500 ml 2150 ml Balance 991 ml 127 ml 2506 ml Intake IV Total 2691 ml 1627 ml 3627 ml TPN/PPN 467 ml Lipid 62 ml Packed Cells 500 ml Output Urine Total 1300 ml 1200 ml 2150 ml Stool Total 400 ml 300 ml 0 ml Laboratory Laboratory Tests Test 01/24/17 01/24/17 01/25/17 01/25/17 12:41 19:02 01:05 05:41 Hemoglobin 8.8 7.9 8.8 9.1 Hematocrit 26.3 24.4 26.0 26.4 Sodium Level 149 147 Potassium Level 2.7 3.0 Chloride Level 117 117 Carbon Dioxide Level 23.7 21.8 Anion Gap 8 8 Blood Urea Nitrogen 5 5 Creatinine 0.39 0.31 Estimat Glomerular Filtration 179 233 Rate Random Glucose 131 122 Calcium Level 6.5 6.6 Protein Corrected Calcium 7.5 7.7 Phosphorus Level 0.8 1.3 Magnesium Level 1.8 1.7 Total Bilirubin 4.5 4.5 Aspartate Amino Transf 62 60 (AST/SGOT) Alanine Aminotransferase 19 18 (ALT/SGPT) Alkaline Phosphatase 161 157 Total Protein 5.0 5.0 Albumin 2.1 2.0 White Blood Count 6.6 Red Blood Count 3.06 Mean Corpuscular Volume 86.4 Mean Corpuscular Hemoglobin 29.6 Mean Corpuscular Hemoglobin 34.3 Concent Red Cell Distribution Width 19.7 Platelet Count 62 Mean Platelet Volume 8.4 Neutrophils (%) (Auto) Lymphocytes (%) (Auto) Monocytes (%) (Auto) Eosinophils (%) (Auto) Basophils (%) (Auto) Neutrophils # (Auto) Lymphocytes # (Auto) Monocytes # (Auto) Eosinophils # (Auto) Basophils # (Auto) CBC Comment AUTO DIFF Differential Total Cells 100 Counted Neutrophils % (Manual) 53 Band Neutrophils % 30 Lymphocytes % 9 Monocytes % 6 Eosinophils % 1 Basophils % 1 Neutrophils # (Manual) 5.5 Nucleated Red Blood Cells 1 Differential Comment FINAL DIFF MANUAL Atypical Lymphocytes Platelet Estimate LOW Platelet Morphology Comment NORMAL Prothrombin Time 14.7 Prothromb Time International 1.3 Ratio Date/Time Procedure Status Source Growth 01/23/17 16:54 Aerobic Blood Culture - Preliminary Resulted Blood Peripheral NO GROWTH IN 2 DAYS 01/23/17 16:54 Anaerobic Blood Culture - Preliminary Resulted Blood Peripheral NO GROWTH IN 2 DAYS 01/23/17 16:00 Urine Culture - Final Complete Urine Catheterized Urine Escherichia Coli Group B Beta Strep Imaging Last Impressions Chest X-Ray 01/25/17 0600 Signed Impressions: Service Date/Time: Wednesday, January 25, 2017 04:20 - CONCLUSION: No significant interval change. Lui Sanchez MD Physical Exam HEENT: On vent. NGT to suction, no blood. normocephalic; atraumatic; no jaundice. NECK: Neck is supple CHEST: CTA, OETT to vent CARDIAC: RRR ABDOMEN: Soft, nondistended, nontender; hepatosplenomegaly; bowel sounds are present in all four quadrants. EXTREMITIES: BLE edema. SKIN: spider angiomas; no jaundice. 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 Pt with liver cirrhosis, portal hypertensive gastropathy, recurrent GIB- ongoing etoh abuse. Came to ER for hematemesis with dark red blood. S/P EGD (01/22/17)----> severe gastropathy, few areas bleeding ablated, retroflexed views reveal large blood clots. On Protonix Gtt, Octreotide Gtt. HH ./.4. - Anemia, acute blood loss. S/P 4 units PRBC, 2 units FFP, 2 units platelets. HH .11/08.4, stable now - Thrombocytopenia. Plt 62. - Liver cirrhosis, Elevated LFTs. T. Bili 4.5, AST 60, ALT 18, Alk Phosph 157. - Resp. Failure, Vent per [facility] - Hypokalemia, hypernatremia per primary PLAN: - Jevity 1.5 at 30cc/hr, increase to GR as tolerated - Shuttle Preparation Supervisor for TF recommendations - protonix 40mg BID - d/c ocreotide - Monitor hh - Transfuse as necessary - CBC, CMP, PT/INR in am - Supportive care - Further recommendations to follow based on results of above - Pt seen and examined by Dr. Alas and myself and this note is written on his behalf Mira Matos Jan 25, 2017 12:13
--- NOTE | 2017-01-25 12:16 | HHI.CCPN ---
Subjective Remarks/Hospital Course This is a well-known patient to [facility] previously admitted November 2016, December 2016 for active GI bleeding with interventions. The patient presented to [facility] this a.m., with complaints of hematemesis, approximately 1300 cc. The patient has a significant history for alcoholism. This patient is an alcoholic who was drinking today. She complained of nausea and vomiting. She denied melena or rectal bleeding. She is not having abdominal pain.At [place] ED the patient was noted to be significantly hypotensive, systolic blood pressure in the 80s she received boluses of IV fluid, 2 units of packed red blood cells and 10 mg of vitamin K IV . Critical care medicine was consulted for management. The patient was transferred to [facility]. Dr. Evangelina HILARIO was consulted, plans for EGD today. Subjective 01/23: Tmax 99.8. The patient underwent EGD last night and was noted to have severe gastropathy and underwent ablation of areas. Copious amount of bleeding was noted, to include orogastric. ETT remains for airway protection, patient is sedated .Patient being monitor closely for continued blood loss. Tentative plans for possible repeat panendoscopy if patient continues to bleed or for further evaluation. 01/24: Tmax 100.5. The patient continues to have copious melanotic tarry stools. Serial hemoglobins remaining approximately 8.0.. Electrolyte replacement continuous secondary to voluminous diarrhea, > 600cc, and 12hrs. Will initiate PPN for nutritional support, as the patient remains nothing by mouth. 01/25: Tmax 101.7. Blood and urine cultures obtained. The patient was placed on CPAP trials this morning and continues. Sedation discontinued greater than 24 hours. Melanotic stools have stopped during the night, hemoglobin stable. Plan to continue to wean for extubation. Objective Vital Signs Date Time Temp Pulse Resp B/P Pulse Ox O2 Delivery O2 Flow Rate FiO2 01/25/17 10:50 100 35 01/25/17 06:00 118 01/25/17 04:00 100.3 23 150/83 01/22/17 16:00 Room Air Intake and Output 01/24/17 01/24/17 01/25/17 08:00 16:00 00:00 Intake Total 2691 ml 1627 ml 2557 ml Output Total 1700 ml 1500 ml 1000 ml Balance 991 ml 127 ml 1557 ml Result Diagram: 01/25/17 0541 01/25/17 0541 Other Results Microbiology Date/Time Procedure Status Source Growth 01/23/17 16:00 Urine Culture - Final Complete Urine Catheterized Urine Escherichia Coli Group B Beta Strep Imaging Last Impressions Chest X-Ray 01/25/17 0600 Signed Impressions: Service Date/Time: Wednesday, January 25, 2017 04:20 - CONCLUSION: No significant interval change. Lui Sanchez MD Objective Remarks GENERAL: Well-developed female intubated and sedated SKIN: Warm and dry. HEAD: Atraumatic. Normocephalic. EYES: Pupils equal and round. No scleral icterus. No injection or drainage. ENT: No nasal bleeding or discharge. Mucous membranes pink and moist. ETT resolution of bloody secretions NECK: Trachea midline. No JVD. CARDIOVASCULAR: Normal rate, regular rhythm. RESPIRATORY: Mechanical ventilation. Clear to auscultation. Breath sounds equal bilaterally. GASTROINTESTINAL: Abdomen soft, non-tender, nondistended. No guarding. MUSCULOSKELETAL: Extremities without clubbing, cyanosis, 1+ peripheral edema noted B/L extremities. No obvious deformities. NEUROLOGICAL: GCS 3T. Intubated and sedated. Urinary Catheter: Yes Date of Insertion: Jan 22, 2017 Vascular Central Line Catheter: No A/P Assessment and Plan Plan by systems: Neurologic: Alcohol abuse Anxiety disorder Patient extremely lethargic, sedation off greater than 24 hours. Infusions discontinued. Monitor for signs of alcohol withdrawal, and seizure activity Ativan when necessary for agitation, monitor for signs of seizure activity Psychiatry consult when clinically appropriate Multivitamin bag 3of 5 days Thiamine x 3 days IV, then convert if applicable to PO Respiratory: Tobacco abuse Maintain O2 sat greater than 92%. Patient remains intubated for airway protection secondary to upper GI bleed Mechanical ventilation CPAP trials 10/5 FIO2 .35 Bronchodilators q 6 hr scheduled, every 2 hours when necessary Patient counseled on smoking cessation 01/22 Sedation vacation daily Ventilator bundle Maintain head of bed 30 Cardiovascular: Moderate tricuspid regurgitation Mild mitral regurgitation Hypotension secondary to acute blood loss anemia Hemorrhagic shock-resolved 11/19 echo ejection fraction 6065 %, moderate tricuspid regurgitation, mild mitral regurgitation, mild LAE, no RWMA Maintain MAP, greater than 65 mmHg Renal: Hypocalcemia Hypomagnesemia Hypokalemia Monitor BMP Continue to replete electrolytes per ICU protocol Calcium gluconate 2 g IV Potassium replaced -- Strict I/Os FEN/GI: GI bleed Pulmonary hypertensive gastropathy Liver cirrhosis without ascites Esophageal varices Hematemesis Melena Diarrhea Maintain nothing by mouth status 01/22 EGD-Dr. Hutchinson-severe gastropathy status post ablation 11/16 LA Class B esophagitis,S/P EGD with ablation 12/23 LA Class A esophagitis,S/P EGD with ablation and heater probe Continue Octreotide infusion Continue Protonix effusion Rocephin every 24 hours for SBP prophylaxis Will consider propranolol portal hypertension prophylaxis, when clinically indicated and patient hemodynamically stable Fecal incontinence bag, monitor volume-replete volume with IV fluids cc per cc normal saline Bolused 1L Heme/ID: Acute blood loss anemia History of iron deficiency anemia Thrombocytopenia Transfuse for hemoglobin less than 7., Hemoglobin 8.6, likely hemoconcentration Platelet count 64-> 62, transfuse platelet count less than 50 Monitor every 6 hours hemoglobin and hematocrit Patient received 01/22 4 units PRBC, and 2 units FFP INR 1.3 Obtain blood, sputum and urine cultures Endocrine: Glucose monitoring per ICU protocol -- SSI Prophylaxis: GI Prophylaxis Protonix infusion DVT Prophylaxis -- SCDs No pharmacological prophylaxis in the setting of GI bleed Lines: Peripheral IVs 2. Central line if indicated Dispo: Discussed with BATTERY WRECKER OPERATOR at bedside. This patient remains critically ill with one or more organ systems which are or may become a threat to life. I have spent in excess of 33 minutes discontinuously in the care and management of this patient. This time is exclusive of procedures, and includes, but is not limited to, evaluation of the patient, review of the medical record, discussions with family, consultants, nursing staff, or respiratory therapy, and documentation in the medical record. Physician Enma Robles MD Jan 25, 2017 12:16
[2017-01-25 12:48] LABS: HEMATOCRIT 26.8 % (35.0-46.0)
[2017-01-25 12:54] LABS: REVIEW FLAG FINAL
[2017-01-25] MEDS ORDERED: CALCIUM GLUCONATE INJ 2 GM in DEXTROSE 5% IN WATER 100ML INJ 100 ML IV ONE ×2 (13:00)
[2017-01-25 13:16] LABS: POTASSIUM 2.8 MEQ/L (3.5-5.1)
[2017-01-25] MEDS: cefTRIAXone INJ 1,000 MG in SODIUM CHLORIDE 0.9% INJ 100 ML IV SCH (17:44)
[2017-01-25] MEDS: PANTOPRAZOLE SODIUM 40 MG VIAL IV PUSH SCH (17:44)
[2017-01-25 17:49] LABS: HEMATOCRIT 29.3 % (35.0-46.0)
[2017-01-25 17:52] LABS: REVIEW FLAG FINAL
[2017-01-25] MEDS: FAT EMULSION 20% INJ 250 ML (@10 mls/hr) IV SCH (20:19)
[2017-01-25] MEDS: CLINIMIX E 4.25/5 1000 mL- </= 42 mls/hr IV SCH ×3 (20:19)
[2017-01-25] MEDS: LORazepam 2 MG/ML VIAL IV PRN (20:20)
[2017-01-26] VITALS (20 sets, daily range): BP systolic 105–163; BP diastolic 71–100; PULSE 110–152; RESP 21–28; TEMP 99.5–101.4; O2SAT 94–100
[2017-01-26] MEDS: LORazepam 2 MG/ML VIAL IV PRN ×4 (00:02→19:31)
[2017-01-26] MEDS: POTASSIUM CHLOR 20 MEQ PREMIX 100 ML IV PRN (00:22)
[2017-01-26 00:42] LABS: HEMATOCRIT 29.4 % (35.0-46.0)
[2017-01-26 00:47] LABS: REVIEW FLAG FINAL
[2017-01-26] MEDS: RESP: ALBUTEROL 2.5 MG/IPRATROPIUM 0.5 MG NEB (SCH) NEB ×4 (03:32→20:30)
[2017-01-26] MEDS: CHLORHEXIDINE GLUCONATE 2 % 1 PACK (2 CLOTHS) TOP SCH (04:00)
[2017-01-26 05:12] LABS: HEMATOCRIT 30.8 % (35.0-46.0); MEAN CELL VOLUME 86.5 FL (80.0-100.0); MEAN CORPUSCULAR HEMOGLOBIN 29.6 PG (27.0-34.0); MEAN CORPUSCULAR HGB CONC 34.2 % (32.0-36.0); PLATELET COUNT 71 TH/MM3 (150-450); RED BLOOD COUNT 3.56 MIL/MM3 (4.00-5.30); RED CELL DISTRIBUTION WIDTH 19.6 % (11.6-17.2); WHITE BLOOD COUNT 7.8 TH/MM3 (4.0-11.0)
[2017-01-26 05:16] LABS: REVIEW FLAG FINAL
[2017-01-26 05:17] LABS: APTT (PATIENT) 29.1 SEC (24.3-30.1); INTERNATIONAL NORMALIZED RATIO 1.2 RATIO; PROTHROMBIN TIME - PATIENT 13.5 SEC (9.8-11.6)
[2017-01-26 05:38] LABS: ALKALINE PHOSPHATASE 185 U/L (45-117); ALT (GPT) 23 U/L (10-53); ANION GAP 10 MEQ/L (5-15); AST (GOT) 64 U/L (15-37); BICARBONATE 26.2 MEQ/L (21.0-32.0); BLOOD UREA NITROGEN 4 MG/DL (7-18); CHLORIDE 107 MEQ/L (98-107); GLOMERULAR FILTRATION RATE 242 ML/MIN (>89); MAGNESIUM 1.6 MG/DL (1.5-2.5); POTASSIUM 3.4 MEQ/L (3.5-5.1); SODIUM (NA) 143 MEQ/L (136-145); TOTAL BILIRUBIN ADULT 4.3 MG/DL (0.2-1.0)
[2017-01-26] MEDS: PANTOPRAZOLE SODIUM 40 MG VIAL IV PUSH SCH ×2 (06:08→17:31)
[2017-01-26] MEDS: POTASSIUM PHOSPHATE INJ 30 MMOL in SODIUM CHLOR 0.9% 250 ML INJ 250 ML IV PRN (06:08)
[2017-01-26] MEDS: CHLORHEXIDINE 0.12% (ORAL KIT) 15 ML CUP MT SCH ×2 (08:00→19:34)
[2017-01-26] MEDS: THIAMINE HCL 100 MG TAB PO SCH (09:00)
[2017-01-26] MEDS: SODIUM CHLORIDE 0.9% FLUSH 10 ML FLUSH IV FLUSH SCH ×2 (09:00→19:31)
--- NOTE | 2017-01-26 15:01 | HHI.GIFU ---
Subjective Remarks Patient remains intubated, failed extubation trial, still receiving PPN. No bleeding reported. Objective Vitals I&O Vital Signs Date Time Temp Pulse Resp B/P Pulse Ox O2 Delivery O2 Flow Rate FiO2 01/26/17 12:00 101.1 110 21 105/71 97 01/26/17 12:00 35 01/26/17 12:00 110 01/26/17 11:38 100 35 01/26/17 10:00 125 01/26/17 08:31 98 35 01/26/17 08:00 35 01/26/17 08:00 101.4 121 23 112/79 100 01/26/17 08:00 121 01/26/17 06:00 114 01/26/17 04:14 98 35 01/26/17 04:00 101.0 121 21 121/82 97 01/26/17 04:00 121 01/26/17 04:00 35 01/26/17 02:00 129 01/26/17 01:09 98 35 01/26/17 00:15 127 01/26/17 00:00 100.4 152 28 163/100 94 01/26/17 00:00 152 01/26/17 00:00 35 01/25/17 23:00 119 01/25/17 22:21 97 35 01/25/17 22:00 145 01/25/17 20:30 100 35 01/25/17 20:00 35 01/25/17 20:00 100.9 116 22 135/87 100 01/25/17 20:00 116 01/25/17 16:01 99 35 01/25/17 16:00 100.1 110 24 166/91 01/25/17 16:00 35 I/O 01/25/17 01/25/17 01/25/17 01/26/17 01/26/17 01/26/17 07:00 15:00 23:00 07:00 15:00 23:00 Intake Total 4656 ml 1178 ml 1443 ml 572 ml Output Total 2150 ml 1150 ml 4400 ml 2350 ml Balance 2506 ml 28 ml -2957 ml -1778 ml Intake IV Total 3627 ml 1178 ml 1087 ml 162 ml TPN/PPN 467 ml 275 ml 332 ml Lipid 62 ml 81 ml 78 ml Packed Cells 500 ml Output Urine Total 2150 ml 1150 ml 4400 ml 2350 ml Stool Total 0 ml 0 ml 0 ml Laboratory Laboratory Tests Test 01/25/17 01/26/17 01/26/17 01/26/17 17:34 00:30 04:00 04:50 Hemoglobin 9.7 10.1 10.5 Hematocrit 29.3 29.4 30.8 White Blood Count 7.8 Red Blood Count 3.56 Mean Corpuscular Volume 86.5 Mean Corpuscular Hemoglobin 29.6 Mean Corpuscular Hemoglobin 34.2 Concent Red Cell Distribution Width 19.6 Platelet Count 71 Mean Platelet Volume 8.6 Prothrombin Time 13.5 Prothromb Time International 1.2 Ratio Activated Partial 29.1 Thromboplast Time Sodium Level 143 Potassium Level 3.4 Chloride Level 107 Carbon Dioxide Level 26.2 Anion Gap 10 Blood Urea Nitrogen 4 Creatinine 0.30 Estimat Glomerular Filtration 242 Rate Random Glucose 94 Calcium Level 8.3 Phosphorus Level 1.7 Magnesium Level 1.6 Total Bilirubin 4.3 Aspartate Amino Transf 64 (AST/SGOT) Alanine Aminotransferase 23 (ALT/SGPT) Alkaline Phosphatase 185 Total Protein 5.6 Albumin 2.1 Date/Time Procedure Status Source Growth 01/25/17 21:20 Urine Culture - Preliminary Resulted Urine Catheterized Urine IMMATURE GROWTH - REINCUBATE 01/25/17 21:20 Gram Stain - Final Resulted Sputum Endotracheal 01/25/17 21:20 Sputum Culture - Preliminary Resulted Sputum Endotracheal NO GROWTH IN 24 HOURS. 01/25/17 12:25 Aerobic Blood Culture - Preliminary Resulted Blood Peripheral NO GROWTH IN 1 DAY 01/25/17 12:25 Anaerobic Blood Culture - Preliminary Resulted Blood Peripheral NO GROWTH IN 1 DAY 01/23/17 16:00 Urine Culture - Final Complete Urine Catheterized Urine Escherichia Coli Group B Beta Strep Imaging Last Impressions Chest X-Ray 01/25/17 0600 Signed Impressions: Service Date/Time: Wednesday, January 25, 2017 04:20 - CONCLUSION: No significant interval change. Lui Sanchez MD Physical Exam HEENT: On vent. no blood. normocephalic; atraumatic; no jaundice. NECK: Neck is supple CHEST: CTA, OETT to vent CARDIAC: RRR ABDOMEN: Soft, nondistended, nontender; hepatosplenomegaly; bowel sounds are present in all four quadrants. EXTREMITIES: BLE edema. SKIN: spider angiomas; no jaundice. 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 Pt with liver cirrhosis, portal hypertensive gastropathy, recurrent GIB- ongoing etoh abuse. Came to ER for hematemesis with dark red blood. S/P EGD (01/22/17)----> severe gastropathy, few areas bleeding ablated, retroflexed views reveal large blood clots. On PPI HH 10.5/30 stable on more melanotic stools - Anemia, acute blood loss. S/P 4 units PRBC, 2 units FFP, 2 units platelets. HH10.5/30 , stable now - Thrombocytopenia. Plt71 - Liver cirrhosis, Elevated LFTs. - Resp. Failure, Vent per [facility] - Hypokalemia, hypernatremia per primary PLAN: - Cont. PPN, there is plans for extubation - Protonix 40mg BID - Monitor hh - Transfuse as necessary - Supportive care - Further recommendations to follow based on results of above - Pt seen and examined by Dr. Alas and myself and this note is written on his behalf Colt Rowley Jan 26, 2017 15:00
--- NOTE | 2017-01-26 15:15 | HHI.CCPN ---
Subjective Remarks/Hospital Course This is a well-known patient to [facility] previously admitted November 2016, December 2016 for active GI bleeding with interventions. The patient presented to [facility] this a.m., with complaints of hematemesis, approximately 1300 cc. The patient has a significant history for alcoholism. This patient is an alcoholic who was drinking today. She complained of nausea and vomiting. She denied melena or rectal bleeding. She is not having abdominal pain.At [place] ED the patient was noted to be significantly hypotensive, systolic blood pressure in the 80s she received boluses of IV fluid, 2 units of packed red blood cells and 10 mg of vitamin K IV . Critical care medicine was consulted for management. The patient was transferred to [facility]. Dr. Evangelina HILARIO was consulted, plans for EGD today. Subjective 01/23: Tmax 99.8. The patient underwent EGD last night and was noted to have severe gastropathy and underwent ablation of areas. Copious amount of bleeding was noted, to include orogastric. ETT remains for airway protection, patient is sedated .Patient being monitor closely for continued blood loss. Tentative plans for possible repeat panendoscopy if patient continues to bleed or for further evaluation. 01/24: Tmax 100.5. The patient continues to have copious melanotic tarry stools. Serial hemoglobins remaining approximately 8.0.. Electrolyte replacement continuous secondary to voluminous diarrhea, > 600cc, and 12hrs. Will initiate PPN for nutritional support, as the patient remains nothing by mouth. 01/25: Tmax 101.7. Blood and urine cultures obtained. The patient was placed on CPAP trials this morning and continues. Sedation discontinued greater than 24 hours. Melanotic stools have stopped during the night, hemoglobin stable. Plan to continue to wean for extubation. 01/26:Tmax 101.4. Blood, urine and sputum cultures obtained. UA revealed E Coli , group B strep. The patient was placed on Rocephin. The patient became tachycardic and hypotensive yesterday, and the patient received Ativan overnight. CPAP trials attempted and failed. The patient has not had any stools greater than 48 hours, will continue to attempt CPAP trials with the plan towards extubation. Objective Vital Signs Date Time Temp Pulse Resp B/P Pulse Ox O2 Delivery O2 Flow Rate FiO2 01/26/17 12:00 101.1 110 21 105/71 97 01/26/17 12:00 35 01/22/17 16:00 Room Air Intake and Output 01/25/17 01/25/17 01/26/17 08:00 16:00 00:00 Intake Total 2099 ml 1178 ml 1443 ml Output Total 1150 ml 1850 ml 3700 ml Balance 949 ml -672 ml -2257 ml Result Diagram: 01/26/17 0400 01/26/17 0450 Other Results Microbiology Date/Time Procedure Status Source Growth 01/23/17 16:00 Urine Culture - Final Complete Urine Catheterized Urine Escherichia Coli Group B Beta Strep Imaging Last Impressions Chest X-Ray 01/25/17 0600 Signed Impressions: Service Date/Time: Wednesday, January 25, 2017 04:20 - CONCLUSION: No significant interval change. Lui Sanchez MD Objective Remarks GENERAL: Well-developed female intubated and sedated SKIN: Warm and dry. HEAD: Atraumatic. Normocephalic. EYES: Pupils equal and round. No scleral icterus. No injection or drainage. ENT: No nasal bleeding or discharge. Mucous membranes pink and moist. ETT resolution of bloody secretions NECK: Trachea midline. No JVD. CARDIOVASCULAR: Normal rate, regular rhythm. RESPIRATORY: Mechanical ventilation. Clear to auscultation. Breath sounds equal bilaterally. GASTROINTESTINAL: Abdomen soft, non-tender, nondistended. No guarding. MUSCULOSKELETAL: Extremities without clubbing, cyanosis, 1+ peripheral edema noted B/L extremities. No obvious deformities. NEUROLOGICAL: GCS 3T. Intubated and sedated. Urinary Catheter: Yes Moy insert reason: Measure Accurate Output Date of Insertion: Jan 22, 2017 A/P Assessment and Plan Plan by systems: Neurologic: Alcohol abuse Anxiety disorder Patient extremely lethargic, sedation off greater than 24 hours. Propofol and Fentanyl infusions discontinued 01/25 Monitor for signs of alcohol withdrawal, and seizure activity Ativan when necessary for agitation, monitor for signs of seizure activity Psychiatry consult when clinically appropriate Multivitamin bag 4 of 5 days Thiamine x 3 days IV, then convert if applicable to PO Respiratory: Tobacco abuse Maintain O2 sat greater than 92%. Patient remains intubated for airway protection secondary to upper GI bleed Mechanical ventilation CPAP trials 10/5 FIO2 .35 for greater than 48 hours, but will not follow commands for SBT Bronchodilators q 6 hr scheduled, every 2 hours when necessary Patient counseled on smoking cessation 01/22 Ventilator bundle Maintain head of bed 30 Cardiovascular: Moderate tricuspid regurgitation Mild mitral regurgitation Hypotension secondary to acute blood loss anemia Hemorrhagic shock-resolved Sinus tachycardia 11/19 echo ejection fraction 6065 %, moderate tricuspid regurgitation, mild mitral regurgitation, mild LAE, no RWMA Maintain MAP, greater than 65 mmHg Renal: Hypocalcemia Hypomagnesemia Hypokalemia Monitor BMP Continue to replete electrolytes per ICU protocol Calcium gluconate 2 g IV Potassium replaced -- Strict I/Os FEN/GI: GI bleed Pulmonary hypertensive gastropathy Liver cirrhosis without ascites Esophageal varices Hematemesis Melena Diarrhea Maintain nothing by mouth status 01/22 EGD-Dr. Hutchisnon-severe gastropathy status post ablation 11/16 LA Class B esophagitis,S/P EGD with ablation 12/23 LA Class A esophagitis,S/P EGD with ablation and heater probe Octreotide infusion discontinued 01/25 01/25 Protonix infusion transitioned to BID dosing Rocephin every 24 hours for SBP prophylaxis Will consider propranolol for portal hypertension prophylaxis, when clinically indicated and patient hemodynamically stable Heme/ID: Acute blood loss anemia History of iron deficiency anemia Thrombocytopenia UTI Transfuse for hemoglobin less than 7., Hemoglobin 8.6, likely hemoconcentration Platelet count 64-> 62, transfuse platelet count less than 50 Monitor every 6 hours hemoglobin and hematocrit Patient received 01/22 4 units PRBC, and 2 units FFP INR 1.3 01/25 Blood, and sputum -NGTD 01/25 urine culture-Escherichia coli, group B strep 01/26-add Zosyn 4.5 g every 6 hours Endocrine: Glucose monitoring per ICU protocol -- SSI Prophylaxis: GI Prophylaxis Protonix infusion DVT Prophylaxis -- SCDs No pharmacological prophylaxis in the setting of GI bleed Lines: Peripheral IVs 2. Central line if indicated Dispo: Discussed with BUSINESS EXCELLENCE LEADER at bedside. Updated parents on patient's medical status which remains critical at this time to mother Constance [phone], [phone] This patient remains critically ill with one or more organ systems which are or may become a threat to life. I have spent in excess of 31 minutes discontinuously in the care and management of this patient. This time is exclusive of procedures, and includes, but is not limited to, evaluation of the patient, review of the medical record, discussions with family, consultants, nursing staff, or respiratory therapy, and documentation in the medical record. Physician Enma Robles MD Jan 26, 2017 15:15
[2017-01-26] MEDS: cefTRIAXone INJ 1,000 MG in SODIUM CHLORIDE 0.9% INJ 100 ML IV SCH (16:23)
[2017-01-26] MEDS: PIPERACIL-TAZO 4.5 GM PREMIX 100 ML IV SCH ×2 (16:23→19:39)
[2017-01-26] MEDS: FAT EMULSION 20% INJ 250 ML (@10 mls/hr) IV SCH (19:36)
[2017-01-26] MEDS: CLINIMIX E 4.25/5 1000 mL- </= 42 mls/hr IV SCH ×3 (19:40)
[2017-01-26] MEDS ORDERED: PROPOFOL 1000 MG/100 ML INJ 100 ML IV SCH (20:30)
[2017-01-26 22:03] LABS: POTASSIUM 3.4 MEQ/L (3.5-5.1)
[2017-01-27] VITALS (19 sets, daily range): BP systolic 94–109; BP diastolic 57–70; PULSE 94–114; RESP 10–14; TEMP 98.2–99.2; O2SAT 95–100
[2017-01-27] MEDS: RESP: ALBUTEROL 2.5 MG/IPRATROPIUM 0.5 MG NEB (SCH) NEB ×2 (03:28→07:47)
[2017-01-27] MEDS: CHLORHEXIDINE GLUCONATE 2 % 1 PACK (2 CLOTHS) TOP SCH (04:00)
[2017-01-27] MEDS: PANTOPRAZOLE SODIUM 40 MG VIAL IV PUSH SCH ×2 (05:35→17:36)
[2017-01-27] MEDS: PIPERACIL-TAZO 4.5 GM PREMIX 100 ML IV SCH ×4 (05:35→19:28)
--- NOTE | 2017-01-27 06:34 | RADRPT ---
EXAM DATE/TIME: 01/27/2017 04:08 [place] COMPARISON: CHEST SINGLE AP, January 25, 2017, 4:20. INDICATIONS : Shortness of breath, possible pulmonary disease. MEDICAL HISTORY : None. SURGICAL HISTORY : None. ENCOUNTER: Subsequent ACUITY: 1 week PAIN SCORE: Non-responsive. LOCATION: Bilateral chest FINDINGS: The cardiac silhouette is normal in transverse diameter. There is improving left lower lobe atelectas is. Endotracheal tube is in good position above the [place]. The right lung is free of acute parenchym al opacity. CONCLUSION: 1. Resolving left lower lobe atelectasis versus pneumonia Christopher Nayak MD on January 27, 2017 at 6:32 Board Certified Radiologist. This report was verified electronically.
[2017-01-27 07:04] LABS: MAGNESIUM 1.7 MG/DL (1.5-2.5)
[2017-01-27 07:05] LABS: HEMATOCRIT 30.3 % (35.0-46.0); MEAN CELL VOLUME 87.1 FL (80.0-100.0); MEAN CORPUSCULAR HEMOGLOBIN 29.8 PG (27.0-34.0); MEAN CORPUSCULAR HGB CONC 34.2 % (32.0-36.0); PLATELET COUNT 70 TH/MM3 (150-450); RED BLOOD COUNT 3.48 MIL/MM3 (4.00-5.30); RED CELL DISTRIBUTION WIDTH 19.3 % (11.6-17.2); WHITE BLOOD COUNT 6.5 TH/MM3 (4.0-11.0)
[2017-01-27 07:09] LABS: POTASSIUM 2.9 MEQ/L (3.5-5.1)
[2017-01-27 07:15] LABS: HEMO FLAGS AUTO DIFF
[2017-01-27] MEDS: CHLORHEXIDINE 0.12% (ORAL KIT) 15 ML CUP MT SCH ×2 (07:40→20:00)
[2017-01-27] MEDS: POTASSIUM CHLOR 40 MEQ PREMIX 100 ML IV PRN ×2 (07:41→10:11)
[2017-01-27] MEDS: SODIUM CHLORIDE 0.9% FLUSH 10 ML FLUSH IV FLUSH SCH ×2 (07:41→19:28)
[2017-01-27] MEDS: THIAMINE HCL 100 MG TAB PO SCH (09:00)
[2017-01-27 09:32] LABS: BANDS 11 % (0-6); EOSINOPHILS 1 % (0-4); NEUTROPHIL # MANUAL DIFF 4.8 TH/MM3 (1.8-7.7); PLATELET ESTIMATE SMEAR LOW (NORMAL); PLATELET MORPHOLOGY NORMAL (NORMAL); POLYS (SEG NEUTROPHILS) 63 % (16-70); SCAN/DIFF FINAL DIFF MANUAL; WBC DIFF SAMPLE 100
--- NOTE | 2017-01-27 10:27 | HHI.GIFU ---
Subjective Remarks Attempts to extubate, she is on C-pap trials, still not waking up, no signs of bleeding per nurse. Objective Vitals I&O Vital Signs Date Time Temp Pulse Resp B/P Pulse Ox O2 Delivery O2 Flow Rate FiO2 01/27/17 08:00 108 01/27/17 08:00 99.2 108 14 103/62 100 01/27/17 08:00 35 01/27/17 07:48 100 35 01/27/17 06:00 107 01/27/17 04:03 100 35 01/27/17 04:00 35 01/27/17 04:00 99.1 105 14 109/61 98 01/27/17 04:00 101 01/27/17 02:00 94 01/27/17 01:20 100 35 01/27/17 00:00 105 01/27/17 00:00 35 01/27/17 00:00 99.2 102 10 101/70 99 01/26/17 22:19 99 35 01/26/17 22:00 126 01/26/17 20:30 100 35 01/26/17 20:00 120 01/26/17 20:00 35 01/26/17 20:00 99.5 120 23 130/82 100 01/26/17 18:00 117 01/26/17 16:00 110 01/26/17 16:00 35 01/26/17 16:00 101.3 110 23 116/82 98 01/26/17 15:26 100 35 01/26/17 14:00 110 01/26/17 12:00 101.1 110 21 105/71 97 01/26/17 12:00 35 01/26/17 12:00 110 01/26/17 11:38 100 35 I/O 01/26/17 01/26/17 01/26/17 01/27/17 01/27/17 01/27/17 07:00 15:00 23:00 07:00 15:00 23:00 Intake Total 572 ml 972 ml 494 ml 429 ml Output Total 2350 ml 1200 ml 1000 ml 350 ml Balance -1778 ml -228 ml -506 ml 79 ml Intake IV Total 162 ml 275 ml 267 ml 117 ml TPN/PPN 332 ml 563 ml 177 ml 252 ml Lipid 78 ml 134 ml 50 ml 60 ml Output Urine Total 2350 ml 1200 ml 1000 ml 350 ml Stool Total 0 ml # Bowel Movements 0 0 Laboratory Laboratory Tests Test 01/26/17 01/27/17 21:06 06:06 Potassium Level 3.4 2.9 Phosphorus Level 3.2 3.2 White Blood Count 6.5 Red Blood Count 3.48 Hemoglobin 10.4 Hematocrit 30.3 Mean Corpuscular Volume 87.1 Mean Corpuscular Hemoglobin 29.8 Mean Corpuscular Hemoglobin 34.2 Concent Red Cell Distribution Width 19.3 Platelet Count 70 Mean Platelet Volume 8.0 Neutrophils (%) (Auto) Lymphocytes (%) (Auto) Monocytes (%) (Auto) Eosinophils (%) (Auto) Basophils (%) (Auto) Neutrophils # (Auto) Lymphocytes # (Auto) Monocytes # (Auto) Eosinophils # (Auto) Basophils # (Auto) CBC Comment AUTO DIFF Differential Total Cells 100 Counted Neutrophils % (Manual) 63 Band Neutrophils % 11 Lymphocytes % 18 Monocytes % 7 Eosinophils % 1 Neutrophils # (Manual) 4.8 Differential Comment FINAL DIFF MANUAL Platelet Estimate LOW Platelet Morphology Comment NORMAL Sodium Level 139 Chloride Level 105 Carbon Dioxide Level 24.0 Anion Gap 10 Blood Urea Nitrogen 7 Creatinine 0.30 Estimat Glomerular Filtration 242 Rate Random Glucose 104 Calcium Level 7.7 Magnesium Level 1.7 Date/Time Procedure Status Source Growth 01/25/17 21:20 Urine Culture - Final Complete Urine Catheterized Urine Escherichia Coli 01/25/17 21:20 Gram Stain - Final Resulted Sputum Endotracheal 01/25/17 21:20 Sputum Culture - Preliminary Resulted Sputum Endotracheal NO GROWTH IN 24 HOURS. 01/25/17 12:25 Aerobic Blood Culture - Preliminary Resulted Blood Peripheral NO GROWTH IN 1 DAY 01/25/17 12:25 Anaerobic Blood Culture - Preliminary Resulted Blood Peripheral NO GROWTH IN 1 DAY Imaging Last Impressions Chest X-Ray 01/27/17 0600 Signed Impressions: Service Date/Time: Friday, January 27, 2017 04:08 - CONCLUSION: 1. Resolving left lower lobe atelectasis versus pneumonia Christopher Nayak MD Physical Exam HEENT: On vent. no blood. normocephalic; atraumatic; no jaundice. NECK: Neck is supple CHEST: CTA, OETT to vent CARDIAC: RRR ABDOMEN: Soft, nondistended, nontender; hepatosplenomegaly; bowel sounds are present in all four quadrants. EXTREMITIES: BLE edema. SKIN: spider angiomas; no jaundice. 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 Pt with liver cirrhosis, portal hypertensive gastropathy, recurrent GIB- ongoing etoh abuse. Came to ER for hematemesis with dark red blood. S/P EGD (01/22/17)----> severe gastropathy, few areas bleeding ablated, retroflexed views reveal large blood clots. On PPI HH 10.03/12 stable on more melanotic stools - Anemia, acute blood loss. S/P 4 units PRBC, 2 units FFP, 2 units platelets. HH stable now - Thrombocytopenia. Plt71 - Liver cirrhosis, Elevated LFTs. - Resp. Failure, Vent per [facility] - Hypokalemia, hypernatremia per primary 01/27/17 C-pap trials, no signs of bleeding, hh stable 10.02/10.3 PLAN: - Cont. PPN, there is plans for extubation - Protonix 40mg BID - Monitor hh - Transfuse as necessary - Supportive care - Further recommendations to follow based on results of above - Pt seen and examined by Dr. Alas and myself and this note is written on his behalf Colt Rowley Jan 27, 2017 10:27
[2017-01-27 10:28] LABS: APTT (PATIENT) 27.8 SEC (24.3-30.1)
--- NOTE | 2017-01-27 13:34 | HHI.CCPN ---
Subjective Remarks/Hospital Course This is a well-known patient to [facility] previously admitted November 2016, December 2016 for active GI bleeding with interventions. The patient presented to [facility] this a.m., with complaints of hematemesis, approximately 1300 cc. The patient has a significant history for alcoholism. This patient is an alcoholic who was drinking today. She complained of nausea and vomiting. She denied melena or rectal bleeding. She is not having abdominal pain.At [place] ED the patient was noted to be significantly hypotensive, systolic blood pressure in the 80s she received boluses of IV fluid, 2 units of packed red blood cells and 10 mg of vitamin K IV . Critical care medicine was consulted for management. The patient was transferred to [facility]. Dr. Evangelina HILARIO was consulted, plans for EGD today. Subjective 01/23: Tmax 99.8. The patient underwent EGD last night and was noted to have severe gastropathy and underwent ablation of areas. Copious amount of bleeding was noted, to include orogastric. ETT remains for airway protection, patient is sedated .Patient being monitor closely for continued blood loss. Tentative plans for possible repeat panendoscopy if patient continues to bleed or for further evaluation. 01/24: Tmax 100.5. The patient continues to have copious melanotic tarry stools. Serial hemoglobins remaining approximately 8.0.. Electrolyte replacement continuous secondary to voluminous diarrhea, > 600cc, and 12hrs. Will initiate PPN for nutritional support, as the patient remains nothing by mouth. 01/25: Tmax 101.7. Blood and urine cultures obtained. The patient was placed on CPAP trials this morning and continues. Sedation discontinued greater than 24 hours. Melanotic stools have stopped during the night, hemoglobin stable. Plan to continue to wean for extubation. 01/26:Tmax 101.4. Blood, urine and sputum cultures obtained. UA revealed E Coli , group B strep. The patient is on Rocephin for SBP, Zosyn added. The patient became tachycardic and hypotensive yesterday, and the patient received Ativan overnight. CPAP trials attempted and failed. The patient has not had any stools greater than 48 hours, will continue to attempt CPAP trials with the plan towards extubation. 01/27: Tmax 99.2. The patient was placed back on propofol infusion and received Ativan on 2 occasions last night secondary to agitation. Propofol has been discontinued, CPAP trials have she is continued on CPAP for greater than 3 days but is not following commands. Will decrease Ativan amount and frequency, and continue SBT trials for a plan of extubation. The patient continues on PPN. No signs of bleeding noted Objective Vital Signs Date Time Temp Pulse Resp B/P Pulse Ox O2 Delivery O2 Flow Rate FiO2 01/27/17 12:08 100 35 01/27/17 12:00 106 01/27/17 12:00 98.2 11 96/59 Intake and Output 01/26/17 01/26/17 01/27/17 08:00 16:00 00:00 Intake Total 572 ml 972 ml 494 ml Output Total 2350 ml 1200 ml 1000 ml Balance -1778 ml -228 ml -506 ml Result Diagram: 01/27/17 0606 01/27/17 0606 Other Results Microbiology Date/Time Procedure Status Source Growth 01/25/17 21:20 Urine Culture - Final Complete Urine Catheterized Urine Escherichia Coli Imaging Last Impressions Chest X-Ray 01/25/17 0600 Signed Impressions: Service Date/Time: Wednesday, January 25, 2017 04:20 - CONCLUSION: No significant interval change. Lui Sanchez MD Objective Remarks GENERAL: Well-developed female intubated and sedated SKIN: Warm and dry. HEAD: Atraumatic. Normocephalic. EYES: Pupils equal and round. No scleral icterus. No injection or drainage. ENT: No nasal bleeding or discharge. Mucous membranes pink and moist. ETT resolution of bloody secretions NECK: Trachea midline. No JVD. CARDIOVASCULAR: Normal rate, regular rhythm. RESPIRATORY: Mechanical ventilation. Clear to auscultation. Breath sounds equal bilaterally. GASTROINTESTINAL: Abdomen soft, non-tender, nondistended. No guarding. MUSCULOSKELETAL: Extremities without clubbing, cyanosis, 1+ peripheral edema noted B/L extremities. No obvious deformities. NEUROLOGICAL: GCS 3T. Intubated and sedated. Urinary Catheter: Yes Date of Insertion: Jan 22, 2017 Vascular Central Line Catheter: No A/P Assessment and Plan Plan by systems: Neurologic: Alcohol abuse Anxiety disorder Patient extremely lethargic, sedation off greater than 24 hours. Propofol and Fentanyl infusions discontinued 01/25, propofol restarted might 4/15 discontinued Discontinue all sedatives with plan for neurological assessment and extubation Monitor for signs of alcohol withdrawal, and seizure activity Ativan when necessary for agitation, monitor for signs of seizure activity Psychiatry consult when clinically appropriate Multivitamin bag 5 of 5 days Thiamine x 3 days IV, then convert if applicable to PO Respiratory: Tobacco abuse Maintain O2 sat greater than 92%. Patient remains intubated for airway protection secondary to upper GI bleed Mechanical ventilation CPAP trials 10/5 FIO2 .35 for greater than 3 day, but will not follow commands for SBT Bronchodilators q 6 hr scheduled, every 2 hours when necessary Patient counseled on smoking cessation 01/22 Ventilator bundle Maintain head of bed 30 Cardiovascular: Moderate tricuspid regurgitation Mild mitral regurgitation Hypotension secondary to acute blood loss anemia Hemorrhagic shock-resolved Sinus tachycardia 11/19 echo ejection fraction 6065 %, moderate tricuspid regurgitation, mild mitral regurgitation, mild LAE, no RWMA Maintain MAP, greater than 65 mmHg Renal: Hypocalcemia-resolved Hypomagnesemia-resolved Hypokalemia Monitor BMP Continue to replete electrolytes per ICU protocol Potassium replaced -- Strict I/Os FEN/GI: GI bleed Pulmonary hypertensive gastropathy Liver cirrhosis without ascites Esophageal varices Hematemesis Melena Diarrhea Maintain nothing by mouth status 01/22 EGD-Dr. Hutchinson-severe gastropathy status post ablation 11/16 LA Class B esophagitis,S/P EGD with ablation 12/23 LA Class A esophagitis,S/P EGD with ablation and heater probe Octreotide infusion discontinued 01/25 01/25 Protonix infusion changed to BID dosing Rocephin every 24 hours for SBP prophylaxis Will consider propranolol for portal hypertension prophylaxis, when clinically indicated and patient hemodynamically stable Heme/ID: Acute blood loss anemia History of iron deficiency anemia Thrombocytopenia UTI Transfuse for hemoglobin less than 7., Hgb stable Platelet count 64-> 62, transfuse platelet count less than 50 Monitor hemoglobin and hematocrit Patient received 01/22 4 units PRBC, and 2 units FFP INR 1.3 01/25 Blood, and sputum -NGTD 01/25 urine culture-Escherichia coli, group B strep 01/26-added Zosyn 4.5 g every 6 hours 01/23- Rocephin -SBP prophylaxis Endocrine: Glucose monitoring per ICU protocol -- SSI Prophylaxis: GI Prophylaxis 01/25 Protonix BID DVT Prophylaxis -- SCDs No pharmacological prophylaxis in the setting of GI bleed Lines: Peripheral IVs 2. Central line if indicated Dispo: Discussed with STUDY SPECIALIST at bedside. Updated parents on patient's medical status which remains critical at this time to mother Constance [phone], [phone] This patient remains critically ill with one or more organ systems which are or may become a threat to life. I have spent in excess of 30 minutes discontinuously in the care and management of this patient. This time is exclusive of procedures, and includes, but is not limited to, evaluation of the patient, review of the medical record, discussions with family, consultants, nursing staff, or respiratory therapy, and documentation in the medical record. Physician Enma Robles MD Jan 27, 2017 13:34
[2017-01-27] MEDS: cefTRIAXone INJ 1,000 MG in SODIUM CHLORIDE 0.9% INJ 100 ML IV SCH (15:39)
[2017-01-27] MEDS: POTASSIUM CHLOR 20 MEQ PREMIX 100 ML IV PRN (17:36)
[2017-01-27] MEDS: CLINIMIX E 4.25/5 1000 mL- </= 42 mls/hr IV SCH ×3 (19:28)
[2017-01-27] MEDS: FAT EMULSION 20% INJ 250 ML (@10 mls/hr) IV SCH (19:28)
[2017-01-27] MEDS ORDERED: LORazepam 2 MG/ML VIAL IV PRN (20:00)
[2017-01-28] VITALS (18 sets, daily range): BP systolic 89–101; BP diastolic 55–66; PULSE 91–112; RESP 10–41; TEMP 98.9–100.2; O2SAT 95–100
[2017-01-28] MEDS: CHLORHEXIDINE GLUCONATE 2 % 1 PACK (2 CLOTHS) TOP SCH (04:00)
[2017-01-28] MEDS: PIPERACIL-TAZO 4.5 GM PREMIX 100 ML IV SCH ×4 (04:00→20:49)
[2017-01-28] MEDS: PANTOPRAZOLE SODIUM 40 MG VIAL IV PUSH SCH ×2 (06:06→17:37)
[2017-01-28] MEDS ORDERED: GLUCAGON 1 MG/ML VIAL OTHER PRN (08:15)
[2017-01-28] MEDS ORDERED: DEXTROSE 50% IN WATER 50 ML VIAL(D50) IV PUSH PRN (08:15)
--- NOTE | 2017-01-28 08:28 | HHI.CCPN ---
Subjective Remarks/Hospital Course This is a well-known patient to [facility] previously admitted November 2016, December 2016 for active GI bleeding with interventions. The patient presented to [facility] this a.m., with complaints of hematemesis, approximately 1300 cc. The patient has a significant history for alcoholism. This patient is an alcoholic who was drinking today. She complained of nausea and vomiting. She denied melena or rectal bleeding. She is not having abdominal pain.At [place] ED the patient was noted to be significantly hypotensive, systolic blood pressure in the 80s she received boluses of IV fluid, 2 units of packed red blood cells and 10 mg of vitamin K IV . Critical care medicine was consulted for management. The patient was transferred to [facility]. Dr. Evangelina HILARIO was consulted, plans for EGD today. Subjective 01/23: Tmax 99.8. The patient underwent EGD last night and was noted to have severe gastropathy and underwent ablation of areas. Copious amount of bleeding was noted, to include orogastric. ETT remains for airway protection, patient is sedated .Patient being monitor closely for continued blood loss. Tentative plans for possible repeat panendoscopy if patient continues to bleed or for further evaluation. 01/24: Tmax 100.5. The patient continues to have copious melanotic tarry stools. Serial hemoglobins remaining approximately 8.0.. Electrolyte replacement continuous secondary to voluminous diarrhea, > 600cc, and 12hrs. Will initiate PPN for nutritional support, as the patient remains nothing by mouth. 01/25: Tmax 101.7. Blood and urine cultures obtained. The patient was placed on CPAP trials this morning and continues. Sedation discontinued greater than 24 hours. Melanotic stools have stopped during the night, hemoglobin stable. Plan to continue to wean for extubation. 01/26:Tmax 101.4. Blood, urine and sputum cultures obtained. UA revealed E Coli , group B strep. The patient is on Rocephin for SBP, Zosyn added. The patient became tachycardic and hypotensive yesterday, and the patient received Ativan overnight. CPAP trials attempted and failed. The patient has not had any stools greater than 48 hours, will continue to attempt CPAP trials with the plan towards extubation. 01/27: Tmax 99.2. The patient was placed back on propofol infusion and received Ativan on 2 occasions last night secondary to agitation. Propofol has been discontinued, CPAP trials have she is continued on CPAP for greater than 3 days but is not following commands. Will decrease Ativan amount and frequency, and continue SBT trials for a plan of extubation. The patient continues on PPN. No signs of bleeding noted 01/28 Patient is awake on CPAP with PS 15, PEEP:5 and FIO2 35%, on no sedation. Afebrile. Objective Vital Signs Date Time Temp Pulse Resp B/P Pulse Ox O2 Delivery O2 Flow Rate FiO2 01/28/17 07:58 98 35 01/28/17 06:00 95 01/28/17 04:00 99.0 12 97/63 Intake and Output 01/27/17 01/27/17 01/28/17 08:00 16:00 00:00 Intake Total 429 ml 866 ml 922 ml Output Total 350 ml 525 ml 350 ml Balance 79 ml 341 ml 572 ml Result Diagram: 01/27/17 0606 01/27/17 1602 Other Results Laboratory Tests Test 01/27/17 01/27/17 09:55 16:02 Activated Partial 27.8 SEC Thromboplast Time Potassium Level 3.1 MEQ/L Imaging Last Impressions Chest X-Ray 01/27/17 0600 Signed Impressions: Service Date/Time: Friday, January 27, 2017 04:08 - CONCLUSION: 1. Resolving left lower lobe atelectasis versus pneumonia Christopher Nayak MD Objective Remarks GENERAL: Patient is 46 yo intubated SKIN: Warm and dry. HEAD: Normocephalic. EYES: No scleral icterus. No injection or drainage. NECK: Supple, trachea midline. No JVD or lymphadenopathy. Orally intubated CARDIOVASCULAR: Regular rate and rhythm without murmurs, gallops, or rubs. RESPIRATORY: Breath sounds equal bilaterally. No accessory muscle use. GASTROINTESTINAL: Abdomen soft, non-tender, nondistended. MUSCULOSKELETAL: No cyanosis, or edema. Neuro: Awake. Date of Insertion: Jan 22, 2017 A/P Assessment and Plan Plan by systems: Neurologic: Alcohol abuse Anxiety disorder Monitor for signs of alcohol withdrawal, and seizure activity Ativan when necessary for agitation, monitor for signs of seizure activity Psychiatry consult when clinically appropriate Continue with Thiamine/MVI/Folic acid Respiratory: Tobacco abuse Continue with vent support keep sat >92% Bronchodilators q 6 hr scheduled, every 2 hours when necessary Ventilator bundle, CPAP trials as herbie and possible extubation today Maintain head of bed 30 Cardiovascular: Moderate tricuspid regurgitation Mild mitral regurgitation Hypotension secondary to acute blood loss anemia Hemorrhagic shock-resolved Sinus tachycardia 2/6 echo ejection fraction 6065 %, moderate tricuspid regurgitation, mild mitral regurgitation, mild LAE, no RWMA Monitor HR and BP keep MAP>65mmHg Renal: Monitor renal function, I/O's, electrolytes replacemetn per protocol. FEN/GI: GI bleed Gastropathy Liver cirrhosis without ascites Esophageal varices Hematemesis Melena Diarrhea NPO per GI S/P EGD (01/22/17)----> severe gastropathy, few areas bleeding ablated, retroflexed views reveal large blood clots. 11/16 LA Class B esophagitis,S/P EGD with ablation 12/23 LA Class A esophagitis,S/P EGD with ablation and heater probe Octreotide infusion discontinued 01/25 On Protonix 40mg BID Continue with Zosyn for SBP prophylaxis Contigen with PPN@42 ml/hr, Lipids 10ml/hr Heme/ID: Acute blood loss anemia History of iron deficiency anemia Thrombocytopenia UTI Monitor CBC Patient received 01/22 4 units PRBC, and 2 units FFP INR 1.3 01/25 Blood, and sputum -NGTD 01/25 urine culture-Escherichia coli, group B strep Continue with abx ( Zosyn) d/c Rocephin, monitor for signs of infections ( Fever , WBC) check Sputum cx, UA with cx if indicated Endocrine: Glucose monitoring per ICU protocol -- SSI Prophylaxis: GI Prophylaxis Protonix infusion DVT Prophylaxis -- SCDs No pharmacological prophylaxis in the setting of GI bleed Lines: Peripheral IVs 2. Addendum: Patient is on 4L oxygen with good sats. Will sign off and transfer care to [facility] Level 3 Markus Sales MD Jan 28, 2017 08:28
[2017-01-28 08:51] LABS: AUTOMATED NEUTROPHIL # 3.6 TH/MM3 (1.8-7.7); BASOPHIL % 0.5 % (0.0-2.0); EOSINOPHIL # 0.1 TH/MM3 (0-0.4); HEMATOCRIT 27.8 % (35.0-46.0); LYMPH % 14.7 % (9.0-44.0); LYMPHOCYTE # 0.8 TH/MM3 (1.0-4.8); MEAN CELL VOLUME 87.3 FL (80.0-100.0); MEAN CORPUSCULAR HEMOGLOBIN 28.8 PG (27.0-34.0); MONO % 20.1 % (0.0-8.0); NEUT % 63.7 % (16.0-70.0); PLATELET COUNT 70 TH/MM3 (150-450); RED BLOOD COUNT 3.19 MIL/MM3 (4.00-5.30); RED CELL DISTRIBUTION WIDTH 19.2 % (11.6-17.2); WHITE BLOOD COUNT 5.6 TH/MM3 (4.0-11.0)
[2017-01-28 08:53] LABS: HEMO FLAGS AUTO DIFF
[2017-01-28] MEDS: INSULIN NovoLIN REGULAR SUPPLEMENTAL SCALE SQ SCH ×3 (09:00→20:45)
[2017-01-28] MEDS: SODIUM CHLORIDE 0.9% FLUSH 10 ML FLUSH IV FLUSH SCH ×2 (09:00→20:45)
[2017-01-28 09:01] LABS: INTERNATIONAL NORMALIZED RATIO 1.2 RATIO; PROTHROMBIN TIME - PATIENT 13.9 SEC (9.8-11.6)
[2017-01-28 09:07] LABS: ANION GAP 7 MEQ/L (5-15); AST (GOT) 55 U/L (15-37); BLOOD UREA NITROGEN 9 MG/DL (7-18); CHLORIDE 106 MEQ/L (98-107); GLOMERULAR FILTRATION RATE 164 ML/MIN (>89); MAGNESIUM 1.9 MG/DL (1.5-2.5); SODIUM (NA) 138 MEQ/L (136-145)
[2017-01-28 09:09] LABS: POTASSIUM 2.9 MEQ/L (3.5-5.1)
[2017-01-28 09:14] LABS: ALKALINE PHOSPHATASE 160 U/L (45-117); ALT (GPT) 25 U/L (10-53)
[2017-01-28 09:21] LABS: BANDS 9 % (0-6); DOHLE BODIES PRESENT (NONE SEEN); EOSINOPHILS 1 % (0-4); NEUTROPHIL # MANUAL DIFF 4.2 TH/MM3 (1.8-7.7); POLYS (SEG NEUTROPHILS) 66 % (16-70); WBC DIFF SAMPLE 100
[2017-01-28 09:22] LABS: PLATELET ESTIMATE SMEAR LOW (NORMAL); PLATELET MORPHOLOGY NORMAL (NORMAL); SCAN/DIFF FINAL DIFF MANUAL
[2017-01-28] MEDS: CHLORHEXIDINE 0.12% (ORAL KIT) 15 ML CUP MT SCH ×2 (09:26→20:00)
[2017-01-28] MEDS: POTASSIUM CHLOR 20 MEQ PREMIX 100 ML IV PRN ×4 (09:26→17:38)
[2017-01-28 10:21] LABS: BLOOD GAS BASE EXCESS -0.5 mmol/L (-2-2); BLOOD GAS CARBOXYHEMOGLOBIN 1.8 % (0-4); BLOOD GAS HCO3 22 mmol/L (22-26); BLOOD GAS METHEMOGLOBIN 1.1 % (0-2); BLOOD GAS O2 HGB SATURATION 96 % (90-100); BLOOD GAS OXYGEN CONTENT 12.2 Vol % (12.0-20.0); BLOOD GAS PCO2 29 mmHg (38-42); BLOOD GAS PO2 114 mmHg (61-120); BLOOD GAS TOTAL HGB 8.9 G/DL (12.0-16.0); CRITICAL VALUE NO; DRAW SITE RT RADIAL; FIO2 35 %; NUMBER OF ARTERIAL PUNCTURES 2; OXYGEN DEVICE VENTILATOR; STAT NO; TEMP CORR TO 98.6; ULNAR PULSE PRESENT; VENT SETTINGS CPAP/PS5/PEEP5
[2017-01-28] MEDS: THIAMINE HCL 100 MG TAB PO SCH (10:59)
[2017-01-28] MEDS: FOLIC ACID 1 MG TAB PO SCH (10:59)
[2017-01-28] MEDS: LACTULOSE SYRUP 20 GM/30 ML CUP PO SCH ×2 (10:59→20:53)
[2017-01-28] MEDS: MULTIVITAMIN TAB PO SCH (10:59)
[2017-01-28 11:17] LABS: BACTERIA, URINE OCC /hpf; BLOOD, URINE NEG (NEG); GLUCOSE,URINE NEG (NEG); KETONE, URINE NEG (NEG); NITRITE,URINE NEG (NEG); PH, URINE 6.5 (5.0-8.5); SQUAMOUS EPITHELIAL CELL URINE <1 /hpf (0-5); URINE COLOR YELLOW (YELLW/STRAW)
[2017-01-28 11:18] LABS: COMMENT (UR) CATH-CULTURE IND; CULTURE IF INDICATED CATH CULTURE IND
--- NOTE | 2017-01-28 16:36 | HHI.GIFU ---
Subjective Remarks She is resting in bed, eating popsicle. Nonverbal. Nods or shakes head to respond: denies nausea, vomiting, bleeding, abdominal pain. Per her nurse she is still having black stools. Had 1 black BM today. Objective Vitals I&O Vital Signs Date Time Temp Pulse Resp B/P Pulse Ox O2 Delivery O2 Flow Rate FiO2 01/28/17 12:00 95 01/28/17 12:00 98.9 95 24 94/64 99 01/28/17 10:35 97 Nasal Cannula 4 01/28/17 10:00 102 01/28/17 08:35 97 35 01/28/17 08:00 102 01/28/17 08:00 35 01/28/17 08:00 100.2 102 12 89/55 98 01/28/17 07:58 98 35 01/28/17 06:00 95 01/28/17 04:41 97 35 01/28/17 04:00 101 01/28/17 04:00 99.0 99 12 97/63 95 01/28/17 04:00 35 01/28/17 02:00 103 01/28/17 01:13 100 35 01/28/17 00:00 35 01/28/17 00:00 99.3 112 10 101/66 96 01/28/17 00:00 105 01/27/17 22:18 97 35 01/27/17 22:00 102 01/27/17 20:00 99.2 108 10 94/57 95 01/27/17 20:00 35 01/27/17 20:00 103 01/27/17 19:49 98 35 01/27/17 18:00 100 I/O 01/27/17 01/27/17 01/27/17 01/28/17 01/28/17 01/28/17 07:00 15:00 23:00 07:00 15:00 23:00 Intake Total 429 ml 866 ml 922 ml 433 ml Output Total 350 ml 525 ml 350 ml 400 ml Balance 79 ml 341 ml 572 ml 33 ml Intake IV Total 117 ml 408 ml 922 ml 433 ml TPN/PPN 252 ml 370 ml Lipid 60 ml 88 ml Output Urine Total 350 ml 425 ml 350 ml 400 ml Stool Total 100 ml # Bowel Movements 0 1 2 Laboratory Laboratory Tests Test 01/28/17 01/28/1717 08:42 10:10 10:25 White Blood Count 5.6 Red Blood Count 3.19 Hemoglobin 9.2 Hematocrit 27.8 Mean Corpuscular Volume 87.3 Mean Corpuscular Hemoglobin 28.8 Mean Corpuscular Hemoglobin 33.0 Concent Red Cell Distribution Width 19.2 Platelet Count 70 Mean Platelet Volume 8.4 Neutrophils (%) (Auto) 63.7 Lymphocytes (%) (Auto) 14.7 Monocytes (%) (Auto) 20.1 Eosinophils (%) (Auto) 1.0 Basophils (%) (Auto) 0.5 Neutrophils # (Auto) 3.6 Lymphocytes # (Auto) 0.8 Monocytes # (Auto) 1.1 Eosinophils # (Auto) 0.1 Basophils # (Auto) 0.0 CBC Comment AUTO DIFF Differential Total Cells 100 Counted Neutrophils % (Manual) 66 Band Neutrophils % 9 Lymphocytes % 11 Monocytes % 13 Eosinophils % 1 Neutrophils # (Manual) 4.2 Differential Comment FINAL DIFF MANUAL Atypical Lymphocytes Dohle Bodies PRESENT Platelet Estimate LOW Platelet Morphology Comment NORMAL Prothrombin Time 13.9 Prothromb Time International 1.2 Ratio Sodium Level 138 Potassium Level 2.9 Chloride Level 106 Carbon Dioxide Level 25.0 Anion Gap 7 Blood Urea Nitrogen 9 Creatinine 0.42 Estimat Glomerular Filtration 164 Rate Random Glucose 106 Calcium Level 7.7 Phosphorus Level 2.6 Magnesium Level 1.9 Total Bilirubin 3.0 Aspartate Amino Transf 55 (AST/SGOT) Alanine Aminotransferase 25 (ALT/SGPT) Alkaline Phosphatase 160 Ammonia 51 Total Protein 5.2 Albumin 1.8 Blood Gas Puncture Site RT RADIAL Blood Gas Patient Temperature 98.6 Blood Gas HCO3 22 Blood Gas Base Excess -0.5 Blood Gas Oxygen Saturation 96 Arterial Blood pH 7.50 Arterial Blood Partial 29 Pressure CO2 Arterial Blood Partial 114 Pressure O2 Arterial Blood Oxygen Content 12.2 Arterial Blood 1.8 Carboxyhemoglobin Arterial Blood Methemoglobin 1.1 Blood Gas Hemoglobin 8.9 Oxygen Delivery Device VENTILATOR Blood Gas Ventilator Setting CPAP/PS5/PEEP5 Blood Gas Inspired Oxygen 35 Urine Color YELLOW Urine Turbidity CLEAR Urine pH 6.5 Urine Specific Jakin 1.046 Urine Protein NEG Urine Glucose (UA) NEG Urine Ketones NEG Urine Occult Blood NEG Urine Nitrite NEG Urine Bilirubin NEG Urine Urobilinogen LESS THAN 2.0 Urine Leukocyte Esterase LARGE Urine RBC LESS THAN 1 Urine WBC 6 Urine Squamous Epithelial <1 Cells Urine Bacteria OCC Microscopic Urinalysis Comment CATH-CULTURE IND Date/Time Procedure Status Source Growth 01/28/17 10:25 Urine Culture Received Urine Catheterized Urine Pending 01/28/17 10:25 Gram Stain - Final Resulted Sputum Endotracheal 01/28/17 10:25 Sputum Culture Resulted Sputum Endotracheal Pending 01/25/17 21:20 Urine Culture - Final Complete Urine Catheterized Urine Escherichia Coli 01/25/17 12:25 Aerobic Blood Culture - Preliminary Resulted Blood Peripheral NO GROWTH IN 3 DAYS 01/25/17 12:25 Anaerobic Blood Culture - Preliminary Resulted Blood Peripheral NO GROWTH IN 3 DAYS 01/23/17 16:54 Aerobic Blood Culture - Final Complete Blood Peripheral NO GROWTH IN 5 DAYS 01/23/17 16:54 Anaerobic Blood Culture - Final Complete Blood Peripheral NO GROWTH IN 5 DAYS Imaging Last Impressions Chest X-Ray 01/27/17 0600 Signed Impressions: Service Date/Time: Friday, January 27, 2017 04:08 - CONCLUSION: 1. Resolving left lower lobe atelectasis versus pneumonia Christopher Nayak MD Physical Exam HEENT: no blood. normocephalic; atraumatic; no jaundice. NECK: Neck is supple CHEST: CTA, CARDIAC: RRR ABDOMEN: Soft, nondistended, nontender; hepatosplenomegaly; bowel sounds are present in all four quadrants. EXTREMITIES: BLE edema. SKIN: spider angiomas; no jaundice. SALES ADMINISTRATION SPECIALIST: alert, nonverbal Assessment and Plan Plan ASSESSMENT: - GIB/Hematemesis. Pt with liver cirrhosis, portal hypertensive gastropathy, recurrent GIB- ongoing etoh abuse. Came to ER for hematemesis with dark red blood. S/P EGD (01/22/17)----> severe gastropathy, few areas bleeding ablated, retroflexed views reveal large blood clots. On PPI HH 9.2/27.8 stable still having black stool - Anemia, acute blood loss. S/P 4 units PRBC, 2 units FFP, 2 units platelets. HH stable now - Thrombocytopenia. Plt70 - Liver cirrhosis, Elevated LFTs. - Resp. Failure, now off vent - Hypokalemia, hypernatremia per primary PLAN: - HARRIETT - Protonix 40mg BID - Monitor hh - Transfuse as necessary - Supportive care - Pt seen and examined by Dr. Leone and myself and this note is written on her behalf Mira Matos Jan 28, 2017 16:36
[2017-01-29] VITALS (11 sets, daily range): BP systolic 88–98; BP diastolic 53–71; PULSE 91–107; RESP 19–26; TEMP 98.5–99.4; O2SAT 95–100
[2017-01-29] MEDS: ONDANSETRON HCL 4 MG/2 ML VIAL IV PRN (02:32)
[2017-01-29] MEDS: INSULIN NovoLIN REGULAR SUPPLEMENTAL SCALE SQ SCH ×4 (02:37→20:45)
[2017-01-29] MEDS: CHLORHEXIDINE GLUCONATE 2 % 1 PACK (2 CLOTHS) TOP SCH (04:00)
[2017-01-29 05:16] LABS: AUTOMATED NEUTROPHIL # 4.2 TH/MM3 (1.8-7.7); BASOPHIL % 0.4 % (0.0-2.0); EOSINOPHIL # 0.1 TH/MM3 (0-0.4); EOSINOPHIL % 1.4 % (0.0-4.0); HEMATOCRIT 27.5 % (35.0-46.0); LYMPH % 18.8 % (9.0-44.0); LYMPHOCYTE # 1.2 TH/MM3 (1.0-4.8); MEAN CELL VOLUME 87.8 FL (80.0-100.0); MEAN CORPUSCULAR HEMOGLOBIN 29.6 PG (27.0-34.0); MEAN CORPUSCULAR HGB CONC 33.7 % (32.0-36.0); MONO % 12.5 % (0.0-8.0); NEUT % 66.9 % (16.0-70.0); PLATELET COUNT 84 TH/MM3 (150-450); RED BLOOD COUNT 3.13 MIL/MM3 (4.00-5.30); RED CELL DISTRIBUTION WIDTH 19.9 % (11.6-17.2); WHITE BLOOD COUNT 6.2 TH/MM3 (4.0-11.0)
[2017-01-29 05:19] LABS: HEMO FLAGS AUTO DIFF
[2017-01-29] MEDS: PIPERACIL-TAZO 4.5 GM PREMIX 100 ML IV SCH ×4 (05:33→22:00)
[2017-01-29] MEDS: PANTOPRAZOLE SODIUM 40 MG VIAL IV PUSH SCH ×2 (05:34→19:15)
[2017-01-29 05:51] LABS: ALKALINE PHOSPHATASE 185 U/L (45-117); ALT (GPT) 26 U/L (10-53); ANION GAP 9 MEQ/L (5-15); AST (GOT) 53 U/L (15-37); BICARBONATE 23.1 MEQ/L (21.0-32.0); BLOOD UREA NITROGEN 7 MG/DL (7-18); CHLORIDE 107 MEQ/L (98-107); GLOMERULAR FILTRATION RATE 184 ML/MIN (>89); POTASSIUM 3.3 MEQ/L (3.5-5.1); SODIUM (NA) 139 MEQ/L (136-145)
[2017-01-29] MEDS: CHLORHEXIDINE 0.12% (ORAL KIT) 15 ML CUP MT SCH ×2 (08:00→20:00)
[2017-01-29 08:30] LABS: BANDS 21 % (0-6); BASOPHILS 2 % (0-2); CORRECTED NUCLEATED RBC 1 /100 WBC (0-0); EOSINOPHILS 1 % (0-4); NEUTROPHIL # MANUAL DIFF 4.5 TH/MM3 (1.8-7.7); PLATELET ESTIMATE SMEAR LOW (NORMAL); PLATELET MORPHOLOGY NORMAL (NORMAL); POLYS (SEG NEUTROPHILS) 52 % (16-70); TOXIC GRANULATION 2+ (NORMAL); WBC DIFF SAMPLE 100
[2017-01-29 08:31] LABS: SCAN/DIFF FINAL DIFF MANUAL
[2017-01-29] MEDS: FOLIC ACID 1 MG TAB PO SCH (08:57)
[2017-01-29] MEDS: SODIUM CHLORIDE 0.9% FLUSH 10 ML FLUSH IV FLUSH SCH ×2 (08:57→20:45)
[2017-01-29] MEDS: LACTULOSE SYRUP 20 GM/30 ML CUP PO SCH ×2 (08:57→20:45)
[2017-01-29] MEDS: MULTIVITAMIN TAB PO SCH (08:57)
[2017-01-29] MEDS: THIAMINE HCL 100 MG TAB PO SCH (08:57)
[2017-01-29] MEDS ORDERED: SODIUM CHLOR 0.9% 250 ML INJ 250 ML IV ONE (11:30)
[2017-01-29] MEDS: SODIUM CHLOR 0.9% 1000 ML INJ 1,000 ML IV SCH ×2 (11:30→23:25)
--- NOTE | 2017-01-29 12:25 | HHI.PR ---
Subjective Remarks Follow-up acute GI bleed/alcohol abuse/hypotension 01/29/17-patient seen and examined by me alert and oriented 3. by the bedside. Hypotensive however symptomatic. No GI bleed Objective Vitals Vital Signs Date Time Temp Pulse Resp B/P Pulse Ox O2 Delivery O2 Flow Rate FiO2 01/29/17 10:00 106 01/29/17 08:36 96 Nasal Cannula 4.00 01/29/17 08:00 91 01/29/17 08:00 98.5 91 20 88/53 96 01/29/17 06:00 93 01/29/17 04:00 93 01/29/17 04:00 99.4 93 19 90/57 96 01/29/17 02:00 93 01/29/17 00:00 99.4 97 23 89/57 98 01/29/17 00:00 97 01/28/17 22:00 102 01/28/17 21:30 96 Nasal Cannula 4.00 01/28/17 20:00 99 01/28/17 20:00 99.0 99 41 90/56 96 01/28/17 18:00 104 01/28/17 16:00 97 01/28/17 16:00 99.0 97 28 96/62 97 01/28/17 14:00 91 I/O 01/28/17 01/28/17 01/28/17 01/29/17 01/29/17 01/29/17 07:00 15:00 23:00 07:00 15:00 23:00 Intake Total 433 ml 1745 ml 805 ml 567 ml Output Total 400 ml 350 ml 350 ml 350 ml Balance 33 ml 1395 ml 455 ml 217 ml Intake Oral 720 ml 240 ml 240 ml IV Total 433 ml 600 ml 565 ml 327 ml TPN/PPN 344 ml Lipid 81 ml Output Urine Total 400 ml 350 ml 350 ml 350 ml # Bowel Movements 2 2 1 1 Result Diagram: 01/29/1742201/29/17422 Imaging Last Impressions Chest X-Ray 01/27/17 0600 Signed Impressions: Service Date/Time: Friday, January 27, 2017 04:08 - CONCLUSION: 1. Resolving left lower lobe atelectasis versus pneumonia Christopher Nayak MD Objective Remarks GENERAL: NAD SKIN: Warm and dry. HEAD: Normocephalic. EYES: + scleral icterus. No injection or drainage. NECK: Supple, trachea midline. No JVD or lymphadenopathy. CARDIOVASCULAR: Regular rate and rhythm without murmurs, gallops, or rubs. RESPIRATORY: Breath sounds equal bilaterally. No accessory muscle use. GASTROINTESTINAL: Abdomen soft, non-tender, nondistended. MUSCULOSKELETAL: No cyanosis, or edema. BACK: Nontender without obvious deformity. No CVA tenderness. Date of Insertion: Jan 22, 2017 A/P Problem List: (1) GI bleeding ICD Code: K92.2 Status: Acute (2) Upper GI bleed ICD Code: K92.2 Status: Acute (3) Thrombocytopenia ICD Code: D69.6 Status: Acute (4) Elevated LFTs ICD Code: R94.5 Status: Acute (5) Alcoholic cirrhosis of liver ICD Code: K70.30 Status: Acute (6) Anemia ICD Code: D64.9 Status: Acute (7) ETOH abuse ICD Code: F10.10 Status: Acute (8) Hypotension ICD Code: I95.9 Status: Acute Assessment and Plan 46-year-old female with Alcohol abuse Anxiety disorder Monitor for signs of alcohol withdrawal, and seizure activity Ativan when necessary for agitation, monitor for signs of seizure activity Consult Psychiatry Continue with Thiamine/MVI/Folic acid Tobacco abuse Continue with vent support keep sat >92% Bronchodilators q 6 hr scheduled, every 2 hours when necessary Moderate tricuspid regurgitation Mild mitral regurgitation Hypotension-Give Bolus NS 250 now and monitor H&H Hemorrhagic shock-resolved Sinus tachycardia 11/19 echo ejection fraction 6065 %, moderate tricuspid regurgitation, mild mitral regurgitation, mild LAE, no RWMA Monitor HR and BP keep MAP>65mmHg GI bleed Gastropathy Liver cirrhosis without ascites Esophageal varices Hematemesis Melena Diarrhea S/P EGD (01/22/17)----> severe gastropathy, few areas bleeding ablated, retroflexed views reveal large blood clots. 2/ LA Class B esophagitis,S/P EGD with ablation 12/23 LA Class A esophagitis,S/P EGD with ablation and heater probe s/p Octreotide infusion 01/25 Continue On Protonix 40mg BID Continue with Zosyn 7 days total for SBP prophylaxis Acute blood loss anemia History of iron deficiency anemia Thrombocytopenia UTI-Escherichia coli Transfused total of 4 units PRBC, and 2 units FFP Continue with abx ( Zosyn) d/c Rocephin, monitor for signs of infections ( Fever , WBC) check Sputum cx, UA with cx if indicated -- SSI Prophylaxis: GI Prophylaxis Protonix infusion DVT Prophylaxis -- SCDs No pharmacological prophylaxis in the setting of GI bleed Transfer to med/surg Jose Quiroz MD Jan 29, 2017 12:25
[2017-01-29] MEDS: ACETAMINOPHEN 325 MG TAB PO PRN ×2 (16:25→22:56)
[2017-01-30] VITALS (8 sets, daily range): BP systolic 101–125; BP diastolic 61–80; PULSE 70–97; RESP 16–18; TEMP 97.3–99.1; O2SAT 95–100
[2017-01-30] MEDS: INSULIN NovoLIN REGULAR SUPPLEMENTAL SCALE SQ SCH ×2 (03:00→09:00)
[2017-01-30] MEDS: ONDANSETRON HCL 4 MG/2 ML VIAL IV PRN ×3 (03:22→15:39)
[2017-01-30] MEDS: CHLORHEXIDINE GLUCONATE 2 % 1 PACK (2 CLOTHS) TOP SCH (03:27)
[2017-01-30] MEDS: PIPERACIL-TAZO 4.5 GM PREMIX 100 ML IV SCH ×4 (03:27→22:14)
[2017-01-30] MEDS: ACETAMINOPHEN 325 MG TAB PO PRN ×2 (05:42→16:55)
[2017-01-30] MEDS: PANTOPRAZOLE SODIUM 40 MG VIAL IV PUSH SCH (05:43)
[2017-01-30] MEDS: CHLORHEXIDINE 0.12% (ORAL KIT) 15 ML CUP MT SCH ×2 (08:00→20:00)
[2017-01-30] MEDS: MULTIVITAMIN TAB PO SCH (08:32)
[2017-01-30] MEDS: FOLIC ACID 1 MG TAB PO SCH (08:32)
[2017-01-30] MEDS: THIAMINE HCL 100 MG TAB PO SCH (08:32)
[2017-01-30] MEDS: LACTULOSE SYRUP 20 GM/30 ML CUP PO SCH ×2 (08:32→22:10)
[2017-01-30] MEDS: SODIUM CHLORIDE 0.9% FLUSH 10 ML FLUSH IV FLUSH SCH ×2 (09:00→22:15)
[2017-01-30] MEDS: SODIUM CHLOR 0.9% 1000 ML INJ 1,000 ML IV SCH ×2 (11:20→23:15)
[2017-01-30] MEDS ORDERED: POTASSIUM CHLORIDE 10 MEQ CONTROLLED RELEASE TAB PO ONE (13:30)
--- NOTE | 2017-01-30 13:30 | HHI.PR ---
Subjective Remarks Follow-up acute GI bleed/alcohol abuse/hypotension 01/29/17-patient seen and examined by me alert and oriented 3. by the bedside. Hypotensive however symptomatic. No GI bleed 01/30/17-patient seen and examined, stable and would like to be discharged home. Denies any acute event overnight. States she spoke to psychiatry. Objective Vitals Vital Signs Date Time Temp Pulse Resp B/P Pulse Ox O2 Delivery O2 Flow Rate FiO2 01/30/17 12:00 98.9 97 16 103/67 95 01/30/17 08:29 96 21 01/30/17 08:00 97.9 83 16 108/66 96 01/30/17 04:00 99.1 97 17 101/62 96 01/30/17 00:30 98.5 70 18 103/61 97 01/29/17 22:00 95 01/29/17 20:00 93 01/29/17 20:00 98.7 93 22 97/61 95 01/29/17 16:00 98.5 100 25 94/61 95 01/29/17 16:00 100 I/O 01/29/17 01/29/17 01/29/17 01/30/17 01/30/17 01/30/17 07:00 15:00 23:00 07:00 15:00 23:00 Intake Total 567 ml 1316 ml 1124 ml 650 ml Output Total 350 ml 1150 ml 440 ml 700 ml Balance 217 ml 166 ml 684 ml -50 ml Intake Oral 240 ml 720 ml 500 ml IV Total 327 ml 596 ml 624 ml 650 ml Output Urine Total 350 ml 1150 ml 440 ml 700 ml # Bowel Movements 1 3 0 1 Result Diagram: 01/29/17 0423 01/29/17 0423 Imaging Last Impressions Chest X-Ray 01/27/17 0600 Signed Impressions: Service Date/Time: Friday, January 27, 2017 04:08 - CONCLUSION: 1. Resolving left lower lobe atelectasis versus pneumonia Christopher Nayak MD Objective Remarks GENERAL: NAD SKIN: Warm and dry. HEAD: Normocephalic. EYES: + scleral icterus. No injection or drainage. NECK: Supple, trachea midline. No JVD or lymphadenopathy. CARDIOVASCULAR: Regular rate and rhythm without murmurs, gallops, or rubs. RESPIRATORY: Breath sounds equal bilaterally. No accessory muscle use. GASTROINTESTINAL: Abdomen soft, non-tender, nondistended. MUSCULOSKELETAL: No cyanosis, or edema. BACK: Nontender without obvious deformity. No CVA tenderness. Procedures None Date of Insertion: Jan 22, 2017 A/P Problem List: (1) GI bleeding ICD Code: K92.2 Status: Acute (2) Upper GI bleed ICD Code: K92.2 Status: Acute (3) Thrombocytopenia ICD Code: D69.6 Status: Acute (4) Elevated LFTs ICD Code: R94.5 Status: Acute (5) Alcoholic cirrhosis of liver ICD Code: K70.30 Status: Chronic (6) Anemia ICD Code: D64.9 Status: Chronic (7) ETOH abuse ICD Code: F10.10 Status: Chronic (8) Hypotension ICD Code: I95.9 Status: Resolved (9) UTI (urinary tract infection) ICD Code: N39.0 Status: Acute Assessment and Plan 46-year-old female with Alcohol abuse Anxiety disorder Monitor for signs of alcohol withdrawal, and seizure activity Ativan when necessary for agitation, monitor for signs of seizure activity Psychiatry consultation pending Continue with Thiamine/MVI/Folic acid Tobacco abuse Bronchodilators q 6 hr scheduled, every 2 hours when necessary Moderate tricuspid regurgitation Mild mitral regurgitation Hypotension-Give Bolus NS 250 now and monitor H&H Hemorrhagic shock-resolved Sinus tachycardia 11/19 echo ejection fraction 6065 %, moderate tricuspid regurgitation, mild mitral regurgitation, mild LAE, no RWMA GI bleed Gastropathy Liver cirrhosis without ascites Esophageal varices Hematemesis Melena Diarrhea-resolved S/P EGD (01/22/17)----> severe gastropathy, few areas bleeding ablated, retroflexed views reveal large blood clots. 2/ LA Class B esophagitis,S/P EGD with ablation 12/23 LA Class A esophagitis,S/P EGD with ablation and heater probe s/p Octreotide infusion 01/25 Continue On Protonix 40mg BID Continue with Zosyn 7 days total for SBP prophylaxis Acute blood loss anemia History of iron deficiency anemia Thrombocytopenia UTI-Escherichia coli-final urine culture pending as of 01/30/17 Transfused total of 4 units PRBC, and 2 units FFP Continue with abx ( Zosyn) Hypokalemia: Replace electrolyte and monitor -- SSI Prophylaxis: GI Prophylaxis Protonix infusion DVT Prophylaxis -- SCDs No pharmacological prophylaxis in the setting of GI bleed Jose Quiroz MD Jan 30, 2017 13:30
[2017-01-30] MEDS ORDERED: VITA100T2 PO (13:33)
[2017-01-30] MEDS ORDERED: PROT40TA PO (13:33)
[2017-01-30] MEDS ORDERED: LACT10SO PO (13:33)
--- NOTE | 2017-01-30 16:12 | PD.CONS ---
Provisional Diagnosis Admission Date Jan 22, 2017 at 14:10 [place] I. History of depression, alcohol use disorder, [place] II. Deferred [place] III. Thrombocytopenia, cirrhosis, elevated LFTs, UTI, [place] IV. Continuous alcohol use disorder [place] V. 55 History of Present Illness Service Psychiatry Consult Requested By Primary Care Physician Non-Staff HPI The patient is a 46-year-old woman, domiciled with boyfriend in [place], she has 2 kids one is 13 years old, another one is 14 years old, she is unemployed, with psychiatric history of depression, no psychiatric hospitalizations, no suicide attempts, heavy alcohol use disorder, history of previous detox and rehabilitation programs, admitted in the hospital due to Moderate tricuspid regurgitation, hypertension, GI bleed, Gastropathy , Liver cirrhosis without ascites, Esophageal varices, Hematemesis, Melena, Acute blood loss anemia, hypokalemia. Consulted to psychiatry due to symptomatology of depression. Patient seen today for psychiatric evaluation, patient is found calm, cooperative and pleasant. Patient states that the worst of her current medical condition is now past. She says that she is ready to be discharged back home and continue her life and search sobriety. She denies depressive symptoms, she denies sadness, she reports good mood, denies anhedonia, denies hopelessness, denies helplessness, denies worthlessness, denies suicidal and was ideation. She denies visual and auditory hallucinations. No paranoia, no delusions, no psychosis observed. No withdrawal symptoms, no anxiety is reported. She reports daily use of alcohol, 2-4 bottles of wine per day. She denies the use of illicit drugs. Review of Systems Constitutional: DENIES: Diaphoretic episodes, Fatigue, Fever, Weight gain, Weight loss, Chills, Dizziness, Change in appetite, Night Sweats Endocrine: DENIES: Abnorml menstrual pattern, Heat/cold intolerance, Polydipsia , Polyuria, Polyphagia Eyes: DENIES: Blurred vision, Diplopia, Eye inflammation, Eye pain, Vision loss , Photosensitivity, Double Vision Ears, nose, mouth, throat: DENIES: Tinnitus, Hearing loss, Vertigo, Nasal discharge, Oral lesions, Throat pain, Hoarseness, Ear Pain, Running Nose, Epistaxis, Sinus Pain, Toothache, Odynophagia Respiratory: DENIES: Apneas, Cough, Snoring, Wheezing, Hemoptysis, Sputum production, Shortness of breath Cardiovascular: DENIES: Chest pain, Palpitations, Syncope, Dyspnea on Exertion , PND, Lower Extremity Edema, Orthopnea, Claudication Gastrointestinal: DENIES: Abdominal pain, Black stools, Bloody stools, Constipation, Diarrhea, Nausea, Vomiting, Difficulty Swallowing, Anorexia Genitourinary: DENIES: Abnormal vaginal bleeding, Dysmenorrhea, Dyspareunia, Sexual dysfunction, Urinary frequency, Urinary incontinence, Urgency, Hematuria , Dysuria, Nocturia, Vaginal discharge Musculoskeletal: DENIES: Joint pain, Muscle aches, Stiffness, Joint Swelling, Back pain, Neck pain Integumentary: DENIES: Abnormal pigmentation, Pruritus, Rash, Nail changes, Breast masses, Breast skin changes, Nipple discharge Neurologic: DENIES: Abnormal gait, Headache, Localized weakness, Paresthesias, Seizures, Speech Problems, Tremor, Poor Balance Psychiatric: DENIES: Anxiety, Confusion, Mood changes, Depression, Hallucinations, Agitation, Suicidal Ideation, Homicidal Ideation, Delusions Past Family Social History Coded Allergies: Codeine (Verified Allergy, Severe, VOMITING, HALLUCINATIONS, 12/22/16) Demerol (Verified Allergy, Severe, VOMITING, HALLUCINATIONS, 12/22/16) Morphine (Verified Allergy, Severe, VOMITING, HALLUCINATIONS, 12/22/16) No Active Prescriptions or Reported Meds Current Medications Medications (Trade) Dose Ordered Sig/Chantal Route Start Time Stop Time Status Last Admin (NS Flush) 2 ml UNSCH PRN IV FLUSH 01/22/17 16:00 (NS Flush) 2 ml BID IV FLUSH 01/22/17 21:00 01/30/17 09:00 (Zofran Inj) 4 mg Q6H PRN IV 01/22/17 16:00 01/30/17 15:39 Miscellaneous Information 1 [id number] XX 01/22/17 16:00 01/22/17 16:00 (Chlorhexidine 2% Cloth) Taper DAILY@04 TOP 01/23/17 04:00 01/19/18 03:59 01/30/17 03:27 (Chlorhexidine 2% Cloth) 3 pack UNSCH PRN TOP 01/22/17 16:00 (Vitamin B1) 100 mg DAILY PO 01/25/17 09:00 01/30/17 08:32 Chlorhexidine Gluconate 15 ml 15 ml BID@08,20 MT 01/23/17 08:31 01/28/17 09:26 Magnesium Sulfate 2 gm/Sodium Chloride 100 ml @ 50 mls/hr UNSCH PRN IV 01/23/17 09:00 (Zosyn 4.5 Gm Premix) 100 ml @ 200 mls/hr Q6H IV 01/26/17 16:00 01/30/17 15:40 (Theragran) 1 tab DAILY PO 01/28/17 09:00 01/30/17 08:32 (Folate) 1 mg DAILY PO 01/28/17 09:00 01/30/17 08:32 Lactulose 15 ml 15 ml BID PO 01/28/17 11:00 01/30/17 08:32 (NS 1000 ml Inj) 1,000 ml @ 84 mls/hr [id number] IV 01/29/17 11:30 01/29/17 11:30 (Tylenol) 650 mg Q4H PRN PO 01/29/17 16:00 01/30/17 05:42 (Protonix) 40 mg DAILY PO 01/31/17 09:00 Family History She denies Social History Patient was born and raised in [facility], she lives with her boyfriend in [place], she is a , she is mother of 2 kids, she is supported by ex-, her highest level of education is a college degree Patient's Strengths (min. 2) Family support Physical Exam On physical exam no EPS, no skin lesions, no eyes and normality, no tremors, no withdrawal symptoms, no EPS are present Vital Signs Vital Signs Date Time Temp Pulse Resp B/P Pulse Ox O2 Delivery O2 Flow Rate FiO2 01/30/17 15:57 98 21 01/30/17 12:00 98.9 97 16 103/67 01/29/17 08:36 Nasal Cannula 4.00 I/O 01/29/17 01/29/17 01/30/17 08:00 16:00 00:00 Intake Total 567 ml 1316 ml 1124 ml Output Total 350 ml 1150 ml 440 ml Balance 217 ml 166 ml 684 ml Mental Status Examination Appearance woman, [facility], good hygiene, age appearing, calm and cooperative Speech: Unremarkable Orientation: x3 Memory: Unremarkable Thought Process: Logical Thought Content: Unremarkable Hallucination Type: None Attention and Concentration: Good Suicidal Ideation: No Previous Suicide Attempts: No Homicidal Ideation: No Previous Homicide Attempts: No Judgment: WNL Affect: Good Mood: Appropriate Motor Activity: Normal gait Assessment & Plan Problem List: (1) Alcohol abuse with alcohol-induced mood disorder Assessment & Plan: Psychiatric evaluation today the patient does not present any significant, acute, concerning symptomatology of objective or subjective depression, anxiety, katrin or psychosis. She denies suicidal and was ideation, she denies visual and auditory hallucinations. She does not meet criteria for psychiatric admission at this moment, not immediate psychiatric intervention is needed. Patient was widely educated about the importance of engaging in a rehabilitation activity. Patient seems to be motivated to do so. Brief supportive psychotherapy and motivation provided.. ICD Code: F10.14 Assessment & Plan Estimated LOS: Irvin Stone MD Jan 30, 2017 16:12
[2017-01-30] MEDS ORDERED: MENTHOL LOZENGE BUCCAL PRN (18:00)
[2017-01-31] VITALS: BP 121/86; PULSE 92; RESP 18; TEMP 97.5; O2SAT 97
[2017-01-31] MEDS: CHLORHEXIDINE GLUCONATE 2 % 1 PACK (2 CLOTHS) TOP SCH (03:03)
[2017-01-31] MEDS: PIPERACIL-TAZO 4.5 GM PREMIX 100 ML IV SCH ×2 (03:54→09:37)
[2017-01-31 04:00] VITALS: BP 115/64; PULSE 96; RESP 17; TEMP 100.1; O2SAT 96
[2017-01-31] MEDS: ONDANSETRON HCL 4 MG/2 ML VIAL IV PRN ×2 (05:02→11:35)
[2017-01-31 08:00] VITALS: BP 104/57; PULSE 91; RESP 16; TEMP 99.8; O2SAT 96
[2017-01-31] MEDS: CHLORHEXIDINE 0.12% (ORAL KIT) 15 ML CUP MT SCH (08:00)
[2017-01-31 08:11] VITALS: O2SAT 95
[2017-01-31] MEDS ORDERED: PANTOPRAZOLE SOD 40 MG DELAYED RELEASE TAB PO SCH (09:00)
[2017-01-31 09:17] LABS: BICARBONATE 25.2 MEQ/L (21.0-32.0); POTASSIUM 3.5 MEQ/L (3.5-5.1)
[2017-01-31] MEDS: LACTULOSE SYRUP 20 GM/30 ML CUP PO SCH (09:36)
[2017-01-31] MEDS: SODIUM CHLORIDE 0.9% FLUSH 10 ML FLUSH IV FLUSH SCH (09:37)
[2017-01-31] MEDS: FOLIC ACID 1 MG TAB PO SCH (09:37)
[2017-01-31] MEDS: MULTIVITAMIN TAB PO SCH (09:37)
[2017-01-31] MEDS: THIAMINE HCL 100 MG TAB PO SCH (09:37)
[2017-01-31] MEDS: SODIUM CHLOR 0.9% 1000 ML INJ 1,000 ML IV SCH (10:05)
[2017-01-31 12:00] VITALS: BP 123/65; PULSE 88; RESP 16; TEMP 99.2; O2SAT 98
[2017-01-31] MEDS ORDERED: MACR100C2 PO (12:15)
--- NOTE | 2017-01-31 12:19 | HHI.PR ---
Subjective Remarks Follow-up acute GI bleed/alcohol abuse/hypotension 01/29/17-patient seen and examined by me alert and oriented 3. by the bedside. Hypotensive however symptomatic. No GI bleed 01/30/17-patient seen and examined, stable and would like to be discharged home. Denies any acute event overnight. States she spoke to psychiatry. 01/31/17-patient seen and examined, she is looking for discharge. Alert and oriented 3. Patient states she'll be looking for attending AA meeting Objective Vitals Vital Signs Date Time Temp Pulse Resp B/P Pulse Ox O2 Delivery O2 Flow Rate FiO2 01/31/17 08:11 95 21 01/31/17 08:00 99.8 91 16 104/57 96 01/31/17 04:00 100.1 96 17 115/64 96 01/31/17 00:00 97.5 92 18 121/86 97 01/30/17 20:00 99.0 76 17 108/66 99 01/30/17 16:00 97.3 85 16 125/80 100 01/30/17 15:57 98 21 I/O 01/30/17 01/30/17 01/30/17 01/31/17 01/31/17 01/31/17 07:00 15:00 23:00 07:00 15:00 23:00 Intake Total 650 ml 840 ml 90 ml Output Total 700 ml 1600 ml Balance -50 ml -760 ml 90 ml Intake Oral 840 ml 90 ml IV Total 650 ml Output Urine Total 700 ml 1600 ml # Voids 4 # Bowel Movements 1 4 Result Diagram: 01/29/17 0423 01/31/17 0755 Imaging Last Impressions Chest X-Ray 01/27/17 0600 Signed Impressions: Service Date/Time: Friday, January 27, 2017 04:08 - CONCLUSION: 1. Resolving left lower lobe atelectasis versus pneumonia Christopher Nayak MD Objective Remarks GENERAL: NAD SKIN: Warm and dry. HEAD: Normocephalic. EYES: + scleral icterus. No injection or drainage. NECK: Supple, trachea midline. No JVD or lymphadenopathy. CARDIOVASCULAR: Regular rate and rhythm without murmurs, gallops, or rubs. RESPIRATORY: Breath sounds equal bilaterally. No accessory muscle use. GASTROINTESTINAL: Abdomen soft, non-tender, nondistended. MUSCULOSKELETAL: No cyanosis, or edema. BACK: Nontender without obvious deformity. No CVA tenderness. Procedures None Date of Insertion: Jan 22, 2017 A/P Problem List: (1) GI bleeding ICD Code: K92.2 Status: Acute (2) Upper GI bleed ICD Code: K92.2 Status: Acute (3) Thrombocytopenia ICD Code: D69.6 Status: Acute (4) Elevated LFTs ICD Code: R94.5 Status: Acute (5) Alcoholic cirrhosis of liver ICD Code: K70.30 Status: Chronic (6) Anemia ICD Code: D64.9 Status: Chronic (7) ETOH abuse ICD Code: F10.10 Status: Chronic (8) Hypotension ICD Code: I95.9 Status: Resolved (9) UTI (urinary tract infection) ICD Code: N39.0 Status: Acute Assessment and Plan 46-year-old female with Alcohol abuse Anxiety disorder Monitor for signs of alcohol withdrawal, and seizure activity Ativan when necessary for agitation, monitor for signs of seizure activity Appreciate input from psychiatry Continue with Thiamine/MVI/Folic acid Tobacco abuse Bronchodilators q 6 hr scheduled, every 2 hours when necessary Moderate tricuspid regurgitation Mild mitral regurgitation Hypotension-Give Bolus NS 250 now and monitor H&H Hemorrhagic shock-resolved Sinus tachycardia 11/19 echo ejection fraction 6065 %, moderate tricuspid regurgitation, mild mitral regurgitation, mild LAE, no RWMA GI bleed Gastropathy Liver cirrhosis without ascites Esophageal varices Hematemesis Melena Diarrhea-resolved S/P EGD (01/22/17)----> severe gastropathy, few areas bleeding ablated, retroflexed views reveal large blood clots. 2/ LA Class B esophagitis,S/P EGD with ablation 12/23 LA Class A esophagitis,S/P EGD with ablation and heater probe s/p Octreotide infusion 01/25 Continue On Protonix 40mg BID Continue with Zosyn for SBP prophylaxis Acute blood loss anemia History of iron deficiency anemia Thrombocytopenia UTI- Enterococcus faecalis Transfused total of 4 units PRBC, and 2 units FFP Continue with abx ( Zosyn) however will discharge home on Macrobid 100 mg by mouth twice a day 7 days Hypokalemia: Replace electrolyte and monitor -- SSI Prophylaxis: GI Prophylaxis Protonix infusion DVT Prophylaxis -- SCDs No pharmacological prophylaxis in the setting of GI bleed Jose Quiroz MD Jan 31, 2017 12:19
--- NOTE | 2017-01-31 12:20 | HHI.DS ---
Discharge Summary Admission Date Jan 22, 2017 at 14:10 Discharge Date: Jan 31, 2017 Admitting Diagnosis hemorrhagic shock (1) GI bleeding ICD Code: K92.2 (2) Upper GI bleed ICD Code: K92.2 (3) Thrombocytopenia ICD Code: D69.6 (4) Elevated LFTs ICD Code: R94.5 (5) Alcoholic cirrhosis of liver ICD Code: K70.30 (6) Anemia ICD Code: D64.9 (7) ETOH abuse ICD Code: F10.10 (8) Hypotension ICD Code: I95.9 (9) UTI (urinary tract infection) ICD Code: N39.0 Procedures None Brief History - From Admission This is a well-known patient to [facility] previously admitted November 2016, December 2016 for active GI bleeding with interventions. The patient presented to [facility] this a.m., with complaints of hematemesis, approximately 1300 cc. The patient has a significant history for alcoholism. This patient is an alcoholic who was drinking today. She complained of nausea and vomiting. She denied melena or rectal bleeding. She is not having abdominal pain.At [facility] the patient was noted to be significantly hypotensive, systolic blood pressure in the 80s she received boluses of IV fluid, 2 units of packed red blood cells and 10 mg of vitamin K IV . Critical care medicine was consulted for management. The patient was transferred to [facility]. Dr. Evangelina HILARIO was consulted, plans for EGD today. [facility] Past Medical History Anxiety: Yes Depression: Yes Cancer: Yes Cardiovascular Problems: No Cirrhosis: Yes (ELEVATED LIVER ENZYMES, PT DENIES DX OF CIRRHOSIS) Diabetes: No Diminished Hearing: No Endocrine: No Gastrointestinal Disorders: Yes Glaucoma: No Genitourinary: No Hepatitis: No Hiatal Hernia: No Hypertension: No Immune Disorder: No Insomnia: Yes Musculoskeletal: No Neurologic: No Psychiatric: Yes Reproductive: No Respiratory: No Immunizations Current: No Radiation Therapy: Yes Seizures: Yes Thyroid Disease: No Menopausal: Yes : 2 Para: 2 Past Surgical History Gynecologic Surgery: Yes (partial hysterectomy) Hysterectomy: Yes (2009) Other Surgery: Yes Social History Alcohol Use: Yes (ETOH ABUSE ) Tobacco Use: Yes (1PPD) Substance Use: No Allergies-Medications (Allergen,Severity, Reaction): Coded Allergies: Codeine (Verified Allergy, Severe, VOMITING, HALLUCINATIONS, 12/22/16) Demerol (Verified Allergy, Severe, VOMITING, HALLUCINATIONS, 12/22/16) Morphine (Verified Allergy, Severe, VOMITING, HALLUCINATIONS, 12/22/16) Reported Meds & Prescriptions Reported Meds & Active Scripts Active No Active Prescriptions or Reported Medications Review of Systems General / Constitutional: No: Fever Eyes: No: Visual changes HENT: No: Headaches Cardiovascular: No: Chest Pain or Discomfort Respiratory: No: Shortness of Breath Gastrointestinal: Positive: Nausea, Vomiting, Hematemesis, No: Abdominal Pain Genitourinary: No: Dysuria Musculoskeletal: Positive: Weakness, No: Pain Skin: No Rash Neurologic: Positive: Weakness Psychiatric: Positive: Substance Abuse, No: Depression Endocrine: No: Polydipsia Hematologic/Lymphatic: No: Easy Bruising CBC/BMP: 01/29/17 0423 01/31/17 0755 Significant Findings Laboratory Tests Test 01/29/17 01/29/17 01/31/17 00:42 04:23 07:55 Potassium Level 3.3 MEQ/L 3.3 MEQ/L (3.5-5.1) (3.5-5.1) Red Blood Count 3.13 MIL/MM3 (4.00-5.30) Hemoglobin 9.3 GM/DL (11.6-15.3) Hematocrit 27.5 % (35.0-46.0) Red Cell Distribution Width 19.9 % (11.6-17.2) Platelet Count 84 TH/MM3 (150-450) Monocytes (%) (Auto) 12.5 % (0.0-8.0) Band Neutrophils % 21 % (0-6) Nucleated Red Blood Cells 1 /100 WBC (0-0) Toxic Granulation 2+ (NORMAL) Platelet Estimate LOW (NORMAL) Creatinine 0.38 MG/DL 0.49 MG/DL (0.50-1.00) (0.50-1.00) Calcium Level 7.8 MG/DL 8.2 MG/DL (8.5-10.1) (8.5-10.1) Total Bilirubin 3.0 MG/DL (0.2-1.0) Aspartate Amino Transf 53 U/L (15-37) (AST/SGOT) Alkaline Phosphatase 185 U/L (45-117) Total Protein 5.2 GM/DL (6.4-8.2) Albumin 1.9 GM/DL (3.4-5.0) Blood Urea Nitrogen 3 MG/DL (7-18) Random Glucose 70 MG/DL (74-106) Imaging Last Impressions Chest X-Ray 01/27/17 0600 Signed Impressions: Service Date/Time: Friday, January 27, 2017 04:08 - CONCLUSION: 1. Resolving left lower lobe atelectasis versus pneumonia Christopher Nayak MD PE at Discharge GENERAL: NAD SKIN: Warm and dry. HEAD: Normocephalic. EYES: + scleral icterus. No injection or drainage. NECK: Supple, trachea midline. No JVD or lymphadenopathy. CARDIOVASCULAR: Regular rate and rhythm without murmurs, gallops, or rubs. RESPIRATORY: Breath sounds equal bilaterally. No accessory muscle use. GASTROINTESTINAL: Abdomen soft, non-tender, nondistended. MUSCULOSKELETAL: No cyanosis, or edema. BACK: Nontender without obvious deformity. No CVA tenderness. Hospital Course Alcohol abuse Anxiety disorder Monitor for signs of alcohol withdrawal, and seizure activity Ativan when necessary for agitation, monitor for signs of seizure activity Appreciate input from psychiatry Continue with Thiamine/MVI/Folic acid Tobacco abuse Bronchodilators q 6 hr scheduled, every 2 hours when necessary Moderate tricuspid regurgitation Mild mitral regurgitation Hypotension-Give Bolus NS 250 now and monitor H&H Hemorrhagic shock-resolved Sinus tachycardia / echo ejection fraction 6065 %, moderate tricuspid regurgitation, mild mitral regurgitation, mild LAE, no RWMA GI bleed Gastropathy Liver cirrhosis without ascites Esophageal varices Hematemesis Melena Diarrhea-resolved S/P EGD (01/22/17)----> severe gastropathy, few areas bleeding ablated, retroflexed views reveal large blood clots. 2/3 LA Class B esophagitis,S/P EGD with ablation 12/23 LA Class A esophagitis,S/P EGD with ablation and heater probe s/p Octreotide infusion 01/25 Continue On Protonix 40mg BID Continue with Zosyn for SBP prophylaxis Acute blood loss anemia History of iron deficiency anemia Thrombocytopenia UTI- Enterococcus faecalis Transfused total of 4 units PRBC, and 2 units FFP Continue with abx ( Zosyn) however will discharge home on Macrobid 100 mg by mouth twice a day 7 days Hypokalemia: Replace electrolyte and monitor -- SSI Prophylaxis: GI Prophylaxis Protonix infusion DVT Prophylaxis -- SCDs No pharmacological prophylaxis in the setting of GI bleed Pt Condition on Discharge: Stable Discharge Disposition: Discharge Home Discharge Time: <= 30 minutes Discharge Instructions DIET: Follow Instructions for: Heart Healthy Diet Activities you can perform: Regular-No Restrictions Follow up Referrals: Gastroenterology PCP Follow-up - 1 Week New Medications: Pantoprazole (Protonix) 40 Mg Tab 40 MG PO DAILY Reflux #30 Ref 0 TAB Lactulose Liq (Lactulose Liq) 10 Gm/15 Ml Soln 15 ML PO BID Alcohol Detox #60 ML Nitrofurantoin Monohydrate Macrocrystals (Macrobid) 100 Mg Cap 100 MG PO BIDPC Infection #14 CAP Thiamine (Vitamin B-1) 100 Mg Tab 100 MG PO DAILY Alcohol Detox #30 TAB Jose Quiroz MD Jan 31, 2017 12:20
[2017-01-31] MEDS ORDERED: NITROFURANTOIN MONOHYD MACROCR 100 MG CAP PO SCH (18:00)
== END 2017-01-31 15:23 | disposition home or self-care (01) | DRG 377 ==
LOC: PHED 12:26 → PHEDA 14:10 → HIMN 15:35 → HOCB 01-30 00:02
PROVIDERS: ADMIT Hospitalist; ATTEND Hospitalist
PROC: 0W3P8ZZ Control Bleeding in Gastrointestinal Tract, Via Natural or Artificial Opening Endoscopic (ICD-10-PCS; principal; 2017-01-22 19:15)
DX: K92.2 Gastrointestinal hemorrhage, unspecified (principal); J96.90 Respiratory failure, unspecified, unspecified whether with hypoxia or hypercapnia; R57.9 Shock, unspecified; E87.0 Hyperosmolality and hypernatremia; E83.51 Hypocalcemia; K70.30 Alcoholic cirrhosis of liver without ascites; D69.6 Thrombocytopenia, unspecified; D62 Acute posthemorrhagic anemia; F10.24 Alcohol dependence with alcohol-induced mood disorder; N39.0 Urinary tract infection, site not specified; I08.1 Rheumatic disorders of both mitral and tricuspid valves; F32.9 Major depressive disorder, single episode, unspecified; F41.9 Anxiety disorder, unspecified; F10.20 Alcohol dependence, uncomplicated; G47.00 Insomnia, unspecified; F17.210 Nicotine dependence, cigarettes, uncomplicated; Z88.5 Allergy status to narcotic agent; K31.89 Other diseases of stomach and duodenum; K20.9 Esophagitis, unspecified; K64.4 Residual hemorrhoidal skin tags; K64.8 Other hemorrhoids; I10 Essential (primary) hypertension; E87.6 Hypokalemia; R19.7 Diarrhea, unspecified; R00.0 Tachycardia, unspecified; B96.20 Unspecified Escherichia coli [E. coli] as the cause of diseases classified elsewhere
CPT/HCPCS: 36430; 36600; 71010; 80048; 80053; 80307; 81001; 82140; 82805; 82948; 83735; 84100; 84132; 84155; 84702; 85007; 85014; 85018; 85025; 85027; 85610; 85730; 86850; 86900; 86901; 86920; 86927; 87040; 87070; 87077; 87086; 87186; 87205; 87641; 94002; 94003; 94150; 94640; 94664; 96374; 96375; 99292; C9113; J0610; J0696; J2060; J2250; J2354; J2405; J2543; J3010; J3411; J3430; J3475; J3480; J7030; J7040; J7050; P9016; P9017; P9035

== ENCOUNTER 2017-07-06 05:33 | Emergency (ER) | payer BC ==
[~2017-07-06] VITALS: Ht 170.2 cm; Wt 63.5 kg
[~2017-07-06 05:33] MED LIST changes: -CLON0.1T PO; -FOLI1TAB4 PO; +LACT10SO PO; -LORA-474 PO; +MACR100C2 PO; -MULT1TAB84 PO; -PANT40TA3 PO; +PROT40TA PO; -VIST50CA PO
[2017-07-06] MEDS ORDERED: IOHEXOL 350 MG/ML 10 ML VIAL (for RAD DIAG) IVCONTRAST ONE (05:34)
[2017-07-06 05:47] VITALS: BP 129/82; PULSE 95; RESP 16; TEMP 99; O2SAT 96
--- NOTE | 2017-07-06 06:06 | PD ---
HPI Chief Complaint: GI Complaint Time Seen by Provider: 06:03 Travel History International Travel<30 days: No Contact w/Intl Traveler<30days: No Traveled to known affect area: No History of Present Illness HPI The patient is a 46-year-old female who complains of vomiting and epigastric pain for 24 hours. She also has some back pain with the pain radiating to the back. She has dizziness with vertigo present. She denies any ear pain or tinnitus. She denies any fever. She does have a history of alcohol abuse and alcohol cirrhosis and varices. She denies any history of pancreatitis. She does feel dehydrated and cannot get down any liquids. She states her last alcohol was 2 days ago. She did not quit alcohol because of the epigastric pain , she woke up at 5 AM yesterday with vomiting. The patient's pain is a crampy pain, 6/10. She states she has had a hysterectomy but still has her appendix and gallbladder. PFSH Past Medical History Asthma: No Anxiety: Yes Depression: Yes Heart Rhythm Problems: No Cardiovascular Problems: No High Cholesterol: No Chest Pain: No Congestive Heart Failure: No Cirrhosis: Yes COPD: No Diabetes: No Diminished Hearing: No Endocrine: No Gastrointestinal Disorders: Yes GERD: Yes Glaucoma: No Genitourinary: No Hepatitis: No Hiatal Hernia: No Hypertension: No Immune Disorder: No Implanted Vascular Access Dvce: No Insomnia: Yes Kidney Stones: No Musculoskeletal: No Neurologic: No Psychiatric: Yes Reproductive: No Respiratory: No Immunizations Current: No Radiation Therapy: Yes (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) Renal Failure: No Seizures: Yes (FROM ALCOHOL WITHDRAWAL) Sleep Apnea: No Thyroid Disease: No Ulcer: No Tetanus Vaccination: Unknown Influenza Vaccination: No ?: Not Menopausal: Yes : 2 Para: 2 Past Surgical History Gynecologic Surgery: Yes (partial hysterectomy) Hysterectomy: Yes (2009) Other Surgery: Yes Social History Alcohol Use: Yes (ETOH ABUSE ) Tobacco Use: Yes (10/17 PPD) Substance Use: No (DENIES) Allergies-Medications (Allergen,Severity, Reaction): Coded Allergies: codeine (Unverified Allergy, Severe, VOMITING, HALLUCINATIONS, 07/06/17) meperidine (Unverified Allergy, Severe, VOMITING, HALLUCINATIONS, 07/06/17) morphine (Unverified Allergy, Severe, VOMITING, HALLUCINATIONS, 07/06/17) Reported Meds & Prescriptions Reported Meds & Active Scripts Active Macrobid (Nitrofurantoin Monoh/Nitrofur Macro) 100 Mg Cap 100 Mg PO BIDPC Protonix (Pantoprazole Sodium) 40 Mg Tab 40 Mg PO DAILY Lactulose Liq (Lactulose) 10 Gm/15 Ml Soln 15 Ml PO BID Vitamin B-1 (Thiamine HCl) 100 Mg Tab 100 Mg PO DAILY Review of Systems Except as stated in HPI: all other systems reviewed are Neg Physical Exam Narrative GENERAL: The patient appears dehydrated but is alert, oriented 3 in no apparent distress. She does not appear intoxicated with alcohol. The patient holds her head extremely still because of the vertigo. SKIN: Focused skin assessment warm/dry. HEAD: Atraumatic. Normocephalic. EYES: Pupils equal and round. No scleral icterus. No injection or drainage. ENT: No nasal bleeding or discharge. Mucous membranes pink and moist. The tympanic membranes are clear and the throat is clear. NECK: Trachea midline. No JVD. CARDIOVASCULAR: Regular rate and rhythm. No murmur appreciated. RESPIRATORY: No accessory muscle use. Clear to auscultation. Breath sounds equal bilaterally. GASTROINTESTINAL: Abdomen soft, non-tender, nondistended. Hepatic and splenic margins not palpable. MUSCULOSKELETAL: No obvious deformities. No clubbing. No cyanosis. No edema. NEUROLOGICAL: Awake and alert. No obvious cranial nerve deficits. Motor grossly within normal limits. Normal speech. PSYCHIATRIC: Appropriate mood and affect; insight and judgment normal. Data Data Last Documented VS Vital Signs Date Time Temp Pulse Resp B/P (MAP) Pulse Ox O2 Delivery O2 Flow Rate FiO2 07/06/17 06:55 89 18 124/73 (90) 96 Room Air 07/06/17 05:47 99.0 Orders Orders Complete Blood Count With Diff (07/06/17 06:09) Comprehensive Metabolic Panel (07/06/17 06:09) Lipase (07/06/17 06:09) Urinalysis - C+S If Indicated (07/06/17 06:09) Iv Access Insert/Monitor (07/06/17 06:09) Ecg Monitoring (07/06/17 06:09) Oximetry (07/06/17 06:09) Hydromorphone Pf Inj (Dilaudid Pf Inj) (07/06/17 06:15) Ondansetron Inj (Zofran Inj) (07/06/17 06:15) Pantoprazole Inj (Protonix Inj) (07/06/17 06:15) Sodium Chloride 0.9% Flush (Ns Flush) (07/06/17 06:15) Famotidine Inj (Pepcid Inj) (07/06/17 06:15) Sodium Chlor 0.9% 1000 Ml Inj (Ns 1000 M (07/06/17 06:15) Meclizine (Antivert) (07/06/17 06:45) Ct Brain W/O Iv Contrast(Rout) (07/06/17 06:41) Ct Abd/Pel W Iv Contrast(Rout) (07/06/17 06:41) Ammonia (07/06/17 06:59) Labs Laboratory Tests Test 07/06/17 06:15 07/06/17 07:04 White Blood Count 4.4 TH/MM3 Red Blood Count 3.99 MIL/MM3 Hemoglobin 10.3 GM/DL Hematocrit 32.0 % Mean Corpuscular Volume 80.2 FL Mean Corpuscular Hemoglobin 25.9 PG Mean Corpuscular Hemoglobin Concent 32.2 % Red Cell Distribution Width 19.3 % Platelet Count 58 TH/MM3 Mean Platelet Volume 8.3 FL CBC Comment AUTO DIFF Blood Urea Nitrogen 6 MG/DL Creatinine 0.51 MG/DL Random Glucose 101 MG/DL Total Protein 7.7 GM/DL Albumin 3.1 GM/DL Calcium Level 8.6 MG/DL Alkaline Phosphatase 469 U/L Aspartate Amino Transf (AST/SGOT) 119 U/L Alanine Aminotransferase (ALT/SGPT) 26 U/L Total Bilirubin 6.1 MG/DL Sodium Level 137 MEQ/L Potassium Level 3.0 MEQ/L Chloride Level 103 MEQ/L Carbon Dioxide Level 23.2 MEQ/L Anion Gap 11 MEQ/L Estimat Glomerular Filtration Rate 131 ML/MIN Lipase 108 U/L MDM Medical Decision Making Medical Screen Exam Complete: Yes Emergency Medical Condition: Yes Medical Record Reviewed: Yes Differential Diagnosis Pancreatitis, dehydration, electrolyte disorder, renal insufficiency, gastritis , colitis Narrative Course It is now 711 and the patient is transferred to Dr. Esposito. Jordan Fraire MD Jul 06, 2017 06:06
[2017-07-06] MEDS ORDERED: ONDANSETRON HCL 4 MG/2 ML VIAL IVP ONE (06:15)
[2017-07-06] MEDS ORDERED: HYDROmorphone HCL PF 2 MG/ML VIAL IVS ONE (06:15)
[2017-07-06] MEDS ORDERED: FAMOTIDINE 20 MG/2 ML VIAL IV PUSH ONE (06:15)
[2017-07-06] MEDS ORDERED: SODIUM CHLORIDE 0.9% FLUSH 10 ML FLUSH IV FLUSH PRN (06:15)
[2017-07-06] MEDS ORDERED: PANTOPRAZOLE SODIUM 40 MG VIAL IVP ONE (06:15)
[2017-07-06] MEDS: SODIUM CHLOR 0.9% 1000 ML INJ 1,000 ML IV SCH ×2 (06:26→07:01)
[2017-07-06 06:29] VITALS: PULSE 85; O2SAT 96
[2017-07-06 06:41] LABS: MEAN CELL VOLUME 80.2 FL (80.0-100.0); MEAN CORPUSCULAR HEMOGLOBIN 25.9 PG (27.0-34.0); MEAN CORPUSCULAR HGB CONC 32.2 % (32.0-36.0); PLATELET COUNT 58 TH/MM3 (150-450); RED BLOOD COUNT 3.99 MIL/MM3 (4.00-5.30); RED CELL DISTRIBUTION WIDTH 19.3 % (11.6-17.2); WHITE BLOOD COUNT 4.4 TH/MM3 (4.0-11.0)
[2017-07-06 06:43] LABS: CHLORIDE 103 MEQ/L (98-107); SODIUM (NA) 137 MEQ/L (136-145)
[2017-07-06] MEDS ORDERED: MECLIZINE HCL 25 MG TAB PO ONE (06:45)
[2017-07-06 06:47] LABS: ANION GAP 11 MEQ/L (5-15); BICARBONATE 23.2 MEQ/L (21.0-32.0); BLOOD UREA NITROGEN 6 MG/DL (7-18)
[2017-07-06 06:50] LABS: ALT (GPT) 26 U/L (10-53); AST (GOT) 119 U/L (15-37); GLOMERULAR FILTRATION RATE 131 ML/MIN (>89)
[2017-07-06 06:51] LABS: TOTAL BILIRUBIN ADULT 6.1 MG/DL (0.2-1.0)
[2017-07-06 06:53] LABS: ALKALINE PHOSPHATASE 469 U/L (45-117)
[2017-07-06 06:55] VITALS: BP 124/73; PULSE 89; RESP 18; O2SAT 96
[2017-07-06 06:55] LABS: HEMO FLAGS AUTO DIFF
[2017-07-06 07:13] LABS: BANDS 6 % (0-6); EOSINOPHILS 1 % (0-4); NEUTROPHIL # MANUAL DIFF 3.4 TH/MM3 (1.8-7.7); POLYS (SEG NEUTROPHILS) 71 % (16-70); WBC DIFF SAMPLE 100
[2017-07-06 07:15] LABS: PLATELET ESTIMATE SMEAR LOW (NORMAL); PLATELET MORPHOLOGY NORMAL (NORMAL); ROULEAUX PRESENT (NORMAL); SCAN/DIFF FINAL DIFF MANUAL; TARGET CELLS 1+ (NORMAL)
[2017-07-06] MEDS ORDERED: ONDANSETRON HCL 4 MG/2 ML VIAL IV PUSH ONE (07:45)
--- NOTE | 2017-07-06 07:52 | RADRPT ---
EXAM DATE/TIME: 07/06/2017 07:17 [facility] COMPARISON: CT BRAIN W/O CONTRAST, November 18, 2016, 17:34. INDICATIONS : Dizziness, nausea, vomiting. RADIATION DOSE: 69.00 CTDIvol (mGy) ; Patient positioning MEDICAL HISTORY : Cirrhosis. Gastroesophageal reflux disease. SURGICAL HISTORY : Hysterectomy. ENCOUNTER: Initial ACUITY: 1 day PAIN SCALE: 0/10 LOCATION: cranial TECHNIQUE: Multiple contiguous axial images were obtained of the head. Using automated exposure control and adj ustment of the mA and/or kV according to patient size, radiation dose was kept as low as reasonably a chievable to obtain optimal diagnostic quality images. DICOM format image data is available electro nically for review and comparison. FINDINGS: CEREBRUM: There is mild generalized atrophy. Ventricles are normal. No evidence of midline shift, mass lesion, hemorrhage or acute infarction. No extra-axial fluid collections are seen. POSTERIOR FOSSA: The cerebellum and brainstem are intact. The 4th ventricle is midline. The cerebellopontine angle i s unremarkable. EXTRACRANIAL: Visualized sinuses are clear. SKULL: The calvaria is intact. No evidence of skull fracture. CONCLUSION: Stable noncontrast head CT. No acute intracranial abnormality is identified. Jam Ayala MD on July 06, 2017 at 7:48 Board Certified Radiologist. This report was verified electronically.
--- NOTE | 2017-07-06 07:59 | RADRPT ---
EXAM DATE/TIME: 07/06/2017 07:24 [facility] COMPARISON: No previous studies available for comparison. INDICATIONS : Nausea and vomiting. IV CONTRAST: 80 cc Omnipaque 350 (iohexol) IV ORAL CONTRAST: No oral contrast ingested. RADIATION DOSE: 6.85 CTDIvol (mGy) MEDICAL HISTORY : Cirrhosis. Gastroesophageal reflux disease. SURGICAL HISTORY : Hysterectomy. ENCOUNTER: Initial ACUITY: 1 day PAIN SCALE: 0/10 LOCATION: upper quadrant TECHNIQUE: Volumetric scanning of the abdomen and pelvis was performed. Using automated exposure control and ad justment of the mA and/or kV according to patient size, radiation dose was kept as low as reasonably achievable to obtain optimal diagnostic quality images. DICOM format image data is available electro nically for review and comparison. FINDINGS: LOWER LUNGS: There is atelectasis at the lung bases. LIVER: Liver demonstrates abnormal nodular contour with left lobe hypertrophy and very heterogeneous density . No enhancing liver mass is identified. Gallbladder is distended with stones. No inflammatory change s are present. There is no dilation of the biliary tree. SPLEEN: The spleen is enlarged measuring 14.3 cm in length. PANCREAS: No acute abnormality. KIDNEYS: Normal in size and shape. There is no mass, stone or hydronephrosis. There is a cystic lesion in the right mid kidney with depending calcifications. The cystic lesion measures 3.1 cm. ADRENAL GLANDS: Within normal limits. VASCULAR: There is no aortic aneurysm. There is mild atherosclerotic disease. A large recanalized periumbilical vein is present. There are enlarged collateral/variceal blood vessels around the urinary bladder BOWEL/MESENTERY: The stomach, small bowel, and colon demonstrate no acute abnormality. There is no free intraperitone al air or fluid. The appendix is normal. ABDOMINAL WALL: No acute finding. There are collateral blood vessels secondary to portal hypertension. RETROPERITONEUM: There is no lymphadenopathy. BLADDER: No wall thickening or mass. REPRODUCTIVE: Uterus is within normal limits. There is a right adnexal/ovarian cystic lesion measuring 4.2 cm. It c ontains no visible solid components. INGUINAL: There is no lymphadenopathy or hernia. MUSCULOSKELETAL: There are mild degenerative changes of the spine. CONCLUSION: 1. Cirrhotic liver with very heterogeneous density most likely related to atypical distribution of st eatosis. Suggest correlation running a recent screening examinations. If none have been performed rec ently consider outpatient elective liver MRI for followup. 2. Findings indicative of portal hypertension including splenomegaly and enlarged recanalized periumb ilical vein and collateral blood vessels surrounding the urinary bladder. 3. Non acute findings include cholelithiasis, 3.1 cm right renal cystic lesion containing calcificati on, and 4.2 cm right ovarian cystic lesion. Jam Ayala MD on July 06, 2017 at 7:51 Board Certified Radiologist. This report was verified electronically.
[2017-07-06] MEDS ORDERED: POTASSIUM CHLORIDE 10 MEQ CONTROLLED RELEASE TAB PO ONE (08:15)
[2017-07-06 08:31] LABS: BLOOD, URINE TRACE (NEG); GLUCOSE,URINE NEG (NEG); KETONE, URINE TRACE mg/dL (NEG); NITRITE,URINE NEG (NEG); PH, URINE 7.5 (5.0-8.5)
[2017-07-06 08:41] LABS: BACTERIA, URINE MANY /hpf; CULTURE IF INDICATED CULTURE INDICATED; METHOD OF COLLECTION CLEAN CATCH; RBC, URINE 0-3 /hpf (0-3); URINE COLOR YELLOW (YELLW/STRAW)
[2017-07-06 08:42] LABS: COMMENT (UR) CULTURE INDICATED; SQUAMOUS EPITHELIAL CELL URINE > 8 /hpf (0-5)
[2017-07-06] MEDS ORDERED: NITROFURANTOIN MONOHYD MACROCR 100 MG CAP PO ONE (08:45)
[2017-07-06] MEDS ORDERED: MECL-62 PO (08:50)
[2017-07-06] MEDS ORDERED: MACR100C2 PO (08:50)
[2017-07-06] MEDS ORDERED: ZOFR4TAB3 SL (08:50)
--- NOTE | 2017-07-06 08:50 | PD ---
Physical Exam Date Seen by Provider: Jul 06, 2017 Time Seen by Provider: 07:00 Narrative Patient signed out to me at 7 AM, please see Dr. Fraire's note for further details. Patient was signed out awaiting CAT scan being. Patient apparently has symptoms consistent with vertigo, no focal neurological deficits, nausea and vomiting. She has been given Zofran and meclizine in the ER. However, after she was moved to go to CAT scan, became very nauseous and was vomiting again. She was given a second dose of Zofran. Laboratory Tests Test 07/06/17 06:15 07/06/17 07:04 07/06/17 08:22 Red Blood Count 3.99 MIL/MM3 (4.00-5.30) Hemoglobin 10.3 GM/DL (11.6-15.3) Hematocrit 32.0 % (35.0-46.0) Mean Corpuscular Hemoglobin 25.9 PG (27.0-34.0) Red Cell Distribution Width 19.3 % (11.6-17.2) Platelet Count 58 TH/MM3 (150-450) Neutrophils % (Manual) 71 % (16-70) Platelet Estimate LOW (NORMAL) Basophilic Stippling FAINT (NORMAL) Target Cells 1+ (NORMAL) Rouleau PRESENT (NORMAL) Blood Urea Nitrogen 6 MG/DL (7-18) Albumin 3.1 GM/DL (3.4-5.0) Alkaline Phosphatase 469 U/L (45-117) Aspartate Amino Transf (AST/SGOT) 119 U/L (15-37) Total Bilirubin 6.1 MG/DL (0.2-1.0) Potassium Level 3.0 MEQ/L (3.5-5.1) Ammonia 66 MCMOL/L (11-32) Urine Turbidity MOD (CLEAR) Urine Specific Burton GREATER THAN 1.035 Urine Ketones TRACE mg/dL (NEG) Urine Bilirubin SMALL (NEG) Urine Leukocyte Esterase LARGE (NEG) Urine WBC 25-49 /hpf (0-5) Urine WBC Clumps FEW (NONE) Urine Squamous Epithelial Cells > 8 /hpf (0-5) Urine Bacteria MANY /hpf (NONE) Last [address] 07/06/17 0641 Signed Impressions: Service Date/Time: Thursday, July 06, 2017 07:17 - CONCLUSION: Stable noncontrast head CT. No acute intracranial abnormality is identified. Jam Ayala MD Abdomen/Pelvis CT 07/06/17 0641 Signed Impressions: Service Date/Time: Saturday, July 06, 2017 07:24 - CONCLUSION: 1. Cirrhotic liver with very heterogeneous density most likely related to atypical distribution of steatosis. Suggest correlation running a recent screening examinations. If none have been performed recently consider outpatient elective liver MRI for followup. 2. Findings indicative of portal hypertension including splenomegaly and enlarged recanalized periumbilical vein and collateral blood vessels surrounding the urinary bladder. 3. Non acute findings include cholelithiasis, 3.1 cm right renal cystic lesion containing calcification, and 4.2 cm right ovarian cystic lesion. Jam Ayala MD Chest no focal neurological deficits and symptoms are consistent with vertigo. CAT scan did not reveal any signs of acute intracranial processes. Her CT of the abdomen was done as well due to her history of liver problems and the nausea and vomiting, it did not show any signs of acute processes. At this point, after the second dose of Zofran, her nausea is settling down. UA shows signs of UTI and Macrobid was given in the ER. She had a low potassium of 3.0 which she has had in the past according to her, potassium was given to her in the ER as well. My plan would be to release her with symptomatic relief for vertigo and antibiotic for UTI. Vital signs are stable in the ER. She will need to follow-up with her primary care physician regarding these issues. She should also notify the primary care physician of new CAT scan done so they can evaluate the chronic issues with her including hepatic steatosis and cholelithiasis. The plan was discussed with the patient and she states understanding. Return for any worsening in symptoms, vomiting, fevers, pain, and as needed. Data Data Last Documented VS Vital Signs Date Time Temp Pulse Resp B/P (MAP) Pulse Ox O2 Delivery O2 Flow Rate FiO2 07/06/17 06:55 89 18 124/73 (90) 96 Room Air 07/06/17 05:47 99.0 Orders Orders Complete Blood Count With Diff (07/06/17 06:09) Comprehensive Metabolic Panel (07/06/17 06:09) Lipase (07/06/17 06:09) Urinalysis - C+S If Indicated (07/06/17 06:09) Iv Access Insert/Monitor (07/06/17 06:09) Ecg Monitoring (07/06/17 06:09) Oximetry (07/06/17 06:09) Hydromorphone Pf Inj (Dilaudid Pf Inj) (07/06/17 06:15) Ondansetron Inj (Zofran Inj) (07/06/17 06:15) Pantoprazole Inj (Protonix Inj) (07/06/17 06:15) Sodium Chloride 0.9% Flush (Ns Flush) (07/06/17 06:15) Famotidine Inj (Pepcid Inj) (07/06/17 06:15) Sodium Chlor 0.9% 1000 Ml Inj (Ns 1000 M (07/06/17 06:15) Meclizine (Antivert) (07/06/17 06:45) Ct Brain W/O Iv Contrast(Rout) (07/06/17 06:41) Ct Abd/Pel W Iv Contrast(Rout) (07/06/17 06:41) Ammonia (07/06/17 06:59) Ondansetron Inj (Zofran Inj) (07/06/17 07:45) Iohexol 350 Inj (Omnipaque 350 Inj) (07/06/17 05:34) Potassium Chloride (Kcl) (07/06/17 08:15) Urine Culture (07/06/17 08:22) Nitrofurantoin Monohyd Macrocr (Macrobid (07/06/17 08:45) Labs Laboratory Tests Test 07/06/17 06:15 07/06/17 07:04 07/06/17 08:22 White Blood Count 4.4 TH/MM3 Red Blood Count 3.99 MIL/MM3 Hemoglobin 10.3 GM/DL Hematocrit 32.0 % Mean Corpuscular Volume 80.2 FL Mean Corpuscular Hemoglobin 25.9 PG Mean Corpuscular Hemoglobin Concent 32.2 % Red Cell Distribution Width 19.3 % Platelet Count 58 TH/MM3 Mean Platelet Volume 8.3 FL CBC Comment AUTO DIFF Differential Total Cells Counted 100 Neutrophils % (Manual) 71 % Band Neutrophils % 6 % Lymphocytes % 18 % Monocytes % 4 % Eosinophils % 1 % Neutrophils # (Manual) 3.4 TH/MM3 Differential Comment FINAL DIFF MANUAL Platelet Estimate LOW Platelet Morphology Comment NORMAL Basophilic Stippling FAINT Target Cells 1+ Rouleau PRESENT Blood Urea Nitrogen 6 MG/DL Creatinine 0.51 MG/DL Random Glucose 101 MG/DL Total Protein 7.7 GM/DL Albumin 3.1 GM/DL Calcium Level 8.6 MG/DL Alkaline Phosphatase 469 U/L Aspartate Amino Transf (AST/SGOT) 119 U/L Alanine Aminotransferase (ALT/SGPT) 26 U/L Total Bilirubin 6.1 MG/DL Sodium Level 137 MEQ/L Potassium Level 3.0 MEQ/L Chloride Level 103 MEQ/L Carbon Dioxide Level 23.2 MEQ/L Anion Gap 11 MEQ/L Estimat Glomerular Filtration Rate 131 ML/MIN Lipase 108 U/L Ammonia 66 MCMOL/L Urine Collection Type CLEAN CATCH Urine Color YELLOW Urine Turbidity MOD Urine pH 7.5 Urine Specific Burton GREATER THAN 1.035 Urine Protein NEG mg/dL Urine Glucose (UA) NEG mg/dL Urine Ketones TRACE mg/dL Urine Occult Blood TRACE Urine Nitrite NEG Urine Bilirubin SMALL Urine Leukocyte Esterase LARGE Urine RBC 0-3 /hpf Urine WBC 25-49 /hpf Urine WBC Clumps FEW Urine Squamous Epithelial Cells > 8 /hpf Urine Amorphous Sediment FEW Urine Bacteria MANY /hpf Microscopic Urinalysis Comment CULTURE INDICATED Urine Collection Time [address] [facility] Medical Record Reviewed: Yes Supervised Visit with NICOLE: No Diagnosis Primary Impression: UTI (urinary tract infection) Additional Impressions: Vertigo Alcoholic cirrhosis of liver Med/Other Pt SpecificInfo: Prescription(s) given Scripts Nitrofurantoin Monohydrate Macrocrystals (Macrobid) 100 Mg Cap 100 MG PO BID for Infection, #14 CAP 0 Refills Prov: Javier Gillette MD 07/06/17 Ondansetron Odt (Zofran Odt) 4 Mg Tab 4 MG SL Q6HR Y for Nausea/Vomiting, #7 TAB 0 Refills Prov: Javier Gillette MD 07/06/17 Meclizine (Meclizine) 25 Mg Tab 25 MG PO TID Y for VERTIGO, #20 TAB 0 Refills Prov: Javier Gillette MD 07/06/17 Disposition: 01 DISCHARGE HOME Condition: Stable Javier Gillette MD Jul 06, 2017 08:50
[2017-07-06] MEDS ORDERED: PROMETHAZINE INJ 25 MG/ML VIAL IM ONE (09:15)
== END 2017-07-06 09:17 | disposition home or self-care (01) ==
LOC: PHED 05:33
DX: N39.0 Urinary tract infection, site not specified (principal); B96.1 Klebsiella pneumoniae [K. pneumoniae] as the cause of diseases classified elsewhere; K70.30 Alcoholic cirrhosis of liver without ascites; K80.20 Calculus of gallbladder without cholecystitis without obstruction; E86.0 Dehydration; F10.10 Alcohol abuse, uncomplicated; F17.200 Nicotine dependence, unspecified, uncomplicated
CPT/HCPCS: 70450; 74177; 80053; 81001; 82140; 83690; 85007; 85027; 87077; 87086; 87186; 96361; 96372; 96374; 96375; 96376; 99285; C9113; J1170; J2405; J2550; J7030; Q9967

== ENCOUNTER 2017-07-10 11:24 | Inpatient (IN) | payer BC ==
[2017-07-10] VITALS (10 sets, daily range): BP systolic 99–124; BP diastolic 61–78; PULSE 74–102; RESP 15–20; TEMP 97.8–100.5; O2SAT 95–100
[~2017-07-10] VITALS: Ht 170.2 cm; Wt 66.8 kg
[~2017-07-10 11:24] MED LIST changes: +MECL-62 PO; +ZOFR4TAB3 SL
[2017-07-10] MEDS ORDERED: PIPERACIL-TAZO 3.375 GM PREMIX 50 ML IV ONE (11:45)
[2017-07-10] MEDS ORDERED: ACETAMINOPHEN 325 MG TAB PO ONE (11:45)
--- NOTE | 2017-07-10 11:54 | PD ---
HPI Chief Complaint: Complaint Time Seen by Provider: 11:41 Travel History International Travel<30 days: No Contact w/Intl Traveler<30days: No Traveled to known affect area: No History of Present Illness HPI 46-year-old female who returns to emergency room for IV antibiotics for treatment of UTI with greater than 100,000 Klebsiella pneumonia in her urine - UC sensitive only to Zosyn, ertapenem, imipenem, she was recently seen and discharged on July 06 after evaluation for epigastric pain with nausea and vomiting and dizziness and vertigo. She was treated for UTI on Macrobid which is indeterminate at this time. She reports that she has been feeling febrile with a MAXIMUM TEMPERATURE of 100.0. Patient reports that she was told to return to the emergency room for IV antibiotics. PFSH Past Medical History Asthma: No Anxiety: Yes Depression: Yes Heart Rhythm Problems: No Cardiovascular Problems: No High Cholesterol: No Chest Pain: No Congestive Heart Failure: No Cirrhosis: Yes COPD: No Diabetes: No Diminished Hearing: No Endocrine: No Gastrointestinal Disorders: Yes GERD: Yes Glaucoma: No Genitourinary: No Hepatitis: No Hiatal Hernia: No Hypertension: No Immune Disorder: No Implanted Vascular Access Dvce: No Insomnia: Yes Kidney Stones: No Musculoskeletal: No Neurologic: No Psychiatric: Yes Reproductive: No Respiratory: No Immunizations Current: No Radiation Therapy: Yes (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) Renal Failure: No Seizures: Yes (FROM ALCOHOL WITHDRAWAL) Sleep Apnea: No Thyroid Disease: No Ulcer: No ?: Not Menopausal: Yes : 2 Para: 2 Past Surgical History Gynecologic Surgery: Yes (partial hysterectomy) Hysterectomy: Yes (2009) Other Surgery: Yes Social History Alcohol Use: Yes (ETOH ABUSE ) Tobacco Use: Yes (10/17 PPD) Substance Use: No (DENIES) Allergies-Medications (Allergen,Severity, Reaction): Coded Allergies: codeine (Unverified Allergy, Severe, VOMITING, HALLUCINATIONS, 07/10/17) meperidine (Unverified Allergy, Severe, VOMITING, HALLUCINATIONS, 07/10/17) morphine (Unverified Allergy, Severe, VOMITING, HALLUCINATIONS, 07/10/17) Reported Meds & Prescriptions Reported Meds & Active Scripts Active Zofran Odt (Ondansetron Odt) 4 Mg Tab 4 Mg SL Q6HR PRN Meclizine (Meclizine HCl) 25 Mg Tab 25 Mg PO TID PRN Protonix (Pantoprazole Sodium) 40 Mg Tab 40 Mg PO DAILY Reported Trazodone (Trazodone HCl) 300 Mg Tab 300 Mg PO HS Gabapentin 600 Mg Tab 600 Mg PO TID Klonopin (Clonazepam) 0.5 Mg Tab 0.5 Mg PO BID Ativan (Lorazepam) 0.5 Mg Tab 0.5 Mg PO Q8H PRN Review of Systems General / Constitutional: Positive: Fever Eyes: No: Visual changes HENT: No: Headaches Cardiovascular: No: Chest Pain or Discomfort Respiratory: No: Shortness of Breath Gastrointestinal: No: Abdominal Pain Genitourinary: No: Dysuria Musculoskeletal: No: Pain Skin: No Rash Neurologic: No: Weakness Psychiatric: No: Depression Endocrine: No: Polydipsia Hematologic/Lymphatic: No: Easy Bruising Physical Exam Narrative GENERAL: mild distress SKIN: Focused skin assessment warm/dry. HEAD: Atraumatic. Normocephalic. EYES: Pupils equal and round. No scleral icterus. No injection or drainage. ENT: No nasal bleeding or discharge. Mucous membranes pink and moist. NECK: Trachea midline. No JVD. CARDIOVASCULAR: Tachycardia. No murmur appreciated. RESPIRATORY: No accessory muscle use. Clear to auscultation. Breath sounds equal bilaterally. GASTROINTESTINAL: Abdomen soft, non-tender, nondistended. Hepatic and splenic margins not palpable. MUSCULOSKELETAL: No obvious deformities. No clubbing. No cyanosis. No edema. NEUROLOGICAL: Awake and alert. No obvious cranial nerve deficits. Motor grossly within normal limits. Normal speech. PSYCHIATRIC: Appropriate mood and affect; insight and judgment normal. Data Data Last Documented VS Vital Signs Date Time Temp Pulse Resp B/P (MAP) Pulse Ox O2 Delivery O2 Flow Rate FiO2 07/10/17 13:42 86 16 107/72 (84) 96 Room Air 07/10/17 12:56 99.7 Orders Orders Complete Blood Count With Diff (07/10/17 11:41) Comprehensive Metabolic Panel (07/10/17 11:41) Lactic Acid Sepsis Protocol (07/10/17 11:41) Urinalysis - C+S If Indicated (07/10/17 11:41) Blood Culture (07/10/17 11:41) Ecg Monitoring (07/10/17 11:41) Iv Access Insert/Monitor (07/10/17 11:41) Oximetry (07/10/17 11:41) Acetaminophen (Tylenol) (07/10/17 11:45) Piperacil-Tazo 3.375 Gm Premix (Zosyn 3. (07/10/17 11:45) Sodium Chlor 0.9% 1000 Ml Inj (Ns 1000 M (07/10/17 12:00) Urine Culture (07/10/17 12:05) Potassium Chloride (Kcl) (07/10/17 12:30) Sodium Chlor 0.9% 1000 Ml Inj (Ns 1000 M (07/10/17 13:15) Lorazepam Inj (Ativan Inj) (07/10/17 13:30) Piperacil-Tazo 4.5 Gm Premix (Zosyn 4.5 (07/10/17 14:15) Consult Infectious Disease (07/10/17 ) Admit To Inpatient (07/10/17 ) Vital Signs (Adult) Q4H (07/10/17 14:01) Activity Oob Ad Ca (07/10/17 14:01) Intake + Output JUSTIN.QSHIFT (07/10/17 14:01) Diet Heart Healthy (07/10/17 Dinner) Sodium Chlor 0.9% 1000 Ml Inj (Ns 1000 M (07/10/17 14:01) Sodium Chloride 0.9% Flush (Ns Flush) (07/10/17 14:15) Sodium Chloride 0.9% Flush (Ns Flush) (07/10/17 21:00) Acetaminophen (Tylenol) (07/10/17 14:15) Ondansetron Inj (Zofran Inj) (07/10/17 14:15) Basic Metabolic Panel (Bmp) (07/11/17 06:00) Complete Blood Count With Diff (07/11/17 06:00) Resp Oxygen Kishor C Titrat 1-4 L (07/10/17 ) Pt Request For Service (07/10/17 14:01) Case Management Consult (07/10/17 14:01) Naloxone Inj (Narcan Inj) (07/10/17 14:15) Docusate Sodium-Senna (Yenni-Colace) (07/10/17 21:00) Magnesium Hydroxide Liq (Milk Of Magnesi (07/10/17 14:15) Sennosides (Senokot) (07/10/17 14:15) Bisacodyl Supp (Dulcolax Supp) (07/10/17 14:15) Lactulose Liq (Lactulose Liq) (07/10/17 14:15) Inpatient Certification (07/10/17 ) Labs Laboratory Tests Test 07/10/17 11:50 07/10/17 12:05 White Blood Count 3.5 TH/MM3 Red Blood Count 3.94 MIL/MM3 Hemoglobin 10.0 GM/DL Hematocrit 31.6 % Mean Corpuscular Volume 80.4 FL Mean Corpuscular Hemoglobin 25.4 PG Mean Corpuscular Hemoglobin Concent 31.6 % Red Cell Distribution Width 20.1 % Platelet Count 73 TH/MM3 Mean Platelet Volume 9.5 FL CBC Comment AUTO DIFF Differential Total Cells Counted 100 Neutrophils % (Manual) 80 % Band Neutrophils % 1 % Lymphocytes % 13 % Monocytes % 6 % Neutrophils # (Manual) 2.8 TH/MM3 Differential Comment FINAL DIFF MANUAL Platelet Estimate LOW Platelet Morphology Comment NORMAL Target Cells 2+ Blood Urea Nitrogen 2 MG/DL Creatinine 0.55 MG/DL Random Glucose 128 MG/DL Total Protein 7.4 GM/DL Albumin 2.9 GM/DL Calcium Level 7.9 MG/DL Alkaline Phosphatase 473 U/L Aspartate Amino Transf (AST/SGOT) 131 U/L Alanine Aminotransferase (ALT/SGPT) 28 U/L Total Bilirubin 3.8 MG/DL Sodium Level 138 MEQ/L Potassium Level 3.1 MEQ/L Chloride Level 102 MEQ/L Carbon Dioxide Level 26.2 MEQ/L Anion Gap 10 MEQ/L Estimat Glomerular Filtration Rate 120 ML/MIN Lactic Acid Level 2.3 mmol/L Urine Collection Type CLEAN CATCH Urine Color YELLOW Urine Turbidity MOD Urine pH 7.0 Urine Specific [place] 1.013 Urine Protein NEG mg/dL Urine Glucose (UA) NEG mg/dL Urine Ketones NEG mg/dL Urine Occult Blood TRACE Urine Nitrite POS Urine Bilirubin MOD Urine Leukocyte Esterase MOD Urine RBC 4-9 /hpf Urine WBC 25-49 /hpf Urine Squamous Epithelial Cells > 8 /hpf Urine Bacteria MANY /hpf Microscopic Urinalysis Comment CULTURE INDICATED Urine Collection Time 12:05 [facility] Medical Decision Making Medical Screen Exam Complete: Yes Emergency Medical Condition: Yes Medical Record Reviewed: Yes Interpretation(s) Vital Signs Date Time Temp Pulse Resp B/P (MAP) Pulse Ox O2 Delivery O2 Flow Rate FiO2 07/10/17 11:28 100.5 102 15 118/74 (89) 95 Differential Diagnosis Differential includes UTI, pyelonephritis, sepsis Narrative Course 46-year-old female who returns to emergency room for IV antibiotics for treatment of UTI with greater than 100,000 Klebsiella pneumonia in her urine - UC sensitive only to Zosyn, ertapenem, imipenem, she was recently seen and discharged on July 06 for epigastric pain with nausea and vomiting and dizziness and vertigo. She was treated for UTI on Macrobid which is indeterminate at this time. She reports that she has been feeling febrile with a MAXIMUM TEMPERATURE of 100.0. CT from July 06, 2017 showed: CONCLUSION: 1. Cirrhotic liver with very heterogeneous density most likely related to atypical distribution of steatosis. Suggest correlation running a recent screening examinations. If none have been performed recently consider outpatient elective liver MRI for followup. 2. Findings indicative of portal hypertension including splenomegaly and enlarged recanalized periumbilical vein and collateral blood vessels surrounding the urinary bladder. 3. Non acute findings include cholelithiasis, 3.1 cm right renal cystic lesion containing calcification, and 4.2 cm right ovarian cystic lesion. Patient currently with a temperature 100.5, heart rate 102 - patient with SIRS criteria, lab work including lactic acid ordered. Zosyn ordered for treatment of Klebsiella pneumonia and UTI CBC & BMP Diagram 07/10/17 11:50 Total Protein 7.4, Albumin 2.9 L, Calcium Level 7.9 L, Aspartate Amino Transf ( AST/SGOT) 131 H, Alanine Aminotransferase (ALT/SGPT) 28, Total Bilirubin 3.8 H lactic acid 2.3 UA positive for 25-49 white blood cells, many bacteria, positive nitrites, moderate leuk esterase Patient agreeable to admission to hospital Patient is an alcoholic, reports that she last had a drink 1.5 days ago - she is anxious and requesting ativan. patient may possibly require CIWA protocol during admission Case reviewed with Dr. Kat who accepts pt to service Diagnosis Primary Impression: Sepsis Qualified Codes: A41.9 - Sepsis, unspecified organism Additional Impressions: UTI (urinary tract infection) Qualified Codes: N30.01 - Acute cystitis with hematuria Hypokalemia Admitting Information Admitting Physician Requests: Admit Love Stoner DO Jul 10, 2017 11:54
[2017-07-10] MEDS ORDERED: SODIUM CHLOR 0.9% 1000 ML INJ 1,000 ML IV ONE ×2 (12:00→13:15)
[2017-07-10 12:11] LABS: HEMATOCRIT 31.6 % (35.0-46.0); HEMO FLAGS AUTO DIFF; MEAN CELL VOLUME 80.4 FL (80.0-100.0); MEAN CORPUSCULAR HEMOGLOBIN 25.4 PG (27.0-34.0); MEAN CORPUSCULAR HGB CONC 31.6 % (32.0-36.0); PLATELET COUNT 73 TH/MM3 (150-450); RED BLOOD COUNT 3.94 MIL/MM3 (4.00-5.30); RED CELL DISTRIBUTION WIDTH 20.1 % (11.6-17.2); WHITE BLOOD COUNT 3.5 TH/MM3 (4.0-11.0)
[2017-07-10 12:14] LABS: CHLORIDE 102 MEQ/L (98-107); POTASSIUM 3.1 MEQ/L (3.5-5.1); SODIUM (NA) 138 MEQ/L (136-145)
[2017-07-10 12:16] LABS: GLUCOSE,URINE NEG (NEG); KETONE, URINE NEG (NEG); NITRITE,URINE POS (NEG)
[2017-07-10 12:17] LABS: ANION GAP 10 MEQ/L (5-15); BICARBONATE 26.2 MEQ/L (21.0-32.0)
[2017-07-10 12:18] LABS: BLOOD UREA NITROGEN 2 MG/DL (7-18)
[2017-07-10 12:19] LABS: BLOOD, URINE TRACE (NEG)
[2017-07-10 12:20] LABS: METHOD OF COLLECTION CLEAN CATCH; URINE COLOR YELLOW (YELLW/STRAW)
[2017-07-10 12:20] LABS: ALT (GPT) 28 U/L (10-53)
[2017-07-10 12:21] LABS: AST (GOT) 131 U/L (15-37); GLOMERULAR FILTRATION RATE 120 ML/MIN (>89)
[2017-07-10 12:21] LABS: BACTERIA, URINE MANY /hpf; COMMENT (UR) CULTURE INDICATED; CULTURE IF INDICATED CULTURE INDICATED; SQUAMOUS EPITHELIAL CELL URINE > 8 /hpf (0-5)
[2017-07-10 12:22] LABS: TOTAL BILIRUBIN ADULT 3.8 MG/DL (0.2-1.0)
[2017-07-10 12:28] LABS: ALKALINE PHOSPHATASE 473 U/L (45-117)
[2017-07-10] MEDS ORDERED: POTASSIUM CHLORIDE 10 MEQ CONTROLLED RELEASE TAB PO ONE (12:30)
[2017-07-10 12:44] LABS: BANDS 1 % (0-6); NEUTROPHIL # MANUAL DIFF 2.8 TH/MM3 (1.8-7.7); POLYS (SEG NEUTROPHILS) 80 % (16-70); TARGET CELLS 2+ (NORMAL); WBC DIFF SAMPLE 100
[2017-07-10 12:45] LABS: PLATELET ESTIMATE SMEAR LOW (NORMAL); PLATELET MORPHOLOGY NORMAL (NORMAL); SCAN/DIFF FINAL DIFF MANUAL
[2017-07-10] MEDS ORDERED: CLON.5 PO (13:16)
[2017-07-10] MEDS ORDERED: LORA-392 PO (13:16)
[2017-07-10] MEDS ORDERED: TRAZ300T2 PO (13:17)
[2017-07-10] MEDS ORDERED: GABA600T PO (13:17)
[2017-07-10] MEDS ORDERED: LORazepam 2 MG/ML VIAL IV PUSH ONE (13:30)
[2017-07-10 14:02] LABS: LACTIC ACID GHOST NOT REPORTABLE
[2017-07-10] MEDS ORDERED: MECLIZINE HCL 25 MG TAB PO PRN (14:15)
[2017-07-10] MEDS ORDERED: MAGNESIUM HYDROXIDE SUSP 30 ML CUP PO PRN (14:15)
[2017-07-10] MEDS ORDERED: LACTULOSE SYRUP 20 GM/30 ML CUP PO PRN (14:15)
[2017-07-10] MEDS ORDERED: SENNOSIDES 8.6 MG TAB PO PRN (14:15)
[2017-07-10] MEDS ORDERED: SODIUM CHLORIDE 0.9% FLUSH 10 ML FLUSH IV FLUSH PRN (14:15)
[2017-07-10] MEDS ORDERED: BISACODYL 10 MG SUPP RECTAL PRN (14:15)
[2017-07-10] MEDS ORDERED: NALOXONE HCL 0.4 MG/ML AMP IV PUSH PRN (14:15)
[2017-07-10] MEDS: SODIUM CHLOR 0.9% 1000 ML INJ 1,000 ML IV SCH ×2 (14:34→23:18)
[2017-07-10] MEDS ORDERED: ACETAMINOPHEN 325 MG TAB PO PRN (15:00)
[2017-07-10] MEDS ORDERED: ONDANSETRON HCL 4 MG/2 ML VIAL IVP PRN (15:00)
--- NOTE | 2017-07-10 17:38 | HHI.HP ---
HPI Service [facility] Primary Care Physician Non-Staff Admission Diagnosis Sepsis, UTI Diagnoses: (1) UTI (urinary tract infection) Diagnosis: Principal Chief Complaint: Patient called by the hospital to come in for treatment Travel History International Travel<30 Days: No Contact w/Intl Traveler <30 Da: No Traveled to Known Affected Are: No History of Present Illness Written by Satya Fraire, acting as scribe for Dr. Kat on 07/10/17 at 17: 30. 46-year-old female with known history of alcohol abuse, anxiety, depression, seizure from alcohol withdrawal, gastroesophageal reflux who presented to the hospital because she was called to come in by the ER because of a abnormal urine culture. Patient states that 2 days ago she was experiencing some dizziness and vertigo so she came to the ER and was treated for urinary tract infection with Macrobid. Culture came back showing Klebsiella pneumonia ESBL positive. Hospital contacted the patient to have her return for further treatment. Patient states that she has been asymptomatic since leaving the hospital. She has not had any dizziness, vertigo, denies any fever, chills, nausea, vomiting, abdominal pain, palpitations, chest pain. The culture does indicate intermediate sensitivity to nitrofurantoin, susceptibility to Zosyn, imipenem. Patient was recommended by ER physician to be admitted the hospital with Zosyn for antibiotic coverage. Review of Systems Except as stated in HPI: all other systems reviewed are Neg Past Family Social History Past Medical History Alcohol abuse History of cirrhosis Portal hypertension History of esophageal varices Anxiety Depression Gastroesophageal reflux history of seizures from alcohol withdrawal Past Surgical History Right foot surgery Partial hysterectomy Reported Medications Reported Meds & Active Scripts Active Zofran Odt (Ondansetron Odt) 4 Mg Tab 4 Mg SL Q6HR PRN Meclizine (Meclizine HCl) 25 Mg Tab 25 Mg PO TID PRN Protonix (Pantoprazole Sodium) 40 Mg Tab 40 Mg PO DAILY Reported Trazodone (Trazodone HCl) 300 Mg Tab 300 Mg PO HS Gabapentin 600 Mg Tab 600 Mg PO TID Klonopin (Clonazepam) 0.5 Mg Tab 0.5 Mg PO BID Ativan (Lorazepam) 0.5 Mg Tab 0.5 Mg PO Q8H PRN Allergies: Coded Allergies: codeine (Unverified Allergy, Severe, VOMITING, HALLUCINATIONS, 07/10/17) meperidine (Unverified Allergy, Severe, VOMITING, HALLUCINATIONS, 07/10/17) morphine (Unverified Allergy, Severe, VOMITING, HALLUCINATIONS, 07/10/17) Family History Reviewed and unremarkable for any heart disease, lung disease, diabetes, seizure , stroke Social History Patient does continue to drink at least 4 glasses of wine daily for over 20 years. She does have history of alcohol abuse with seizures from withdrawal. She does smoke one half pack a cigarettes a day. Denies any illicit drugs Physical Exam Vital Signs Vital Signs Date Time Temp Pulse Resp B/P (MAP) Pulse Ox O2 Delivery O2 Flow Rate FiO2 07/10/17 16:16 82 16 99/78 (85) 99 07/10/17 14:47 97.8 87 17 124/71 (88) 96 Room Air 07/10/17 13:42 86 16 107/72 (84) 96 Room Air 07/10/17 12:56 99.7 95 16 115/68 (84) 100 Room Air 07/10/17 12:55 100 Room Air 07/10/17 11:28 100.5 102 15 118/74 (89) 95 Physical Exam GENERAL: Well-developed, well-nourished, in no acute distress. alert and orientated HEENT: Head is normocephalic without any lesions or masses noted. Facial features are symmetric. Eyes: Pupils equal round reactive to light. Extraocular muscles are intact. Conjunctivae were clear. Oropharyngeal: Pharynx without any erythema edema. Tongue is midline without deviation. Buccal mucosa is moist without any masses or lesions NECK: Supple without any masses. Trachea midline no deviation. No JVD, no bruits are appreciated CARDIAC: Regular rhythm, regular rate. S1/S2 are heard. No murmurs gallops or rubs. LUNGS: Clear to auscultation bilaterally. No wheeze, rhonchi or rales. No use of accessory muscles on inspiration or expiration. ABDOMEN: Soft, nontender. Nondistended. Bowel sounds heard in all 4 quadrants. No organomegaly or masses. Negative rebound, negative guarding EXTREMITIES: No edema, pulses are equal bilaterally. No cyanosis or clubbing NEUROLOGY: Mood and affect appear appropriate. Cranial nerves II through XII grossly intact. Muscle strength 5/5 in upper and lower extremities bilaterally. Deep tendon reflexes are 2+ in upper and lower extremities bilaterally. Laboratory Laboratory Tests Test 07/10/17 11:50 07/10/17 12:05 07/10/17 14:20 White Blood Count 3.5 Red Blood Count 3.94 Hemoglobin 10.0 Hematocrit 31.6 Mean Corpuscular Volume 80.4 Mean Corpuscular Hemoglobin 25.4 Mean Corpuscular Hemoglobin Concent 31.6 Red Cell Distribution Width 20.1 Platelet Count 73 Mean Platelet Volume 9.5 CBC Comment AUTO DIFF Differential Total Cells Counted 100 Neutrophils % (Manual) 80 Band Neutrophils % 1 Lymphocytes % 13 Monocytes % 6 Neutrophils # (Manual) 2.8 Differential Comment FINAL DIFF MANUAL Platelet Estimate LOW Platelet Morphology Comment NORMAL Target Cells 2+ Blood Urea Nitrogen 2 Creatinine 0.55 Random Glucose 128 Total Protein 7.4 Albumin 2.9 Calcium Level 7.9 Alkaline Phosphatase 473 Aspartate Amino Transf (AST/SGOT) 131 Alanine Aminotransferase (ALT/SGPT) 28 Total Bilirubin 3.8 Sodium Level 138 Potassium Level 3.1 Chloride Level 102 Carbon Dioxide Level 26.2 Anion Gap 10 Estimat Glomerular Filtration Rate 120 Lactic Acid Level 2.3 1.9 Urine Collection Type CLEAN CATCH Urine Color YELLOW Urine Turbidity MOD Urine pH 7.0 Urine Specific [place] 1.013 Urine Protein NEG Urine Glucose (UA) NEG Urine Ketones NEG Urine Occult Blood TRACE Urine Nitrite POS Urine Bilirubin MOD Urine Leukocyte Esterase MOD Urine RBC 4-9 Urine WBC 25-49 Urine Squamous Epithelial Cells > 8 Urine Bacteria MANY Microscopic Urinalysis Comment CULTURE INDICATED Urine Collection Time 12:05 Date/Time Source Procedure Growth Status 07/10/17 11:50 Blood Peripheral Aerobic Blood Culture Pending Received 07/10/17 11:50 Blood Peripheral Anaerobic Blood Culture Pending Received 07/10/17 12:05 Urine Clean Catch Urine Culture Pending Received Result Diagram: 07/10/17 1150 07/10/17 1150 Caprini VTE Risk Assessment Caprini VTE Risk Assessment: No/Low Risk (score <= 1) Caprini Risk Assessment Model Point Value = 1 Point Value = 2 Point Value = 3 Point Value = 5 Age 41-60 Minor surgery BMI > 25 kg/m2 Swollen legs Varicose veins or History of unexplained or recurrent spontaneous Oral contraceptives or hormone replacement Sepsis (< 1 month) Serious lung disease, including pneumonia (< 1 month) Abnormal pulmonary function Acute myocardial infarction Congestive heart failure (< 1 month) History of inflammatory bowel disease Medical patient at bed rest Age 61-74 Arthroscopic surgery Major open surgery (> 45 min) Laparoscopic surgery (> 45 min) Malignancy Confined to bed (> 72 hours) Immobilizing plaster cast Central venous access Age >= 75 History of VTE Family history of VTE Factor V Leiden Prothrombin [id number] Lupus anticoagulant Anticardiolipin antibodies Elevated serum homocysteine Heparin-induced thrombocytopenia Other congenital or acquired thrombophilia Stroke (< 1 month) Elective arthroplasty Hip, pelvis, or leg fracture Acute spinal cord injury (< 1 month) Prophylaxis Regimen Total Risk Factor Score Risk Level Prophylaxis Regimen 0-1 Low Early ambulation 2 Moderate Order ONE of the following: *Sequential Compression Device (SCD) *Heparin 5000 units SQ BID 3-4 Higher Order ONE of the following medications: *Heparin 5000 units SQ TID *Enoxaparin/Lovenox 40 mg SQ daily (WT < 150 kg, CrCl > 30 mL/min) *Enoxaparin/Lovenox 30 mg SQ daily (WT < 150 kg, CrCl > 10-29 mL/min) *Enoxaparin/Lovenox 30 mg SQ BID (WT < 150 kg, CrCl > 30 mL/min) AND/OR *Sequential Compression Device (SCD) 5 or more Highest Order ONE of the following medications: *Heparin 5000 units SQ TID (Preferred with Epidurals) *Enoxaparin/Lovenox 40 mg SQ daily (WT < 150 kg, CrCl > 30 mL/min) *Enoxaparin/Lovenox 30 mg SQ daily (WT < 150 kg, CrCl > 10-29 mL/min) *Enoxaparin/Lovenox 30 mg SQ BID (WT < 150 kg, CrCl > 30 mL/min) AND *Sequential Compression Device (SCD) Assessment and Plan Assessment and Plan 46-year-old female who was called by the hospital return for treatment Klebsiella pneumonia ESBL positive urinary tract infection Patient is asymptomatic at this time. No fever, chills, leukocytosis, tachycardia Repeat urinalysis appears to have changes, signs of contamination. Previous urine indicated negative nitrate, however positive now. Will need to continue monitor repeat culture to confirm patient has same infection Alcohol abuse with history of withdrawals Monitor for withdrawals CIWA protocol DVT prevention Sequential compression devices This note was transcribed by CURT Guidry . I, Dr. Claudine Kat personally performed the history, physical exam, and medical decision making; and confirmed the accuracy of the information in the transcribed note. Authenticated by Dr. Claudine Kat on 07/10/17 at 17:30. Physician Certification 2 Midnight Certification Type: Admission for Inpatient Services Order for Inpatient Services The services are ordered in accordance with Medicare regulations or non- Medicare payer requirements, as applicable. In the case of services not specified as inpatient-only, they are appropriately provided as inpatient services in accordance with the 2-midnight benchmark. Estimated LOS (days): 2 days is the estimated time the patient will need to remain in the hospital, assuming treatment plan goals are met and no additional complications. Post-Hospital Plan: Not yet determined Problem Qualifiers (1) UTI (urinary tract infection): Qualified Codes: N30.01 - Acute cystitis with hematuria Satya Fraire Jul 10, 2017 17:38 Claudine Kat MD Jul 10, 2017 19:18
[2017-07-10] MEDS: GABAPENTIN 300 MG CAP PO SCH (17:53)
[2017-07-10] MEDS: PIPERACIL-TAZO 4.5 GM PREMIX 100 ML IV SCH ×2 (17:53→23:18)
[2017-07-10] MEDS: clonazePAM 0.5 MG TAB PO SCH (20:42)
[2017-07-10] MEDS: SODIUM CHLORIDE 0.9% FLUSH 10 ML FLUSH IV FLUSH SCH (20:43)
[2017-07-10] MEDS: DOCUSATE SODIUM 50 MG/SENNA 8.6 MG TAB PO SCH (20:43)
[2017-07-10] MEDS ORDERED: traZODone HCL 100 MG TAB PO SCH (21:00)
[2017-07-11] VITALS: BP 96/57; PULSE 75; RESP 20; TEMP 98.6; O2SAT 90
[2017-07-11 04:00] VITALS: BP 101/63; PULSE 68; RESP 20; TEMP 97.8; O2SAT 92
[2017-07-11] MEDS: PIPERACIL-TAZO 4.5 GM PREMIX 100 ML IV SCH ×2 (05:43→12:11)
[2017-07-11 08:00] VITALS: BP 107/74; PULSE 77; RESP 18; TEMP 98.9; O2SAT 95
--- NOTE | 2017-07-11 08:36 | HHI.PR ---
Subjective Remarks In bed, says she feels a little tires. No n/v/d/c. No fever or chills overnight. No cp, sob. Objective Vitals Vital Signs Date Time Temp Pulse Resp B/P (MAP) Pulse Ox O2 Delivery O2 Flow Rate FiO2 07/11/17 04:00 97.8 68 20 101/63 (76) 92 07/11/17 00:00 98.6 75 20 96/57 (70) 90 07/10/17 20:05 99 21 07/10/17 20:00 98.6 75 20 101/61 (74) 97 07/10/17 17:36 99 21 07/10/17 16:16 82 16 99/78 (85) 99 07/10/17 16:00 98.8 74 18 120/74 (89) 98 07/10/17 14:47 97.8 87 17 124/71 (88) 96 Room Air 07/10/17 13:42 86 16 107/72 (84) 96 Room Air 07/10/17 12:56 99.7 95 16 115/68 (84) 100 Room Air 07/10/17 12:55 100 Room Air 07/10/17 11:28 100.5 102 15 118/74 (89) 95 I/O 07/10/17 07/10/17 07/10/17 07/11/17 07/11/17 07/11/17 07:00 15:00 23:00 07:00 15:00 23:00 Intake Total 2050 ml 696 ml 320 ml Balance 2050 ml 696 ml 320 ml Intake Oral 120 ml 120 ml IV Total 2050 ml 576 ml 200 ml # Voids 2 2 # Bowel Movements 0 0 Result Diagram: 07/10/17 1150 07/10/17 1150 Objective Remarks GENERAL: Well-developed, well-nourished, in no acute distress. alert and orientated CARDIAC: Regular rhythm, regular rate. S1/S2 are heard. No murmurs gallops or rubs. LUNGS: Clear to auscultation bilaterally. No wheeze, rhonchi or rales. No use of accessory muscles on inspiration or expiration. ABDOMEN: Soft, nontender. Nondistended. Bowel sounds heard in all 4 quadrants. No organomegaly or masses. Negative rebound, negative guarding EXTREMITIES: No edema, pulses are equal bilaterally. No cyanosis or clubbing NEUROLOGY: Mood and affect appear appropriate. Cranial nerves II through XII grossly intact. Muscle strength 5/5 in upper and lower extremities bilaterally. Deep tendon reflexes are 2+ in upper and lower extremities bilaterally. A/P Problem List: (1) UTI (urinary tract infection) ICD Code: N39.0 - Urinary tract infection, site not specified Status: Acute Assessment and Plan 46-year-old female who was called by the hospital return for treatment Klebsiella pneumonia ESBL positive urinary tract infection, started on zosyn Discussed with Dr Grijalva ID . DC zosyn, started imipenem. Patient is asymptomatic at this time. No fever, chills, leukocytosis, tachycardia Repeat urinalysis appears to have changes, signs of contamination. Previous urine indicated negative nitrate, however positive now. Will need to continue monitor repeat culture to confirm patient has same infection Alcohol abuse with history of withdrawals Monitor for withdrawals CIWA protocol DVT prevention Sequential compression devices Discussed with patient, nurse, Dr Jama Problem Qualifiers (1) UTI (urinary tract infection): Qualified Codes: N30.01 - Acute cystitis with hematuria Claudine Kat MD Jul 11, 2017 08:36
[2017-07-11] MEDS: DOCUSATE SODIUM 50 MG/SENNA 8.6 MG TAB PO SCH (09:00)
[2017-07-11] MEDS: SODIUM CHLORIDE 0.9% FLUSH 10 ML FLUSH IV FLUSH SCH (09:00)
[2017-07-11] MEDS ORDERED: PANTOPRAZOLE SOD 40 MG DELAYED RELEASE TAB PO SCH (09:00)
[2017-07-11] MEDS: clonazePAM 0.5 MG TAB PO SCH (09:03)
[2017-07-11] MEDS: GABAPENTIN 300 MG CAP PO SCH ×2 (09:04→12:11)
[2017-07-11 10:33] LABS: POTASSIUM 3.4 MEQ/L (3.5-5.1)
[2017-07-11 10:44] LABS: HEMATOCRIT 26.2 % (35.0-46.0); MEAN CELL VOLUME 82.4 FL (80.0-100.0); MEAN CORPUSCULAR HEMOGLOBIN 26.1 PG (27.0-34.0); MEAN CORPUSCULAR HGB CONC 31.6 % (32.0-36.0); RED BLOOD COUNT 3.18 MIL/MM3 (4.00-5.30); RED CELL DISTRIBUTION WIDTH 20.2 % (11.6-17.2); WHITE BLOOD COUNT 2.5 TH/MM3 (4.0-11.0)
[2017-07-11 10:49] LABS: HEMO FLAGS AUTO DIFF; PLATELET COUNT 53 TH/MM3 (150-450)
[2017-07-11 11:06] LABS: BANDS 13 % (0-6); EOSINOPHILS 3 % (0-4); NEUTROPHIL # MANUAL DIFF 1.5 TH/MM3 (1.8-7.7); POLYS (SEG NEUTROPHILS) 47 % (16-70); WBC DIFF SAMPLE 100
[2017-07-11 11:07] LABS: ROULEAUX PRESENT (NORMAL); TARGET CELLS 1+ (NORMAL)
[2017-07-11 11:08] LABS: PLATELET ESTIMATE SMEAR LOW (NORMAL); PLATELET MORPHOLOGY NORMAL (NORMAL); SCAN/DIFF FINAL DIFF MANUAL
[2017-07-11 12:00] VITALS: BP 102/75; PULSE 76; RESP 18; TEMP 98.4; O2SAT 96
[2017-07-11] MEDS: SODIUM CHLOR 0.9% 1000 ML INJ 1,000 ML IV SCH (12:11)
[2017-07-11] MEDS ORDERED: MISCELLANEOUS PHARMACY INFORMATION XX PRN ×2 (13:15)
[2017-07-11] MEDS ORDERED: ASP: Path resistant to other antimicrobials, culture proven PRN (13:15)
--- NOTE | 2017-07-11 14:38 | MB ---
cc: SALAS AMBRIZ MD DATE OF CONSULTATION: 07/11/[address] Kat. REASON FOR CONSULTATION Sepsis, UTI, ESBL. HISTORY OF PRESENT ILLNESS This is a 46-year-old white female who was seen in the emergency department on July 06. The patient presented with pain radiating to the back. She was having pain in the epigastric area along with vomiting. She was taking Macrobid at the time when she was seen. The platelet count was 58,000 and the white count was 4.4 at that time. The patient was felt to likely have pancreatitis and was dehydrated. Culture of the urine was taken in the interim before she was discharged on the same day and the culture came back showing Klebsiella pneumoniae ESBL. The patient was called back about the culture and she was seen in the emergency department yesterday. She had low grade fever. After culture ESBL E-coli was noted she was admitted to the hospital and she was put on IV Zosyn. The repeat urine culture was taken. The patient's white blood cell count was 3.5 yesterday and she had a temperature of 100.5 degrees and heart rate of 102. The patient is denying chills to me. Her affect is flat. She tells me that she wants to go home. The patient admits to drinking five glasses of wine a day. She denies chills, nausea or vomiting or back pain or dysuria. Her white count is lower today. It is 2.5. Platelet count is 53. Blood cultures from 07/10 has no growth. Urine culture has gram-negative rods. Urinalysis revealed 25-49 white cells yesterday and also many bacteria. PAST MEDICAL HISTORY 1. Cirrhosis. 2. Alcohol abuse. 3. Portal hypertension. 4. Esophageal varices. 5. Depression. 6. Anxiety. 7. Gastroesophageal reflux disease. 8. Seizures secondary to alcohol withdrawal. 9. Right foot surgery. 10. Hysterectomy. ALLERGIES MORPHINE, MEPERIDINE, CODEINE. MEDICATIONS 1. Piperacillin/tazobactam. 2. Desryl. 3. Klonopin. 4. Yenni-Colace. 5. Protonix. 6. Lactulose. 7. Senokot. 8. Neurontin. SOCIAL HISTORY The patient smokes approximately 10 cigarettes per day, per her report. She has positive alcohol use. Denies drug use. FAMILY HISTORY Noncontributory. REVIEW OF SYSTEMS Pertinent as mentioned above in history of present illness. PHYSICAL EXAMINATION GENERAL: This is a slender well-developed female who is in no acute distress. She is awake and alert and oriented. VITAL SIGNS: Includes temperature of 98.4, BP 102/75, respirations 18. HEENT: Head is atraumatic. Extraocular movements grossly intact, pupils reactive to light. No icterus. Oropharynx no visible lesions. NECK: Supple without adenopathy. LUNGS: Clear, decreased breath sounds. HEART: Regular, S1 and S2 without audible murmurs, rubs or gallops. ABDOMEN: Bowel sounds present, soft, no tenderness appreciated. No flank tenderness. RECTAL: Not performed. EXTREMITIES: No clubbing or cyanosis or edema. SKIN: There are petechial lesions on the anterior chest and few scattered petechiae lesions at the hands. Otherwise no diffuse rash. NEURO: No gross focal findings. PSYCHIATRIC: The patient is calm. Affect is flat. LABORATORY DATA WBC 2.5, platelets 53, hemoglobin 8.3, 13% bands, 47% neutrophils, 12% monocytes, creatinine 0.54, BUN 2, sodium 142, AST 131, ALT 28, alk phos 473. IMPRESSION 1. Sepsis secondary to urinary tract infection. 2. UTI due to ESBL Klebsiella. 3. Leukopenia. 4. Thrombocytopenia. 5. Patient with cirrhosis of the liver. RECOMMENDATIONS 1. Discontinue piperacillin/tazobactam. 2. Begin ertapenem. 3. Follow the urine culture closely. 4. Monitor blood culture. 5. Monitor temperature and clinical response. The patient's white blood cell count depression and also the platelet count decrease may be related to her alcohol use. However, it could also be related to sepsis. The patient expresses to me her desire to leave the hospital today. I talked to her extensively about the need to keep her in the hospital and treat her with appropriate antibiotics and monitor the new cultures, since she is at high risk for complications from this urine infection that appears to be ongoing. I have ordered new antibiotic ertapenem. The patient will be followed by Dr. Talbot beginning tomorrow for infectious disease. Thank you for this consultation. Salas Ambriz MD FD/LINDA /1:08 PM /2:03 PM
[2017-07-11] MEDS ORDERED: ERTAPENEM INJ 1,000 MG in SODIUM CHLORIDE 0.9% INJ 100 ML IV SCH (15:00)
[2017-07-11 16:00] VITALS: BP 113/72; PULSE 92; RESP 20; TEMP 97; O2SAT 95
--- NOTE | 2017-07-14 11:18 | PQ ---
Physician Query Response Document PATIENT: SITA SERRANO : 1970 ADMIT DATE: 07/10/2017 2:03 PM DISCH DATE: 07/11/2017 4:53 PM RESPONDING PROVIDER #: [email or web address] QUERY TEXT: Sepsis Query Based on your medical judgement, can you further clarify the folowiin. Sepsis (SIRS due to an infection) 2. Sepsis with Organ Dysfunction 3. A localized Infection only 4. Another condition - please specify 5. Unable to determine - please explain. Depending on your selection above, please indicate one of the below if applicable: - Sepsis was present on Admission - Sepsis developed after admission The patient's Clinical Indicators include: ER recently adm 07/06/17 called by the hospital return for treatment T 100 .5 HR 102 RR 15 BP 118/74 LACTIC ACID 2.3 ON ASSESSMENT ER Query created by: Angela Curtis on 07/11/2017 2:02 PM RESPONSE TEXT: Sepsis due to infection UTI ESBL Electronically signed by: Claudine Kat MD 07/14/2017 11:14 AM
== END 2017-07-11 16:53 | disposition left against medical advice (07) | DRG 872 ==
LOC: PHED 11:24 → PHEDA 14:03 → PH3A 16:14
PROVIDERS: ADMIT Hospitalist; ATTEND Hospitalist
DX: A41.9 Sepsis, unspecified organism (principal); K76.6 Portal hypertension; D69.6 Thrombocytopenia, unspecified; N30.01 Acute cystitis with hematuria; K70.30 Alcoholic cirrhosis of liver without ascites; E87.6 Hypokalemia; B96.1 Klebsiella pneumoniae [K. pneumoniae] as the cause of diseases classified elsewhere; F17.210 Nicotine dependence, cigarettes, uncomplicated; F41.9 Anxiety disorder, unspecified; F32.9 Major depressive disorder, single episode, unspecified; K21.9 Gastro-esophageal reflux disease without esophagitis; Z16.12 Extended spectrum beta lactamase (ESBL) resistance; G47.00 Insomnia, unspecified; F10.10 Alcohol abuse, uncomplicated
CPT/HCPCS: 80048; 80053; 81001; 83605; 85007; 85027; 87040; 87077; 87086; 87186; 96361; 96365; 96375; J1335; J2060; J2543; J7030